=== PATIENT | male | born 1945 | race Caucasian/White ===

== ENCOUNTER → 2016-11-07 | Outpatient (CLI) | payer MEDICARE, BC ==
--- NOTE | 2016-11-07 15:43 | XR ---
EXAM TYPE: LUMBAR SPINE X RAY SERIES COMPARISON: NONE HISTORY: Back pain FINDINGS: Scoliotic curvature diffuse osteopenia noted and there is multilevel degenerative disc disease. Sever e changes at L1-L2. Spina bifida occulta lumbosacral junction. Right-sided central sacroiliitis or ar thritic changes noted. Calcification right upper quadrant is nonspecific. Grade 1 anterolisthesis L4 on L5. Multilevel facet arthropathy. Grade 1 retrolisthesis of L1 relative to L2. IMPRESSION: 1. Diffuse osteopenia with scoliotic curvature and multilevel degenerative disc disease with facet ar thropathy. Grade 1 anterolisthesis L4 on L5.
== END | disposition home or self-care (01) ==
LOC: RADXRMAIN 15:17
PROVIDERS: ATTEND Family Medicine
DX: M43.16 Spondylolisthesis, lumbar region (principal); M51.36 Other intervertebral disc degeneration, lumbar region; M46.96 Unspecified inflammatory spondylopathy, lumbar region; M85.88 Other specified disorders of bone density and structure, other site; M41.86 Other forms of scoliosis, lumbar region
CPT/HCPCS: 72100

== ENCOUNTER → 2016-12-31 | Outpatient (CLI) | payer MEDICARE, BC ==
--- NOTE | 2016-12-31 15:28 | XR ---
EXAMINATION TYPE: XR bone survey complete DATE OF EXAM: 12/31/2016 2:48 PM COMPARISON: NONE HISTORY: Annual Braum survey, history of myeloma x14 years TECHNIQUE: Multiple images were obtained with axial and appendicular skeleton discussed below. FINDINGS: AP pelvis: Sacroiliac joints are normal. There is attempted sacralization of L5 on the right. Some ly tic area through the subcapital region of the left hip may be present. There is advanced degenerative changes left hip. Bilateral femurs: No suspicious lytic or sclerotic area is evident. Lumbar spine: There 5 lumbar-type vertebral bodies. Pedicles are intact. Scoliosis is present. Spina bifida occulta of L5 may be present. There is attempted sacralization of L5 on the right. Vacuum disc phenomenon is present L1-L2 Thoracic spine: There are 12 thoracic type vertebral bodies. Pedicles are intact. Degenerative disc c hanges within the mid thoracic spine. Cervical spine: Alignment is normal. In AP dimension. There is some kyphosis centered at C5 on the la teral view. Degenerative disc changes present C5-6 C6-7 Some degenerative disc changes within the low er cervical spine. Skull: No suspicious lytic or sclerotic lesions are evident. Sella appears unremarkable. Chest x-ray: There is an infiltrate at the right lower lobe. This appears improved from prior study w ere present previously. Humeri: No suspicious lytic or sclerotic areas evident. IMPRESSION: 1. Some subtle lytic area may be present at the left subcapital hip. This is somewhat difficult to v isualize but may been present previously. This could be some overlying artifact. Dedicated imaging of the left hip may be useful for better evaluation. 2. Persistent right lower lobe patchy area of pneumonitis. 3. Remainder of the axial and appendicular skeleton as visualized appear without evidence of suspicio us lytic lesions.
== END | disposition home or self-care (01) ==
LOC: RADXRMAIN 13:53
PROVIDERS: ATTEND Internal Medicine Hematology & Oncology
DX: C90.00 Multiple myeloma not having achieved remission (principal); J61 Pneumoconiosis due to asbestos and other mineral fibers; E78.5 Hyperlipidemia, unspecified
CPT/HCPCS: 77075

== ENCOUNTER → 2017-12-31 | Outpatient (CLI) | payer MEDICARE, BC ==
--- NOTE | 2017-12-31 11:16 | MR ---
EXAMINATION TYPE: MR lumbar spine wo/w con DATE OF EXAM: 12/31/2017 COMPARISON: Lumbar spine x-ray September 27, 2017 and PET/CT August 13, 2014 HISTORY: Low back pain, hx of multiple myeloma per order. Back pain for 5 months into left leg per pa tient. TECHNIQUE: Multiplanar, multisequence images of the lumbar spine is performed without and with IV contrast, util izing 7.5 mL intravenous Gadavist FINDINGS: There is dextroconvex scoliotic curvature centered in the upper lumbar spine are redemonstr ated. Sagittal images of the lumbar spine show vertebral body heights to appear satisfactory. There i s slight grade 1 retrolisthesis of L1 on L2. There is multilevel disc desiccation and fairly mild to moderate multilevel disc space narrowing. There is advanced disc space narrowing L1-L2 level with mod erate anterior spurring and posterior disc herniation effacing anterior thecal sac. Additional multil evel posterior disc herniations are seen on sagittal images with relative sparing of L2-L3 level. The conus medullaris is somewhat high in position ending at superior T12 level. No abnormal signal is pr esent. No suspicious clumping of lumbosacral nerve roots is seen. The bone marrow signal intensity s hows overall heterogeneity. No suspicious focal or enhancing lesions are identified. Axial images beginning at T12-L1 level which shows mild broad based posterior disc protrusion mildly effacing anterior thecal sac on axial image 32, bilateral neural foramina are patent. Axial images at the L1-L2 level show moderate broad disc bulge and mild facet arthropathy with some p osterior spurring. There is some effacement of the anterior thecal sac. There is more prominent left foraminal component causing moderate left-sided neural foraminal narrowing. Right-sided neural forame n is patent. Axial images at the L2-L3 level show mild facet degenerative changes and ligamentum flavum hypertroph y. There is mild to moderate broad disc bulge effacing anterior thecal sac. There is moderate left an d mild right-sided neural foraminal narrowing at this level identified. Axial images at L3-L4 level shows moderate broad disc bulge and mild facet degenerative changes bilat erally. There is effacement of the anterior thecal sac. There is moderate to severe right and mild le ft-sided neural foraminal narrowing at this level identified. Axial images at L4-L5 level show mild to moderate facet degenerative changes bilaterally. There is br oad-based posterior disc protrusion mildly effacing anterior thecal sac. There is mild to moderate ri ght and mild left-sided neural foraminal narrowing at this level identified. Axial images at L5-S1 level show moderate facet degenerative changes bilaterally. There is central di sc protrusion mildly effacing anterior thecal sac. Bilateral neural foramina are patent at this level . There is heterogeneous increased T1 and T2 signal in visualized sacrum felt to reflect fatty replacem ent. There is 1.6 cm simple appearing cyst upper pole level right kidney axial image 34. There are ad ditional simple central parapelvic cysts in the right kidney. There is 2.4 cm simple appearing cyst p osteriorly left kidney axial image 26. IMPRESSION: Scoliotic curvature and multilevel degenerative changes in lumbar spine as detailed above . No significant focal finding is seen to account for patient's left-sided radiculopathy type symptom s however.
== END | disposition home or self-care (01) ==
LOC: RADMRIMAIN 07:07
PROVIDERS: ATTEND Internal Medicine Hematology & Oncology
DX: M48.061 Spinal stenosis, lumbar region without neurogenic claudication (principal); M99.73 Connective tissue and disc stenosis of intervertebral foramina of lumbar region; M51.27 Other intervertebral disc displacement, lumbosacral region; M43.07 Spondylolysis, lumbosacral region; M46.86 Other specified inflammatory spondylopathies, lumbar region; M41.86 Other forms of scoliosis, lumbar region; C90.00 Multiple myeloma not having achieved remission
CPT/HCPCS: 82565; 72158; 36415; A9581

== ENCOUNTER 2018-03-25 05:35 | Day surgery (SDC) | payer MEDICARE, BC ==
[2018-03-24 08:32] VITALS: BMI 25.0
[~2018-03-25 05:35] MED LIST: LACTATED RINGERS 1,000 ML IV SCH; Pre Op ABX Message 1 EACH MISC MISCELLANE ONE
[2018-03-25 06:18] VITALS: TEMP 98.9
[2018-03-25] MEDS ORDERED: PROPOFOL 10 MG/ML 20 ML VIAL IV ONE (06:58)
[2018-03-25 07:37] VITALS: RESP 18
[2018-03-25 07:59] VITALS: BP 144/80; PULSE 68
[2018-03-25 08:13] LABS: Basophils % (A) 1 %; Eosinophils # (A) 0.4 k/uL (0-0.7); Eosinophils % (A) 5 %; HCT 47.5 % (39.0-53.0); HGB 15.9 gm/dL (13.0-17.5); Lymphocytes # (A) 1.4 k/uL (1.0-4.8); Lymphocytes % (A) 20 %; MCHC 33.4 g/dL (31.0-37.0); MCV 95.7 fL (80.0-100.0); Mean Platelet Volume 6.8; Monocytes # (A) 0.6 k/uL (0-1.0); Monocytes % (A) 8 %; Neutrophils # (A) 4.3 k/uL (1.3-7.7); Neutrophils % (A) 64 %; Platelet Count 308 k/uL (150-450); RBC 4.96 m/uL (4.30-5.90); RDW 13.3 % (11.5-15.5); WBC 6.8 k/uL (3.8-10.6)
--- NOTE | 2018-03-25 08:13 | PCN ---
PROCEDURE NOTE DATE OF SERVICE: 03/25/2018 PREOPERATIVE DIAGNOSIS: POSTOPERATIVE DISEASE: Biopsy site right iliac crest. ANESTHESIA: Local with IV systemic sedation. DETAIL: Utilizing a sterile technique, the skin overlying the right iliac crest was prepared with Betadine and alcohol. After adequate sterile draping, systemic sedation and local anesthesia with 1% lidocaine, size 11.4 inch Jamshidi needle was utilized to access the periosteum with ease. A total of 16 mL of aspirate as well as 1 cm bone core biopsies were obtained. The patient tolerated the procedure well. There was no immediate procedure-related complications. TOTAL BLOOD LOSS: Less than 1 mL. RESULTS: Pending. MMODL / IJN: [id number] /
== END 2018-03-25 08:10 | disposition home or self-care (01) ==
LOC: OR 05:35
PROVIDERS: ATTEND Internal Medicine Hematology & Oncology
DX: C90.00 Multiple myeloma not having achieved remission (principal); M54.5 Low back pain; G89.29 Other chronic pain; J61 Pneumoconiosis due to asbestos and other mineral fibers; E78.5 Hyperlipidemia, unspecified; M25.60 Stiffness of unspecified joint, not elsewhere classified; F41.9 Anxiety disorder, unspecified; Z79.899 Other long term (current) drug therapy; Z79.1 Long term (current) use of non-steroidal anti-inflammatories (NSAID); Z88.8 Allergy status to other drugs, medicaments and biological substances; Z87.891 Personal history of nicotine dependence
CPT/HCPCS: 38222; 85025; J2704

== ENCOUNTER → 2018-03-28 | Outpatient (CLI) | payer MEDICARE, BC ==
--- NOTE | 2018-03-29 08:46 | PE ---
EXAMINATION TYPE: PET CT fusion skull to thigh DATE OF EXAM: 03/28/2018 COMPARISON: Prior PET/CT August 13, 2014. Bone survey March 02, 2017. HISTORY: Multiple myeloma with bone marrow biopsy March 25, 2018 right hip TECHNIQUE: Following the intravenous administration of 10.18 mCi of F-18 FDG, whole body images are performed from the top of the skull to the bottom of the feet. Images are reviewed on the computer i n the coronal, axial, and sagittal planes. Reconstructed rotating images are created on independent workstation and reviewed on the computer. A noncontrast CT is performed in conjunction with the PET scan. SCAN: Subsequent Scan FINDINGS: HEAD AND NECK: No suspicious hypermetabolic uptake is present CHEST, MEDIASTINUM, AND HILAR REGION: There is pleural calcification superior posterior right lower l obe with calcified triangular shaped mass. No suspicious hypermetabolic uptake is present at this lev el. There is 1.0 x 0.9 cm posterior right basilar nodule without abnormal hypermetabolic uptake on ax ial image 158. Both findings not significantly changed from prior PET/CT. ABDOMEN AND PELVIS: Normal excretion and collecting systems and bladder is present. No suspicious hyp ermetabolic uptake is seen. OSSEOUS STRUCTURES: No suspicious hypermetabolic uptake. EXTREMITIES: There is increase uptake involving right anterior leg muscle could reflect inflammatory change just lateral to the proximal to mid tibia. Correlate clinically. No suspicious mass or osseous hypermetabolic uptake is seen. OTHER CT: Mild calcified plaque bilateral carotid bulb level is present. There is three-vessel coronary artery calcification is seen which is noted marker for coronary artery disease. There is mild/moderate calcified plaque in aorta extending into branch vessels. Some ectasia is prese nt. No greater than 3 cm aneurysmal change is seen. Some scattered pelvic phleboliths are present. There is marked disc space narrowing with sclerosis at the L1-L2 disc space. There is multilevel spur ring in the spine. There is facet arthropathy mid to lower lumbar levels. IMPRESSION: No suspicious hypermetabolic uptake identified to suggest active osseous myeloma or soft tissue plasmacytoma.
== END | disposition home or self-care (01) ==
LOC: RADPETMAIN 15:26
PROVIDERS: ATTEND Internal Medicine Hematology & Oncology
DX: C90.00 Multiple myeloma not having achieved remission (principal)
CPT/HCPCS: 78815; A9552

== ENCOUNTER → 2018-06-19 | Outpatient (CLI) | payer MEDICARE, BC ==
[2018-06-19 11:25] LABS: HCT 48.7 % (39.0-53.0); HGB 14.8 gm/dL (13.0-17.5); MCH 30.2 pg (25.0-35.0); MCHC 30.4 g/dL (31.0-37.0); MCV 99.3 fL (80.0-100.0); Mean Platelet Volume 6.4; Platelet Count 291 k/uL (150-450); RBC 4.91 m/uL (4.30-5.90); RDW 13.1 % (11.5-15.5); WBC 5.8 k/uL (3.8-10.6)
[2018-06-19 12:05] LABS: Partial Thromboplastin Time 23.3 sec (22.0-30.0); Prothrombin Time 10.2 sec (9.0-12.0)
[2018-06-19 12:11] LABS: ALT 46 U/L (21-72); AST 34 U/L (17-59); Albumin 4.2 g/dL (3.5-5.0); Alkaline Phosphatase 86 U/L (38-126); Anion Gap 10 mmol/L; Blood Urea Nitrogen 29 mg/dL (9-20); Calcium 9.2 mg/dL (8.4-10.2); Carbon Dioxide 24 mmol/L (22-30); Chloride 105 mmol/L (98-107); Glucose 85 mg/dL (74-99); Potassium 5.3 mmol/L (3.5-5.1); Sodium 139 mmol/L (137-145); Total Bilirubin 0.5 mg/dL (0.2-1.3); Total Protein 6.9 g/dL (6.3-8.2)
[2018-06-19 12:17] LABS: Appearance,Urine Clear (Clear); Bilirubin,Urine Negative (Negative); Blood,Urine Negative (Negative); Color,Urine Yellow; Glucose,Urine (UA) Negative (Negative); Ketones,Urine Negative (Negative); Leukocyte Esterase,Urine Negative (Negative); Mucus,Urine Few /hpf; Nitrite,Urine Negative (Negative); PH, Urine 5.5 (5.0-8.0); Protein,Urine 1+ (Negative); RBC,Urine 1 /hpf (0-5); Specific Gravity,Urine 1.027 (1.001-1.035); Squamous Epithelial Cell,Urine <1 /hpf (0-4); Urobilinogen,Urine <2.0 mg/dL (<2.0); WBC,Urine 2 /hpf (0-5)
== END | disposition home or self-care (01) ==
LOC: LABPAT 10:28
PROVIDERS: ATTEND Orthopaedic Surgery
DX: Z01.812 Encounter for preprocedural laboratory examination (principal)
CPT/HCPCS: 36415; 80053; 81001; 85027; 85610; 85730; 87070

== ENCOUNTER 2018-06-30 07:31 | Inpatient (IN) | payer MEDICARE, BC ==
[2018-06-22 10:20] VITALS: BMI 25.0
[~2018-06-30 07:31] MED LIST changes: +ACETAMINOPHEN TAB 500 MG TAB PO ONE; +DEXAMETHASONE SOD PHOSPHATE 10 MG/ML 1 ML VIAL IV ONE; -LACTATED RINGERS 1,000 ML IV SCH; +LIDOCAINE 1% 20 ML VIAL (10MG/ML) FOR IV START INTRADERMA PRN; +MELOXICAM 7.5 MG TAB PO ONE; +MIDAZOLAM 2 MG/2 ML VIAL IV PRN; +ONDANSETRON 4 MG/2 ML VIAL IVP ONE; -Pre Op ABX Message 1 EACH MISC MISCELLANE ONE; +ROPIVACAINE 246.25 MG, EPINEPHrine 0.5 MG, KETOROLAC 30 MG, cloNIDine HCL/PF 80 MCG, WA... MISCELLANE ONE; +TRANEXAMIC ACID 1,000 MG in SODIUM CHLORIDE 0.9% 50 ML IVPB ONE; +ceFAZolin IN SWFI 2 GM/20 ML SYRINGE IVP ONE; +fentaNYL (PF) 50 MCG/ML 2 ML AMP IV PRN
[2018-06-30] MEDS: LACTATED RINGERS 1,000 ML IV SCH (08:15)
[2018-06-30] MEDS ORDERED: MAGNESIUM HYDROXIDE 2,400 MG/10 ML CUP PO PRN (09:26)
[2018-06-30] MEDS ORDERED: DIAZEPAM 5 MG TAB PO PRN ×2 (09:26)
[2018-06-30] MEDS ORDERED: HYDROcodone/APAP 5-325MG 1 EACH TAB PO PRN (09:26)
[2018-06-30] MEDS ORDERED: hydrOXYzine PAMOATE 25 MG CAP PO PRN (09:26)
[2018-06-30] MEDS ORDERED: NALOXONE 0.4 MG/ML 1 ML VIAL IV PRN (09:26)
[2018-06-30] MEDS ORDERED: ONDANSETRON 4 MG/2 ML VIAL IVP PRN (09:26)
[2018-06-30] MEDS ORDERED: HYDROmorphone 1 MG/ML 1 ML SYRINGE IVP PRN ×3 (09:26)
[2018-06-30] MEDS ORDERED: HEPARIN SODIUM,PORCINE 10,000 UNIT/ML 1 ML VIAL ONE (09:51)
[2018-06-30] MEDS ORDERED: SODIUM CHLORIDE 0.9% 100 ML BAG ONE (09:51)
[2018-06-30] MEDS ORDERED: MIDAZOLAM 2 MG/2 ML VIAL ONE (09:51)
[2018-06-30] MEDS ORDERED: diphenhydrAMINE 50 MG/ML 1 ML VIAL ONE (09:51)
[2018-06-30] MEDS ORDERED: fentaNYL (PF) 50 MCG/ML 2 ML AMP ONE (09:51)
[2018-06-30] MEDS ORDERED: TRANEXAMIC ACID 1,000 MG/10 ML VIAL ONE (09:51)
[2018-06-30] MEDS ORDERED: SODIUM CHLORIDE 0.9% IRRIG 1,000 ML BTL IRRIGATION ONE (09:51)
[2018-06-30] MEDS ORDERED: ceFAZolin 3,000 MG in SODIUM CHLORIDE 0.9% IRRIGATIO 3,000 ML IRRIGATION ONE (09:51)
--- NOTE | 2018-06-30 11:09 | P.OP ---
Date of Procedure: 06/30/18 Preoperative Diagnosis: Severe osteoarthritis left hip Postoperative Diagnosis: Severe osteoarthritis left hip Procedure(s) Performed: Left total hip arthroplasty with a direct anterior approach Implants: Chan and nephew Polarstem size 6 standard Chan & Nephew R3, 3 hole acetabular shell, 56 mm Chan [employer] Nephew reflection 6.5 mm cancellus screw, 20 mm 2 Chan [employer] Nephew R3, XLPE 20 acetabular liner Chan & Nephew Oxinium femoral head 36 m, +4 All components were press-fit. The articulation is Oxinium on polyethylene. Anesthesia: spinal Surgeon: Leonard Buckley Information Technology Specialist #1: Melina Rashid Estimated Blood Loss (ml): 150 (63 mL returned with Cell Saver) Pathology: other (Femoral head) Condition: stable Disposition: PACU Indications for Procedure: After failure of conservative treatment we discussed the surgical and nonsurgical treatment options at length. Patient wishes to proceed with a total hip arthroplasty with a direct anterior approach. Complications specific to this procedure were discussed at length, including but not limited to infection, leg length discrepancy, dislocation, and nerve injury. Patient is aware of all these complications and informed consent was obtained Operative Findings: The operative findings are consistent with severe osteoarthritis of the left hip Description of Procedure: Patient was seen and evaluated in the preoperative area, consent was reviewed, and the surgical site was marked with a skin marker. Patient was then brought to the operating room and given prophylactic antibiotics intravenously. 1 g of Tranexamic acid was also given. A spinal anesthetic was administered by the anesthesia department. The patient was then placed on the [place] table with the bony prominences well-padded. The hip area was then prepped and draped in usual sterile fashion. A universal timeout was then performed, which confirmed the patient's name, surgical site, ALLERGIES, and procedure being performed. Next the incision site was located at 1 cm distal and 1 cm lateral to the anterior superior iliac spine. The skin and subcutaneous tissues were sharply incised. Incision was carefully dissected down to the fascia overlying the tensor fascia zahra muscle. This fascia was then incised in line with the incision. Next, using blunt finger dissection, the tensor fascia zahra muscle was dissected off its investing fascia. The muscle was then carefully retracted laterally with a cobra retractor over the lateral neck of the femur. Next, the circumflex vessels were identified and cauterized using the AquaMantis device. The anterior hip capsule was then exposed. The capsule was then opened and an inverted T fashion. Cobra retractors were then placed intracapsularly. The proximal femur was then visualized. The femoral neck was then osteotomized appropriate level above the lesser trochanter. Small amount of traction was placed with the [place] table. A small wedge of bone was then removed from the remaining femoral head. Next, using a corkscrew femoral head was easily removed from the acetabulum. On gross visual inspection, the femoral head had complete loss of articular cartilage in multiple periarticular osteophytes. Attention was then turned to the acetabulum. the acetabulum was exposed and any remaining labrum was excised. Sequential reaming of the acetabulum was performed using fluoroscopic guidance. When the appropriate size was reached, a trial was then placed. The position and fit of the trial was checked with fluoroscopy. The trial was then removed. Then, using fluoroscopic guidance, the final implant was impacted at 20 of anteversion and 40 of abduction, and fully seated in the acetabulum. 2 screws were then placed in the acetabulum. Again fluoroscopy was used to check position of the screws. Next, the liner was then impacted, with a 20 elevated liner located in the anterior superior quadrant. Component locking was confirmed. Attention was then directed to the femur. With the aid of the [place] table, the femur was externally rotated to approximately 130, extended, and abducted under the opposite leg. A side hook was then placed under the proximal femur, and the side hook elevator was used to elevate the proximal femur. Retractors were then placed. A capsular release was performed, as well as a release of the conjoined tendon, which afforded excellent visualization of the proximal femur. Next, a box osteotome was used to lateralize the proximal femur. A hand crocheter was then used to locate the femoral canal. Sequential broaching was then performed with appropriate size which afforded excellent fixation in the proximal femur. A trial was then placed with appropriate head and neck, and the hip was gently reduced with the aid of the [place] table. Fluoroscopy was then used to check position of the components, as well as to ensure equal leg lengths. The hip was then gently dislocated and the trials were then removed. Final implants were then impacted and the hip was again reduced. Final fluoroscopic x-rays confirmed that the components were in anatomic position, as well as equal leg lengths. The hip was also taken through range of motion, and found to be stable. The hip was then copiously irrigated with antibiotic solution with pulsatile lavage. The hip was then irrigated with Irrisept solution. The soft tissues were then injected with a ropivacaine solution, which consisted of 246.25 mg of ropivacaine, 0.5 mg of epinephrine, 30 mg of Toradol, 80 g of clonidine, and 48.45 mL of sterile water, for a total of 100 mL of fluid injected. A second dose of 1 g of Tranexamic acid was also given. the fascia was then closed with 2-0 strata fix suture. The subcutaneous tissue was closed with 3-0 Vicryl. The subcuticular tissue was closed with 3-0 strata fix suture. The skin was then closed with Dermabond glue and a sterile silver dressing. The patient was then transferred to the recovery room in stable condition. The medical laboratory assistant RIO [place] was required due to the complexity of surgery, and the need for skilled administrative sales assistant for positioning, draping, exposure, retraction, and closure of the wound.
[2018-06-30] MEDS ORDERED: LACTATED RINGERS 1,000 ML IV ONE (11:18)
--- NOTE | 2018-06-30 11:46 | FL ---
EXAMINATION TYPE: FL guidance operating room DATE OF EXAM: 06/30/2018 HISTORY: Flouroscopy time 1 minute and 4 seconds of fluoroscopy provided. IMPRESSION: 1. Fluoroscopy time.
--- NOTE | 2018-06-30 11:53 | XR ---
Left hip x-ray 1 view Exam date 06/30/2018 FINDINGS: Postsurgical change appears in near-anatomic alignment. Small amount soft tissue emphysema noted. IMPRESSION: Postoperative change
[2018-06-30] MEDS: SODIUM CHLORIDE 0.9% 1,000 ML IV SCH ×2 (16:18→20:32)
[2018-06-30] MEDS: ceFAZolin IN SWFI 2 GM/20 ML SYRINGE IVP SCH ×2 (16:47→23:55)
[2018-06-30] MEDS: GABAPENTIN 300 MG CAP PO SCH (20:23)
[2018-06-30] MEDS: ASPIRIN 325 MG TAB PO SCH (20:26)
[2018-06-30] MEDS: CHOLESTYRAMINE (WITH SUGAR) 4 GM PACKET PO SCH (20:27)
[2018-06-30] MEDS ORDERED: SENNOSIDES-DOCUSATE SODIUM 1 EACH TAB PO SCH (21:00)
[2018-07-01 01:07] VITALS: RESP 16
[2018-07-01] MEDS: HYDROcodone/APAP 5-325MG 1 EACH TAB PO PRN ×2 (03:22→09:14)
[2018-07-01] MEDS: LACTATED RINGERS 1,000 ML IV SCH (05:05)
[2018-07-01 07:08] LABS: Basophils % (A) 0 %; Eosinophils % (A) 0 %; HCT 38.1 % (39.0-53.0); HGB 12.3 gm/dL (13.0-17.5); Lymphocytes # (A) 1.4 k/uL (1.0-4.8); Lymphocytes % (A) 15 %; MCH 31.4 pg (25.0-35.0); MCHC 32.2 g/dL (31.0-37.0); MCV 97.5 fL (80.0-100.0); Mean Platelet Volume 6.8; Monocytes # (A) 0.7 k/uL (0-1.0); Monocytes % (A) 8 %; Neutrophils # (A) 7.4 k/uL (1.3-7.7); Neutrophils % (A) 75 %; Platelet Count 268 k/uL (150-450); RBC 3.91 m/uL (4.30-5.90); WBC 9.7 k/uL (3.8-10.6)
[2018-07-01 07:34] VITALS: BP 122/66; PULSE 73; TEMP 98.4
[2018-07-01] MEDS: ASPIRIN 325 MG TAB PO SCH (08:00)
[2018-07-01] MEDS: CHOLESTYRAMINE (WITH SUGAR) 4 GM PACKET PO SCH (08:00)
[2018-07-01] MEDS: GABAPENTIN 300 MG CAP PO SCH (08:00)
--- NOTE | 2018-07-01 08:34 | P.DS ---
Providers Date of admission: 06/30/18 07:31 Expected date of discharge: 07/01/18 Attending physician: Leonard Buckley Consults: 06/30/18 09:26 Consult Physician Routine Consulting Provider: Brant Cherry Reason/Comments: medical management Do you want consulting provider notified?: Yes Primary care physician: Brant Cherry - Discharge Diagnosis(es) (1) Primary osteoarthritis of left hip Current Visit: Yes Status: Acute (2) S/P total hip arthroplasty Current Visit: Yes Status: Acute Hospital Course: This is a 72-year-old male with known history of degenerative arthritis of the left hip. The patient presents for evaluation. After discussion and consideration patient elects to proceed with total hip arthroplasty. The patient is seen preoperatively by Dr. Buckley and medically cleared for surgery by their primary care physician. Patient is admitted to [facility] on 06/30/2018 for total hip arthroplasty. The procedures performed without complication or sequelae. The patient is doing well postoperatively. Labs and vital signs are stable on day of discharge. On day of discharge patient's hip incision is healing well. There is minimal erythema. There is no drainage noted at this time. There is minimal soft tissue swelling to the hip and thigh. Patient has full foot and ankle motion without difficulty or pain. Neurovascular status to the left lower extremity is intact. Patient is discharged home in good condition. Please see med rec for accurate list of home medications. Plan - Discharge Summary Discharge Rx Participant: No New Discharge Prescriptions: New Aspirin 325 mg PO BID #60 tab HYDROcodone/APAP 5-325MG [[place] 5-325] 1 - 2 tab PO Q4-6H PRN #84 tab PRN Reason: Pain Sennosides [Senokot] 1 tab PO BID #60 tablet No Action Gabapentin [Neurontin] 300 mg PO BID Ibuprofen [Motrin] 800 mg PO BID Ezetimibe [Zetia] 10 mg PO DAILY Citalopram Hydrobromide [Citalopram HBr] 20 mg PO DAILY Cholestyramine (with Sugar) [Cholestyramine Packet] 4 gm PO BID Discharge Medication List Citalopram Hydrobromide [Citalopram HBr] 20 mg PO DAILY 03/24/18 [History] Ezetimibe [Zetia] 10 mg PO DAILY 03/24/18 [History] Gabapentin [Neurontin] 300 mg PO BID 03/24/18 [History] Ibuprofen [Motrin] 800 mg PO BID 03/24/18 [History] Cholestyramine (with Sugar) [Cholestyramine Packet] 4 gm PO BID 06/22/18 [ History] Aspirin 325 mg PO BID #60 tab 07/01/18 [Rx] HYDROcodone/APAP 5-325MG [[place] 5-325] 1 - 2 tab PO Q4-6H PRN #84 tab 07/01/18 [ Rx] Sennosides [Senokot] 1 tab PO BID #60 tablet 07/01/18 [Rx] Follow up Appointment(s)/Referral(s): Leonard Buckley DO [Doctor of Osteopathic Medicine] - 2 Weeks Activity/Diet/Wound Care/Special Instructions: Weightbearing as tolerated with walker Leave dressing intact. Dressing may be removed by home care nurse in 10 days. May shower with dressing on. Follow-up with [facility] in 2 weeks, please call with any questions or concerns [phone] Discharge Disposition: HOME WITH HOME HEALTH SERVICES
[2018-07-01] MEDS ORDERED: EZETIMIBE 10 MG TAB PO SCH (09:00)
[2018-07-01] MEDS ORDERED: CITALOPRAM HYDROBROMIDE 20 MG TAB PO SCH (09:00)
[2018-07-01] MEDS ORDERED: MELOXICAM 7.5 MG TAB PO SCH (09:00)
== END 2018-07-01 12:29 | disposition home health service (06) | DRG 470 ==
LOC: 2ORMAIN 07:31 → 3SUR 15:53
PROVIDERS: ADMIT Orthopaedic Surgery; ATTEND Orthopaedic Surgery
PROC: 30233N0 Transfusion of Autologous Red Blood Cells into Peripheral Vein, Percutaneous Approach (ICD-10-PCS; 2018-06-30)
PROC: 0SRB06A Replacement of Left Hip Joint with Oxidized Zirconium on Polyethylene Synthetic Substitute, Uncemented, Open Approach (ICD-10-PCS; principal; 2018-06-30 09:20)
DX: M16.12 Unilateral primary osteoarthritis, left hip (principal); E78.00 Pure hypercholesterolemia, unspecified; E78.5 Hyperlipidemia, unspecified; N40.0 Benign prostatic hyperplasia without lower urinary tract symptoms; F41.9 Anxiety disorder, unspecified; H91.90 Unspecified hearing loss, unspecified ear; K21.9 Gastro-esophageal reflux disease without esophagitis; Z79.899 Other long term (current) drug therapy; Z87.891 Personal history of nicotine dependence; Z85.79 Personal history of other malignant neoplasms of lymphoid, hematopoietic and related tissues; Z77.090 Contact with and (suspected) exposure to asbestos
CPT/HCPCS: 73501; 84132; 85025; 86850; 86891; 86900; 86901; 88305; 88311; 88342

== ENCOUNTER → 2018-09-01 | Outpatient (CLI) | payer MEDICARE, BC ==
--- NOTE | 2018-09-02 07:12 | US ---
EXAMINATION TYPE: US carotid duplex BILAT DATE OF EXAM: 09/01/2018 COMPARISON: NONE CLINICAL HISTORY: H11.119 Conjunctival deposits, unspecified. cholesterol deposit right eye. no hx o f tia. No HTN. EXAM MEASUREMENTS: RIGHT: Peak Systolic Velocity (PSV) cm/sec ----- Right CCA: 84.2 ----- Right ICA: 82.3 ----- Right ECA: 130.2 ICA/CCA ratio: 1.0 RIGHT: End Diastole cm/sec ----- Right CCA: 23.7 ----- Right ICA: 27.4 ----- Right ECA: 15.5 LEFT: Peak Systolic Velocity (PSV) cm/sec ----- Left CCA: 97.3 ----- Left ICA: 106.9 ----- Left ECA: 47.4 ICA/CCA ratio: 1.1 LEFT: End Diastole cm/sec ----- Left CCA: 25.9 ----- Left ICA: 47.4 ----- Left ECA: 13.8 VERTEBRALS (direction of flow): Right Vertebral: Antegrade Left Vertebral: Antegrade Rhythm: Normal Plaque seen in bilateral bulbs. No significant stenosis. Elevated right ECA. BIlateral wall thicke leslie. IMPRESSION: Plaque seen in bilateral bulbs. No significant stenosis. Elevated right ECA. BIlateral wall thickening. Criteria for Assigning % of Stenosis / Diameter reduction (Estimation based on the indirect measurements of the internal carotid artery velocities (ICA PSV). 1. Normal (no stenosis)=ICA PSV < 125 cm/s: ratio < 2.0: ICA EDV<40 cm/s. 2. Less than 50% stenosis=ICA PSV < 125 cm/s: ratio < 2.0: ICA EDV<40 cm/s. 3. 50 to 69% stenosis=ICA PSV of 125 to 230 cm/s: ration 2.0 ? 4.0: ICA EDV 40-100 cm/s. 4. Greater than 70% stenosis to near occlusion= ICA PSV > 230 cm/s: ratio > 4.0: ICA EDV > 100 cm/s. 5. Near occlusion= ICA PSV velocities may be low or undetectable: variable ratio and ICA EDV. 6. Total occlusion=unable to detect flow.
== END | disposition home or self-care (01) ==
LOC: RADUSWWP 16:37
PROVIDERS: ATTEND Internal Medicine Geriatric Medicine
DX: I65.23 Occlusion and stenosis of bilateral carotid arteries (principal); E78.5 Hyperlipidemia, unspecified; H11.1 Conjunctival degenerations and deposits
CPT/HCPCS: 93880

== ENCOUNTER → 2019-06-04 | Outpatient (CLI) | payer MEDICARE, BC ==
--- NOTE | 2019-06-05 10:57 | PE ---
EXAMINATION TYPE: PET CT fusion skull to thigh DATE OF EXAM: 06/04/2019 COMPARISON: No recent CT examinations. Prior PET/CT: 03/28/2018 HISTORY: Multiple myeloma C 90.00 TECHNIQUE: Following the intravenous administration of 11.66 mCi of F-18 FDG, whole body images are performed from the skull base to the midthigh. Images are reviewed on the computer in the coronal, a xial, and sagittal planes. Reconstructed rotating images are created on independent workstation and reviewed on the computer. A localization and attenuation correction CT is performed in conjunction with the PET scan. DLP: 741.11 mGycm SCAN: Subsequent follow-up Blood glucose: 93 mg/dL Average Mediastinum SUV: 1.36 Average Liver SUV: 1.49 FINDINGS: HEAD: No abnormal uptake NECK: No abnormal uptake THORAX: No abnormal uptake. There is consolidation within the posterior right midlung measuring SUV value 1.09. Some pleural calcification may be present. There is a small nodule within the posterior r ight lung base measuring 1.05 SUV value, PET image 158. ABDOMEN: No abnormal uptake PELVIS: No abnormal uptake LOWER EXTREMITIES: No abnormal uptake OSSEOUS STRUCTURES: Within the mid diaphysis left femur there is a new area of increased metabolic ac tivity within the marrow. Correlation for multiple myeloma at this level is recommended. Lower extrem ity PET Images 75-109. New Tissue area of uptake along the medial distal femoral condylar region on t he right. This has an SUV value 1.8. Lower extremity. Image 156. There is some previously identified increased metabolic activity within the anterior tibial muscle of the right lower extremity. LOCALIZATION CT: Left hip prosthesis is present. This causes some beam hardening artifact in some doyle itation . COMPARISON: Uptake within the femoral diaphysis is new. Uptake within the medial soft tissues of the right femoral condyle on the level appear focal which may be some residual from diffuse uptake presen t previously. IMPRESSION: 1. New area of radiotracer uptake within the mid diaphysis left femur suspicious for recurrent multip le myeloma. 2. Soft tissue uptake within the medial right knee at the level of femoral condyle, soft tissue abnor mality at this level should be considered, this could include metastatic multiple myeloma disease.
== END | disposition home or self-care (01) ==
LOC: RADPETMAIN 13:23
PROVIDERS: ATTEND Internal Medicine Hematology & Oncology
DX: M79.89 Other specified soft tissue disorders (principal)
CPT/HCPCS: 78815; A9552

== ENCOUNTER 2019-07-27 05:52 | Day surgery (SDC) | payer MEDICARE, BC ==
[2019-07-23 11:43] VITALS: BMI 24.4
[~2019-07-27 05:52] MED LIST changes: -ACETAMINOPHEN TAB 500 MG TAB PO ONE; -DEXAMETHASONE SOD PHOSPHATE 10 MG/ML 1 ML VIAL IV ONE; +LACTATED RINGERS 1,000 ML IV SCH; -MELOXICAM 7.5 MG TAB PO ONE; -MIDAZOLAM 2 MG/2 ML VIAL IV PRN; -ONDANSETRON 4 MG/2 ML VIAL IVP ONE; -ROPIVACAINE 246.25 MG, EPINEPHrine 0.5 MG, KETOROLAC 30 MG, cloNIDine HCL/PF 80 MCG, WA... MISCELLANE ONE; -TRANEXAMIC ACID 1,000 MG in SODIUM CHLORIDE 0.9% 50 ML IVPB ONE; -ceFAZolin IN SWFI 2 GM/20 ML SYRINGE IVP ONE; -fentaNYL (PF) 50 MCG/ML 2 ML AMP IV PRN
[2019-07-27 06:15] VITALS: TEMP 98.1
[2019-07-27] MEDS ORDERED: PROPOFOL 10 MG/ML 20 ML VIAL IV ONE (07:03)
--- NOTE | 2019-07-27 07:37 | PCN ---
PROCEDURE NOTE PROCEDURE: Bone marrow aspirate and biopsy. INDICATION: Follow up on multiple myeloma. After obtaining consent from the patient, the procedure was performed in the endoscopy suite under general anesthesia performed by the Anesthesia Team. The patient was put in the left lateral decubitus position. The right posterior superior iliac crest was localized. Skin was prepped with ChloraPrep. All sterile procedures were followed with % Xylocaine was used for local anesthetic. Long shaft needle was inserted, 15 mL of aspirate and 2 cm core biopsy was obtained without any difficulties. Pressure applied afterwards. There was negligible blood loss. Patient tolerated the procedure very well without any immediate complications. MMODL / IJN: [id number] /
[2019-07-27 07:39] VITALS: RESP 12
[2019-07-27 07:56] VITALS: BP 120/68; PULSE 60
[2019-07-27 07:59] LABS: Basophils # (A) 0.2 k/uL (0-0.2); Basophils % (A) 3 %; Eosinophils # (A) 0.3 k/uL (0-0.7); Eosinophils % (A) 5 %; HCT 47.1 % (39.0-53.0); HGB 15.7 gm/dL (13.0-17.5); Lymphocytes # (A) 1.3 k/uL (1.0-4.8); Lymphocytes % (A) 23 %; MCH 31.6 pg (25.0-35.0); MCHC 33.4 g/dL (31.0-37.0); MCV 94.6 fL (80.0-100.0); Mean Platelet Volume 6.3; Monocytes # (A) 0.5 k/uL (0-1.0); Monocytes % (A) 8 %; Neutrophils # (A) 3.2 k/uL (1.3-7.7); Neutrophils % (A) 58 %; Platelet Count 311 k/uL (150-450); RBC 4.98 m/uL (4.30-5.90); RDW 13.1 % (11.5-15.5); Reticulocyte % 0.8 % (0.5-2.0); WBC 5.5 k/uL (3.8-10.6)
== END 2019-07-27 07:53 | disposition home or self-care (01) ==
LOC: OR 05:52
PROVIDERS: ATTEND Internal Medicine Hematology & Oncology
DX: C90.00 Multiple myeloma not having achieved remission (principal); E78.5 Hyperlipidemia, unspecified; Z96.642 Presence of left artificial hip joint; Z87.891 Personal history of nicotine dependence; G89.29 Other chronic pain; M54.5 Low back pain; J61 Pneumoconiosis due to asbestos and other mineral fibers; F32.9 Major depressive disorder, single episode, unspecified; Z88.8 Allergy status to other drugs, medicaments and biological substances; Z79.899 Other long term (current) drug therapy
CPT/HCPCS: 38222; 85025; 85045; J2704

== ENCOUNTER → 2020-03-16 | Outpatient (CLI) | payer MEDICARE ==
--- NOTE | 2020-03-16 14:58 | XR ---
EXAMINATION TYPE: XR chest 2V DATE OF EXAM: 03/16/2020 COMPARISON: NONE HISTORY: Shortness of breath TECHNIQUE: Frontal and lateral views of the chest are obtained. FINDINGS: Scattered senescent parenchymal changes noted. Hyperinflation compatible with COPD. There is right lower lobe infiltrate identified. Correlate for pneumonia. Heart size is stable. Mediastinal structures are stable and grossly unremarkable. No evidence for hilar prominence. Degenerative changes dorsal spine. IMPRESSION: 1. There is right lower lobe infiltrate identified. Correlate for pneumonia.
== END | disposition home or self-care (01) ==
LOC: RADXRMAIN 14:32
PROVIDERS: ATTEND Internal Medicine Hematology & Oncology
DX: R91.8 Other nonspecific abnormal finding of lung field (principal); E78.5 Hyperlipidemia, unspecified; M54.5 Low back pain; C90.00 Multiple myeloma not having achieved remission
CPT/HCPCS: 71046

== ENCOUNTER 2020-04-17 14:31 | Observation (INO) | payer MEDICARE ==
[2020-04-17] MEDS ORDERED: ASPIRIN 81 MG PO STA (14:39)
[2020-04-17 15:03] LABS: Basophils % (A) 1 %; Eosinophils # (A) 0.2 k/uL (0-0.7); Eosinophils % (A) 3 %; HCT 36.9 % (39.0-53.0); HGB 12.3 gm/dL (13.0-17.5); Lymphocytes # (A) 1.5 k/uL (1.0-4.8); Lymphocytes % (A) 32 %; MCH 33.4 pg (25.0-35.0); MCHC 33.2 g/dL (31.0-37.0); MCV 100.6 fL (80.0-100.0); Macrocytosis Slight; Mean Platelet Volume 8.6; Monocytes # (A) 0.4 k/uL (0-1.0); Monocytes % (A) 8 %; Neutrophils # (A) 2.5 k/uL (1.3-7.7); Neutrophils % (A) 53 %; Platelet Count 129 k/uL (150-450); RBC 3.67 m/uL (4.30-5.90); RDW 14.9 % (11.5-15.5); WBC 4.8 k/uL (3.8-10.6)
--- NOTE | 2020-04-17 15:06 | XR ---
EXAMINATION TYPE: XR chest 2V DATE OF EXAM: 04/17/2020 COMPARISON: Chest x-ray March 16, 2020. CT chest June 22, 2015. PET/CT February 12, 2019. HISTORY: Chest pain. TECHNIQUE: Frontal and lateral views of the chest are obtained. FINDINGS: There is no new suspicious focal air space opacity, pleural effusion, or pneumothorax seen . Chronic opacity posterior right lung base corresponds to pleural-based heterogeneous mass or massl evonne consolidation with calcifications seen back through much older CTs not significantly changed. The cardiac silhouette size remains within normal limits with slightly ectatic descending thoracic aorta redemonstrated. The osseous structures are intact. IMPRESSION: Chronic changes without new acute infiltrate.
[2020-04-17 15:09] LABS: ALT 19 U/L (4-49); AST 23 U/L (17-59); African American GFR (CKD) >90 (>60 ml/min/1.73 sqM); Albumin 3.9 g/dL (3.5-5.0); Alkaline Phosphatase 42 U/L (38-126); Anion Gap 9 mmol/L; Blood Urea Nitrogen 25 mg/dL (9-20); Calcium 8.7 mg/dL (8.4-10.2); Carbon Dioxide 21 mmol/L (22-30); Chloride 103 mmol/L (98-107); Glucose 90 mg/dL (74-99); Magnesium 1.9 mg/dL (1.6-2.3); Non-African American GFR(CKD) >90 (>60 ml/min/1.73 sqM); Sodium 133 mmol/L (137-145); Total Bilirubin 0.7 mg/dL (0.2-1.3); Total Protein 6.2 g/dL (6.3-8.2)
[2020-04-17 15:17] LABS: Potassium 3.8 mmol/L (3.5-5.1)
[2020-04-17 15:24] LABS: Prothrombin Time 10.3 sec (9.0-12.0)
--- NOTE | 2020-04-17 15:27 | CT ---
EXAMINATION TYPE: CT brain emilianaine wo con DATE OF EXAM: 04/17/2020 COMPARISON: None HISTORY: Syncope. CT DLP: 1426.9 mGycm, Automated exposure control for dose reduction was used. CONTRAST: Patient injected with 0 mL of Isovue 300. CT of the brain is performed utilizing 3 mm thick sections through the posterior fossa and 3 mm thick sections through the remaining calvarium. Study is performed within 24 hours of arrival to the hospital. No abnormal hyperdensity is present to suggest an acute intracranial hemorrhage. No mass lesion is evident. No acute infarcts are evident. Ventricles and sulci are appropriate for the patient age. Paranasal sinuses and mastoid air cells within the [id number] are clear. IMPRESSIONS: 1. No acute intracranial process. CT cervical spine. COMPARISON: None CT of the cervical spine is performed in the axial plane at 2 mm thick sections. Reconstructed image s in the coronal, and sagittal plane are reviewed on the computer. No acute fractures are evident. Vertebral body alignment is normal. Disc heights are preserved. Vertebral body heights are preserved. No spinal canal stenosis is evident. Facet degenerative changes are present on the left at C2-3. Mild uncovertebral joint hypertrophy is p resent C3-4 with mild foraminal narrowing. There is narrowing of the disc height at C3-4. Disc space narrowing also noted C4-5. Disc space narrowing at C5-6 C6-7 is present. Some mild endplate spurring is present at C5-6. Uncovertebral joint hypertrophy is present C5-6 C6-7. IMPRESSIONS: 1. Degenerative disc changes and uncovertebral joint hypertrophy greatest at C5-6.
[2020-04-17 15:37] LABS: Partial Thromboplastin Time 20.5 sec (22.0-30.0)
--- NOTE | 2020-04-17 15:38 | ED ---
General Adult HPI <Sammy Gatica - Last Filed: 04/17/20 18:02> - General Source: patient Mode of arrival: wheelchair Limitations: no limitations <Rose Casanova - Last Filed: 04/17/20 18:27> - General Chief complaint: Dizziness Stated complaint: Chest Pain Time Seen by Provider: 04/17/20 14:38 - History of Present Illness Initial comments: 74 year male currently undergoing treatment for multiple myeloma presenting today for chief complaint of chest pressure. Patient states that she has had chest pressure since Friday he states that initially was on off and that it became constant on Friday and Friday. Patient states is persistent today he states it feels like to HER sitting on his chest. Patient denies experiencing this before. He states he also has some mild abdominal cramping denies any severe pain denies any radiation of the abdominal or chest pain to the back he states that at times he feels woozy slightly dizzy and lightheaded when he stands up he states that this usually occurs when he gets up Friday restaurant at night. He states that 3 AM this morning he got up from sitting down on the toilet(bad when he passed out the carpeting. patient states he does not believe he had head injury as he has no headache or signs of trauma but cannot recall the events of the syncopal episode. patient denies any headache he states he occasionally has some nausea. denies jaw pain or arm pain. patient states that he has had intermittent blurry vision for quite some time now, began after taking his new chemotherapy agent. Denies it currently. Patient denies vision loss, focalized weakness or sensation deficits. Patient states he believes a lot of the symptoms could be related to chemo. Patient denies chest pain with deep inspiration. He admits to occasional SOB, denies current. Uses 325mg aspirin daily and took this medications this morning. Patient denies history of DVT/PE. Patient denies arm or leg swelling/pain. Patient has no additional complaints. He appears well on arrival, no acute distress. (Rose Casanova) - Related Data Home Medications Medication Instructions Recorded Confirmed Citalopram Hydrobromide 20 mg PO DAILY 03/24/18 04/17/20 [Citalopram HBr] Ezetimibe [Zetia] 10 mg PO DAILY 03/24/18 04/17/20 Baclofen 10 mg PO BID 07/23/19 04/17/20 Colesevelam [Welchol] 3,750 mg PO AC-BRKFST 07/23/19 04/17/20 Acyclovir 400 mg PO BID 04/17/20 04/17/20 Aspirin 325 mg PO DAILY 04/17/20 04/17/20 Dexamethasone 20 mg PO WE 04/17/20 04/17/20 Gabapentin [Neurontin] 200 mg PO BID 04/17/20 04/17/20 Lenalidomide [Revlimid] 25 mg PO DAILY PRN 04/17/20 04/17/20 Sulfamethox-Tmp 800-160Mg [Bactrim 1 tab PO MOWEFR 04/17/20 04/17/20 DS 800-160 mg] Velcade Inj (Unknown Strength) 1 dose SQ TH 04/17/20 04/17/20 Allergies Allergy/AdvReac Type Severity Reaction Status Date / Time [id number]-[id number]-Ybt Reductase AdvReac weak, sore Verified 04/17/20 17:24 Inhibitor joints Review of Systems ROS Other: All systems not noted in ROS Statement are negative. <Sammy Gatica - Last Filed: 04/17/20 18:02> ROS Other: All systems not noted in ROS Statement are negative. <Rose Casanova - Last Filed: 04/17/20 18:27> ROS Statement: Those systems with pertinent positive or pertinent negative responses have been documented in the HPI. Past Medical History Past Medical History: Cancer, Hyperlipidemia Additional Past Medical History / Comment(s): MULTIPLE MYELOMA. 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 COLONOSCOPY. RT SHOULDER SX. LT MELISA Past Anesthesia/Blood Transfusion Reactions: No Reported Reaction Past Psychological History: Anxiety Smoking Status: Former smoker Past Alcohol Use History: None Reported Past Drug Use History: None Reported - Past Family History Mother Family Medical History: No Reported History Father Family Medical History: Cancer <Rose Casanova - Last Filed: 04/17/20 18:27> General Exam Limitations: no limitations <Rose Casanova - Last Filed: 04/17/20 18:27> - General Exam Comments Initial Comments: General: The patient is awake and alert, in no distress Eye: +3 mm pupils are equal, round and reactive to light, extra-ocular movements are intact. No nystagmus. There is normal conjunctiva bilaterally. No signs of icterus. Ears, nose, mouth and throat: There are moist mucous membranes and no oral lesions. Neck: The neck is supple, there is no tenderness or JVD. Cardiovascular: There is a regular rate and rhythm. No murmur, rub or gallop is appreciated. Respiratory: Lungs are clear to auscultation, respirations are non-labored, breath sounds are equal. No wheezes, stridor, rales, or rhonchi. Gastrointestinal: Soft, non-distended, non-tender abdomen without masses or organomegaly noted. There is no rebound or guarding present. Musculoskeletal: Normal ROM, no tenderness. Strength 5/5. Sensation intact. Radial pulses equal bilaterally 2+. Neurological: A&O x 3. CN II-XII intact, There are no obvious motor or sensory deficits. Coordination appears grossly intact. Speech is normal. Skin: Skin is warm and dry and no rashes or lesions are noted. No UE or LE swellling, no calf pain to palpation. Psychiatric: Cooperative, appropriate mood & affect, normal judgment. (Rose Casanova) Course Vital Signs 04/17/20 04/17/20 04/17/20 14:33 15:00 15:40 Temperature 98.1 F Pulse Rate 79 69 Respiratory 18 16 Rate Blood Pressure 129/86 136/82 131/75 O2 Sat by Pulse 98 97 Oximetry 04/17/20 04/17/20 04/17/20 15:50 16:00 16:30 Temperature Pulse Rate 68 69 65 Respiratory 19 17 19 Rate Blood Pressure 131/75 131/75 129/74 O2 Sat by Pulse 98 99 99 Oximetry 04/17/20 04/17/20 17:00 17:30 Temperature Pulse Rate 65 Respiratory 15 Rate Blood Pressure 130/75 151/74 O2 Sat by Pulse 98 Oximetry EKG Findings - EKG Comments: EKG Findings:: Ventricular rate 70 bpm, WA interval 204 ms, QR sikh 106 months seconds, QT/QTC 390/421 ms. This is normal sinus rhythm with no ST elevation or depression. <Rose Casnaova - Last Filed: 04/17/20 18:27> Medical Decision Making - Lab Data Result diagrams: 04/17/20 14:43 04/17/20 14:43 <Sammy Gatica - Last Filed: 04/17/20 18:02> - Lab Data Result diagrams: 04/17/20 14:43 04/17/20 14:43 <Rose Casanova - Last Filed: 04/17/20 18:27> - Medical Decision Making Patient reevaluated and reexamined by myself, Dr. Gatica. Patient resting comfortably in bed. Discomfort is very mild at this time. I do agree with PAs findings. This includes diagnostic interpretation treatment plan. Patient was updated on results and plan. Case was also discussed with Dr. Cherry, who will admit his patient with consult with cardiology and Dr. Almeida. (Sammy Gatica) 74-year-old male presenting for chest pressure, episode of syncope. ASA taken before arrival. CP improved on own in ER. Patient initial troponin (-) CTA (-) for PE, there is pleural thickening redemonstrated/nodule. Patient aware of findings. Patient will be admitted for CP r/o and monitoring. On telemetry. Dr. Gatica evaluated patient and is agreeable to admission and care plan. (Rose Casanova) - Lab Data Lab Results 04/17/20 04/17/20 04/17/20 Range/Units 14:43 14:43 14:43 WBC 4.8 (3.8-10.6) k/uL RBC 3.67 L (4.30-5.90) m/uL Hgb 12.3 L (13.0-17.5) gm/dL Hct 36.9 L (39.0-53.0) % MCV 100.6 H (80.0-100.0) fL MCH 33.4 (25.0-35.0) pg MCHC 33.2 (31.0-37.0) g/dL RDW 14.9 (11.5-15.5) % Plt Count 129 L (150-450) k/uL Neutrophils % 53 % Lymphocytes % 32 % Monocytes % 8 % Eosinophils % 3 % Basophils % 1 % Neutrophils # 2.5 (1.3-7.7) k/uL Lymphocytes # 1.5 (1.0-4.8) k/uL Monocytes # 0.4 (0-1.0) k/uL Eosinophils # 0.2 (0-0.7) k/uL Basophils # 0.0 (0-0.2) k/uL Macrocytosis Slight PT 10.3 (9.0-12.0) sec INR 1.0 (<1.2) APTT 20.5 L (22.0-30.0) sec D-Dimer (<0.60) mg/L FEU Sodium 133 L (137-145) mmol/L Potassium 3.8 (3.5-5.1) mmol/L Chloride 103 (98-107) mmol/L Carbon Dioxide 21 L (22-30) mmol/L Anion Gap 9 mmol/L BUN 25 H (9-20) mg/dL Creatinine 0.63 L (0.66-1.25) mg/dL Est GFR (CKD-EPI)AfAm >90 (>60 ml/min/1.73 sqM) Est GFR (CKD-EPI)NonAf >90 (>60 ml/min/1.73 sqM) Glucose 90 (74-99) mg/dL Calcium 8.7 (8.4-10.2) mg/dL Magnesium 1.9 (1.6-2.3) mg/dL Total Bilirubin 0.7 (0.2-1.3) mg/dL AST 23 (17-59) U/L ALT 19 (4-49) U/L Alkaline Phosphatase 42 (38-126) U/L Troponin I (0.000-0.034) ng/mL NT-Pro-B Natriuret Pep pg/mL Total Protein 6.2 L (6.3-8.2) g/dL Albumin 3.9 (3.5-5.0) g/dL 04/17/20 04/17/20 04/17/20 Range/Units 14:43 14:43 14:43 WBC (3.8-10.6) k/uL RBC (4.30-5.90) m/uL Hgb (13.0-17.5) gm/dL Hct (39.0-53.0) % MCV (80.0-100.0) fL MCH (25.0-35.0) pg MCHC (31.0-37.0) g/dL RDW (11.5-15.5) % Plt Count (150-450) k/uL Neutrophils % % Lymphocytes % % Monocytes % % Eosinophils % % Basophils % % Neutrophils # (1.3-7.7) k/uL Lymphocytes # (1.0-4.8) k/uL Monocytes # (0-1.0) k/uL Eosinophils # (0-0.7) k/uL Basophils # (0-0.2) k/uL Macrocytosis PT (9.0-12.0) sec INR (<1.2) APTT (22.0-30.0) sec D-Dimer 1.55 H (<0.60) mg/L FEU Sodium (137-145) mmol/L Potassium (3.5-5.1) mmol/L Chloride (98-107) mmol/L Carbon Dioxide (22-30) mmol/L Anion Gap mmol/L BUN (9-20) mg/dL Creatinine (0.66-1.25) mg/dL Est GFR (CKD-EPI)AfAm (>60 ml/min/1.73 sqM) Est GFR (CKD-EPI)NonAf (>60 ml/min/1.73 sqM) Glucose (74-99) mg/dL Calcium (8.4-10.2) mg/dL Magnesium (1.6-2.3) mg/dL Total Bilirubin (0.2-1.3) mg/dL AST (17-59) U/L ALT (4-49) U/L Alkaline Phosphatase (38-126) U/L Troponin I <0.012 (0.000-0.034) ng/mL NT-Pro-B Natriuret Pep 44 pg/mL Total Protein (6.3-8.2) g/dL Albumin (3.5-5.0) g/dL Disposition <Sammy Gatica - Last Filed: 04/17/20 18:02> Is patient prescribed a controlled substance at d/c from ED?: No Time of Disposition: 17:00 Decision to Admit Reason: Admit from EC Decision Date: 04/17/20 Decision Time: 17:00 <Rose Casanova - Last Filed: 04/17/20 18:27> Clinical Impression: Chest pain, Syncope, Lightheaded, Blurred vision Disposition: ADMITTED IP TO THIS [facility] Condition: Stable Referrals: Brant Cherry MD [Primary Care Provider] - 1-2 days
[2020-04-17] MEDS ORDERED: NITROGLYCERIN SL TABS 0.4 MG TAB SUBLINGUAL PRN (17:03)
--- NOTE | 2020-04-17 17:20 | CT ---
EXAMINATION TYPE: CT chest angio for PE DATE OF EXAM: 04/17/2020 COMPARISON: 06/22/2015 HISTORY: Shortness of breath, elevated d-dimer. CT DLP: 396.5 mGycm Automated exposure control for dose reduction was used. CONTRAST: Performed with IV Contrast, patient injected with 100 mL of Isovue 370. There are 3-D post processed images. There is some consolidation with pleural thickening and calcific ation in the right lower lobe posteriorly along the chest wall. The other lung rabago are fairly teri r. There is irregular 15 mm noncalcified nodule adjacent to the pleura in the posterior right lung ba se. There is no pleural effusion. Heart size is normal. There is no pericardial effusion. There is no mediastinal adenopathy. There are no hilar masses. There is normal contrast opacification of the pulmonary arteries. I see no filling defect. Thoracic aorta shows no aneurysm or dissection. Ascending aorta measures 3.5 cm. Thoracic spine is intact. There is some spurring of the endplates in the mid and lower thoracic spine . There is 10% wedging of T4 vertebra that appears old. IMPRESSION: Extensive pleural thickening with calcification and airspace consolidation and calcification posterio r right lower lobe that has progressed compared to old exam. Small subpleural nodule right lower lobe slightly increased compared to old exam. Appearance of the right lung is more consistent with old in flammatory disease and scarring. I think the changes too slow to suggest a neoplastic process. No evidence of pulmonary embolism.
[2020-04-17] MEDS ORDERED: SULFAMETHOX-TMP 800-160MG 1 EACH TAB PO SCH (22:15)
--- NOTE | 2020-04-17 22:23 | P.HPIM ---
History of Present Illness H&P Date: 04/17/20 Chief Complaint: Atypical chest pain, syncope, history of multiple myeloma, hypertension, hy 74-year-old male one of my office patient is known to have history of multiple myeloma, history of hypertension and hyperlipidemia who had a chronic neuropathy as well has been seen oncology on regular basis and patient was started on Velcade few weeks ago with his oncologist for better control of his count with the multiple myeloma. He suspected that he started having slight side effect not feeling well from having slight lightheadedness chest tightness and pressure mild shortness of breath on the weekend patient had recurrent chest pain on and off all day it improve when he is resting. Around 3:00 in the morning he is awake to use the bathroom when he had syncopal episode doesn't remember much about it except found himself on the ground ended up not having any neural loss or any injury went back to bed but continue having symptoms of chest pain on and off. He is having nausea without vomiting as well today he is symptom were a lot worse with recurrent chest pain with minimum exertion ended up coming to the emergency department at [facility] his testing initially showed d-dimer of mildly elevated the 20.55 and ended up going for CTA shows no pulmonary embolism but extensive pleural thickening with calcification and airspace consultation and calcification posterior right lower lobe that progress compared to an old film small pleural effusion nodular lobe slightly increased compared to the previous exam and appearance of the right lung is more consistent with an old inflammatory process and scarring tissue most likely suggestive of asbestos but less suggestive of neoplastic process. Also has CT of the cervical spine showed degenerative disc disease. His EKG showed normal sinus rhythm with no major abnormality just slightly ST change in the anterolateral leads. Rest of his lab including troponin was negative. With his current symptoms patient was hospitalized will continue troponin 3 through the night seen cardiology and possible plan to do on echo and stress test. Review of Systems CONSTITUTIONAL: Well-developed no acute respiratory distress. EYES: No icterus sclerae, no conjunctivitis. EARS, NOSE, MOUTH, THROAT, and FACE: No sore throat, lymphadenopathy, carotid bruits or deformity. RESPIRATORY: Positive chest pain with shortness of breath with exertion. CARDIOVASCULAR: Positive chest pain with no shortness of breath no cough or wheezes. GASTROINTESTINAL: No Abd pain, Nausea or vomiting, no Diarrhea or constipation, No GI Bleed, no distention or masses. GENITOURINARY: Negative for Hematuria or UTI, no kidney stones. INTEGUMENT/BREAST: Negative for any muscular injury with mild osteoarthritis.. HEMATOLOGIC/LYMPHATIC: History of multiple myeloma on chemotherapy. MUSCULOSKELTAL: Negative for Myalgia or arthralgia. NEURLOGICAL: No LOC, Sz or syncope, blurred vision dizziness or abnormality.. BEHAVIORAL/PSYCH: Negative. ENDOCRINE: Negative. Past Medical History Past Medical History: Cancer, Hyperlipidemia Additional Past Medical History / Comment(s): MULTIPLE MYELOMA. 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 COLONOSCOPY. RT SHOULDER SX. LT MELISA Past Anesthesia/Blood Transfusion Reactions: No Reported Reaction Past Psychological History: Anxiety Smoking Status: Former smoker Past Alcohol Use History: None Reported Additional Past Alcohol Use History / Comment(s): QUIT SMOKING 1982 Past Drug Use History: None Reported - Past Family History Mother Family Medical History: No Reported History Father Family Medical History: Cancer Medications and Allergies Home Medications Medication Instructions Recorded Confirmed Type Citalopram Hydrobromide 20 mg PO DAILY 03/24/18 04/17/20 History [Citalopram HBr] Ezetimibe [Zetia] 10 mg PO DAILY 03/24/18 04/17/20 History Baclofen 10 mg PO BID 07/23/19 04/17/20 History Colesevelam [Welchol] 3,750 mg PO AC-BRKFST 07/23/19 04/17/20 History Acyclovir 400 mg PO BID 04/17/20 04/17/20 History Aspirin 325 mg PO DAILY 04/17/20 04/17/20 History Dexamethasone 20 mg PO WE 04/17/20 04/17/20 History Gabapentin [Neurontin] 200 mg PO BID 04/17/20 04/17/20 History Lenalidomide [Revlimid] 25 mg PO DAILY PRN 04/17/20 04/17/20 History Sulfamethox-Tmp 800-160Mg [Bactrim 1 tab PO MOWEFR 04/17/20 04/17/20 History DS 800-160 mg] Velcade Inj (Unknown Strength) 1 dose SQ TH 04/17/20 04/17/20 History Allergies Allergy/AdvReac Type Severity Reaction Status Date / Time Mruyjjh-Ffr-Xlp Reductase AdvReac weak, sore Verified 04/17/20 21:26 Inhibitor joints Physical Exam Vitals: Vital Signs Temp Pulse Pulse Resp BP BP Pulse Ox 04/17/20 20:00 98.4 F 69 18 132/68 98 04/17/20 19:30 135/98 04/17/20 19:00 68 16 125/78 99 04/17/20 18:30 66 19 143/80 98 04/17/20 18:00 70 18 143/76 99 04/17/20 17:30 65 15 151/74 98 04/17/20 17:00 130/75 04/17/20 16:30 65 19 129/74 99 04/17/20 16:00 69 17 131/75 99 04/17/20 15:50 68 19 131/75 98 04/17/20 15:40 69 16 131/75 97 04/17/20 15:00 136/82 04/17/20 14:33 98.1 F 79 18 129/86 98 Intake and Output 04/17/20 04/17/20 04/17/20 06:59 14:59 22:59 Other: Voiding Method Toilet Weight 81.647 kg General Appearance: Alert, cooperative, no distress, appears stated age. Neck HEENT: Supple, no lymphadenopathy, no thyroid enlargement, no carotid bruits. Lungs: Clear to auscultation without crackles or wheezes no rhonchi, no deformity. Chest Wall: Chest wall normal expansion with deep inspiration no tenderness and no deformity was found on exam, no costochondral pain or discomfort. Heart: Regular rate and rhythm, S1, S2 normal, no murmur, rub or gallop. Back: Symmetric, no curvature, ROM normal, no CVA tenderness. Abdomen: Soft, non-tender, bowel sounds active all four quadrants, no masses, no organomegaly. Extremities: Extremities normal, atraumatic, no cyanosis or edema. Pulses: 2+ and symmetric. Skin: Skin color, texture, tugor normal, no rashes or lesions. Neurologic: Alert oriented x3 cranial nerves II through XII intact, no motor deficit, no abnormal balance or gait. Results CBC & Chem 7: 04/17/20 14:43 04/17/20 14:43 Labs: Abnormal Lab Results - Last 24 Hours (Table) 04/17/20 04/17/20 04/17/20 Range/Units 14:43 14:43 14:43 RBC 3.67 L (4.30-5.90) m/uL Hgb 12.3 L (13.0-17.5) gm/dL Hct 36.9 L (39.0-53.0) % MCV 100.6 H (80.0-100.0) fL Plt Count 129 L (150-450) k/uL APTT 20.5 L (22.0-30.0) sec D-Dimer (<0.60) mg/L FEU Sodium 133 L (137-145) mmol/L Carbon Dioxide 21 L (22-30) mmol/L BUN 25 H (9-20) mg/dL Creatinine 0.63 L (0.66-1.25) mg/dL Total Protein 6.2 L (6.3-8.2) g/dL 04/17/20 Range/Units 14:43 RBC (4.30-5.90) m/uL Hgb (13.0-17.5) gm/dL Hct (39.0-53.0) % MCV (80.0-100.0) fL Plt Count (150-450) k/uL APTT (22.0-30.0) sec D-Dimer 1.55 H (<0.60) mg/L FEU Sodium (137-145) mmol/L Carbon Dioxide (22-30) mmol/L BUN (9-20) mg/dL Creatinine (0.66-1.25) mg/dL Total Protein (6.3-8.2) g/dL Thrombosis Risk Factor Assmnt - DVT/VTE Prophylaxis DVT/VTE Prophylaxis: Pharmacologic Prophylaxis ordered, Mechanical Prophylaxis ordered - Choose All That Apply Any of the Below Risk Factors Present?: No Other Risk Factors: Yes Each Risk Factor Represents 3 Points: Age 75 years or older Thrombosis Risk Factor Assessment Total Risk Factor Score: 3 Thrombosis Risk Factor Assessment Level: Moderate Risk Assessment and Plan Assessment: 1 chest pain: Atypical not a clear whether this is anginal symptoms are not with patient's symptoms been with exertion can be suggestive but not inclusive, patient will have troponin 3 echocardiogram and we'll consult cardiology and probably going for an stress test. 2 syncope: Not a clear etiology has well could be fluctuation of his blood pressure could be arrhythmia related, continue patient on research staff member this point we watch for any major arrhythmia or bradycardia. 3 history of multiple myeloma: With Barrett a change in medication that patient was started on Velcade recently history on Revlimid will consult oncology for any correlation with his current symptoms. 4 possible severe asbestos and calcified deposit in the pleural space could be explained partially some of the symptoms patient is having as a chest wall pain or pleuritic-like pain can happen with exertion. 5 chronic neuropathy: Continue patient on gabapentin 200 mg twice a day. 6 hyperlipidemia: Remain on Zetia and WelChol. 7 chronic depression: Continue patient on citalopram 20 mg daily. 8 prophylaxis treatment while on chemotherapy: Patient is on Bactrim and the site [place]. 9 chronic back pain: Patient remain on baclofen and Tylenol as needed. 10 GI prophylaxis: Patient will be on Pepcid 20 mg daily. 11 DVT prophylaxis: Early mobilization and knee-high ROSA hose. CODE STATUS: Full code. Admit patient to inpatient service for more than 2 nights stay.
[2020-04-17] MEDS: ACYCLOVIR 200 MG CAP PO SCH (23:07)
[2020-04-17] MEDS: GABAPENTIN 100 MG CAP PO SCH (23:07)
[2020-04-17] MEDS: BACLOFEN 10 MG TAB PO SCH (23:07)
[2020-04-17] MEDS: COLESEVELAM 625 MG TAB PO SCH (23:28)
[2020-04-18 03:00] LABS: Cholesterol 124 mg/dL (<200); HDL Cholesterol 43 mg/dL (40-60); LDL Cholesterol,Calculated 46 mg/dL (0-99); Triglycerides 173 mg/dL (<150)
[2020-04-18] MEDS ORDERED: COLESEVELAM 625 MG TAB PO SCH (07:30)
[2020-04-18 07:38] VITALS: BP 130/75; PULSE 65; RESP 14; TEMP 98.4
--- NOTE | 2020-04-18 07:47 | P.CRDCN ---
History of Present Illness Consult date: 04/18/20 Chief complaint: Chest pain History of present illness: This is a very pleasant 74-year-old gentleman with a past medical history significant for multiple myeloma as well as history of hypertension and dyslipidemia presented to the emergency room complaining of chest discomfort. The patient now is under chemotherapy for multiple myeloma and he doesn't follow with a patient coordinator/oncologist on regular basis. He was in his usual state of health yesterday when he started experiencing chest discomfort, in the middle of the chest, as a tightness on the chest, without any radiation to the arms or neck or shoulders, and without any associated symptoms of sweating, dizziness, heart racing, or syncope. He decided to come to the emergency department. The EKG showed sinus rhythm without any ischemic ST or T-wave abnormalities. 3 sets of cardiac enzymes came in to be unremarkable. The chest x-ray did not show any acute abnormality. D-dimer was checked and came in to be slightly abnormal. Subsequently computed tomography scan of the chest was performed and came in to be unremarkable in terms of PE. Currently the patient is chest pain free. No prior history of coronary artery disease or congestive heart failure or cardiac arrhythmia. The patient does not follow-up with any science consultant on regular basis. Past Medical History Past Medical History: Cancer, Hyperlipidemia Additional Past Medical History / Comment(s): MULTIPLE MYELOMA. 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 COLONOSCOPY. RT SHOULDER SX. LT MELISA Past Anesthesia/Blood Transfusion Reactions: No Reported Reaction Past Psychological History: Anxiety Smoking Status: Former smoker Past Alcohol Use History: None Reported Additional Past Alcohol Use History / Comment(s): QUIT SMOKING 1982 Past Drug Use History: None Reported - Past Family History Mother Family Medical History: No Reported History Father Family Medical History: Cancer Medications and Allergies Home Medications Medication Instructions Recorded Confirmed Type Citalopram Hydrobromide 20 mg PO DAILY 03/24/18 04/17/20 History [Citalopram HBr] Ezetimibe [Zetia] 10 mg PO DAILY 03/24/18 04/17/20 History Baclofen 10 mg PO BID 07/23/19 04/17/20 History Colesevelam [Welchol] 3,750 mg PO AC-BRKFST 07/23/19 04/17/20 History Acyclovir 400 mg PO BID 04/17/20 04/17/20 History Aspirin 325 mg PO DAILY 04/17/20 04/17/20 History Dexamethasone 20 mg PO WE 04/17/20 04/17/20 History Gabapentin [Neurontin] 200 mg PO BID 04/17/20 04/17/20 History Lenalidomide [Revlimid] 25 mg PO DAILY PRN 04/17/20 04/17/20 History Sulfamethox-Tmp 800-160Mg [Bactrim 1 tab PO MOWEFR 04/17/20 04/17/20 History DS 800-160 mg] Velcade Inj (Unknown Strength) 1 dose SQ TH 04/17/20 04/17/20 History Allergies Allergy/AdvReac Type Severity Reaction Status Date / Time [id number]-Xjy Reductase AdvReac weak, sore Verified 04/17/20 21:26 Inhibitor joints Physical Exam Vitals: Vital Signs Temp Pulse Pulse Resp BP BP Pulse Ox 04/18/20 07:35 98.4 F 65 14 130/75 97 04/18/20 04:00 97.8 F 59 L 16 93/51 98 04/17/20 23:59 97.9 F 66 16 118/67 97 04/17/20 20:00 98.4 F 69 18 132/68 98 04/17/20 19:30 135/98 04/17/20 19:00 68 16 125/78 99 04/17/20 18:30 66 19 143/80 98 04/17/20 18:00 70 18 143/76 99 04/17/20 17:30 65 15 151/74 98 04/17/20 17:00 130/75 04/17/20 16:30 65 19 129/74 99 04/17/20 16:00 69 17 131/75 99 04/17/20 15:50 68 19 131/75 98 04/17/20 15:40 69 16 131/75 97 04/17/20 15:00 136/82 04/17/20 14:33 98.1 F 79 18 129/86 98 Intake and Output 04/17/20 04/18/20 04/18/20 22:59 06:59 14:59 Other: Voiding Method Toilet Toilet # Voids 1 Weight 80.8 kg - Constitutional General appearance: no acute distress - Respiratory Respiratory: bilateral: CTA - Cardiovascular Rhythm: regular Heart sounds: normal: S1, S2 Results 04/17/20 14:43 04/17/20 14:43 Cardiac Enzymes 04/17/20 04/17/20 04/17/20 Range/Units 14:43 14:43 20:41 AST 23 (17-59) U/L Troponin I <0.012 <0.012 (0.000-0.034) ng/mL 04/18/20 Range/Units 02:30 AST (17-59) U/L Troponin I <0.012 (0.000-0.034) ng/mL Coagulation 04/17/20 Range/Units 14:43 PT 10.3 (9.0-12.0) sec APTT 20.5 L (22.0-30.0) sec Lipids 04/18/20 Range/Units 02:30 Triglycerides 173 H (<150) mg/dL Cholesterol 124 (<200) mg/dL HDL Cholesterol 43 (40-60) mg/dL CBC 04/17/20 Range/Units 14:43 WBC 4.8 (3.8-10.6) k/uL RBC 3.67 L (4.30-5.90) m/uL Hgb 12.3 L (13.0-17.5) gm/dL Hct 36.9 L (39.0-53.0) % Plt Count 129 L (150-450) k/uL Comprehensive Metabolic Panel 04/17/20 Range/Units 14:43 Sodium 133 L (137-145) mmol/L Potassium 3.8 (3.5-5.1) mmol/L Chloride 103 (98-107) mmol/L Carbon Dioxide 21 L (22-30) mmol/L BUN 25 H (9-20) mg/dL Creatinine 0.63 L (0.66-1.25) mg/dL Glucose 90 (74-99) mg/dL Calcium 8.7 (8.4-10.2) mg/dL AST 23 (17-59) U/L ALT 19 (4-49) U/L Alkaline Phosphatase 42 (38-126) U/L Total Protein 6.2 L (6.3-8.2) g/dL Albumin 3.9 (3.5-5.0) g/dL Current Medications Generic Name Dose Route Start Last Admin Trade Name Freq PRN Reason Stop Dose Admin Acyclovir 400 mg 04/17/20 22:45 04/17/20 23:07 Zovirax PO 400 mg BID JOSSELYN Administration Aspirin 325 mg 04/18/20 09:00 Aspirin PO DAILY [facility] Baclofen 10 mg 04/17/20 22:33 04/17/20 23:07 Lioresal PO 10 mg BID JOSSELYN Administration Citalopram Hydrobromide 20 mg 04/18/20 09:00 Celexa PO DAILY [facility] Colesevelam HCl 1,875 mg 04/17/20 23:12 04/17/20 23:28 Welchol PO 1,875 mg BID JOSSELYN Administration Dexamethasone 20 mg 04/19/20 09:00 Hexadrol PO WE [facility] Ezetimibe 10 mg 04/18/20 09:00 Zetia PO DAILY [facility] Famotidine 20 mg 04/18/20 09:00 Pepcid PO DAILY [facility] Gabapentin 200 mg 04/17/20 22:34 04/17/20 23:07 Neurontin PO 200 mg BID [facility] Administration Nitroglycerin 0.4 mg 04/17/20 17:03 Nitrostat SUBLINGUAL Q5M PRN Chest Pain Non-Formulary Medication 25 mg 04/18/20 09:00 Lenalidomide [Revlimid] PO 05/02/20 09:01 DAILY [facility] Trimethoprim/Sulfamethoxazole 1 each 04/17/20 22:15 04/18/20 00:00 Bactrim Ds PO Not Given MoWeFr@0900 JOSSELYN Intake and Output 04/17/20 04/18/20 04/18/20 22:59 06:59 14:59 Other: Voiding Method Toilet Toilet # Voids 1 Weight 80.8 kg 04/17/20 14:43 04/17/20 14:43 Assessment and Plan Assessment: Assessment #1 chest discomfort #2 multiple myeloma #3 hypertension #4 dyslipidemia Plan #1 acute coronary event was ruled out #2 PE was ruled out #3 I will schedule the patient to undergo a stress test to rule out severe CAD #4 obtain an echocardiogram was Doppler #5 follow-up with the patient
[2020-04-18] MEDS ORDERED: AMINOPHYLLINE 500 MG/20 ML VIAL IV PRN (08:43)
[2020-04-18] MEDS ORDERED: CAFFEINE CITRATE 60 MG/3 ML VIAL IV PRN (08:43)
[2020-04-18] MEDS ORDERED: CITALOPRAM HYDROBROMIDE 20 MG TAB PO SCH (09:00)
[2020-04-18] MEDS ORDERED: REGADENOSON 0.4 MG/5 ML SYRINGE IV ONE (09:00)
[2020-04-18] MEDS ORDERED: NON FORMULARY DRUG (Lenalidomide [Revlimid] 25 MG) PO SCH (09:00)
[2020-04-18] MEDS ORDERED: GABAPENTIN 100 MG CAP PO SCH (09:00)
[2020-04-18] MEDS ORDERED: EZETIMIBE 10 MG TAB PO SCH (09:00)
[2020-04-18] MEDS ORDERED: ASPIRIN 325 MG TAB PO SCH ×2 (09:00)
[2020-04-18] MEDS ORDERED: ACYCLOVIR 200 MG CAP PO SCH (09:00)
[2020-04-18] MEDS ORDERED: BACLOFEN 10 MG TAB PO SCH (09:00)
[2020-04-18] MEDS ORDERED: FAMOTIDINE 20 MG TAB PO SCH (09:00)
--- NOTE | 2020-04-18 10:49 | ECHOF ---
Referral Reason:chest pain MEASUREMENTS -------- HEIGHT: 180.3 cm WEIGHT: 80.7 kg BP: RVIDd: 2.7 cm (< 3.3) IVSd: 1.3 cm (0.6 - 1.1) LVIDd: 4.5 cm (3.9 - 5.3) LVPWd: 1.3 cm (0.6 - 1.1) IVSs: 2.1 cm LVIDs: 2.8 cm LVPWs: 1.8 cm Ao Diam: 3.2 cm (2.0 - 3.7) AV Cusp: 1.8 cm (1.5 - 2.6) LA Diam: 3.6 cm (2.7 - 3.8) MV EXCURSION: 21.171 mm (> 18.000) MV EF SLOPE: 111 mm/s (70 - 150) EPSS: 0.8 cm MV E Santos: 0.63 m/s MV DecT: 268 ms MV A Santos: 0.56 m/s MV E/A Ratio: 1.12 RAP: 5.00 mmHg RVSP: 20.15 mmHg FINDINGS -------- Sinus rhythm. This was a technically good study. The left ventricular size is normal. There is mild concentric left ventricular hypertrophy. Overa ll left ventricular systolic function is normal with, an EF between 55 - 60 %. The right ventricle is normal in size. The left atrial size is normal. The right atrial size is normal. Interatrial and interventricular septum intact. Aortic valve is trileaflet and is mildly thickened. The mitral valve is normal. There is trace mitral regurgitation. The tricuspid valve appears structurally normal. Trace tricuspid regurgitation present. Right jeanie tricular systolic pressure is normal at < 35 mmHg. There is no pulmonic regurgitation present. The aortic root size is normal. Normal inferior vena cava with normal inspiratory collapse consistent with estimated right atrial pre ssure of 5 mmHg. There is no pericardial effusion. CONCLUSIONS -------- 1. Sinus rhythm. 2. This was a technically good study. 3. The left ventricular size is normal. 4. There is mild concentric left ventricular hypertrophy. 5. Overall left ventricular systolic function is normal with, an EF between 55 - 60 %. 6. The right ventricle is normal in size. 7. The left atrial size is normal. 8. The right atrial size is normal. 9. Interatrial and interventricular septum intact. 10. Aortic valve is trileaflet and is mildly thickened. 11. The mitral valve is normal. 12. There is trace mitral regurgitation. 13. The tricuspid valve appears structurally normal. 14. Trace tricuspid regurgitation present. 15. Right ventricular systolic pressure is normal at < 35 mmHg. 16. There is no pulmonic regurgitation present. 17. The aortic root size is normal. 18. Normal inferior vena cava with normal inspiratory collapse consistent with estimated right atrial pressure of 5 mmHg. 19. There is no pericardial effusion. SEDIMENTATIONIST: Lorna Nelson RDCS
[2020-04-18] MEDS: ACYCLOVIR 200 MG CAP PO SCH (12:13)
[2020-04-18] MEDS: BACLOFEN 10 MG TAB PO SCH (12:13)
[2020-04-18] MEDS: GABAPENTIN 100 MG CAP PO SCH (12:13)
[2020-04-18] MEDS: COLESEVELAM 625 MG TAB PO SCH (12:17)
--- NOTE | 2020-04-18 12:24 | NM ---
EXAMINATION TYPE: NM stress lexiscan cardiolite DATE OF EXAM: 04/18/2020 COMPARISON: NONE HISTORY: Chest pain TECHNIQUE: After the intravenous administration of 9.3 mCi Tc 99m Sestamibi - Cardiolite resting SPE CT images acquired 60 minutes post injection. The patient received 0.4mg Lexiscan, 25.4 mCi Tc 99m Sestamibi - Stress images obtained [address] injection FINDINGS: Review of stress and rest SPECT images reveals a large amount of gastric activity resulting in limita tion of the inferior wall. I cannot exclude stress-induced ischemia involving the inferior wall howev er. Clinical correlation is advised. No fixed defects seen. Gated analysis shows normal wall motion w ith an estimated left ventricular ejection fraction of 53 %. IMPRESSION: There is extensive attenuation artifact from gastric activity resulting in limitation of the inferior wall. Stress-induced ischemia involving the inferior wall is difficult to exclude amita poewr. Correlate clinically.
--- NOTE | 2020-04-18 12:58 | P.DS ---
Providers Date of admission: 04/17/20 18:03 Expected date of discharge: 04/18/20 Attending physician: Brant Cherry Consults: 04/17/20 17:03 Consult Physician Routine Consulting Provider: Jamarcus Angeles Consult Reason/Comments: chest pain r/o, syncope Do you want consulting provider notified?: Yes, Notify in am 04/17/20 18:03 Consult Physician Urgent Consulting Provider: Mariajose Almeida Consult Reason/Comments: Oncological care Do you want consulting provider notified?: Yes Primary care physician: [facility] [place] Course: 74-year-old male one of my office patient is known to have history of multiple myeloma, history of hypertension and hyperlipidemia who had a chronic neuropathy as well has been seen oncology on regular basis and patient was started on Velcade few weeks ago with his oncologist for better control of his count with the multiple myeloma. He suspected that he started having slight side effect not feeling well from having slight lightheadedness chest tightness and pressure mild shortness of breath on the weekend patient had recurrent chest pain on and off all day it improve when he is resting. Around 3:00 in the morning he is awake to use the bathroom when he had syncopal episode doesn't remember much about it except found himself on the ground ended up not having any neural loss or any injury went back to bed but continue having symptoms of chest pain on and off. He is having nausea without vomiting as well today he is symptom were a lot worse with recurrent chest pain with minimum exertion ended up coming to the emergency department at [facility] his testing initially showed d-dimer of mildly elevated the 20.55 and ended up going for CTA shows no pulmonary embolism but extensive pleural thickening with calcification and airspace consultation and calcification posterior right lower lobe that progress compared to an old film small pleural effusion nodular lobe slightly increased compared to the previous exam and appearance of the right lung is more consistent with an old inflammatory process and scarring tissue most likely suggestive of asbestos but less suggestive of neoplastic process. Also has CT of the cervical spine showed degenerative disc disease. His EKG showed normal sinus rhythm with no major abnormality just slightly ST change in the anterolateral leads. Rest of his lab including troponin was negative. With his current symptoms patient was hospitalized will continue troponin 3 through the night seen cardiology and possible plan to do on echo and stress test. 04/18: Echocardiogram reveals EF of 55-60%, trace mitral regurgitation, trace tricuspid regurgitation. Lexiscan Cardiolite revealing extensive artifact from gastric activity resulting in limitation of the inferior wall. Stress-induced ischemia involving the inferior wall is difficult to exclude however. Patient has been cleared by cardiology for discharge home. Patient was seen by oncology and no changes have been made to his home medication. Patient will be discharged home today. He has been instructed to follow-up with Dr. Dr. Cherry in 3 days. Discharge diagnoses: 1 chest pain: Atypical, acute coronary syndrome ruled out 2 syncope: Not a clear etiology 3 history of multiple myeloma 4 possible severe asbestos and calcified deposit in the pleural space 5 chronic neuropathy 6 hyperlipidemia 7 recurrent depression 8 chronic back pain Discharge plan: Home Impression and plan of care have been directed as dictated by the signing physician. Lizbeth Odonnell nurse practitioner acting as scribe for signing physician. Patient Condition at Discharge: Good Plan - Discharge Summary Discharge Rx Participant: No New Discharge Prescriptions: Continue Ezetimibe [Zetia] 10 mg PO DAILY Citalopram Hydrobromide [Citalopram HBr] 20 mg PO DAILY Colesevelam [Welchol] 3,750 mg PO AC-BRKFST Baclofen 10 mg PO BID Sulfamethox-Tmp 800-160Mg [Bactrim DS 800-160 mg] 1 tab PO MOWEFR Aspirin 325 mg PO DAILY Lenalidomide [Revlimid] 25 mg PO DAILY PRN PRN Reason: 21 days on, 7days off Gabapentin [Neurontin] 200 mg PO BID Dexamethasone 20 mg PO WE Acyclovir 400 mg PO BID Velcade Inj (Unknown Strength) 1 dose SQ TH Discharge Medication List Citalopram Hydrobromide [Citalopram HBr] 20 mg PO DAILY 03/24/18 [History] Ezetimibe [Zetia] 10 mg PO DAILY 03/24/18 [History] Baclofen 10 mg PO BID 07/23/19 [History] Colesevelam [Welchol] 3,750 mg PO AC-BRKFST 07/23/19 [History] Acyclovir 400 mg PO BID 04/17/20 [History] Aspirin 325 mg PO DAILY 04/17/20 [History] Dexamethasone 20 mg PO WE 04/17/20 [History] Gabapentin [Neurontin] 200 mg PO BID 04/17/20 [History] Lenalidomide [Revlimid] 25 mg PO DAILY PRN 04/17/20 [History] Sulfamethox-Tmp 800-160Mg [Bactrim DS 800-160 mg] 1 tab PO MOWEFR 04/17/20 [History] Velcade Inj (Unknown Strength) 1 dose SQ TH 04/17/20 [History] Follow up Appointment(s)/Referral(s): Jamarcus Angeles MD [STAFF PHYSICIAN] - 2 Weeks Brant Cherry MD [Primary Care Provider] - 3 Days Discharge Disposition: HOME SELF-CARE
--- NOTE | 2020-04-18 19:23 | P.CONS ---
History of Present Illness - Reason for Consult Consult date: 04/18/20 Chest pain. Multiple myeloma on treatment - History of Present Illness The patient is a 74-year-old white male well known to our service. He is followed by Dr. Almeida in the outpatient setting. The patient was diagnosed with smoldering multiple myeloma in . He had repeat bone marrow biopsy on 11/07/2011 which showed only 15% plasma cells.Bone survery in 06/2012 was normal. He was on watchful approach for several years, till 10/14. On 06/04/2019,PET/CT revealed a small lytic lesion,less than 5 mm,in the marrow of distal left femur,otherwise negative. On 06/11/2019,serum free lambda was 48.5mg/dl,ratio 0.016 On 06/15/2019,24 hrs urine revealed 190mg/L of free light chain(Lambda) total protein of 279mg/24 hrs. On 07/27/2019,bone marrow biopsy revealed 30% plasma cells,normal cytogenetics and FISH He started Rd regimen the first week of September/2019 (he decided to wait until 09/2019,also he declined triplet combination).On 12/15/2019,serum free lambda level was 35.4 mg/dl,kappa 1.33 mg/dl,ratio 0,037 and he agreed to add weekly velcade which was added on 12/24/[address] on 01/22/2020,serum free lambda was 104mg/L,ratio 0.08.on 02/18/2020,serum free lambda was 131.1mg/L,ratio 0.04 On 03/07/2020,urine protein electrophoresis was negative,24 hrs urine total ptotein was 183.8mg/24 hrs urine,urine total lambda was 1.59 mg/dl,kappa,1.13 mg/dl The patient has been receiving weekly Velcade in addition to Revlimid and Decadron since 12/24/19. He is status post 17 weekly cycles of the same with the most recent administered on 04/13/20. The patient states that he had developed chest pain described as squeezing pressure involving the lower mid chest and upper abdomen. He stated that he was having intermittent episodes over the past 2 days with no specific aggravating factors together exertion, inspiration, or eating. The discomfort would start in the lower part of the sternum and travel upwards. He reported some associated subjective shortness of breath. He had one episode of marked sweating. He subsequently had a syncopal episode While walking, and found himself on the floor, precipitating his visit to the ER In the emergency room the patient had a CTA of the chest which was negative for PE. He was found to have extensive pleural based opacities suggestive of asbestosis which were progressed from before. Troponins 3 were negative. Consult was placed for further evaluation and recommendations Review of Systems Constitutional: Reports fatigue Eyes: denies blurred vision, denies pain Ears: deny: decreased hearing, ear discharge, earache, tinnitus Ears, nose, mouth and throat: Denies headache, Denies sore throat Cardiovascular: Reports chest pain, Reports shortness of breath Respiratory: Denies cough Gastrointestinal: Reports belching, Reports bloating, Reports diarrhea (Mild, intermittent) Genitourinary: Reports as per HPI Musculoskeletal: Denies myalgias Integumentary: Denies pruritus, Denies rash Neurological: Denies numbness, Denies weakness Psychiatric: Denies anxiety, Denies depression Endocrine: Denies fatigue, Denies weight change Hematologic/Lymphatic: Reports as per HPI Past Medical History Past Medical History: Cancer, Hyperlipidemia Additional Past Medical History / Comment(s): MULTIPLE MYELOMA. 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 COLONOSCOPY. RT SHOULDER SX. LT MEILSA Past Anesthesia/Blood Transfusion Reactions: No Reported Reaction Past Psychological History: Anxiety Smoking Status: Former smoker Past Alcohol Use History: None Reported Additional Past Alcohol Use History / Comment(s): QUIT SMOKING 1982 Past Drug Use History: None Reported - Past Family History Mother Family Medical History: No Reported History Father Family Medical History: Cancer Medications and Allergies Home Medications Medication Instructions Recorded Confirmed Type Citalopram Hydrobromide 20 mg PO DAILY 03/24/18 04/17/20 History [Citalopram HBr] Ezetimibe [Zetia] 10 mg PO DAILY 03/24/18 04/17/20 History Baclofen 10 mg PO BID 07/23/19 04/17/20 History Colesevelam [Welchol] 3,750 mg PO AC-BRKFST 07/23/19 04/17/20 History Acyclovir 400 mg PO BID 04/17/20 04/17/20 History Aspirin 325 mg PO DAILY 04/17/20 04/17/20 History Dexamethasone 20 mg PO WE 04/17/20 04/17/20 History Gabapentin [Neurontin] 200 mg PO BID 04/17/20 04/17/20 History Lenalidomide [Revlimid] 25 mg PO DAILY PRN 04/17/20 04/17/20 History Sulfamethox-Tmp 800-160Mg [Bactrim 1 tab PO MOWEFR 04/17/20 04/17/20 History DS 800-160 mg] Velcade Inj 3.5mg 1.3 ml IV TH 04/18/20 04/18/20 History Allergies Allergy/AdvReac Type Severity Reaction Status Date / Time Sqpwfdt-Qgi-Mqg Reductase AdvReac weak, sore Verified 04/17/20 21:26 Inhibitor joints Physical Exam Vitals: Vital Signs Temp Pulse Pulse Resp BP BP Pulse Ox 04/18/20 07:35 98.4 F 65 14 130/75 97 04/18/20 04:00 97.8 F 59 L 16 93/51 98 04/17/20 23:59 97.9 F 66 16 118/67 97 04/17/20 20:00 98.4 F 69 18 132/68 98 04/17/20 19:30 135/98 04/17/20 19:00 68 16 125/78 99 Intake and Output 04/18/20 04/18/20 04/18/20 06:59 14:59 22:59 Other: Voiding Method Toilet Toilet # Voids 1 1 Weight 80.8 kg 80.8 kg - Constitutional General appearance: no acute distress - EENT Eyes: EOMI, PERRLA ENT: hearing grossly normal, normal oropharynx - Neck Neck: no lymphadenopathy Thyroid: bilateral: normal size - Respiratory Respiratory: bilateral: CTA - Cardiovascular Rhythm: regular Heart sounds: normal: S1, S2 - Gastrointestinal General gastrointestinal: normal bowel sounds, soft - Integumentary Integumentary: normal - Neurologic Neurologic: CNII-XII intact - Musculoskeletal Musculoskeletal: strength equal bilaterally - Psychiatric Psychiatric: A&O x's 3, appropriate affect Results CBC & Chem 7: 04/17/20 14:43 04/17/20 14:43 Labs: Abnormal Lab Results - Last 24 Hours (Table) 04/18/20 Range/Units 02:30 Triglycerides 173 H (<150) mg/dL Comments: EKG reviewed, echocardiogram report reviewed Chest x-ray: report reviewed CT scan - chest: report reviewed Assessment and Plan (1) Chest pain Narrative/Plan: This is new onset, with the patient denying any prior history of coronary artery disease. According to the patient his risk factors consist of essential ly hypercholesterolemia. Etiology is not clear at this time. Pulmonary embolus was ruled out. The patient did have extensive pleural plaque formation, but this is unlikely to cause acute onset chest pain. Pleural-based pneumonia is possible but the patient does not have other signs or symptoms assistive of infection. The patient was concerned about this being an adverse event related to his m edication. He is specifically concerned about the Velcade. However his symptoms are not consistent with usual side effects associated with this medication. In addition he has been on this regimen for more than 3 months without any prior such symptoms. Therefore this is felt to be unlikely. Based on the above, at this time I would still be concerned about a cardiac etiology. Therefore for further workup the patient should have a cardiology consultation and stress test. This is planned for the near future. Await results. The patient does report improvement in symptoms since coming to the hospital especially with resting. Status: Acute Code(s): R07.9 - CHEST PAIN, UNSPECIFIED SNOMED Code(s): 22877996 (2) Myeloma Narrative/Plan: History as described. The patient has no evidence of progression, with most recent restaging labs on 03/30/20 showing significant decline in his lambda light chain level compared to late 01/13, and no detectable M protein. Blood counts are also well maintained. Resume treatment in the outpatient setting once acute condition has been defined and resolved Status: Acute Code(s): C90.00 - MULTIPLE MYELOMA NOT HAVING ACHIEVED REMISSION SNOMED Code(s): 130659411
[2020-04-19] MEDS ORDERED: DEXAMETHASONE 4 MG TAB PO SCH (09:00)
--- NOTE | 2020-04-19 15:31 | EST ---
EXERCISE STRESS AGE: 74 SEX: Male HT: 72" WT: 178 lbs. PROTOCOL: Lexiscan STAGE: DURATION OF EXERCISE: HEART RATE REST: 60 BLOOD PRESSURE REST: 131/74 MAXIMUM HEART RATE ACHIEVED: 71 MAXIMUM BLOOD PRESSURE: 117/55 85% MPHR: 122 100% MPHR: 144 METS: INDICATIONS: Chest pain. CLINICAL INFORMATION: STRESS DATA: Heart rate 60, pressure 131/74 mmHg. Baseline EKG showed sinus mechanism. The patient was given 0.4 mg of Lexiscan over 15 seconds per protocol. Max heart rate was 71 beats per minute. Maximum pressure was 117/55 mmHg. Clinically the patient did not have symptoms and the EKG did not show any significant ST or T-wave abnormalities concerning for ischemia. CONCLUSION: 1. Nondiagnostic electrocardiogram stress testing in response to Lexiscan. 2. Please follow up with the Cardiolite portion on separate report from Radiology Department. MMODL / IJN: [id number] /
[2020-04-20] MEDS ORDERED: [UNRECOGNIZED DRUG - OTHER] SQ SCH (21:56)
== END 2020-04-18 14:31 | disposition home or self-care (01) ==
LOC: EC 14:31 → 1SOBS 18:03
PROVIDERS: ADMIT Internal Medicine Geriatric Medicine; ATTEND Internal Medicine Geriatric Medicine
DX: R07.89 Other chest pain (principal); R55 Syncope and collapse; C90.00 Multiple myeloma not having achieved remission; R79.89 Other specified abnormal findings of blood chemistry; R11.0 Nausea; H53.8 Other visual disturbances; R06.02 Shortness of breath; E78.5 Hyperlipidemia, unspecified; I10 Essential (primary) hypertension; E78.00 Pure hypercholesterolemia, unspecified; F41.9 Anxiety disorder, unspecified; M50.30 Other cervical disc degeneration, unspecified cervical region; G62.9 Polyneuropathy, unspecified; G89.29 Other chronic pain; M54.9 Dorsalgia, unspecified; F33.9 Major depressive disorder, recurrent, unspecified; Z03.818 Encounter for observation for suspected exposure to other biological agents ruled out; Z77.090 Contact with and (suspected) exposure to asbestos; Z79.82 Long term (current) use of aspirin; Z79.899 Other long term (current) drug therapy; Z79.52 Long term (current) use of systemic steroids; Z88.8 Allergy status to other drugs, medicaments and biological substances; Z96.642 Presence of left artificial hip joint; Z90.49 Acquired absence of other specified parts of digestive tract; Z87.891 Personal history of nicotine dependence; Z80.9 Family history of malignant neoplasm, unspecified
CPT/HCPCS: 99285; 36415; 93005 ×2; 93017; 93306; 85379; 83880; 80061; 80053; 83735; 84484 ×2; 85025; 85610; 85730; 71046; 72125; 70450; 71275; 78452; G0378 ×2; U0003; A9500; J2785; Q9967

== ENCOUNTER → 2020-05-19 | Outpatient (CLI) | payer MEDICARE ==
--- NOTE | 2020-05-21 15:18 | PE ---
Nuclear medicine PET/CT HISTORY: Multiple myeloma, subsequent Patient received 9.9 mCi F-18 FDG intravenously in delayed scanning was performed for the whole body, comparison prior exam 06/04/2019 Head, neck, chest: There is no suspicious uptake. No evident cervical or supraclavicular adenopathy. No mediastinal, axillar, or hilar adenopathy. Right lower lobe calcified lesion and associated soft t issue nodule are again noted and are stable, no associated uptake, there is no pleural or pericardial effusion. There are dense coronary artery calcifications present. ABDOMEN: There is no retroperitoneal adenopathy or ascites. No suspicious uptake is noted. Diverticul ar change noted in sigmoid colon. No free fluid or pelvic adenopathy. Osseous structures are remarkable for postop change to the proximal left femur. There is some streak artifact present. No suspicious hypermetabolic uptake. Sclerotic change to the left aspect of the sym physis pubis is again seen. Degenerative disc changes and facet arthropathy noted at the lower lumbar spine. Sacroiliac joints show stable appearance, arthropathy change. Lower extremities show an unremarkable appearance. IMPRESSION: No suspicious uptake, no evident lytic lesion
== END | disposition home or self-care (01) ==
LOC: RADPETMAIN 09:25
PROVIDERS: ATTEND Internal Medicine Hematology & Oncology
DX: C90.02 Multiple myeloma in relapse (principal)
CPT/HCPCS: 78816; A9552

== ENCOUNTER → 2021-12-26 | Outpatient (CLI) | payer MEDICARE ==
--- NOTE | 2021-12-26 22:02 | XR ---
EXAMINATION TYPE: XR chest 2V DATE OF EXAM: 12/26/2021 COMPARISON: X-ray dated 04/17/2020 HISTORY: Shortness of breath for 8 months. 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 Hist ory of multiple myeloma. TECHNIQUE: Frontal and lateral views of the chest are obtained. FINDINGS: Pleural-based heterogeneous opacity at the posterior aspect of the right lower lobe, appreciated prev iously. Suspected COPD changes. Unremarkable remainder of the lungs. No sizable pleural effusion or definite pneumothorax. No cardiomegaly. Aortic atherosclerotic calcifi cations. Degenerative changes of the thoracic spine. IMPRESSION: Stable chronic pulmonary changes as described above.
== END | disposition home or self-care (01) ==
LOC: RADXRMAIN 14:17
PROVIDERS: ATTEND Internal Medicine Geriatric Medicine
DX: R06.02 Shortness of breath (principal); R92.8 Other abnormal and inconclusive findings on diagnostic imaging of breast
CPT/HCPCS: 71046

== ENCOUNTER → 2022-02-26 | Outpatient (CLI) | payer MEDICARE ==
--- NOTE | 2022-02-26 09:29 | CT ---
EXAMINATION TYPE: CT chest wo con DATE OF EXAM: 02/26/2022 COMPARISON: 05/19/2020, 06/22/2015 HISTORY: Dyspnea CT DLP: 667.6 mGycm. Automated Exposure Control for Dose Reduction was Utilized. TECHNIQUE: CT scan of the thorax is performed without IV contrast. FINDINGS: LUNGS: Biapical pleural thickening noted. Correlate for mild changes of COPD. 1.2 cm right lower lobe subpleural nodule is stable. There is pleural-based calcification with associated consolidation of partially calcified mass is sta ble from prior exam measuring approximately 5.9 x 3.7 cm. Given stability from 2015 finding likely is benign. There is mild basilar bronchiectasis. No pneumothorax or sizable pleural effusion. Very mild interlob ular septal thickening at the lung base seen associated with mild chronic interstitial lung disease. MEDIASTINUM: Lack of IV contrast is noted to limit evaluation for mediastinal and especially hilar ad enopathy. There are no definitive greater than 1 cm hilar or mediastinal lymph nodes. Heart size stab le. Aorta of normal caliber. Atherosclerotic changes noted of the aorta and coronary arteries.. OTHER: Hypertrophic and degenerative changes spine. Suspect hypodensities within the right kidney res pectively stable from prior exam.. IMPRESSION: 1. Subpleural 1.2 cm nodule stable from prior exam and therefore likely benign. 2. Area of consolidation with pleural and parenchymal calcifications also stable as measured above un changed from prior exam. Given stability most likely benign. 3. There is minimal interlobular septal thickening which can be associated with minimal chronic inter stitial lung disease. 4. Coronary artery atherosclerotic changes
== END | disposition home or self-care (01) ==
LOC: RADCTMAIN 08:57
PROVIDERS: ATTEND Internal Medicine Critical Care Medicine
DX: R06.00 Dyspnea, unspecified (principal)
CPT/HCPCS: 71250

== ENCOUNTER → 2022-04-10 | Outpatient (CLI) | payer MEDICARE ==
--- NOTE | 2022-04-11 08:21 | CA ---
Transthoracic Echo Report Name: Tadeo Smalls Age: 76 Gender: M : 1945 Exam Date: 04/10/2022 14:22 Exam Location: [place] [facility] Ht (in): 71 Wt (lb): 189 Ordering Physician: Brant Cherry MD Attending/Referring Phys: Financial Assistance Specialist Lorna Alford RDCS Procedure CPT: Indications: I50.30 DIASTOLIC (CONGESTIVE) HEART FAILURE Cardiac Hx: Hx of patient on chemo. Technical Quality: Good Contrast 1: Total Dose (mL): Contrast 2: Total Dose (mL): MEASUREMENTS (Male / Female) Normal Values 2D ECHO LV Diastolic Diameter PLAX 4.4 cm 4.2 - 5.9 / 3.9 - 5.3 cm LV Systolic Diameter PLAX 2.6 cm IVS Diastolic Thickness 1.4 cm 0.6 - 1.0 / 0.6 - 0.9 cm LVPW Diastolic Thickness 1.1 cm 0.6 - 1.0 / 0.6 - 0.9 cm LV Relative Wall Thickness 0.6 RV Internal Dim ED PLAX 2.6 cm LA Volume 45.3 cm??? 18 - 58 / 22 - 52 cm??? M-MODE Aortic Root Diameter MM 3.5 cm LA Systolic Diameter MM 3.2 cm LA Ao Ratio MM 0.9 MV E Point Septal Separation 0.9 cm AV Cusp Separation MM 2.0 cm DOPPLER AV Peak Velocity 164.6 cm/s AV Peak Gradient 10.8 mmHg MV Area PHT 2.9 cm??? MR Peak Velocity 360.4 cm/s MR Peak Gradient 52.0 mmHg Mitral E Point Velocity 45.4 cm/s Mitral A Point Velocity 94.4 cm/s Mitral E to A Ratio 0.5 MV Deceleration Time 265.5 ms MV E' Velocity 5.5 cm/s Mitral E to MV E' Ratio 8.2 TR Peak Velocity 152.4 cm/s TR Peak Gradient 9.3 mmHg Right Ventricular Systolic Press 14.0 mmHg FINDINGS Left Ventricle Mildly increased septal wall thickness. Normal left ventricular systolic function with no obvious regional wall motion abnormalities. Left ventricular ejection fraction is estimated at 55-60 %. Right Ventricle The right ventricle is normal in size and function. Right Atrium The right atrium is normal in size. Left Atrium The left atrium is normal in size. Mitral Valve Structurally normal mitral valve without significant stenosis or prolapse. There is mild mitral regurgitation. Aortic Valve Structurally normal aortic valve without significant sclerosis or stenosis. There is no aortic regurgitation. Tricuspid Valve Structurally normal tricuspid valve without significant stenosis. Pulmonary artery systolic pressure is normal. Mild tricuspid regurgitation. Pulmonic Valve Structurally normal pulmonic valve without significant stenosis. There is no pulmonic regurgitation. Pericardium Minimal pericardial effusion Aorta Normal aortic root dimension. CONCLUSIONS Normal LV size and systolic function. Mild mitral and tricuspid insufficiency without pulmonary hypertension. Trivial pericardial effusion Previewed by: Dr. Ariella Khan MD (Electronically Signed) Final Date: 11 April 2022 08:20
== END | disposition home or self-care (01) ==
LOC: RADECHMAIN 14:19
PROVIDERS: ATTEND Internal Medicine Geriatric Medicine
DX: I50.30 Unspecified diastolic (congestive) heart failure (principal)
CPT/HCPCS: 93306

== ENCOUNTER → 2023-02-08 | Outpatient (CLI) | payer MEDICARE ==
--- NOTE | 2023-02-09 07:51 | PE ---
EXAMINATION TYPE: PET CT fusion whole body DATE OF EXAM: 02/08/2023 COMPARISON: Prior PET/CT May 19, 2020 HISTORY: Multiple myeloma progress study TECHNIQUE: Following the intravenous administration of 10.56 mCi of F-18 FDG, whole body images are performed from the skull base to the midthigh. Images are reviewed on the computer in the coronal, a xial, and sagittal planes. Reconstructed rotating images are created on independent workstation and reviewed on the computer. A localization and attenuation correction CT is performed in conjunction with the PET scan. Blood glucose level equals 85 SCAN: Subsequent Scan FINDINGS: HEAD AND NECK: No new areas of abnormal hypermetabolic uptake. CHEST, MEDIASTINUM, AND HILAR REGION: No new areas of abnormal hypermetabolic uptake. Persistent part ially calcified mass and/or masslike consolidation in the posterior right lower lung remains ametabol ic. ABDOMEN AND PELVIS: Normal excretion. No new areas of abnormal hypermetabolic uptake. LOWER EXTREMITIES: No new areas of abnormal hypermetabolic uptake. OSSEOUS STRUCTURES: Metallic hardware from left hip arthroplasty redemonstrated. No new areas of abno rmal hypermetabolic uptake. OTHER CT: Nasal septum remains deviated to the left of midline. Moderate to severe three-vessel coron jocy artery calcification is present. Small fat-containing umbilical hernia. Distal colonic diverticul a are present. Multilevel spurring in the spine redemonstrated. Degenerative change bilateral knees a gain seen. IMPRESSION: No new hypermetabolic lytic lesions to suggest active myeloma recurrence.
== END | disposition home or self-care (01) ==
LOC: RADPETMAIN 12:55
PROVIDERS: ATTEND Internal Medicine Hematology & Oncology
DX: C90.02 Multiple myeloma in relapse (principal)
CPT/HCPCS: 78816; A9552

== ENCOUNTER → 2024-03-18 | Outpatient (CLI) | payer MEDICARE ==
--- NOTE | 2024-03-18 20:38 | US ---
EXAMINATION TYPE: US kidneys/renal and bladder DATE OF EXAM: 03/18/2024 COMPARISON: PET CT 02/08/2023 CLINICAL INDICATION: Male, 78 years old with history of R31.9 HEMATURIA, UNSPECIFIED; Macroscopic hem aturia x 1 day and has since stopped, no pain EXAM MEASUREMENTS: Right Kidney: 11.2 x 5.5 x 5.0 cm Left Kidney: 10.9 x 4.6 x 6.2 cm Right Kidney: Anechoic lesions seen. 1= mid pelvic= 2.8 x 3.5 x 3.2 cm. 2= Mid superior cortical = 2.3 x 2.4 x 2.0 cm . These demonstrate thin vargas with no internal color flow and consistent with si mple cysts. Left Kidney: anechoic lesion lateral inferior = 2.5 x 2.4 x 2.0 cm . This demonstrates thin wall wit h no internal color flow consistent with a simple cyst. Bladder: distended, anechoic Bilateral Jets seen There is no evidence for hydronephrosis at this point in time. No nephrolithiasis is seen. Bilatera l simple renal cysts identified. No solid masses are identified. The urinary bladder is anechoic. B ilateral ureteral jets are seen. IMPRESSION: 1. No ultrasound evidence for obstructive uropathy or concerning solid renal mass. 2. Simple bilateral renal cysts.
== END | disposition home or self-care (01) ==
LOC: RADUSWWP 11:18
PROVIDERS: ATTEND Internal Medicine Geriatric Medicine
DX: N28.1 Cyst of kidney, acquired (principal); R31.9 Hematuria, unspecified
CPT/HCPCS: 76770

== ENCOUNTER 2024-07-30 03:22 | Inpatient (IN) | payer MEDICARE ==
[2024-07-30] MEDS: NITROGLYCERIN SL TABS 0.4 MG TAB SUBLINGUAL STA (03:48)
--- NOTE | 2024-07-30 03:48 | ED ---
Chest Pain HPI - General Chief Complaint: Chest Pain Stated Complaint: Chest Pain Time Seen by Provider: 07/30/24 03:34 Source: patient Mode of arrival: ambulatory Limitations: no limitations - History of Present Illness Initial Comments: Patient is an 78 y/o male with PMH MM presenting for chest pain. Patient states pain woke him up from sleep this evening and describes it as a pressure across his chest. Associated shortness of breath and nausea. Non radiating. States that earlier this week he noticed intermittent left shoulder pain. Chest pain now does not seem to be exacerbated by exertion and is continuous regardless of whether he is at rest or active. Denies hx CAD, smoking. Does have hx, HTN, HLD. Denies LE swelling. Recent surgery, travel, hospitalizations. - Related Data Home Medications Medication Instructions Recorded Confirmed Ezetimibe [Zetia] 10 mg PO HS 03/24/18 07/30/24 Acyclovir 400 mg PO BID 04/17/20 07/30/24 Albuterol Sulfate [Albuterol 1 - 2 puff PO RT-QID PRN 07/30/24 07/30/24 Sulfate Hfa] Aspirin EC [Ecotrin Low Dose] 81 mg PO DAILY 07/30/24 07/30/24 Aspirin EC [Ecotrin Low Dose] 324 mg PO ONCE 07/30/24 07/30/24 Gabapentin [Gabapentin ER] 300 mg PO BID 07/30/24 07/30/24 Ketoconazole 2% Cream [Nizoral 2%] 1 applic TOPICAL DAILY 07/30/24 07/30/24 Allergies Allergy/AdvReac Type Severity Reaction Status Date / Time Ulztaml-IHO-NbO Reductase AdvReac weak, sore Verified 07/30/24 08:51 Inhibitor joints [Vaqgpzp-Ktq-Kyv Reductase Inhibitor] Review of Systems ROS Statement: Those systems with pertinent positive or pertinent negative responses have been documented in the HPI. EKG Findings - EKG Comments: EKG Findings:: 1. Performed at 3:31 AM. Time, rate 78 bpm, WY intervals 209 ms, QRS duration 97 ms, QT/QTc 368/401 ms, normal axis, compared to EKG previously, question [address] elevation lead III, no reciprical changes, otherwise no new ST elevations or depressions from previous, Q-wave noted V1 V2. EKG performed at 3:41 AM. Rhythm with occasional PVCs, rate 76 bpm, WY interval 208 ms, QRS duration 104 ms, QT/QTc 379/409 ms, normal axis. Repeat EKG performed at 3:42 AM able obtain EKG without PVCs present. Sinus rhythm with first-degree AV block, WY interval 212, rate 70 bpm, QRS duration 108 109 ms, QT fast QTc 388/408 ms, normal axis, no evolving ST elevations or depressions, no significant changes from 1 performed earlier Past Medical History Past Medical History: Cancer, Hyperlipidemia Additional Past Medical History / Comment(s): MULTIPLE MYELOMA. 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 COLONOSCOPY. RT SHOULDER SX. LT MELISA Past Anesthesia/Blood Transfusion Reactions: No Reported Reaction Past Psychological History: Anxiety Smoking Status: Never smoker Past Alcohol Use History: None Reported Past Drug Use History: None Reported - Past Family History Mother Family Medical History: No Reported History Father Family Medical History: Cancer General Exam - General Exam Comments Initial Comments: PE: CONSTITUTIONAL: Appears to be in mild distress, ill-appearing pale, nontoxic SKIN: Warm, dry, no jaundice, hives or petechiae EYES: Pupils are equally round, extraocular movements intact without nystagmus, clear conjunctiva, non-icteric sclera HENT: Normocephalic, atraumatic, moist mucus membranes, oropharynx clear without exudates NECK: , Full range of motion, normal appearance PULMONARY: Mild tachypnea, clear to auscultation without wheezes, rhonchi, or rales, normal excursion, no accessory muscle use and no stridor CARDIOVASCULAR: Regular rate, rhythm, normal S1 and S2. No appreciated murmurs, rubs or gallops. Strong radial pulses with intact distal perfusion. No lower extremity edema GASTROINTESTINAL: Soft, active bowel sounds throughout, non-tender, non- distended, no palpable masses, no rebound or guarding. No hepatosplenomegaly GENITOURINARY: MUSCULOSKELETAL: Extremities have no gross deformity, no edema, redness, or swelling. No calf swelling NEUROLOGIC:_a/o x 3, GCS 15, normal mentation and speech. Moves all extremities x 4 without motor or sensory deficit PSYCHIATRIC:_normal mood and affect, thought process is clear and linear Limitations: no limitations Course Vital Signs 07/30/24 07/30/24 03:24 07:45 Temperature 97.5 F L Pulse Rate 72 66 Respiratory 20 18 Rate Blood Pressure 188/84 114/75 O2 Sat by Pulse 94 L 95 Oximetry Chest Pain MDM - MDM Was pt. sent in by a medical professional or institution (, PA, [facility] [employer], urgent care, hospital, or retirement...) When possible be specific @ -No Did you speak to anyone other than the patient for history (EMS, parent, family, police, friend...)? What history was obtained from this source @ -No Did you review nursing and triage notes (agree or disagree)? Why? @ -I reviewed and agree with nursing and triage notes Were old charts reviewed (outside hosp., previous admission, EMS record, old EKG, old radiological studies, urgent care reports/EKG's, retirement records)? Report findings @ -Old charts reviewed, stress test done in 2019 was "nondiagnostic, reviewed old EKGs Differential Diagnosis (chest pain, altered mental status, abdominal pain women, abdominal pain men, vaginal bleeding, weakness, fever, dyspnea, syncope, headache, dizziness, GI bleed, back pain, seizure, CVA, palpatations, mental health, musculoskeletal)? @Differential Chest Pain: Stable Angina, Unstable Angina, STEMI, NSTEMI Aortic Dissection, pericarditis, pleurisy, chostochondirits, Pneumothorax, Musculoskeletal, Esophageal Spasm GERD, Cholecystitis, Pancreatitis, Zoster, this is not meant to be an all- inclusive list. EKG interpreted by me (3pts min.). @ -As above X-rays interpreted by me (1pt min.). @ -None done CT interpreted by me (1pt min.). @No evidence of dissection or massive or submassive pulmonary embolism U/S interpreted by me (1pt. min.). @ -None done What testing was considered but not performed or refused? (CT, X-rays, U/S, labs)? Why? @ -None What meds were considered but not given or refused? Why? @ -None Did you discuss the management of the patient with other professionals (professionals i.e. , PA, [facility], lab, RT, psych nurse, director social service, roll hand, teacher, postal sorting officer, counseling case manager)? Give summary @ -No Was smoking cessation discussed for >3mins.? @ -No Was critical care preformed (if so, how long)? @ -Yes, 45 minutes Were there social determinants of health that impacted care today? How? (Homelessness, low income, unemployed, alcoholism, drug addiction, transportation, low edu. Level, literacy, decrease access to med. care, [facility], rehab)? @ -No Was there de-escalation of care discussed even if they declined (Discuss DNR or withdrawal of care, Hospice)? @ -No What co-morbidities impacted this encounter? (DM, HTN, Smoking, COPD, CAD, Cancer, CVA, ARF, Chemo, Hep., AIDS, mental health diagnosis, sleep apnea, morbid obesity)? @Multiple myeloma, hyperlipidemia, hypertension Was patient admitted / discharged? Hospital course, mention meds given and route, prescriptions, significant lab abnormalities, going to OR and other pertinent info. @ -Hospital course admission- Patient is an 78-year-old gentleman with past medical history of multiple [place], hypertension, hyperlipidemia presenting for chest pressure that awoke him from sleep this morning. On my assessment patient is in mild distress, is pale mildly tachypneic endorses chest pressure. EKG obtained and showed questionable [address] elevation in lead III, no reciprocal depressions and was compared to previous EKG without significant changes from prior. Aspirin, sublingual nitroglycerin and morphine were ordered. Cardiac workup initiated. On my reassessment status post morphine sublingual nitroglycerin patient states pain is resolved. Serial EKGs were performed to ensure no evolving signs of ischemia, repeat EKGs without significant changes. Labs and imaging reviewed. Grossly within normal limits. Abnormal values not concerning for acute pathology related to presenting complaint. CT PE study without evidence of PE. Initial troponin within normal limits. On my reassessment patient is sleeping comfortably. I updated him to findings thus far and plan for admission due to elevated heart score. Patient is agreeable plan of care. Discussed case with Dr. Cherry who kindly accepted for admission. Patient was admitted in stable condition. Undiagnosed new problem with uncertain prognosis? @ -No Drug Therapy requiring intensive monitoring for toxicity (Heparin, Nitro, Insulin, Cardizem)? @ -No Were any procedures done? @ -No Diagnosis/symptom? @Chest pain Acute, or Chronic, or Acute on Chronic? @ -Acute Uncomplicated (without systemic symptoms) or Complicated (systemic symptoms)? @ -Complicated Side effects of treatment? @ -No Exacerbation, Progression, or Severe Exacerbation? @ -No Poses a threat to life or bodily function? How? (Chest pain, [place], [place], pneumonia, PE, COPD, DKA, ARF, appy, cholecystitis, CVA, Diverticulitis, Homicidal, Suicidal, threat to staff... and all critical care pts) @ -Yes Disposition Clinical Impression: Chest pain Disposition: ADMITTED IP TO THIS HOSP Condition: Stable
[2024-07-30] MEDS: SODIUM CHLORIDE 0.9% 500 ML 500 ML IV STA (03:50)
[2024-07-30] MEDS: MORPHINE SULFATE 4 MG/ML SYRINGE IV STA (03:51)
[2024-07-30] MEDS: ONDANSETRON 4 MG/2 ML VIAL IVP STA (03:51)
[2024-07-30 04:03] LABS: ALT 47 U/L (4-49); AST 95 U/L (17-59); African American GFR (CKD) 87 (>60 ml/min/1.73 sqM); Albumin 4.7 g/dL (3.5-5.0); Alkaline Phosphatase 104 U/L (38-126); Amylase 79 U/L (30-110); Anion Gap 7 mmol/L; Blood Urea Nitrogen 30 mg/dL (9-20); Calcium 9.9 mg/dL (8.4-10.2); Carbon Dioxide 27 mmol/L (22-30); Chloride 106 mmol/L (98-107); Glucose 121 mg/dL (74-99); Lipase 105 U/L (23-300); Magnesium 2.2 mg/dL (1.6-2.3); Non-African American GFR(CKD) 75 (>60 ml/min/1.73 sqM); Potassium 4.6 mmol/L (3.5-5.1); Sodium 140 mmol/L (137-145); Total Bilirubin 0.7 mg/dL (0.2-1.3); Total Protein 6.7 g/dL (6.3-8.2)
[2024-07-30 04:10] LABS: Partial Thromboplastin Time 21.6 sec (22.0-30.0); Prothrombin Time 10.7 sec (10.0-12.5)
[2024-07-30 04:12] LABS: NT-Pro-B-Type Natriuretic Pept 37 pg/mL
[2024-07-30 04:19] LABS: Basophils # (A) 0.1 k/uL (0-0.2); Basophils % (A) 1 %; Eosinophils # (A) 0.2 k/uL (0-0.7); Eosinophils % (A) 2 %; HCT 51.2 % (39.0-53.0); HGB 16.6 gm/dL (13.0-17.5); Lymphocytes # (A) 1.7 k/uL (1.0-4.8); Lymphocytes % (A) 27 %; MCH 32.1 pg (25.0-35.0); MCHC 32.5 g/dL (31.0-37.0); MCV 98.7 fL (80.0-100.0); Mean Platelet Volume 6.7; Monocytes # (A) 0.7 k/uL (0-1.0); Monocytes % (A) 11 %; Neutrophils # (A) 3.6 k/uL (1.3-7.7); Neutrophils % (A) 56 %; Platelet Count 270 k/uL (150-450); RBC 5.19 m/uL (4.30-5.90); RDW 13.3 % (11.5-15.5); WBC 6.5 k/uL (3.8-10.6)
[2024-07-30] MEDS ORDERED: ONDANSETRON 4 MG/2 ML VIAL IVP PRN (07:04)
[2024-07-30] MEDS ORDERED: CALCIUM CARBONATE 500 MG CHEWABLE PO PRN (07:04)
[2024-07-30] MEDS ORDERED: traMADol 50 MG TAB PO PRN (07:04)
[2024-07-30] MEDS ORDERED: MAG HYDROX/AL HYDROX/SIMETH 30 ML CUP PO PRN (07:04)
[2024-07-30] MEDS ORDERED: NALOXONE 0.4 MG/ML 1 ML VIAL IV PRN (07:04)
[2024-07-30] MEDS ORDERED: ACETAMINOPHEN TAB 325 MG TAB PO PRN (07:04)
[2024-07-30] MEDS ORDERED: NON FORMULARY DRUG (Lenalidomide [Revlimid] 25 MG Capsule) PO PRN (07:52)
--- NOTE | 2024-07-30 07:58 | CT ---
EXAMINATION TYPE: CT angio chest DATE OF EXAM: 07/30/2024 COMPARISON: 02/26/2022 HISTORY: chest pain that started about 30minutes ago. pain 10 mid sternal with radiation to the right shoulder. [address] DLP: 423.3 mGycm CONTRAST: CT chest with contrast and 3D reconstruction with MIP imaging is performed with IV Contrast, patient injected with 100ml mL of Isovue 370. Contrast-enhanced CT of the chest was performed through the course of the pulmonary arteries with abhijit g and mediastinal window settings submitted. 3D reconstruction with MIP imaging was also performed. PULMONARY ARTERIES: The pulmonary arteries and their major tributaries are patent. I do not see phoenix dence for sizable filling defect to suggest pulmonary embolic process. LUNGS: Stable calcified pleural-based opacity right lower lobe. The lungs are otherwise clear and jessie e of infiltrate. No evidence for atelectasis. 1.4 cm pulmonary nodule right lower lobe is unchanged. No pleural effusion. MEDIASTINUM: Thoracic aorta is of normal caliber,however, evaluation is limited given timing of the contrast bolus. If there is concern for thoracic aortic pathology consider SUDARSHAN. Correlate clinicall y . The heart is not enlarged. No evidence for mediastinal mass. No mediastinal lymph nodes greater than 1cm. HILAR STRUCTURES: No evidence for mass. No hilar lymph nodes greater than 1 cm. UPPER ABDOMEN: No significant abnormality is seen. IMPRESSION: 1. No evidence for Pulmonary embolism at this time. [facility], , 07/30/2024 7:56 AM
[2024-07-30] MEDS: CITALOPRAM HYDROBROMIDE 20 MG TAB PO SCH (09:03)
[2024-07-30] MEDS: GABAPENTIN 100 MG CAP PO SCH (09:03)
[2024-07-30] MEDS: FAMOTIDINE 20 MG TAB PO SCH (09:03)
[2024-07-30] MEDS: BACLOFEN 10 MG TAB PO SCH (09:03)
[2024-07-30] MEDS: EZETIMIBE 10 MG TAB PO SCH (09:03)
[2024-07-30] MEDS: ENOXAPARIN 40 MG/0.4 ML SYRINGE SQ SCH (09:03)
[2024-07-30] MEDS: ACYCLOVIR 200 MG CAP PO SCH (09:04)
[2024-07-30 09:10] LABS: Glucose,Whole Blood 102 mg/dL (70-110)
--- NOTE | 2024-07-30 10:04 | P.HPIM ---
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 Symptoms obviously were resting while he is in bed woke him up and become slightly bit severe. Symptoms did not improve with antiacid. Patient ended up coming to the emergency department at [facility] where was seen and evaluated His initial troponin was less than 0.012, rest of his lab including normal CBC and CMP with mildly elevated blood sugar, EKG analyzed all along still showing low voltage but two [address] elevation in inferior and lateral leads which when compared with the initial EKG on presentation to exclude the different which make this quite suspicious at this point. Review of patient's record looks like had similar presentation back in 2019 with Lexiscan done at the time in April 18, 2020 came back to be negative the patient has been seen cardiology all along, not quite sure if he had any further stress test since then. With the current presentation with high risk factor and slight change in EKG patient will be hospitalized will be seeing cardiology and echocardiogram will be order probably will keep patient n.p.o. for potential need testing. REVIEW OF SYSTEMS: CONSTITUTIONAL: Well-developed no acute respiratory distress. EYES: No icterus sclerae, no conjunctivitis. EARS, NOSE, MOUTH, THROAT, and FACE: No sore throat, lymphadenopathy, carotid bruits or deformity. RESPIRATORY: No SOB cough or wheezes. CARDIOVASCULAR: No CP, Palpitation, PND, Orthopnea, or angina. No arrhythmia at the time. GASTROINTESTINAL: No Abd pain, Nausea or vomiting, no Diarrhea or constipation, No GI Bleed, no distention or masses. GENITOURINARY: Negative for Hematuria or UTI, no kidney stones. INTEGUMENT/BREAST: Negative for any muscular injury with mild osteoarthritis.. HEMATOLOGIC/LYMPHATIC: Negative for bleed or purpura. MUSCULOSKELTAL: Generalized arthralgia and myalgia. NEURLOGICAL: No LOC, Sz or syncope, blurred vision dizziness or abnormality.. BEHAVIORAL/PSYCH: Negative. ENDOCRINE: Negative. PHYSICAL EXAMINATION: General Appearance: Alert, cooperative, no distress, appears stated age. Neck HEENT: Supple, no lymphadenopathy, no thyroid enlargement, no carotid bruits. Lungs: Clear to auscultation without crackles or wheezes no rhonchi, no deformity. Chest Wall: Decreased expansion with deep inspiration no tenderness and no deformity was found on exam, no costochondral pain or discomfort. Heart: Regular rate and rhythm, S1, S2 normal, no murmur, rub or gallop. Back: Symmetric, no curvature, ROM normal, no CVA tenderness. Abdomen: Soft, non-tender, bowel sounds active all four quadrants, no masses, no organomegaly. Extremities: Slight arthritis with no edema. Pulses: 2+ and symmetric. Skin: Skin color, texture, tugor normal, no rashes or lesions. Neurologic: Alert oriented x3 cranial nerves II through XII intact, no motor deficit, no abnormal balance or gait. ASSESSMENT AND PLAN: _Anginal chest pain: Slight EKG change at this point with negative troponin, patient be seen cardiology will keep patient n.p.o., stress test or heart cath t o be decided by cardiology echocardiogram will be ordered as well. _History of multiple myeloma: Remain on Revlimid and still on Velcade, continue medication still seen oncology on regular basis. _Hyperlipidemia: On Zetia and WelChol could not tolerate atorvastatin previously. _Chronic peripheral neuropathy: Most likely causing elevated by multiple myeloma, still on gabapentin 200 mg twice a day. _Elevated blood pressure: Patient benefits from being on smaller dose of beta- dann. _BPH: No sign of urinary retention. _Chronic depression: Continue citalopram 20 mg a day. _Hyperglycemia: Most likely steroid-induced, still on diet control only continue Accu-Chek with sliding scales coverage. _GI prophylaxis: Continue patient on Pepcid 20 mg a day. _DVT prophylaxis: Early mobilization might do heparin subcutaneous. CODE STATUS: Full code. Admit patient to the hospital for observation status for 1-2 night stay. _ Past Medical History Past Medical History: Cancer, Hyperlipidemia Additional Past Medical History / Comment(s): MULTIPLE MYELOMA. 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 COLONOSCOPY. RT SHOULDER SX. LT MELISA Past Anesthesia/Blood Transfusion Reactions: No Reported Reaction Past Psychological History: Anxiety Smoking Status: Never smoker Past Alcohol Use History: None Reported Past Drug Use History: None Reported - Past Family History Mother Family Medical History: No Reported History Father Family Medical History: Cancer Medications and Allergies Home Medications Medication Instructions Recorded Confirmed Type Ezetimibe [Zetia] 10 mg PO HS 03/24/18 07/30/24 History Acyclovir 400 mg PO BID 04/17/20 07/30/24 History Albuterol Sulfate [Albuterol 1 - 2 puff PO RT-QID PRN 07/30/24 07/30/24 History Sulfate Hfa] Aspirin EC [Ecotrin Low Dose] 81 mg PO DAILY 07/30/24 07/30/24 History Aspirin EC [Ecotrin Low Dose] 324 mg PO ONCE 07/30/24 07/30/24 History Gabapentin [Gabapentin ER] 300 mg PO BID 07/30/24 07/30/24 History Ketoconazole 2% Cream [Nizoral 2%] 1 applic TOPICAL DAILY 07/30/24 07/30/24 His tory Allergies Allergy/AdvReac Type Severity Reaction Status Date / Time Lknznrk-DFM-[id number] Reductase AdvReac weak, sore Verified 07/30/24 08:51 Inhibitor joints [Hkiddwc-Las-Xmv Reductase Inhibitor] Physical Exam Vitals: Vital Signs Temp Pulse Resp BP Pulse Ox 07/30/24 03:24 97.5 F L 72 20 188/84 94 L Intake and Output 07/29/24 07/30/24 07/30/24 22:59 06:59 14:59 Other: Weight 82.1 kg Results CBC & Chem 7: 07/30/24 03:33 07/30/24 03:33 Labs: Abnormal Lab Results - Last 24 Hours (Table) 07/30/24 07/30/24 Range/Units 03:33 03:33 APTT 21.6 L (22.0-30.0) sec BUN 30 H (9-20) mg/dL Glucose 121 H (74-99) mg/dL AST 95 H (17-59) U/L
[2024-07-30] MEDS: SODIUM CHLORIDE 0.9% 1,000 ML IV ONE (11:26)
[2024-07-30] MEDS: fentaNYL (PF) 50 MCG/ML 2 ML AMP IVP ONE (11:28)
[2024-07-30] MEDS: MIDAZOLAM 2 MG/2 ML VIAL IVP ONE (11:28)
[2024-07-30] MEDS: LIDOCAINE 1% INJ 10MG/ML (20 ML MDV) SQ ONE (11:30)
[2024-07-30] MEDS: VERAPAMIL SYRINGE (5 MG/10 ML) INTRAARTER ONE (11:32)
[2024-07-30] MEDS: HEPARIN SODIUM 1,000 UN/ML (10ML VL) IV ONE (11:36)
[2024-07-30] MEDS: IOPAMIDOL-370 100ML BTL INJ ONE (11:55)
[2024-07-30] MEDS ORDERED: RX INFO: IV CONTRAST WAS GIVEN 1 EACH MISC MISCELLANE PRN (12:24)
--- NOTE | 2024-07-30 12:39 | P.CARDCATH ---
Date of Procedure: 07/30/24 Description of Procedure: DIAGNOSTIC CORONARY ANGIOGRAPHY and LEFT HEART CATH REPORT PROCEDURES PERFORMED: Left heart catheterization Selective coronary angiography Moderate conscious sedation 16 mins Right radial access INDICATION: Unstable angina. 78-year-old male with past medical history of multiple myeloma presented to the hospital because of substernal chest pain that started at 3 AM. He describes chest pain as substernal chest pressure-like symptoms which got better with resting. On admission to ER his tropes were negative but his ECG does show 0.[address] elevations in inferior lead. His CTA showed heavy calcification in distal left main. Due to the atypical nature of his symptoms, mildly abnormal ECG and abnormal CTA chest we scheduled a heart catheterization for him. Unstable angina. CONSENT: I have explained the procedural steps of above-mentioned procedures in layman's terms to the patient. I discussed the risks (including but not limited to stroke, emergent vascular or cardiac surgery or ), benefits and alternative therapies for the above-mentioned procedure. I discussed the risks of sedation/analgesia and blood product administration (if indicated). The patient has indicated understanding and acceptance of these risks. Conscious Sedation: Patient's ECG, heart rate, blood pressure, pulse oximetry were monitored throughout the duration of procedure under my direct supervision. 1 mg Versed and 50 mcg Fentanyl were used for induction of moderate conscious se dation. Total duration of moderate concious sedation 16 minutes. PROCEDURE: After explaining the risks, benefits and alternatives of the above mentioned procedures in detail to the patient, informed consent was obtained. Patient was taken to the catheterization lab, prepped and draped in usual sterile fashion using universal precuations. Ultrasound was used to identify the radial artery. 1% lidocaine was infiltrated over the right radial artery. A 6-Hebrew sheath was placed and secured in the right radial artery using modified Seldinger technique. The sheath was flushed and 5 mg verapamil was administered intra-arterially. J tipped wire was advanced under fluoroscopic guidance. Once the wire tip reached aortic root 5000 units of IV heparin was given. Over the wire JR4 diagnostic catheter was advanced. The wire in place the catheter was manipulated to cross the aortic valve and entered into LV under fluoroscopy guidance. The wire was removed and the catheter was flushed. LV pressures were obtained and pullback was performed under fluoroscopy. Catheter was manipulated to selectively engage the right coronary ostium. Right coronary angiography was performed in different angiographic projections. The JR4 diagnostic catheter was exchanged for a JL 3.5 diagnostic catheter over the J-wire. The wire was removed, catheter was flushed and manipulated under fluoroscopy to selectively engaged the left coronary ostium. Left coronary angioplasty was performed in different angiographic projections. Catheter was removed over the wire. Radial sheath was flushed. The right radial sheath was removed and a TR band was placed with excellent patent hemostasis was achieved. The patient tolerated the procedure well. Patient was transported back to the post catheterization holding area in stable condition. Angiographic images were reviewed in detail. HEMODYNAMICS: Aortic Pressure: 110/60 mmHg. LV pressure: 112/10 mmHg. LVEDP 13 mmHg. There was no significant gradient across the aortic valve. SELECTIVE CORONARY ARTERIOGRAPHY: LEFT MAIN: Left main is a long tubular large caliber vessel. The distal end of left main has 80% narrowing. Distally trifurcates into LAD, ramus and LCx. At that application site there is a aneurysmal dilatation. LEFT ANTERIOR DESCENDING CORONARY ARTERY: LCx is 2. Seven 5 mm vessel. Proximal LAD has 20 to 30% long tubular calcific disease. Distal LAD is 2 mm vessel appears angiographically patent. LAD gives rise to small diagonal branch which appears patent. RAMUS: 2.5 mm vessel. Ostial ramus appears to have stented 80% stenosis. Ramus has mild luminal irregularities and is otherwise patent. LEFT CIRCUMFLEX CORONARY ARTERY: It is nondominant vessel. LCx is small caliber 2 mm vessel. It gives rise to a small OM1 branch. LCx appears to have mild luminal irregularities and is otherwise patent. RIGHT CORONARY ARTERY: Dominant vessel. Proximal RCA has 50 to 60% eccentric stenosis. Mid RCA has mild luminal irregularities. Distal RCA has 70 to 80% stenosis prior to the bifurcation of PDA and PL branch. PDA and PL branch are long 2.25 mm vessels which are patent with mild luminal irregularities. IMPRESSION: 80% distal left main stenosis 80% distal RCA, 60% proximal RCA stenosis Normal left sided filling pressures PLAN: Consult CT surgery team. CT surgery PA was notified Start aspirin 81 mg, Lipitor 40 mg, Coreg 3.125 mg twice daily, Start IV heparin drip 4 hours after the procedure Case discussed with patient and patient's . Plan was discussed. 125 cc fluids for 4 hours Performing Physician Andre Carrillo MD, FACC, RPVI Thank you for allowing [facility] to participate in this patient's care. Feel free to reach out in case of any followup questions.
--- NOTE | 2024-07-30 13:16 | P.CRDCN ---
History of Present Illness Consult date: 07/30/24 Chief complaint: Chest pain History of present illness: Dr. Carrillo's addendum Unstable angina Mildly abnormal ECG with 0.[address] elevations in inferior lead Heavy left main calcification noticed on CTA chest History of multiple myeloma Plan for car catheterization, further recommendations to follow. Patient is a 78 year old male with past medical history of cancer, hyperlipidemia, multiple myeloma, asbestosis presented to the ED this morning at 3AM with acute onset retrosternal chest pain. He said the chest pain was mostly located in the center of his chest, has a pressure feel, and radiated towards the right shoulder. He said the chest pain started while he was sleeping at night. He reported shortness of breath, but no nausea, vomiting, diarrhea, belly pain, constipation. Upon arrival to the ED, patient responded very fast to nitroglycerin and morphine and the chest pain went away. He was seen in the ED this morning. Currently reports doing well. Denies any acute complaints. In the ED, EKG showed sinus rhythm, tall T waves, with a heart rate of about [address] angiography of the chest was performed, and showed no evidence of pulmonary embolism. Troponin was less than 0.012. BNP was 37. AST slighty elevated at 95. ALT 47. Patient is suspected to have underlying coronary artery disease, hence a cardiac catheterization was performed this morning and was found to have left main blockage. Review of Systems per HPI Past Medical History Past Medical History: Cancer, Hyperlipidemia Additional Past Medical History / Comment(s): MULTIPLE MYELOMA. 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 COLONOSCOPY. RT SHOULDER SX. LT MELISA Past Anesthesia/Blood Transfusion Reactions: No Reported Reaction Past Psychological History: Anxiety Smoking Status: Never smoker Past Alcohol Use History: None Reported Past Drug Use History: None Reported - Past Family History Mother Family Medical History: No Reported History Father Family Medical History: Cancer Medications and Allergies Home Medications Medication Instructions Recorded Confirmed Type Ezetimibe [Zetia] 10 mg PO HS 03/24/18 07/30/24 History Acyclovir 400 mg PO BID 04/17/20 07/30/24 History Albuterol Sulfate [Albuterol 1 - 2 puff PO RT-QID PRN 07/30/24 07/30/24 History Sulfate Hfa] Aspirin EC [Ecotrin Low Dose] 81 mg PO DAILY 07/30/24 07/30/24 History Aspirin EC [Ecotrin Low Dose] 324 mg PO ONCE 07/30/24 07/30/24 History Gabapentin [Gabapentin ER] 300 mg PO BID 07/30/24 07/30/24 History Ketoconazole 2% Cream [Nizoral 2%] 1 applic TOPICAL DAILY 07/30/24 07/30/24 History Allergies Allergy/AdvReac Type Severity Reaction Status Date / Time Muicyld-VMZ-UfM Reductase AdvReac weak, sore Verified 07/30/24 08:51 Inhibitor joints [Asfpcab-Lof-Zck Reductase Inhibitor] Physical Exam Vitals: Vital Signs Temp Pulse Resp BP Pulse Ox 07/30/24 11:08 78 18 133/70 98 07/30/24 07:45 66 18 114/75 95 07/30/24 03:24 97.5 F L 72 20 188/84 94 L Intake and Output 07/29/24 07/30/24 07/30/24 22:59 06:59 14:59 Intake Total 100 Balance 100 Intake: IV 100 Other: Weight 82.1 kg General: Alert and oriented, not in acute distress Cardiovascular: Regular heart rate, no murmurs Respiratory: Clear to auscultation bilaterally, no wheezing/rhonchi/stridor Abdominal: Soft, nondistended, nontender to palpation Extremity: No LE edema noted. Results 07/30/24 03:33 07/30/24 03:33 Cardiac Enzymes 07/30/24 07/30/24 07/30/24 Range/Units 03:33 03:33 07:47 AST 95 H (17-59) U/L Troponin I <0.012 <0.012 (0.000-0.034) ng/mL Coagulation 07/30/24 Range/Units 03:33 PT 10.7 (10.0-12.5) sec APTT 21.6 L (22.0-30.0) sec CBC 07/30/24 Range/Units 03:33 WBC 6.5 (3.8-10.6) k/uL RBC 5.19 (4.30-5.90) m/uL Hgb 16.6 (13.0-17.5) gm/dL Hct 51.2 (39.0-53.0) % Plt Count 270 (150-450) k/uL Comprehensive Metabolic Panel 07/30/24 Range/Units 03:33 Sodium 140 (137-145) mmol/L Potassium 4.6 (3.5-5.1) mmol/L Chloride 106 (98-107) mmol/L Carbon Dioxide 27 (22-30) mmol/L BUN 30 H (9-20) mg/dL Creatinine 0.96 (0.66-1.25) mg/dL Glucose 121 H (74-99) mg/dL Calcium 9.9 (8.4-10.2) mg/dL AST 95 H (17-59) U/L ALT 47 (4-49) U/L Alkaline Phosphatase 104 (38-126) U/L Total Protein 6.7 (6.3-8.2) g/dL Albumin 4.7 (3.5-5.0) g/dL Current Medications Generic Name Dose Route Start Last Admin Trade Name Freq PRN Reason Stop Dose Admin Acetaminophen 650 mg 07/30/24 07:04 Acetaminophen Tab 325 Mg Tab PO Q6HR PRN Mild Pain or Fever > 100.5 Acyclovir 400 mg 07/30/24 09:00 07/30/24 09:04 Acyclovir 200 Mg Cap PO 400 mg BID JOSSELYN Administration Al Hydroxide/Mg Hydroxide 15 ml 07/30/24 07:04 Mag Hydrox/Al Hydrox/Simeth 30 Ml Cup PO Q6HR PRN Indigestion Aspirin 81 mg 07/31/24 09:00 Aspirin 81 Mg PO DAILY [facility] Atorvastatin Calcium 40 mg 07/30/24 21:00 Atorvastatin 40 Mg Tab PO HS [facility] Calcium Carbonate/Glycine 1,000 mg 07/30/24 07:04 Calcium Carbonate 500 Mg Chewable PO Q4HR PRN Dyspepsia Carvedilol 3.125 mg 07/30/24 12:30 Carvedilol 3.125 Mg Tab PO BID-W/MEALS JOSSELYN Ezetimibe 10 mg 07/31/24 21:00 Ezetimibe 10 Mg Tab PO HS [facility] Famotidine 20 mg 07/30/24 09:00 07/30/24 09:03 Famotidine 20 Mg Tab PO 20 mg BID JOSSELYN Administration Gabapentin 300 mg 07/30/24 21:00 Gabapentin 300 Mg Cap PO BID [facility] Heparin Sodium (Porcine) 0 unit 07/30/24 16:25 Heparin Sodium 1,000 Un/Ml (10ml Vl) IV PER PROTOCOL PRN Low PTT Protocol Sodium Chloride 1,000 mls @ 125 mls/hr 07/30/24 12:30 Saline 0.9% IV 07/30/24 16:29 .Q8H [facility] Insulin Aspart 0 unit 07/30/24 12:30 Insulin Aspart (Novolog) 100 Unit/Ml Vial SQ ACHS [facility] Protocol Miscellaneous Information 1 each 07/30/24 12:24 Rx Info: Iv Contrast Was Given 1 Each Misc MISCELLANE 08/01/24 12:24 DAILY PRN Per Protocol Naloxone HCl 0.2 mg 07/30/24 07:04 Naloxone 0.4 Mg/Ml 1 Ml Vial IV Q2M PRN Opioid Reversal Ondansetron HCl 4 mg 07/30/24 07:04 Ondansetron 4 Mg/2 Ml Vial IVP Q8HR PRN Nausea And Vomiting Tramadol HCl 50 mg 07/30/24 07:04 Tramadol 50 Mg Tab PO Q6H PRN Moderate Pain (Scale 4 to 6) Intake and Output 07/29/24 07/30/24 07/30/24 22:59 06:59 14:59 Intake Total 100 Balance 100 Intake: IV 100 Other: Weight 82.1 kg 07/30/24 03:33 07/30/24 03:33 Assessment and Plan Assessment: 1. Unstable Angina/NSTEMI - Troponin of less than 0.012. - Cardiac catheterization showed 80% distal left main stenosis. 80% distal RCA, 60% proximal RCA stenosis. Normal left sided filling pressure. - Consult CT surgery team - start aspirin 81 mg, lipitor 40 mg, coreg 3.125 mg twice daily 2. Pulmonary Embolism - CTA of the chest showed no evidence of PE Time with Patient: Greater than 30
--- NOTE | 2024-07-30 15:30 | P.GSCN ---
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 Cherry for primary care, Dr. Lipscomb for pulmonology, and Dr. Almeida for oncology. He has a previous medical history of multiple myeloma currently stable, hyperlipidemia, obstructive sleep apnea without home CPAP use, COPD with asbestosis, COVID infection in September 2023, and previous tobacco dependence. Apparently in the middle the night he awoke with substernal chest pain which radiated to his left arm associated with shortness of breath, he denied nausea, vomiting, diaphoresis, lightheadedness, or any other symptomatology. He presented to [facility] and was initially treated with morphine and nitro with relief of pain. EKG demonstrated slight ST elevation in the inferior leads. Lab work was unremarkable except BUN 30, AST 95. Troponins were negative x 2. The patient was admitted for evaluation and treatment with consultation placed to cardiology. He was recommended to undergo heart catheterization which was completed today by Dr. Carrillo revealing distal left main stenosis 80%, ostial ramus stenosis 80%, distal RCA stenosis 70 to 80%. Due to this finding consultation was placed to cardiothoracic surgery for surgical revascularization recommendations. Review of Systems Review of systems was completed and was negative except as noted - Cardiovascular Reports as per HPI, Reports chest pain, Reports shortness of breath Past Medical History Past Medical History: Coronary Artery Disease (CAD), Cancer, Chest Pain / Angina, COPD, Hyperlipidemia, Sleep Apnea/CPAP/BIPAP Additional Past Medical History / Comment(s): MULTIPLE MYELOMA. 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 GAIL but patient refuses CPAP History of Any Multi-Drug Resistant Organisms: None Reported Past Surgical History: Adenoidectomy, Appendectomy, Hernia Repair, Joint Replacement, Orthopedic Surgery, Tonsillectomy Additional Past Surgical History / Comment(s): BONE MARROW BIOPSY. COLONOSCOPY. RT SHOULDER SX. LT MELISA. Salivary gland stone removed Past Anesthesia/Blood Transfusion Reactions: No Reported Reaction Past Psychological History: Anxiety Smoking Status: Former smoker Past Alcohol Use History: Rare Past Drug Use History: None Reported Additional History: States he quit smoking more than 20 years ago - Past Family History Mother Family Medical History: Congestive Heart Failure (CHF) Father Family Medical History: Cancer Medications and Allergies Home Medications Medication Instructions Recorded Confirmed Type Ezetimibe [Zetia] 10 mg PO HS 03/24/18 07/30/24 History Acyclovir 400 mg PO BID 04/17/20 07/30/24 History Albuterol Sulfate [Albuterol 1 - 2 puff PO RT-QID PRN 07/30/24 07/30/24 History Sulfate Hfa] Aspirin EC [Ecotrin Low Dose] 81 mg PO DAILY 07/30/24 07/30/24 History Aspirin EC [Ecotrin Low Dose] 324 mg PO ONCE 07/30/24 07/30/24 History Gabapentin [Gabapentin ER] 300 mg PO BID 07/30/24 07/30/24 History Ketoconazole 2% Cream [Nizoral 2%] 1 applic TOPICAL DAILY 07/30/24 07/30/24 History Allergies Allergy/AdvReac Type Severity Reaction Status Date / Time Uciqros-UVZ-HmX Reductase AdvReac weak, sore Verified 07/30/24 08:51 Inhibitor joints [Vdnrcxr-Mhu-Jfv Reductase Inhibitor] Surgical - Exam Vital Signs Temp Pulse Resp BP Pulse Ox 97.5 F L 72 20 188/84 94 L 07/30/24 03:24 07/30/24 03:24 07/30/24 03:24 07/30/24 03:24 07/30/24 03:24 CONSTITUTIONAL: Awake and alert, appears comfortable, cooperative, well- developed, well-nourished, no pain, no acute distress EYES: Pupils equal, round, reactive to light, normal ocular movement ENT: Moist mucous membranes without oral lesions present NECK: No masses, no bruits, trachea midline RESPIRATORY: Lungs sounds clear to auscultation bilaterally. Respirations even, nonlabored. Currently on room air with oxygen saturation 98%. Strong cough. No chest wall deformities. No clubbing or cyanosis present CARDIOVASCULAR: S1, S2 present. Regular rate and rhythm, sinus rhythm on telemetry. Palpable peripheral pulses bilaterally. No edema present. No calf pain or tenderness noted. No significant lower extremity varicosities noted GASTROINTESTINAL: Abdomen soft, nontender, nondistended without masses or organomegaly noted. There is no rebound or guarding present. Active bowel sounds present 4 quadrants. GENITOURINARY: Deferred INTEGUMENTARY: Skin is warm and dry except mid calf to toes are a bit cool with lack of hair representing probable peripheral vascular disease NEUROLOGIC: Cranial nerves II through XII intact, normal coordination, no obvious motor or sensory deficits, speech is normal MUSKULOSKELETAL: Able to move all extremities, strength equal bilaterally, normal posture PSYCHIATRIC: Alert and oriented to person place and time, appropriate affect, intact judgment and insight CLINICAL FRAILTY SCORE 2 Results - Labs 07/30/24 03:33 07/30/24 03:33 Abnormal Lab Results - Last 24 Hours (Table) 07/30/24 07/30/24 Range/Units 03:33 03:33 APTT 21.6 L (22.0-30.0) sec BUN 30 H (9-20) mg/dL Glucose 121 H (74-99) mg/dL AST 95 H (17-59) U/L Diabetes panel 07/30/24 Range/Units 03:33 Sodium 140 (137-145) mmol/L Potassium 4.6 (3.5-5.1) mmol/L Chloride 106 (98-107) mmol/L Carbon Dioxide 27 (22-30) mmol/L BUN 30 H (9-20) mg/dL Creatinine 0.96 (0.66-1.25) mg/dL Glucose 121 H (74-99) mg/dL Calcium 9.9 (8.4-10.2) mg/dL AST 95 H (17-59) U/L ALT 47 (4-49) U/L Alkaline Phosphatase 104 (38-126) U/L Total Protein 6.7 (6.3-8.2) g/dL Albumin 4.7 (3.5-5.0) g/dL Calcium panel 07/30/24 Range/Units 03:33 Calcium 9.9 (8.4-10.2) mg/dL Albumin 4.7 (3.5-5.0) g/dL Pituitary panel 07/30/24 Range/Units 03:33 Sodium 140 (137-145) mmol/L Potassium 4.6 (3.5-5.1) mmol/L Chloride 106 (98-107) mmol/L Carbon Dioxide 27 (22-30) mmol/L BUN 30 H (9-20) mg/dL Creatinine 0.96 (0.66-1.25) mg/dL Glucose 121 H (74-99) mg/dL Calcium 9.9 (8.4-10.2) mg/dL Adrenal panel 07/30/24 Range/Units 03:33 Sodium 140 (137-145) mmol/L Potassium 4.6 (3.5-5.1) mmol/L Chloride 106 (98-107) mmol/L Carbon Dioxide 27 (22-30) mmol/L BUN 30 H (9-20) mg/dL Creatinine 0.96 (0.66-1.25) mg/dL Glucose 121 H (74-99) mg/dL Calcium 9.9 (8.4-10.2) mg/dL Total Bilirubin 0.7 (0.2-1.3) mg/dL AST 95 H (17-59) U/L ALT 47 (4-49) U/L Alkaline Phosphatase 104 (38-126) U/L Total Protein 6.7 (6.3-8.2) g/dL Albumin 4.7 (3.5-5.0) g/dL - Imaging CT scan - chest: report reviewed, image reviewed EKG: image reviewed Additional studies: Heart catheterization films reviewed with Dr. To Assessment and Plan Assessment: Coronary artery disease with left main disease, unstable angina Chest pain secondary to above History of multiple myeloma currently stable Hyperlipidemia Obstructive sleep apnea without home CPAP use COPD with asbestosis COVID infection in September 2023 Previous tobacco dependence Plan: The patient was seen and examined in the Extended Stay unit with Dr. To, chart/diagnostics were reviewed in detail. The usual perioperative course of open-heart surgery was discussed with the patient and his , risks and benefits were reviewed, all questions were answered to the best of our ability. The patient and his did express concern regarding increased risk due to his history of multiple myeloma as well as they were not sure they would like to have surgery at [facility]. Dr. To discussed at length our recommendations but left the decision up to the patient. At the patient's request Dr. To did talk with Dr. Almeida who indicated it would be safe to take the patient off his immunotherapy treatment for a couple of months to allow the patient to heal and Dr. Almeida indicated to Dr. To that he felt surgery would be safe for this patient. The patient would like to discuss options further with his family as well as Dr. Cherry before making any decisions. He was agreeable to preoperative testing which was ordered. Tentatively we did schedule coronary artery bypass surgery with Dr. Cornejo on Friday, August 01, 2024 in case the patient is agreeable. This was discussed with Dr. Carrillo. We will calculate STS risk score and discuss with the patient and his family. Recommend continuing to maximize medical therapy with aspirin, statin, beta- dann therapy. More recommendations to follow once patient makes decision regarding surgical intervention here at [facility]. Thank you Dr. Carrillo for this consult, we look forward to working with you in the care of your patient. I have personally seen and examined the patient, performed the documentation and the assessment and plan as written. Number of minutes spent on the visit: 30. MARGIE Oliva
[2024-07-30] MEDS ORDERED: HEPARIN SODIUM 1,000 UN/ML (10ML VL) IV PRN (16:25)
[2024-07-30 16:35] LABS: Glucose,Whole Blood 94 mg/dL (70-110)
--- NOTE | 2024-07-30 16:41 | US ---
EXAMINATION TYPE: US vein mapping BILAT DATE OF EXAM: 07/30/2024 4:21 PM COMPARISON: NONE CLINICAL INDICATION: Male, 78 years old with history of preop cardiac surgery; preop SIDE PERFORMED: Bilateral TECHNIQUE: Lower extremity saphenous vein is examined and measured utilizing real time linear array sonography. Patient History: Smoker: Prev Heart Disease: No Previous DVT: No Vascular Surgery: No Discoloration: No Hypertension: No Diabetes: No Paralysis: No Varicosities: No Edema: NO DUPLEX FINDINGS: Greater Saphenous: Color flow seen Lesser Saphenous: Color flow seen Measurements in mm: Right Greater Saphenous: Groin: 5.1 x 4.4 mm High Thigh: 4.5 x 3.6 mm Mid Thigh: 3.2 x 2.8 mm Above Knee: 3.2 x 2.4 mm Knee: 3.8 x 3.1 mm Below Knee: 2.9 x 2.4 mm Mid Calf: 3.3 x 2.6 mm At Ankle: 4.1 x 3.4 mm Left Greater Saphenous: Groin: 6.1 x 4.6 mm High Thigh: 4.7 x 3.2 mm Mid Thigh: 4.3 x 3.1 mm Above Knee: 4.2 x 2.7 mm Knee: 2.4 x 1.6 mm Below Knee: 3.6 x 2.5 mm Mid Calf: 4.9 x 3.8 mm At Ankle: 4.3 x 3.5 mm IMPRESSION: 1. Bilateral GSV measurements listed above. 2. Performing surgeon to determine viability as conduit. [facility], Workstation: [facility], 07/30/2024 4:39 PM
--- NOTE | 2024-07-30 16:42 | US ---
EXAMINATION TYPE: US arterial LE single level DATE OF EXAM: 07/30/2024 4:29 PM CLINICAL INDICATION: Male, 78 years old with history of Ankle Brachial Index (HUGO); preop History of: Smoker: prev Hypertension: no Diabetic: no Hyperlipidemia: no TIA/CVA: no Previous Vascular Surgery: no CAD: no IL: no Vascular Ulcers: no Claudication: no Gangrene: no Right Brachial Pressure: 115 Left Brachial Pressure: def due to IV Ankle-Brachial Indices: Right: 1.11 Left: 1.22 (Vessel hardening > 1.4; Normal 0.9 - 1.4, Moderate 0.7 - 0.9, Severe 0.5-0.7) IMPRESSION: 1. No suspicious stenosis [facility], Workstation: [facility], 07/30/2024 4:40 PM
--- NOTE | 2024-07-30 16:46 | US ---
EXAMINATION TYPE: US carotid duplex BILAT DATE OF EXAM: 07/30/2024 COMPARISON: 09/01/18 CLINICAL INDICATION: Male, 78 years old with history of preop cardiac surgery; preop TECHNIQUE: Grayscale, color Doppler and spectral Doppler evaluation of the bilateral carotid systems and vertebral arteries.Indirect Doppler criteria was utilized. 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 Right bulb velocity is elevated IMPRESSION: 1. There is a large plaque within the right carotid bulb. Significant stenosis over 70% is present. 2. Some atheromatous plaque present within the left carotid bulb. Moderate narrowing between 50 and 6 9% present on the left based on velocity Criteria for Assigning % of Stenosis / Diameter reduction (Estimation based on the indirect measurements of the internal carotid artery velocities (ICA PSV). 1. Normal (no stenosis)=ICA PSV < 125 cm/s: ratio < 2.0: ICA EDV<40 cm/s. 2. Less than 50% stenosis=ICA PSV < 125 cm/s: ratio < 2.0: ICA EDV<40 cm/s. 3. 50 to 69% stenosis=ICA PSV of 125 to 230 cm/s: ration 2.0 ? 4.0: ICA EDV 40-100 cm/s. 4. Greater than 70% stenosis to near occlusion= ICA PSV > 230 cm/s: ratio > 4.0: ICA EDV > 100 cm/s. 5. Near occlusion= ICA PSV velocities may be low or undetectable: variable ratio and ICA EDV. 6. Total occlusion=unable to detect flow. [facility], Workstation: [facility], 07/30/2024 4:44 PM
--- NOTE | 2024-07-30 16:47 | US ---
EXAMINATION TYPE: Pre-Operative Non-Invasive Evaluation of the hand for Potential Radial Artery Oneil , Measurements only DATE OF EXAM: 07/30/2024 4:22 PM CLINICAL INDICATION: Male, 78 years old with history of measurements only; preop SIDE PERFORMED: Left TECHNIQUE: Radial artery is measured utilizing real time linear array sonography. Dominant hand: Right Duplex Findings: Radial Artery: Color flow seen Measurements in mm, transverse view: Left Radial: mm Proximal: 4.0 x 3.8 mm Mid: 4.2 x 4.1 mm Distal: 3.5 x 3.1 mm IMPRESSION: 1. Bilateral Radial artery measurements listed above. 2. Performing surgeon to determine viability as conduit. [facility], Workstation: [facility], 07/30/2024 4:44 PM
[2024-07-30] MEDS: INSULIN ASPART (NovoLOG) 100 UNIT/ML VIAL SQ SCH (16:58)
[2024-07-30] MEDS: carvediloL 3.125 MG TAB PO SCH (16:59)
--- NOTE | 2024-07-30 17:47 | CA ---
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 67 - 155 / 56 - 104 cm??? LV Systolic Volume MOD BP 53.1 cm??? 22 - 58 / 19 - 49 cm??? LV Ejection Fraction MOD BP 60.4 % >= 55 % LV Cardiac Index MOD BP 2173.8 cm???/min???m??? LV Diastolic Volume MOD 4C 136.8 cm??? LV Systolic Volume MOD 4C 56.9 cm??? LV Ejection Fraction MOD 4C 58.4 % LV Cardiac Index MOD 4C 2144.7 cm???/min???m??? LV Diastolic Length 4C 8.7 cm LV Systolic Length 4C 7.4 cm LV Diastolic Volume MOD 2C 129.0 cm??? LV Systolic Volume MOD 2C 49.2 cm??? LV Ejection Fraction MOD 2C 61.8 % LV Cardiac Index MOD 2C 2142.3 cm???/min???m??? LV Diastolic Length 2C 8.9 cm LV Systolic Length 2C 7.4 cm LA Volume 68.8 cm??? 18 - 58 / 22 - 52 cm??? LA Volume Index 33.6 cm???/m??? 16 - 28 cm???/m??? Ascending Aorta Diameter 3.7 cm DOPPLER AV Peak Velocity 162.3 cm/s AV Peak Gradient 10.5 mmHg AV Mean Velocity 110.7 cm/s AV Mean Gradient 5.5 mmHg AV Velocity Time Integral 33.7 cm LVOT Peak Velocity 103.5 cm/s LVOT Peak Gradient 4.3 mmHg LVOT Velocity Time Integral 21.6 cm LVOT Stroke Volume 66.6 cm??? LVOT Stroke Volume Index 32.6 ml/m??? LVOT Cardiac Index 1789.8 cm???/min???m??? AV Area Cont Eq vti 2.0 cm??? AV Area Cont Eq pk 2.0 cm??? MV Area PHT 3.1 cm??? Mitral E Point Velocity 48.9 cm/s Mitral A Point Velocity 63.8 cm/s Mitral E to A Ratio 0.8 MV Deceleration Time 247.8 ms TR Peak Velocity 231.8 cm/s TR Peak Gradient 21.5 mmHg Right Atrial Pressure 10.0 mmHg Pulmonary Artery Systolic Pressu 31.5 mmHg Right Ventricular Systolic Press 31.5 mmHg PV Peak Velocity 84.4 cm/s PV Peak Gradient 2.8 mmHg FINDINGS Left Ventricle Left ventricular ejection fraction is estimated at 55-60 %. Left ventricular cavity size normal. Left ventricular wall thickness normal. No obvious regional wall motion abnormalities. Right Ventricle Mildly enlarged right ventricle with normal fuction. Right ventricular systolic pressure within normal limits. Right Atrium Normal right atrial size. Left Atrium Mildly increased left atrial volume. Mitral Valve Structurally normal mitral valve. No evidence for mitral valve prolapse. No mitral stenosis. Trace mitral regurgitation. Aortic Valve Trileaflet aortic valve. No aortic valve stenosis or regurgitation. Tricuspid Valve Structurally normal tricuspid valve. No tricuspid stenosis. Trace tricuspid regurgitation. Pulmonic Valve Pulmonic valve not well visualized. No pulmonic stenosis. No pulmonic regurgitation. Pericardium No pericardial effusion. Aorta Normal size aortic root and proximal ascending aorta. CONCLUSIONS LVEF 55 to 60% No obvious regional wall motion abnormality Mildly enlarged RV cavity with normal systolic function No significant valvular dysfunction Previewed by: Dr Andre Carrillo (Electronically Signed) Final Date: 30 July 2024 17:47
[2024-07-30 20:12] LABS: Glucose,Whole Blood 96 mg/dL (70-110)
[2024-07-30] MEDS: ATORVASTATIN 40 MG TAB PO SCH (21:10)
[2024-07-30] MEDS: GABAPENTIN 300 MG CAP PO SCH (21:11)
[2024-07-30] MEDS: SODIUM CHLORIDE 0.9% 1,000 ML IV SCH (21:54)
[2024-07-31 06:02] LABS: Glucose,Whole Blood 98 mg/dL (70-110)
[2024-07-31 07:11] LABS: Basophils # (A) 0.1 k/uL (0-0.2); Basophils % (A) 1 %; Eosinophils # (A) 0.2 k/uL (0-0.7); Eosinophils % (A) 3 %; HCT 49.7 % (39.0-53.0); HGB 16.1 gm/dL (13.0-17.5); Lymphocytes # (A) 1.1 k/uL (1.0-4.8); Lymphocytes % (A) 17 %; MCH 32.3 pg (25.0-35.0); MCHC 32.3 g/dL (31.0-37.0); MCV 100.1 fL (80.0-100.0); Mean Platelet Volume 7.1; Monocytes # (A) 0.6 k/uL (0-1.0); Monocytes % (A) 9 %; Neutrophils # (A) 4.4 k/uL (1.3-7.7); Neutrophils % (A) 68 %; Platelet Count 232 k/uL (150-450); RBC 4.97 m/uL (4.30-5.90); RDW 13.8 % (11.5-15.5); WBC 6.5 k/uL (3.8-10.6)
[2024-07-31 07:14] LABS: Prothrombin Time 10.9 sec (10.0-12.5)
[2024-07-31 07:25] LABS: Anion Gap 5 mmol/L; Blood Urea Nitrogen 16 mg/dL (9-20); Carbon Dioxide 25 mmol/L (22-30); Chloride 109 mmol/L (98-107); Glucose 93 mg/dL (74-99); Potassium 5.2 mmol/L (3.5-5.1); Sodium 139 mmol/L (137-145)
[2024-07-31 07:26] LABS: ALT 45 U/L (4-49); AST 37 U/L (17-59); African American GFR (CKD) >90 (>60 ml/min/1.73 sqM); Albumin 4.3 g/dL (3.5-5.0); Alkaline Phosphatase 106 U/L (38-126); Calcium 9.3 mg/dL (8.4-10.2); Non-African American GFR(CKD) 90 (>60 ml/min/1.73 sqM); Total Bilirubin 0.5 mg/dL (0.2-1.3); Total Protein 6.3 g/dL (6.3-8.2)
[2024-07-31] MEDS ORDERED: COLESEVELAM 625 MG TAB PO SCH (07:30)
--- NOTE | 2024-07-31 08:01 | XR ---
EXAMINATION TYPE: XR chest 2V DATE OF EXAM: 07/31/2024 COMPARISON: 12/26/2021, CT 07/30/2024 INDICATION: Preop CABG TECHNIQUE: Frontal and lateral views of the chest are obtained. FINDINGS: The heart size is normal. The pulmonary vasculature is normal. There is a right lower lobe infiltrate. Correlate for pneumonia this may be a chronic process with so me increased lung markings present in 2021 similar distribution. Small amount of infiltrate may be in the left midlung. This is nonspecific. Follow-up is recommended IMPRESSION: 1. Increased opacification right lung base appears to be chronic. 2. Some minimal infiltrate may be in the left mid lung [facility], Workstation: [facility], 07/31/2024 7:59 AM
[2024-07-31] MEDS: ASPIRIN 81 MG PO SCH (08:27)
--- NOTE | 2024-07-31 09:08 | P.PN ---
Subjective Progress Note Date: 07/31/24 Principal diagnosis: Coronary artery disease with left main disease, unstable angina. History of multiple myeloma on immunotherapy, currently stable, hyperlipidemia, obstructive sleep apnea without home CPAP use, mild COPD with asbestosis, COVID infection in September 2023, previous tobacco dependence, left internal carotid stenosis 50 to 69% The patient was seen and examined this morning sitting up in bed on the cardiac stepdown unit in no acute distress. Denies any chest pain or shortness of breath. Has been ambulatory without difficulty. Remains on room air with oxyg en saturation in the mid 90s, currently sinus rhythm on telemetry although was bradycardic in the high 50s to low 60s overnight, hemodynamically stable. Preoperative testing completed, STS risk score calculated and patient is considered to be low risk. Patient states he did have the opportunity to talk with Dr. Cherry and after this discussion the patient states he does feel comfortable having his open heart surgery here at [facility]. He is scheduled for surgery Friday with Dr. Cornejo. Objective - Vital Signs Vital signs: Vital Signs Temp 97.9 F 07/31/24 08:29 Pulse 71 07/31/24 08:29 Resp 16 07/31/24 08:29 BP 128/81 07/31/24 08:29 Pulse Ox 96 07/31/24 08:29 FiO2 Intake & Output 07/30/24 07/31/24 07/31/24 18:59 06:59 18:59 Intake Total 220 120 Output Total 400 1500 Balance -180 -1380 Weight 81.6 kg Intake: IV 100 Oral 120 120 Output: Gastric Drainage 0 Urine 400 1500 Stool 0 Urine/Stool Mix 0 Emesis 0 Oral Regurgitation 0 Other 0 Other: Voiding Method Toilet # Voids 0 1 # Bowel Movements 0 - Exam CONSTITUTIONAL: Appears comfortable, cooperative, no acute distress RESPIRATORY: Lungs sounds diminished in the right base. Respirations even, nonlabored. Currently on room air with oxygen saturation 96%. Able to achieve 3000 mL on incentive spirometry. Strong cough. CARDIOVASCULAR: S1, S2 present. Regular rate and rhythm, sinus rhythm on telemetry. Palpable peripheral pulses bilaterally. No edema present. No calf pain or tenderness noted GASTROINTESTINAL: Abdomen soft, nontender, nondistended. Active bowel sounds present 4 quadrants. Tolerating diet. GENITOURINARY: Continues to void INTEGUMENTARY: Skin is warm and dry, right radial heart cath T band in place NEUROLOGIC: Cranial nerves II through XII intact MUSKULOSKELETAL: Able to move all extremities, strength equal bilaterally, gait normal PSYCHIATRIC: Alert and oriented to person place and time, appropriate affect, intact judgment and insight - Allied health notes Allied health notes reviewed: nursing - Labs CBC & Chem 7: 07/31/24 06:40 07/31/24 06:40 Labs: Abnormal Lab Results - Last 24 Hours (Table) 07/31/24 07/31/24 Range/Units 06:40 06:40 MCV 100.1 H (80.0-100.0) fL Potassium 5.2 H (3.5-5.1) mmol/L Chloride 109 H (98-107) mmol/L - Imaging and Cardiology Chest x-ray: report reviewed, image reviewed All preoperative testing reviewed Assessment and Plan Assessment: Coronary artery disease with left main disease, unstable angina Chest pain secondary to above History of multiple myeloma on immunotherapy currently stable Hyperlipidemia Obstructive sleep apnea without home CPAP use Mild COPD with asbestosis, preoperative FEV1 60% of predicted COVID infection in September 2023 Previous tobacco dependence Left internal carotid stenosis 50 to 69% Plan: Continue to maximize medical therapy with aspirin, statin, beta-dann Encourage incentive spirometry use Increase activity as tolerated Our plan is for myocardial revascularization with left internal mammary artery, endoscopic vein harvest, possible left radial artery harvest along with ligation of the left atrial appendage on August [address] Cornejo 5 m walk test completed, #1 2.13 seconds, #2 2.75 seconds, #3 2.96 seconds Medical management per internal medicine, cardiology Pulmonology consulted for clearance, this patient is known to Dr. Lipscomb More recommendations to follow
[2024-07-31 10:16] LABS: Hepatitis A Antibody IgM Nonreactive (Nonreactive); Hepatitis B Core IgM Nonreactive (Nonreactive); Hepatitis B Surface Antigen Nonreactive (Nonreactive); Hepatitis C IgG Antibody Nonreactive (Nonreactive)
[2024-07-31 11:33] LABS: Glucose,Whole Blood 83 mg/dL (70-110)
[2024-07-31] MEDS: MUPIROCIN 2% OINT 22 GM TUBE NASAL SCH (12:11)
[2024-07-31 12:52] LABS: Chol/HDL Ratio 3.45 Ratio; LDL Cholesterol,Calculated 106.8 mg/dL (0.0-131.0)
--- NOTE | 2024-07-31 13:29 | P.PN ---
Subjective Progress Note Date: 07/31/24 History of present illness: Patient is a pleasant 78 year old male with significant past medical history of cancer, hyperlipidemia, multiple myeloma, asbestosis who presented to the ED with acute onset retrosternal chest pain. He said the chest pain was mostly located in the center of his chest, has a pressure feel, and radiated towards the right shoulder. He said the chest pain started while he was sleeping at night. He reported shortness of breath, but no nausea, vomiting, diarrhea, belly pain, constipation. Upon arrival to the ED, patient responded very fast to nitroglycerin and morphine and the chest pain went away. In the ED, EKG showed sinus rhythm, tall T waves, with a heart rate of about [address] angiography of the chest was performed, and showed no evidence of pulmonary embolism. Troponin was less than 0.012. BNP was 37. AST slighty elevated at 95. ALT 47. Left heart cath 07/30/24 revealed multivessel CAD including 80% distal left main stenosis, 80% distal RCA stenosis, 60% proximal RCA stenosis. He was referred to cardiothoracic surgery for CABG eval. Carotid ultrasound shows greater than 70% stenosis of right ICA, moderate stenosis left ICA. Echocardiogram with EF 55-60 %, no significant valve issues. 07/31/2024 Patient reports that he is feeling fine and denies any chest pain or pressure. No shortness of breath. 0.69, potassium 5.2. PHYSICAL EXAMINATION: This is a 78 -year-old male in no apparent distress at the time of my examination. HEENT: Head is atraumatic, normocephalic. Pupils are equal, round. Sclerae anicteric. Conjunctivae are clear. Mucous membranes of the mouth are moist. Neck is supple. There is no jugular venous distention. No carotid bruit is heard. CHEST EXAMINATION: Lungs are clear to auscultation. No chest wall tenderness is noted on palpation or with deep breathing. HEART EXAMINATION: Heart regular rate and rhythm. S1, S2 heard. No murmurs, gallops or rub. ABDOMEN: Soft, nontender. Bowel sounds are heard. EXTREMITIES: 2+ peripheral pulses with no evidence of peripheral edema and no calf tenderness noted. Right radial site with no redness or swelling. NEUROLOGIC EXAMINATION: Patient is awake, alert and oriented x3. IMPRESSION AND PLAN: CAD scheduled for CABG 08/02/2024 hyperlipidemia Former tobacco abuse Multiple myeloma Asbestos Carotid stenosis PLAN: Continue with current cardiac medications. He is scheduled for CABG Thursday 08/[address] Cornejo. Further recommendations pending patient's clinical course. I am dictating on behalf of Dr. Eder Vogel's history/physical and assessment/plan. Objective - Vital Signs Vital signs: Vital Signs Temp 97.9 F 07/31/24 08:29 Pulse 71 07/31/24 08:29 Resp 16 07/31/24 08:29 BP 128/81 07/31/24 08:29 Pulse Ox 96 07/31/24 08:29 FiO2 Intake & Output 07/30/24 07/31/24 07/31/24 18:59 06:59 18:59 Intake Total 220 120 360 Output Total 400 1500 275 Balance -180 -1380 85 Weight 81.6 kg Intake: IV 100 Oral 120 120 360 Output: Gastric Drainage 0 Urine 400 1500 275 Stool 0 Urine/Stool Mix 0 Emesis 0 Oral Regurgitation 0 Other 0 Other: Voiding Method Toilet # Voids 0 1 # Bowel Movements 0 - Labs CBC & Chem 7: 07/31/24 06:40 07/31/24 06:40 Labs: Abnormal Lab Results - Last 24 Hours (Table) 07/31/24 07/31/24 Range/Units 06:40 06:40 MCV 100.1 H (80.0-100.0) fL Potassium 5.2 H (3.5-5.1) mmol/L Chloride 109 H (98-107) mmol/L
[2024-07-31] MEDS ORDERED: IPRATROPIUM-ALBUTEROL 3 ML NEB INHALATION PRN (13:33)
--- NOTE | 2024-07-31 13:33 | P.CNPUL ---
History of Present Illness Consult date: 07/31/24 Requesting physician: Barrett To Reason for consult: other (Preoperative pulmonary clearance) Chief complaint: Midsternal chest pain History of present illness: This is an 78-year-old white male with history of coronary artery disease, dyslipidemia, obstructive sleep apnea, mild COPD, normally sees Dr. Lipscomb, PFT from 02/04/2022 showed mild to moderate COPD FEV1 of 75% FEV1/FVC is 65%, patient had hyperinflation and low DLCO consistent with mild emphysema. Patient has been on bronchodilators as listed below, patient was brought in this time on 07/30/2024, came in with classic anginal symptoms seen by cardiology and felt that the patient had unstable angina/non-ST elevation myocardial infarction. Cardiac catheterization was performed and it showed 80% distal left main 80% distal RCA 60% proximal RCA and normal left-sided filling pressures. Hence cardiothoracic surgery was consulted, and the patient is scheduled to undergo myocardial revascularization next Friday. During his underlying pulmonary history, we were asked to see the patient in consultation, and I had a chance to review his PFT from the office, reviewed his FEV1 on this admission, chest x-ray showed some pleural parenchymal calcification most likely consistent with previous asbestos associated lung disease. I feel the patient is low operative risk, and I will clear the patient for surgery as scheduled. The findings on the chest x-ray are chronic, and they were present on a previous chest x-ray back in 2021 patient denies any cough denies any wheezing denies any shortness of breath, and no chest pain during my evaluation Review of Systems Constitutional: Negative Eyes: denies blurred vision, denies pain Ears: deny: decreased hearing, ear discharge, earache, tinnitus Ears, nose, mouth and throat: Denies headache, Denies sore throat Cardiovascular: As noted in HPI Respiratory: As noted in HPI Gastrointestinal: Negative Genitourinary: Negative Musculoskeletal: Denies myalgias Integumentary: Negative Neurological: Denies numbness, Denies weakness Psychiatric: Denies anxiety, Denies depression Endocrine: Negative Hematologic/Lymphatic: History of multiple myeloma. Past Medical History Past Medical History: Cancer, Hyperlipidemia Additional Past Medical History / Comment(s): MULTIPLE MYELOMA. 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 COLONOSCOPY. RT SHOULDER SX. LT MELISA Past Anesthesia/Blood Transfusion Reactions: No Reported Reaction Past Psychological History: Anxiety Smoking Status: Never smoker Past Alcohol Use History: None Reported Past Drug Use History: None Reported - Past Family History Mother Family Medical History: No Reported History Father Family Medical History: Cancer Medications and Allergies Home Medications Medication Instructions Recorded Confirmed Type Ezetimibe [Zetia] 10 mg PO HS 03/24/18 07/30/24 History Acyclovir 400 mg PO BID 04/17/20 07/30/24 History Albuterol Sulfate [Albuterol 1 - 2 puff PO RT-QID PRN 07/30/24 07/30/24 History Sulfate Hfa] Aspirin EC [Ecotrin Low Dose] 81 mg PO DAILY 07/30/24 07/30/24 History Aspirin EC [Ecotrin Low Dose] 324 mg PO ONCE 07/30/24 07/30/24 History Gabapentin [Gabapentin ER] 300 mg PO BID 07/30/24 07/30/24 History Ketoconazole 2% Cream [Nizoral 2%] 1 applic TOPICAL DAILY 07/30/24 07/30/24 History Allergies Allergy/AdvReac Type Severity Reaction Status Date / Time [id number] Reductase AdvReac weak, sore Verified 07/30/24 08:51 Inhibitor joints [Irdtlkz-Hhz-Xqn Reductase Inhibitor] Physical Exam Vitals: Vital Signs Temp Pulse Pulse Resp BP BP Pulse Ox 07/31/24 12:16 63 16 144/76 95 07/31/24 08:29 97.9 F 71 16 128/81 96 07/31/24 00:01 97.9 F 58 L 16 110/64 96 07/30/24 21:03 98.1 F 68 14 165/91 98 07/30/24 16:09 70 16 134/73 96 07/30/24 14:09 70 16 137/73 99 07/30/24 14:00 16 07/30/24 13:39 65 60 16 113/60 127/73 97 07/30/24 13:20 66 20 129/72 97 Intake and Output 07/30/24 07/31/24 07/31/24 22:59 06:59 14:59 Intake Total 240 360 Output Total 400 1500 275 Balance -160 -1500 85 Intake: Oral 240 360 Output: Urine 400 1500 275 Stool 0 Other: Voiding Method Toilet Toilet Toilet # Voids 1 Weight 81.6 kg General Appearance: Revealed 78-year-old white male in no distress, extremely pleasant, on room air Neck HEENT: Supple no neck masses no JVD. Lungs: clear bilaterally no crackles rhonchi or wheezes Chest Wall: Symmetrical chest expansion Heart: Distant S1-S2, no S3 gallop, no murmur Abdomen: soft nontender no megaly no rebound no guarding Extremities: No clubbing edema or cyanosis Pulses: 2+ and symmetric. Skin: No rashes Neurologic: Alert oriented x 3 no gross focal deficit Psychiatric: Normal mood affect and no mental status examination Results - Laboratory Findings CBC and BMP: 07/31/24 06:40 07/31/24 06:40 PT/INR, D-dimer PT 10.9 sec (10.0-12.5) 07/31/24 06:40 INR 1.0 (<1.2) 07/31/24 06:40 Abnormal lab findings: Abnormal Labs 07/30/24 07/30/24 07/31/24 03:33 03:33 06:40 MCV 100.1 H APTT 21.6 L Potassium Chloride BUN 30 H Glucose 121 H Hemoglobin A1c AST 95 H Crossmatch 07/31/24 07/31/24 07/31/24 06:40 06:40 11:20 MCV APTT Potassium 5.2 H Chloride 109 H BUN Glucose Hemoglobin A1c 6.1 H AST Crossmatch See Detail - Diagnostic Findings Chest x-ray: image reviewed (Chest x-ray as noted in HPI) Assessment and Plan Assessment: Impression: Acute coronary syndrome, patient presented with symptoms of unstable angina Multivessel coronary artery disease with left main stenosis of 80% based on cardiac catheterization Mild to moderate COPD History of asbestos associated lung disease History of multiple myeloma presently in remission, on Revlimid and on Velcade History of obstructive sleep apnea Ex-smoker History of COVID-19 infection back in 2022 Dyslipidemia Benign essential hypertension History of chronic depression Recommendation: Proceed with myocardial revascularization as scheduled Patient is considered low to moderate operative risk, definitely no absolute contraindication to surgery Continue bronchodilators/DuoNeb and Symbicort. Incentive spirometry to be started Chest x-ray and previous CT of the chest were reviewed Will continue to follow Time with Patient: Greater than 30
--- NOTE | 2024-07-31 14:54 | P.PN ---
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 Symptoms obviously were resting while he is in bed woke him up and become slightly bit severe. Symptoms did not improve with antiacid. Patient ended up coming to the emergency department at [facility] where was seen and evaluated His initial troponin was less than 0.012, rest of his lab including normal CBC and CMP with mildly elevated blood sugar, EKG analyzed all along still showing low voltage but two [address] elevation in inferior and lateral leads which when compared with the initial EKG on presentation to exclude the different which make this quite suspicious at this point. Review of patient's record looks like had similar presentation back in 2019 with Lexiscan done at the time in April 18, 2020 came back to be negative the patient has been seen cardiology all along, not quite sure if he had any further stress test since then. With the current presentation with high risk factor and slight change in EKG patient will be hospitalized will be seeing cardiology and echocardiogram will be order probably will keep patient n.p.o. for potential need testing. 07/31/2024: Patient ended up going for heart cath yesterday finding surprisingly with critical stenosis of the main and the RCA, patient ended up seeing cardiovascular surgeon and the plan is to do most likely triple bypass on Friday. The meanwhile patient vein map was done, was evaluated by pulmonary, also was giving the greenlight by his oncologist to be off his multiple myeloma medication for the next 2 months. He is not having any further symptoms today no chest pain tightness or shortness of breath. REVIEW OF SYSTEMS: CONSTITUTIONAL: Well-developed no acute respiratory distress. EYES: No icterus sclerae, no conjunctivitis. EARS, NOSE, MOUTH, THROAT, and FACE: No sore throat, lymphadenopathy, carotid bruits or deformity. RESPIRATORY: No SOB cough or wheezes. CARDIOVASCULAR: No CP, Palpitation, PND, Orthopnea, or angina. No arrhythmia at the time. GASTROINTESTINAL: No Abd pain, Nausea or vomiting, no Diarrhea or constipation, No GI Bleed, no distention or masses. GENITOURINARY: Negative for Hematuria or UTI, no kidney stones. INTEGUMENT/BREAST: Negative for any muscular injury with mild osteoarthritis.. HEMATOLOGIC/LYMPHATIC: Negative for bleed or purpura. MUSCULOSKELTAL: Generalized arthralgia and myalgia. NEURLOGICAL: No LOC, Sz or syncope, blurred vision dizziness or abnormality.. BEHAVIORAL/PSYCH: Negative. ENDOCRINE: Negative. PHYSICAL EXAMINATION: General Appearance: Alert, cooperative, no distress, appears stated age. Neck HEENT: Supple, no lymphadenopathy, no thyroid enlargement, no carotid bruits. Lungs: Clear to auscultation without crackles or wheezes no rhonchi, no deformity. Chest Wall: Decreased expansion with deep inspiration no tenderness and no deformity was found on exam, no costochondral pain or discomfort. Heart: Regular rate and rhythm, S1, S2 normal, no murmur, rub or gallop. Back: Symmetric, no curvature, ROM normal, no CVA tenderness. Abdomen: Soft, non-tender, bowel sounds active all four quadrants, no masses, no organomegaly. Extremities: Slight arthritis with no edema. Pulses: 2+ and symmetric. Skin: Skin color, texture, tugor normal, no rashes or lesions. Neurologic: Alert oriented x3 cranial nerves II through XII intact, no motor deficit, no abnormal balance or gait. ASSESSMENT AND PLAN: _Multiple coronary artery disease with critical stenosis of the main and RCA, patient will be going for open heart surgery on Friday. _Anginal chest pain: Troponin was negative but heart catheter was very positive with positive EKG changes at time the patient again will be going for open heart surgery. _History of multiple myeloma: Remain on Revlimid and still on Velcade, continue medication still seen oncology on regular basis. He will be able to stay off his medication for 2 months after surgery. _Hyperlipidemia: On Zetia and WelChol could not tolerate atorvastatin previously. _Chronic peripheral neuropathy: Most likely causing elevated by multiple myeloma, still on gabapentin 200 mg twice a day. _Elevated blood pressure: Patient benefits from being on smaller dose of beta- dann. _BPH: No sign of urinary retention. _Chronic depression: Continue citalopram 20 mg a day. _Hyperglycemia: Most likely steroid-induced, still on diet control only continue Accu-Chek with sliding scales coverage. Discussion: After his evaluation in the morning yesterday patient ended up going for heart cath which was quite indicated specially with the EKG change and his CTA shows significant calcified coronary artery made it more obvious to go for heart cath instead of stress test. Findings are consistent with left main and RCA about 80 percentile blockage. Patient has met apparently cardiothoracic and the plan is to go for triple bypass most likely on Friday. Objective - Vital Signs Vital signs: Vital Signs Temp 97.9 F 07/31/24 08:29 Pulse 63 07/31/24 12:16 Resp 16 07/31/24 12:16 BP 144/76 07/31/24 12:16 Pulse Ox 95 07/31/24 12:16 FiO2 Intake & Output 07/30/24 07/31/24 07/31/24 18:59 06:59 18:59 Intake Total 220 120 480 Output Total 400 1500 275 Balance -180 -1380 205 Weight 81.6 kg Intake: IV 100 Oral 120 120 480 Output: Gastric Drainage 0 Urine 400 1500 275 Stool 0 0 Urine/Stool Mix 0 Emesis 0 Oral Regurgitation 0 Other 0 Other: Voiding Method Toilet Toilet # Voids 0 1 # Bowel Movements 0 - Labs CBC & Chem 7: 07/31/24 06:40 07/31/24 06:40 Labs: Abnormal Lab Results - Last 24 Hours (Table) 07/31/24 07/31/24 07/31/24 Range/Units 06:40 06:40 06:40 MCV 100.1 H (80.0-100.0) fL Potassium 5.2 H (3.5-5.1) mmol/L Chloride 109 H (98-107) mmol/L Hemoglobin A1c 6.1 H (<=6.0) % Crossmatch 07/31/24 Range/Units 11:20 MCV (80.0-100.0) fL Potassium (3.5-5.1) mmol/L Chloride (98-107) mmol/L Hemoglobin A1c (<=6.0) % Crossmatch See Detail
[2024-07-31 16:23] LABS: Glucose,Whole Blood 91 mg/dL (70-110)
[2024-07-31 20:00] LABS: Glucose,Whole Blood 116 mg/dL (70-110)
[2024-07-31] MEDS: EZETIMIBE 10 MG TAB PO SCH (20:06)
[2024-07-31] MEDS: SYMBICORT 160-4.5 MCG INHALER INHALATION SCH (20:34)
[2024-08-01 06:05] LABS: Glucose,Whole Blood 94 mg/dL (70-110)
--- NOTE | 2024-08-01 07:37 | P.PN ---
Subjective Progress Note Date: 08/01/24 Principal diagnosis: Coronary artery disease with left main disease, unstable angina. History of multiple myeloma on immunotherapy, currently stable, hyperlipidemia, obstructive sleep apnea without home CPAP use, mild COPD with asbestosis, COVID infection in September 2023, previous tobacco dependence, left internal carotid stenosis 50 to 69% The patient was seen and examined this morning sitting up in bed on the cardiac stepdown unit in no acute distress. Denies any chest pain or shortness of breath. Has been ambulatory without difficulty. Remains on room air with oxyg en saturation in the mid 90s, currently sinus rhythm on telemetry although was bradycardic in the high 50s to low 60s overnight, hemodynamically stable. He is scheduled for surgery Friday with Dr. Cornejo. He did ask many questions related to surgical procedure which were answered to the best of my ability. No other new concerns. Objective - Vital Signs Vital signs: Vital Signs Temp 97.8 F 08/01/24 04:00 Pulse 55 L 08/01/24 04:00 Resp 16 08/01/24 04:00 BP 157/83 08/01/24 04:00 Pulse Ox 96 08/01/24 04:00 FiO2 Intake & Output 07/31/24 08/01/24 08/01/24 18:59 06:59 18:59 Intake Total 600 240 Output Total 575 2000 Balance 25 -1760 Weight 81.4 kg Intake: Oral 600 240 Output: Urine 575 2000 Stool 0 Other: Voiding Method Toilet Toilet # Voids 1 - Exam CONSTITUTIONAL: Appears comfortable, cooperative, no acute distress RESPIRATORY: Lungs sounds diminished in the right base. Respirations even, nonlabored. Currently on room air with oxygen saturation 96%. Able to achieve 2000 mL on incentive spirometry. Strong cough. CARDIOVASCULAR: S1, S2 present. Regular rate and rhythm, sinus rhythm to sinus devora on telemetry. Palpable peripheral pulses bilaterally. No edema present. No calf pain or tenderness noted GASTROINTESTINAL: Abdomen soft, nontender, nondistended. Active bowel sounds present 4 quadrants. Tolerating diet. GENITOURINARY: Continues to void INTEGUMENTARY: Skin is warm and dry NEUROLOGIC: Cranial nerves II through XII intact MUSKULOSKELETAL: Able to move all extremities, strength equal bilaterally, gait normal PSYCHIATRIC: Alert and oriented to person place and time, appropriate affect, intact judgment and insight - Allied health notes Allied health notes reviewed: nursing - Labs CBC & Chem 7: 07/31/24 06:40 07/31/24 06:40 Labs: Abnormal Lab Results - Last 24 Hours (Table) 07/31/24 07/31/24 07/31/24 Range/Units 06:40 11:20 13:22 POC Glucose (mg/dL) (70-110) mg/dL Hemoglobin A1c 6.1 H (<=6.0) % Crossmatch See Detail See Detail 07/31/24 Range/Units 19:59 POC Glucose (mg/dL) 116 H (70-110) mg/dL Hemoglobin A1c (<=6.0) % Crossmatch Assessment and Plan Assessment: Coronary artery disease with left main disease, unstable angina Chest pain secondary to above History of multiple myeloma on immunotherapy currently stable Hyperlipidemia, previous intolerance to statins, cholesterol 184, LDL 106, TG 119 Obstructive sleep apnea without home CPAP use Mild COPD with asbestosis, preoperative FEV1 60% of predicted COVID infection in September 2023 Previous tobacco dependence Left internal carotid stenosis 50 to 69% Hyperglycemia, diet controlled, Hgb A1c 6.1% Plan: Continue to maximize medical therapy with aspirin, statin, beta-dann Encourage incentive spirometry use Increase activity as tolerated Plan is for myocardial revascularization with left internal mammary artery, endoscopic vein harvest, possible left radial artery harvest along with ligation of the left atrial appendage tomorrow by Dr. Cornejo NPO after midnight Medical management per internal medicine, cardiology More recommendations to follow
--- NOTE | 2024-08-01 11:21 | P.PN ---
Subjective Progress Note Date: 08/01/24 HISTORY OF PRESENT ILLNESS: 78-year-old one of my office patient with multiple medical problems known to have history of multiple myeloma, seen hematology on regular basis has been on medication for long time, history of hypertension, hyperlipidemia, previous history of asbestosis, BPH, chronic lower back pain, chronic arthritis, chronic neuropathy who presented to the emergency department director of [facility] on 07/30/2024 with complaint of midsternal chest pain started at 3 am wake him from his sleep radiating toward the left arm associated with mild shortness of breath mild darion estion and slight jaw numbness and tenderness, brought him to the ER was given MS and NTG felt better afterward . Symptoms obviously were resting while he is in bed woke him up and become slightly bit severe. Symptoms did not improve with antiacid. Patient ended up coming to the emergency department at [facility] where was seen and evaluated His initial troponin was less than 0.012, rest of his lab including normal CBC and CMP with mildly elevated blood sugar, EKG analyzed all along still showing low voltage but two [address] elevation in inferior and lateral leads which when compared with the initial EKG on presentation to exclude the different which make this quite suspicious at this point. Review of patient's record looks like had similar presentation back in 2019 with Lexiscan done at the time in April 18, 2020 came back to be negative the patient has been seen cardiology all along, not quite sure if he had any further stress test since then. With the current presentation with high risk factor and slight change in EKG patient will be hospitalized will be seeing cardiology and echocardiogram will be order probably will keep patient n.p.o. for potential need testing. 07/31/2024: Patient ended up going for heart cath yesterday finding surprisingly with critical stenosis of the main and the RCA, patient ended up seeing cardiovascular surgeon and the plan is to do most likely triple bypass on Friday. The meanwhile patient vein map was done, was evaluated by pulmonary, also was giving the greenlight by his oncologist to be off his multiple myeloma medication for the next 2 months. He is not having any further symptoms today no chest pain tightness or shortness of breath. 08/01/2024: The patient is asymptomatic no further chest pain or angina but moreno ving further testing and prepare for open heart surgery showing left internal carotid only 50-69 percentile blockage. Lab value and vein map are all completed. Evaluating continue to maximize medical management he is using CPAP for obstructive sleep apnea, pulmonary testing with mild COPD and asbestos preop FEV1 was 60 percentile predicted A1c was 6.1 which still been watching monitor continue Accu-Chek sliding scales coverage eventually will be on SGLT2 product. Apparently from cardiothoracic will plan to do revascularization with left internal mammary artery to go up to cover the left main and to do left radial artery harvest along with migration of the left atrial appendage surgery is planning for tomorrow morning. Meanwhile patient vitals laboratory value and physical has been good REVIEW OF SYSTEMS: CONSTITUTIONAL: Well-developed no acute respiratory distress. EYES: No icterus sclerae, no conjunctivitis. EARS, NOSE, MOUTH, THROAT, and FACE: No sore throat, lymphadenopathy, carotid bruits or deformity. RESPIRATORY: No SOB cough or wheezes. CARDIOVASCULAR: No CP, Palpitation, PND, Orthopnea, or angina. No arrhythmia at the time. GASTROINTESTINAL: No Abd pain, Nausea or vomiting, no Diarrhea or constipation, No GI Bleed, no distention or masses. GENITOURINARY: Negative for Hematuria or UTI, no kidney stones. INTEGUMENT/BREAST: Negative for any muscular injury with mild osteoarthritis.. HEMATOLOGIC/LYMPHATIC: Negative for bleed or purpura. MUSCULOSKELTAL: Generalized arthralgia and myalgia. NEURLOGICAL: No LOC, Sz or syncope, blurred vision dizziness or abnormality.. BEHAVIORAL/PSYCH: Negative. ENDOCRINE: Negative. PHYSICAL EXAMINATION: General Appearance: Alert, cooperative, no distress, appears stated age. Neck HEENT: Supple, no lymphadenopathy, no thyroid enlargement, no carotid bruits. Lungs: Clear to auscultation without crackles or wheezes no rhonchi, no deformity. Chest Wall: Decreased expansion with deep inspiration no tenderness and no deformity was found on exam, no costochondral pain or discomfort. Heart: Regular rate and rhythm, S1, S2 normal, no murmur, rub or gallop. Back: Symmetric, no curvature, ROM normal, no CVA tenderness. Abdomen: Soft, non-tender, bowel sounds active all four quadrants, no masses, no organomegaly. Extremities: Slight arthritis with no edema. Pulses: 2+ and symmetric. Skin: Skin color, texture, tugor normal, no rashes or lesions. Neurologic: Alert oriented x3 cranial nerves II through XII intact, no motor deficit, no abnormal balance or gait. ASSESSMENT AND PLAN: _Multiple coronary artery disease with critical stenosis of the main and RCA, patient is going for surgery tomorrow for at least two-vessel bypass. _Anginal chest pain: Troponin was negative but heart catheter was very positive with positive EKG changes at time the patient again will be going for open heart surgery. _History of multiple myeloma: Obviously patient need to be off his MM medication for at least 1 to 2 months. Patient is very stable currently and hematology has given him the okay for it. _Hyperlipidemia: On Zetia and WelChol could not tolerate atorvastatin previously. After surgery maximize medical management will call might be moved to one of the water-soluble and high intensity statin if not able to tolerate patient can benefit eventually from Repatha as a PCSK9 inhibitor. _Mild to moderate COPD: With FEV1 predicted 60 percentile, patient maximize medical management has been on DuoNeb and Pulmicort for now. _Chronic peripheral neuropathy: Most likely causing elevated by multiple myeloma, still on gabapentin 200 mg twice a day. _Elevated blood pressure: Maximize Coreg up to 3.125 mg twice a day if can tolerate higher dose up to 12.5 mg twice a day would be preferred. _BPH: No sign of urinary retention. _Chronic depression: The patient is off antidepression completely and has been doing well without medication. _Hyperglycemia: His last A1c was 6.1 patient will benefit eventually from SGLT2 product after surgery try to keep his A1c below 6.0 in the meanwhile insulin drip after surgery till he is ready to come off and long-acting insulin may be combined with short acting insulin until patient is stable in the next 48 hours. Discussion: The patient has maximized medical management and is ready for surge ry for tomorrow morning. Objective - Vital Signs Vital signs: Vital Signs Temp 97.8 F 08/01/24 04:00 Pulse 55 L 08/01/24 04:00 Resp 16 08/01/24 04:00 BP 157/83 08/01/24 04:00 Pulse Ox 96 08/01/24 04:00 FiO2 Intake & Output 07/31/24 08/01/24 08/01/24 18:59 06:59 18:59 Intake Total 600 240 Output Total 575 2000 Balance 25 -1760 Weight 81.4 kg Intake: Oral 600 240 Output: Urine 575 2000 Stool 0 Other: Voiding Method Toilet Toilet # Voids 1 - Labs CBC & Chem 7: 07/31/24 06:40 07/31/24 06:40 Labs: Abnormal Lab Results - Last 24 Hours (Table) 07/31/24 07/31/24 07/31/24 Range/Units 06:40 11:20 13:22 POC Glucose (mg/dL) (70-110) mg/dL Hemoglobin A1c 6.1 H (<=6.0) % Crossmatch See Detail See Detail 07/31/24 Range/Units 19:59 POC Glucose (mg/dL) 116 H (70-110) mg/dL Hemoglobin A1c (<=6.0) % Crossmatch
--- NOTE | 2024-08-01 11:38 | P.PN ---
Subjective Progress Note Date: 08/01/24 History of present illness: Patient is a pleasant 78 year old male with significant past medical history of cancer, hyperlipidemia, multiple myeloma, asbestosis who presented to the ED with acute onset retrosternal chest pain. He said the chest pain was mostly located in the center of his chest, has a pressure feel, and radiated towards the right shoulder. He said the chest pain started while he was sleeping at night. He reported shortness of breath, but no nausea, vomiting, diarrhea, belly pain, constipation. Upon arrival to the ED, patient responded very fast to nitroglycerin and morphine and the chest pain went away. In the ED, EKG showed sinus rhythm, tall T waves, with a heart rate of about [address] angiography of the chest was performed, and showed no evidence of pulmonary embolism. Troponin was less than 0.012. BNP was 37. AST slighty elevated at 95. ALT 47. Left heart cath 07/30/24 revealed multivessel CAD including 80% distal left main stenosis, 80% distal RCA stenosis, 60% proximal RCA stenosis. He was referred to cardiothoracic surgery for CABG eval. Carotid ultrasound shows greater than 70% stenosis of right ICA, moderate stenosis left ICA. Echocardiogram with EF 55-60 %, no significant valve issues. 07/31/2024 Patient reports that he is feeling fine and denies any chest pain or pressure. No shortness of breath. 0.69, potassium 5.2. 08/01/24 He is ambulatory around unit. No complaints. No chest pain, shortness of breath, or dizziness. PHYSICAL EXAMINATION: This is a 78 -year-old male in no apparent distress at the time of my examination. HEENT: Head is atraumatic, normocephalic. Pupils are equal, round. Sclerae anicteric. Conjunctivae are clear. Mucous membranes of the mouth are moist. Neck is supple. There is no jugular venous distention. No carotid bruit is heard. CHEST EXAMINATION: Lungs are clear to auscultation. No chest wall tenderness is noted on palpation or with deep breathing. HEART EXAMINATION: Heart regular rate and rhythm. S1, S2 heard. No murmurs, gallops or rub. ABDOMEN: Soft, nontender. Bowel sounds are heard. EXTREMITIES: 2+ peripheral pulses with no evidence of peripheral edema and no calf tenderness noted. NEUROLOGIC EXAMINATION: Patient is awake, alert and oriented x3. IMPRESSION AND PLAN: CAD scheduled for CABG 08/02/2024 hyperlipidemia Former tobacco abuse Multiple myeloma Asbestos Carotid stenosis PLAN: Doing well symptom anderson. Continue with current cardiac medications. He is scheduled for CABG Thursday 08/[address] Cornejo. Further recommendations pending patient's clinical course. I am dictating on behalf of Dr. Eder Vogel's history/physical and assessment/plan. Objective - Vital Signs Vital signs: Vital Signs Temp 98.4 F 08/01/24 08:00 Pulse 57 L 08/01/24 08:00 Resp 16 08/01/24 08:00 BP 142/68 08/01/24 08:00 Pulse Ox 97 08/01/24 08:00 FiO2 Intake & Output 07/31/24 08/01/24 08/01/24 18:59 06:59 18:59 Intake Total 600 240 118 Output Total 575 2000 Balance 25 -1760 118 Weight 81.4 kg Intake: Oral 600 240 118 Output: Urine 575 2000 Stool 0 Other: Voiding Method Toilet Toilet Toilet # Voids 1 - Labs CBC & Chem 7: 07/31/24 06:40 07/31/24 06:40 Labs: Abnormal Lab Results - Last 24 Hours (Table) 07/31/24 07/31/24 07/31/24 Range/Units 06:40 11:20 13:22 POC Glucose (mg/dL) (70-110) mg/dL Hemoglobin A1c 6.1 H (<=6.0) % Crossmatch See Detail See Detail 07/31/24 Range/Units 19:59 POC Glucose (mg/dL) 116 H (70-110) mg/dL Hemoglobin A1c (<=6.0) % Crossmatch Microbiology - Last 24 Hours (Table) 07/30/24 17:31 Nasal Screen MRSA/MSSA - Final Nasopharyngeal Swab
[2024-08-01 11:42] LABS: Glucose,Whole Blood 86 mg/dL (70-110)
--- NOTE | 2024-08-01 14:28 | P.PN ---
Subjective Progress Note Date: 08/01/24 Principal diagnosis: Multivessel coronary artery disease, acute coronary syndrome This is an 78-year-old white male with history of coronary artery disease, dyslipidemia, obstructive sleep apnea, mild COPD, normally sees Dr. Lipscomb, PFT from 02/04/2022 showed mild to moderate COPD FEV1 of 75% FEV1/FVC is 65%, patient had hyperinflation and low DLCO consistent with mild emphysema. Patient has been on bronchodilators as listed below, patient was brought in this time on 07/30/2024, came in with classic anginal symptoms seen by cardiology and felt that the patient had unstable angina/non-ST elevation myocardial infarction. Cardiac catheterization was performed and it showed 80% distal left main 80% distal RCA 60% proximal RCA and normal left-sided filling pressures. Hence cardiothoracic surgery was consulted, and the patient is scheduled to undergo myocardial revascularization next Friday. During his underlying pulmonary history, we were asked to see the patient in consultation, and I had a chance to review his PFT from the office, reviewed his FEV1 on this admission, chest x-ray showed some pleural parenchymal calcification most likely consistent with previous asbestos associated lung disease. I feel the patient is low operative risk, and I will clear the patient for surgery as scheduled. The findings on the chest x-ray are chronic, and they were present on a previous chest x-ray back in 2021 patient denies any cough denies any wheezing denies any shortness of breath, and no chest pain during my evaluation Seen today on 08/01/2024, patient is doing great, sitting at the bedside chair, on room air, not in any distress. Patient is afebrile, blood pressure is 134/72 O2 sats is 96%, he denies any cough wheezing or shortness of breath.Denies any chest pain. Myocardial revascularization is scheduled to be done tomorrow. Objective - Vital Signs Vital signs: Vital Signs Temp 98.4 F 08/01/24 08:00 Pulse 64 08/01/24 12:33 Resp 16 08/01/24 12:33 BP 134/72 08/01/24 12:33 Pulse Ox 96 08/01/24 12:33 FiO2 Intake & Output 07/31/24 08/01/24 08/01/24 18:59 06:59 18:59 Intake Total 600 240 358 Output Total 575 2000 0 Balance 25 -1760 358 Weight 81.4 kg Intake: Oral 600 240 358 Output: Urine 575 2000 Stool 0 0 Other: Voiding Method Toilet Toilet Toilet # Voids 1 - Exam General Appearance: Revealed 78-year-old white male in no distress, extremely pleasant, on room air Neck HEENT: Supple no neck masses no JVD. Lungs: clear bilaterally no crackles rhonchi or wheezes Chest Wall: Symmetrical chest expansion Heart: Distant S1-S2, no S3 gallop, no murmur Abdomen: soft nontender no megaly no rebound no guarding Extremities: No clubbing edema or cyanosis Pulses: 2+ and symmetric. Skin: No rashes Neurologic: Alert oriented x 3 no gross focal deficit Psychiatric: Normal mood affect and no mental status examination - Labs CBC & Chem 7: 07/31/24 06:40 07/31/24 06:40 Labs: Abnormal Lab Results - Last 24 Hours (Table) 07/31/24 07/31/24 Range/Units 13:22 19:59 POC Glucose (mg/dL) 116 H (70-110) mg/dL Crossmatch See Detail Blood Bank Comment Sent to [facility] A Reference Lab Result See [facility] REF Reports A Microbiology - Last 24 Hours (Table) 07/30/24 17:31 Nasal Screen MRSA/MSSA - Final Nasopharyngeal Swab Assessment and Plan Assessment: Impression: Acute coronary syndrome, patient presented with symptoms of unstable angina Multivessel coronary artery disease with left main stenosis of 80% based on cardiac catheterization Mild to moderate COPD History of asbestos associated lung disease History of multiple myeloma presently in remission, on Revlimid and on Velcade History of obstructive sleep apnea Ex-smoker History of COVID-19 infection back in 2022 Dyslipidemia Benign essential hypertension History of chronic depression Recommendation: Continue incentive spirometry Proceed with myocardial revascularization as scheduled tomorrow Continue bronchodilators/DuoNeb and Symbicort. Chest x-ray and previous CT of the chest were reviewed Will continue to follow Time with Patient: Less than 30
[2024-08-01 16:29] LABS: Glucose,Whole Blood 88 mg/dL (70-110)
[2024-08-01 20:22] LABS: Glucose,Whole Blood 100 mg/dL (70-110)
[2024-08-01] MEDS: SENNOSIDES-DOCUSATE SODIUM 1 EACH TAB PO STA (20:52)
[2024-08-02] MEDS: ATORVASTATIN 10 MG TAB PO ONE (04:57)
[2024-08-02] MEDS: ASPIRIN 325 MG TAB PO ONE (04:58)
[2024-08-02] MEDS: carvediloL 3.125 MG TAB PO ONE (04:58)
[2024-08-02] MEDS ORDERED: INSULIN REGULAR 100 UNIT in SODIUM CHLORIDE 0.9% 100 ML IV SCH (05:00)
[2024-08-02] MEDS ORDERED: NOREPINEPHRINE 4 MG in SODIUM CHLORIDE 0.9% 250 ML IV SCH (05:00)
[2024-08-02 05:43] LABS: Glucose,Whole Blood 104 mg/dL (70-110)
[2024-08-02 06:24] LABS: Glucose,Whole Blood 88 mg/dL (70-110)
[2024-08-02 06:36] LABS: African American GFR (CKD) >90 (>60 ml/min/1.73 sqM); Anion Gap 5 mmol/L; Blood Urea Nitrogen 18 mg/dL (9-20); Calcium 9.4 mg/dL (8.4-10.2); Carbon Dioxide 29 mmol/L (22-30); Chloride 104 mmol/L (98-107); Glucose 93 mg/dL (74-99); Non-African American GFR(CKD) 86 (>60 ml/min/1.73 sqM); Potassium 4.3 mmol/L (3.5-5.1); Sodium 138 mmol/L (137-145)
[2024-08-02] MEDS: CHLORHEXIDINE GLUCONATE 15 ML CUP MUCOUS MEM ONE (07:02)
[2024-08-02] MEDS: IV FLUID CONTINUATION 1,000 ML IV ONE (07:05)
--- NOTE | 2024-08-02 07:39 | P.ANPRN ---
Procedure Note - Anesthesia - Invasive Line Right Central Line Time Out Performed: Yes Date of Procedure: 08/02/24 Time of Procedure: 07:00 Location of Patient: PreOp Preparation: Sterile Prep, Sterile Dressing Central Line Location: Internal Jugular Ultrasound Used: Yes Purpose - Visualization and Identification of Vasculature: Yes Needle Guage: 18 Image Stored and Saved: Yes Narrative: Invasive line placement per sterile protocol utilized. Right [place] Radha Time Out Performed: Yes Date of Procedure: 08/02/24 Time of Procedure: 07:15 Location of Patient: PreOp Preparation: Sterile Prep, Sterile Dressing [place] Radha Line Location: Internal Jugular (Secured at 45 cm once PA waveform obtained) Ultrasound Used: No Purpose - Visualization and Identification of Vasculature: No Image Stored and Saved: No Narrative: Invasive line placement per sterile protocol utilized. Right Arterial Line Time Out Performed: Yes Date of Procedure: 08/02/24 Time of Procedure: 07:20 Location of Patient: PreOp Preparation: Sterile Prep, Sterile Dressing Arterial Line Location: Radial Ultrasound Used: Yes Purpose - Visualization and Identification of Vasculature: Yes Needle Guage: 20 Narrative: Right radial arterial line placed by DANAY
[2024-08-02] MEDS ORDERED: ALBUMIN HUMAN 5% (25gm) 500 ML VIAL IVPB ONE (07:47)
[2024-08-02] MEDS ORDERED: LIDOCAINE 2% SYG (PF) 100 MG/5 ML ONE (07:47)
[2024-08-02] MEDS ORDERED: TRANEXAMIC 1,000 MG/100ML-NACL PREMIX BAG ONE (07:47)
[2024-08-02] MEDS ORDERED: fentaNYL (PF) 50 MCG/ML 50 ML VIAL ONE (07:47)
[2024-08-02] MEDS ORDERED: GLYCOPYRROLATE 0.2 MG/ML 2 ML VIAL ONE (07:47)
[2024-08-02] MEDS ORDERED: MIDAZOLAM HCL 10 MG/10 ML VIAL ONE (07:47)
[2024-08-02] MEDS ORDERED: PROPOFOL 10 MG/ML 20 ML VIAL IV ONE (07:47)
[2024-08-02] MEDS ORDERED: NOREPINEPHRINE 1 MG/ML 4 ML VIAL IV ONE (07:47)
[2024-08-02] MEDS ORDERED: VECURONIUM 10 MG VIAL IV ONE (07:47)
[2024-08-02] MEDS ORDERED: ePHEDrine 50 MG/ML 1 ML VIAL ONE (07:47)
[2024-08-02 08:30] LABS: ABG Base Excess -0.7 mmol/L; ABG Glucose Whole Blood 106 mg/dL (75-99); ABG HCO3 25 mmol/L (21-25); ABG Hematocrit 41 % (34.0-46.0); ABG Ionized Calcium 4.8 mg/dL (4.5-5.3); ABG Lactic Acid Whole Blood 0.6 mmol/L (0.5-1.6); ABG Oxygen Saturation >99.4 % (94-97); ABG PCO2 41 mmHg (35-45); ABG PH 7.38 (7.35-7.45); ABG Potassium Whole Blood 4.3 mmol/L (3.4-4.5); ABG Sodium Whole Blood 138 mmol/L (135-146); Allen Test Performed? Yes
[2024-08-02] MEDS: HEPARIN SODIUM,PORCINE (1 ML) 5,000 UNIT in SODIUM CHLORIDE 0.9% 500 ML 500 ML IV ONE (08:55)
[2024-08-02] MEDS: PAPAVERINE 360 MG in SODIUM CHLORIDE 0.9% 90 ML IV ONE (08:56)
[2024-08-02] MEDS: ceFAZolin 1,000 MG in SODIUM CHLORIDE 0.9% IRRIGATIO 1,000 ML IRRIGATION ONE (08:56)
[2024-08-02 09:33] LABS: ABG Base Excess -1.8 mmol/L; ABG Glucose Whole Blood 120 mg/dL (75-99); ABG HCO3 26 mmol/L (21-25); ABG Hematocrit 39 % (34.0-46.0); ABG Ionized Calcium 4.8 mg/dL (4.5-5.3); ABG Lactic Acid Whole Blood 0.7 mmol/L (0.5-1.6); ABG Oxygen Saturation 98.7 % (94-97); ABG PCO2 55 mmHg (35-45); ABG PH 7.28 (7.35-7.45); ABG PO2 206 mmHg (83-108); ABG Potassium Whole Blood 4.3 mmol/L (3.4-4.5); ABG Sodium Whole Blood 138 mmol/L (135-146); ABG TCO2 24 mmol/L (19-24); Allen Test Performed? Yes
[2024-08-02 11:24] LABS: ABG Base Excess 2.5 mmol/L; ABG Glucose Whole Blood 125 mg/dL (75-99); ABG HCO3 26 mmol/L (21-25); ABG Hematocrit 29 % (34.0-46.0); ABG Ionized Calcium 3.9 mg/dL (4.5-5.3); ABG Lactic Acid Whole Blood 0.9 mmol/L (0.5-1.6); ABG Oxygen Saturation >99.4 % (94-97); ABG PCO2 33 mmHg (35-45); ABG Potassium Whole Blood 5.4 mmol/L (3.4-4.5); ABG Sodium Whole Blood 137 mmol/L (135-146); Allen Test Performed? Yes
[2024-08-02 11:47] LABS: ABG Base Excess 1.8 mmol/L; ABG Glucose Whole Blood 112 mg/dL (75-99); ABG HCO3 25 mmol/L (21-25); ABG Hematocrit 26 % (34.0-46.0); ABG Ionized Calcium 3.7 mg/dL (4.5-5.3); ABG Lactic Acid Whole Blood 0.8 mmol/L (0.5-1.6); ABG Oxygen Saturation >99.4 % (94-97); ABG PCO2 34 mmHg (35-45); ABG PH 7.48 (7.35-7.45); ABG PO2 408 mmHg (83-108); ABG Potassium Whole Blood 4.8 mmol/L (3.4-4.5); ABG Sodium Whole Blood 137 mmol/L (135-146); Allen Test Performed? Yes
[2024-08-02 12:11] LABS: ABG Glucose Whole Blood 100 mg/dL (75-99); ABG HCO3 25 mmol/L (21-25); ABG Ionized Calcium 3.6 mg/dL (4.5-5.3); ABG Lactic Acid Whole Blood 0.9 mmol/L (0.5-1.6); ABG Oxygen Saturation 99.4 % (94-97); ABG PCO2 34 mmHg (35-45); ABG PH 7.49 (7.35-7.45); ABG PO2 347 mmHg (83-108); ABG Potassium Whole Blood 5.2 mmol/L (3.4-4.5); ABG Sodium Whole Blood 137 mmol/L (135-146); ABG TCO2 24 mmol/L (19-24); Allen Test Performed? Yes
[2024-08-02 12:53] LABS: ABG Base Excess 0.6 mmol/L; ABG Glucose Whole Blood 103 mg/dL (75-99); ABG HCO3 24 mmol/L (21-25); ABG Lactic Acid Whole Blood 1.2 mmol/L (0.5-1.6); ABG Oxygen Saturation >99.4 % (94-97); ABG PCO2 32 mmHg (35-45); ABG PH 7.49 (7.35-7.45); ABG Sodium Whole Blood 137 mmol/L (135-146); Allen Test Performed? Yes
--- NOTE | 2024-08-02 13:36 | P.ANPRN ---
Procedure Note - Anesthesia - SUDARSHAN Intraop Pre Bypass SUDARSHAN Intraop - Anesthesia Indication: CAD Date of Procedure: 08/02/24 Pre-operative Diagnosis: CAD Post-operative Diagnosis: Same Surgeon: Dorian Cornejo Left Ventricle: EF 40%, global hypokinesis Ejection Fraction: Other Regional Wall Motion Abnormalities: Other (Global hypokinesis, worst in inferior wall) Left Ventricle Hypertrophy: Yes Right Ventricle: Enlarged R. Ventricle Function: Hypokinesis Mild Anatomy: Trileaflet Aortic Stenosis: None Aortic Regurgitation: None Mitral Stenosis: None Mitral Regurgitation: None Tricuspid Stenosis: None Tricuspid Regurgitation: None Pulmonic Stenosis: None Pulmonic Regurgitation: None R. Atrial Dilation: No R. Atrial PFO: No (Lipomatous hypertrophy) L. Atrial Dilation: No Aortic Dissection: No Aortic Calcification: Moderate Plural Effusion: None - SUDARSHAN Intraop Post Bypass SUDARSHAN Intraop Post Bypass Procedure Performed: CABG x 3 Left Ventricle: Improved over time to EF 55% w/o RWMA Ejection Fraction: Normal Regional Wall Motion Abnormalities: None R. Ventricle Function: Hypokinesis Mild Aortic Valve: Unchanged Mitral Valve: Unchanged Tricuspid: Unchanged Pulmonic: Unchanged Aortic Dissection: No
[2024-08-02 13:43] LABS: ABG PO2 >420 mmHg (83-108)
[2024-08-02 13:44] LABS: ABG PO2 >420 mmHg (83-108)
[2024-08-02 13:46] LABS: ABG Hematocrit 23 % (34.0-46.0)
[2024-08-02 13:47] LABS: ABG Hematocrit 23 % (34.0-46.0); ABG Ionized Calcium 3.4 mg/dL (4.5-5.3); ABG PO2 >420 mmHg (83-108)
[2024-08-02 13:50] LABS: ABG Base Excess 0.6 mmol/L; ABG Glucose Whole Blood 107 mg/dL (75-99); ABG HCO3 26 mmol/L (21-25); ABG Hematocrit 29 % (34.0-46.0); ABG Oxygen Saturation >99.4 % (94-97); ABG PCO2 43 mmHg (35-45); ABG PH 7.39 (7.35-7.45); ABG Potassium Whole Blood 4.1 mmol/L (3.4-4.5); ABG Sodium Whole Blood 139 mmol/L (135-146); Allen Test Performed? Yes
[2024-08-02 13:51] LABS: ABG PO2 >420 mmHg (83-108)
[2024-08-02] MEDS ORDERED: AMIODARONE 450 MG in DEXTROSE 5% IN WATER 250 ML IV PRN (14:35)
[2024-08-02] MEDS ORDERED: AMIODARONE 360 MG in DEXTROSE 5% IN WATER 200 ML IV PRN (14:35)
[2024-08-02] MEDS ORDERED: BENZOCAINE/MENTHOL LOZENG 1 EACH LOZENGE MUCOUS MEM PRN (14:35)
[2024-08-02] MEDS ORDERED: Potassium Replacement Protocol 1 EACH MISC MISCELLANE PRN (14:35)
[2024-08-02] MEDS ORDERED: IPRATROPIUM-ALBUTEROL 3 ML NEB INHALATION PRN (14:35)
[2024-08-02] MEDS ORDERED: DEXTROSE 50% SYRINGE 50 ML IVP PRN ×2 (14:35)
[2024-08-02] MEDS ORDERED: Magnesium Replacement Protocol 1 EACH MISC MISCELLANE PRN (14:35)
[2024-08-02] MEDS ORDERED: hydrALAZINE HCL 20 MG/ML 1 ML VIAL IVP PRN (14:35)
[2024-08-02] MEDS ORDERED: DEXTROSE 5% IN WATER 100 ML with AMIODARONE 150 MG IV PRN (14:35)
[2024-08-02 14:44] LABS: Glucose,Whole Blood 106 mg/dL (70-110)
[2024-08-02] MEDS: CLEVIDIPINE BUTYRATE 25 MG in EMPTY BAG 1 BAG IV SCH (14:48)
[2024-08-02] MEDS: MILRINONE-D5W PMX 20 MG in DEXTROSE/WATER 1 100ML.BAG IV SCH (14:49)
[2024-08-02] MEDS: NITROGLYCERIN-D5W PMX 50 MG in DEXTROSE/WATER 1 250ML.BAG IV SCH (14:50)
[2024-08-02] MEDS: SODIUM CHLORIDE 0.9% 1,000 ML IV SCH (14:51)
[2024-08-02] MEDS: NOREPINEPHRINE 4 MG in SODIUM CHLORIDE 0.9% 250 ML IV SCH (14:51)
[2024-08-02 14:54] LABS: Basophils % (A) 0 %; Eosinophils # (A) 0.1 k/uL (0-0.7); Eosinophils % (A) 1 %; HCT 30.8 % (39.0-53.0); Lymphocytes # (A) 0.7 k/uL (1.0-4.8); Lymphocytes % (A) 10 %; MCHC 31.9 g/dL (31.0-37.0); MCV 100.2 fL (80.0-100.0); Monocytes # (A) 0.4 k/uL (0-1.0); Monocytes % (A) 5 %; Neutrophils # (A) 6.1 k/uL (1.3-7.7); Neutrophils % (A) 84 %; Platelet Count 122 k/uL (150-450); RBC 3.07 m/uL (4.30-5.90); RDW 13.2 % (11.5-15.5); WBC 7.3 k/uL (3.8-10.6)
[2024-08-02] MEDS: ALBUMIN HUMAN 5% 250 ML in EMPTY BAG 1 BAG IVPB PRN (15:00)
[2024-08-02 15:02] LABS: ABG Base Excess -1.9 mmol/L; ABG HCO3 25 mmol/L (21-25); ABG PCO2 52 mmHg (35-45); ABG PH 7.29 (7.35-7.45); ABG PO2 324 mmHg (83-108); ABG TCO2 27 mmol/L (19-24)
[2024-08-02 15:02] LABS: INR 1.3 (<1.2); Partial Thromboplastin Time 28.1 sec (22.0-30.0)
[2024-08-02 15:03] LABS: HGB 9.8 gm/dL (13.0-17.5)
[2024-08-02 15:10] LABS: Allen Test Performed? no
[2024-08-02 15:13] LABS: Ionized Calcium 4.9 mg/dL (4.5-5.3)
[2024-08-02 15:20] LABS: ALT 19 U/L (4-49); AST 45 U/L (17-59); African American GFR (CKD) >90 (>60 ml/min/1.73 sqM); Albumin 2.2 g/dL (3.5-5.0); Alkaline Phosphatase 42 U/L (38-126); Anion Gap 1 mmol/L; Blood Urea Nitrogen 15 mg/dL (9-20); Calcium 8.6 mg/dL (8.4-10.2); Carbon Dioxide 24 mmol/L (22-30); Chloride 111 mmol/L (98-107); Glucose 96 mg/dL (74-99); Magnesium 2.6 mg/dL (1.6-2.3); Non-African American GFR(CKD) >90 (>60 ml/min/1.73 sqM); Potassium 4.1 mmol/L (3.5-5.1); Sodium 136 mmol/L (137-145); Total Protein 3.5 g/dL (6.3-8.2)
--- NOTE | 2024-08-02 15:46 | P.PN ---
Subjective Progress Note Date: 08/02/24 This is an 78-year-old white male with history of coronary artery disease, dyslipidemia, obstructive sleep apnea, mild COPD, normally sees Dr. Lipscomb, PFT from 02/04/2022 showed mild to moderate COPD FEV1 of 75% FEV1/FVC is 65%, patient had hyperinflation and low DLCO consistent with mild emphysema. Patient has been on bronchodilators as listed below, patient was brought in this time on 07/30/2024, came in with classic anginal symptoms seen by cardiology and felt that the patient had unstable angina/non-ST elevation myocardial infarction. Cardiac catheterization was performed and it showed 80% distal left main 80% distal RCA 60% proximal RCA and normal left-sided filling pressures. Hence cardiothoracic surgery was consulted, and the patient is scheduled to undergo myocardial revascularization next Friday. During his underlying pulmonary history, we were asked to see the patient in consultation, and I had a chance to review his PFT from the office, reviewed his FEV1 on this admission, chest x-ray showed some pleural parenchymal calcification most likely consistent with previous asbestos associated lung disease. I feel the patient is low operative risk, and I will clear the patient for surgery as scheduled. The findings on the chest x-ray are chronic, and they were present on a previous chest x-ray back in 2021 patient denies any cough denies any wheezing denies any shortness of breath, and no chest pain during my evaluation Seen today on 08/01/2024, patient is doing great, sitting at the bedside chair, on room air, not in any distress. Patient is afebrile, blood pressure is 134/72 O2 sats is 96%, he denies any cough wheezing or shortness of breath.Denies any chest pain. Myocardial revascularization is scheduled to be done tomorrow. The patient is seen today August 02, 2024 in follow-up in the intensive care unit. Just back from surgery. He had undergone a coronary artery bypass surgery utilizing a MARQUEZ to the LAD, left radial artery graft to the ramus, saphenous venous graft to the RCA, left atrial appendage ligation. He is currently intubated on the mechanical ventilator and assist-control mode at a rate of 16, tidal volume 500, FiO2 100% and a PEEP of 5. He has normal staying at 50 mL/h. Nitroglycerin drip at 5 mcg/min. Propofol at 20 mcg/kg/min. Norep inephrine at 0.02 mcg/kg/min. Primacor at 0.375 mcg/kg/min. Cardiac output 6.0. Cardiac index 3.0. PA pressure 41/23. CVP 15. [place]-Radha catheter in place. Right radial arterial line in place. Chest x-ray reveals good placement of the endotracheal tube, [place] Radha catheter and gastric tube. No significant pneumothorax. Right, left and mediastinal chest tubes in place. White count 7.3. Hemoglobin 9.8. Platelets 122. INR 1.3. Sodium 136. Potassium 4.1. Bicarb 24. BUN 15. Creatinine 0.59. Glucose 96. Objective - Vital Signs Vital signs: Vital Signs Temp 97.2 F L 08/02/24 06:25 Pulse 58 L 08/02/24 06:25 Resp 18 08/02/24 06:25 BP 158/79 08/02/24 06:25 Pulse Ox 98 08/02/24 06:25 FiO2 50 08/02/24 15:10 Intake & Output 08/01/24 08/02/24 08/02/24 18:59 06:59 18:59 Intake Total 598 53 Output Total 800 1400 1050 Balance -202 -1400 -997 Intake: IV 53 Oral 598 Output: Urine 800 1400 600 Stool 0 0 Estimated Blood Loss 450 Other: Voiding Method Toilet Toilet - Exam GENERAL EXAM: Intubated, sedated 78-year-old male patient, on the mechanical ventilator, in no apparent distress. HEAD: Normocephalic. EYES: Sluggish reaction of pupils, equal size. NOSE: Clear with pink turbinates. THROAT: No erythema or exudates. NECK: No masses, no JVD. [place]-Radha catheter in place CHEST: Sternal dressing dry and intact. Right, left, mediastinal chest tubes in place. LUNGS: Equal air entry with no crackles, wheeze, rhonchi or dullness. CVS: S1 and S2 normal with no audible murmur, regular rhythm. ABDOMEN: No hepatosplenomegaly, hypoactive bowel sounds, no guarding or rigidity. SPINE: No scoliosis or deformity SKIN: No rashes CENTRAL NERVOUS SYSTEM: Sedated, tone is normal in all 4 extremities. EXTREMITIES: Right radial arterial line in place. Left radial site with Lázaro wrap, VANGIE drain in place. Bilateral lower extremity Lázaro wraps in place. Peripheral pulses are intact. - Labs CBC & Chem 7: 08/02/24 14:41 08/02/24 14:41 Labs: Abnormal Lab Results - Last 24 Hours (Table) 07/31/24 08/02/24 08/02/24 Range/Units 13:22 08:35 09:38 RBC (4.30-5.90) m/uL Hgb (13.0-17.5) gm/dL Hct (39.0-53.0) % MCV (80.0-100.0) fL Plt Count (150-450) k/uL Lymphocytes # (1.0-4.8) k/uL PT (10.0-12.5) sec INR (<1.2) ABG pH 7.28 L (7.35-7.45) ABG pCO2 55 H (35-45) mmHg ABG pO2 >420 H 206 H (83-108) mmHg ABG HCO3 26 H (21-25) mmol/L ABG Total CO2 (19-24) mmol/L ABG O2 Saturation >99.4 H 98.7 H (94-97) % ABG Hematocrit (34.0-46.0) % ABG Potassium (3.4-4.5) mmol/L ABG Ionized Calcium (4.5-5.3) mg/dL ABG Glucose 106 H 120 H (75-99) mg/dL Hemoglobin 12.7 L (13.0-17.5) gm/dL Sodium (137-145) mmol/L Chloride (98-107) mmol/L Creatinine (0.66-1.25) mg/dL Magnesium (1.6-2.3) mg/dL Total Protein (6.3-8.2) g/dL Albumin (3.5-5.0) g/dL Arterial Blood Potassium (3.4-4.5) mmol/L Arterial Blood Glucose 106 H 120 H (75-99) mg/dL Crossmatch See Detail Blood Bank [facility] Result See BBK REF Reports A 08/02/24 08/02/24 08/02/24 Range/Units 11:29 11:30 12:16 RBC (4.30-5.90) m/uL Hgb (13.0-17.5) gm/dL Hct (39.0-53.0) % MCV (80.0-100.0) fL Plt Count (150-450) k/uL Lymphocytes # (1.0-4.8) k/uL PT (10.0-12.5) sec INR (<1.2) ABG pH 7.50 H 7.48 H 7.49 H (7.35-7.45) ABG pCO2 33 L 34 L 34 L (35-45) mmHg ABG pO2 >420 H 408 H 347 H (83-108) mmHg ABG HCO3 26 H (21-25) mmol/L ABG Total CO2 (19-24) mmol/L ABG O2 Saturation >99.4 H >99.4 H 99.4 H (94-97) % ABG Hematocrit 29 L 26 L 23 L (34.0-46.0) % ABG Potassium 5.4 H 4.8 H 5.2 H (3.4-4.5) mmol/L ABG Ionized Calcium 3.9 L 3.7 L 3.6 L (4.5-5.3) mg/dL ABG Glucose 125 H 112 H 100 H (75-99) mg/dL Hemoglobin 9.4 L 8.4 L 7.6 L (13.0-17.5) gm/dL Sodium (137-145) mmol/L Chloride (98-107) mmol/L Creatinine (0.66-1.25) mg/dL Magnesium (1.6-2.3) mg/dL Total Protein (6.3-8.2) g/dL Albumin (3.5-5.0) g/dL Arterial Blood Potassium 5.4 H 4.8 H 5.2 H (3.4-4.5) mmol/L Arterial Blood Glucose 125 H 112 H 100 H (75-99) mg/dL Crossmatch Blood Bank Comment Reference Lab Result 08/02/24 08/02/24 08/02/24 Range/Units 12:58 13:45 14:41 RBC 3.07 L (4.30-5.90) m/uL Hgb 9.8 L D (13.0-17.5) gm/dL Hct 30.8 L (39.0-53.0) % MCV 100.2 H (80.0-100.0) fL Plt Count 122 L (150-450) k/uL Lymphocytes # 0.7 L (1.0-4.8) k/uL PT (10.0-12.5) sec INR (<1.2) ABG pH 7.49 H (7.35-7.45) ABG pCO2 32 L (35-45) mmHg ABG pO2 >420 H >420 H (83-108) mmHg ABG HCO3 26 H (21-25) mmol/L ABG Total CO2 (19-24) mmol/L ABG O2 Saturation >99.4 H >99.4 H (94-97) % ABG Hematocrit 23 L 29 L (34.0-46.0) % ABG Potassium 5.0 H (3.4-4.5) mmol/L ABG Ionized Calcium 3.4 L* 4.0 L (4.5-5.3) mg/dL ABG Glucose 103 H 107 H (75-99) mg/dL Hemoglobin 7.5 L 9.3 L (13.0-17.5) gm/dL Sodium (137-145) mmol/L Chloride (98-107) mmol/L Creatinine (0.66-1.25) mg/dL Magnesium (1.6-2.3) mg/dL Total Protein (6.3-8.2) g/dL Albumin (3.5-5.0) g/dL Arterial Blood Potassium 5.0 H (3.4-4.5) mmol/L Arterial Blood Glucose 103 H 107 H (75-99) mg/dL [facility] Blood Bank Comment Reference Lab Result 08/02/24 08/02/24 08/02/24 Range/Units 14:41 14:41 15:00 RBC (4.30-5.90) m/uL Hgb (13.0-17.5) gm/dL Hct (39.0-53.0) % MCV (80.0-100.0) fL Plt Count (150-450) k/uL Lymphocytes # (1.0-4.8) k/uL PT 14.0 H (10.0-12.5) sec INR 1.3 H (<1.2) ABG pH 7.29 L (7.35-7.45) ABG pCO2 52 H (35-45) mmHg ABG pO2 324 H (83-108) mmHg ABG HCO3 (21-25) mmol/L ABG Total CO2 27 H (19-24) mmol/L ABG O2 Saturation 100.0 H (94-97) % ABG Hematocrit (34.0-46.0) % ABG Potassium (3.4-4.5) mmol/L ABG Ionized Calcium (4.5-5.3) mg/dL ABG Glucose (75-99) mg/dL Hemoglobin 10.7 L (13.0-17.5) gm/dL Sodium 136 L (137-145) mmol/L Chloride 111 H (98-107) mmol/L Creatinine 0.59 L (0.66-1.25) mg/dL Magnesium 2.6 H (1.6-2.3) mg/dL Total Protein 3.5 L (6.3-8.2) g/dL Albumin 2.2 L (3.5-5.0) g/dL Arterial Blood Potassium (3.4-4.5) mmol/L Arterial Blood Glucose (75-99) mg/dL Crossmatch Blood Bank Comment Reference Lab Result Assessment and Plan Assessment: Acute coronary syndrome, patient presented with symptoms of unstable angina found to have multivessel coronary artery disease with left main stenosis of 80% based on cardiac catheterization. Status post coronary artery bypass grafting utilizing a MARQUEZ to the LAD, left radial artery to the ramus, saphenous vein graft to the RCA, ligation of left atrial appendage. Postoperative day #0 Routine postoperative mechanical ventilation management, expected outcome Mild to moderate COPD History of asbestos associated lung disease History of multiple myeloma presently in remission, on Revlimid and on Velcade History of obstructive sleep apnea Ex-smoker History of COVID-19 infection back in 2022 Dyslipidemia Benign essential hypertension History of chronic depression Plan: The patient was seen and evaluated Chest x-ray, labs, ABGs and medications reviewed Increase the respiratory rate to 20, decrease FiO2 to 50% Plan for early extubation protocol as tolerated Continue bronchodilators Heparin for DVT prophylaxis We will continue to follow and make further recommendations based on his clinical status I have personally seen and examined the patient, performed the documentation and the assessment and plan as written. Number of minutes spent on the visit: 15.
[2024-08-02 16:03] LABS: Glucose,Whole Blood 112 mg/dL (70-110)
--- NOTE | 2024-08-02 16:18 | XR ---
EXAMINATION TYPE: XR chest 1V portable DATE OF EXAM: 08/02/2024 COMPARISON: 07/31/2024 HISTORY: Postoperative cardiac surgery TECHNIQUE: Single frontal view of the chest is obtained. FINDINGS: There is an ET tube 6.1 cm above the yusuf. There is an NG tube within the stomach. There is a [place]-Radha catheter in the pulmonary artery. There are bilateral chest tubes. A small focal opacity in the right lung base representing pneumonic infiltrate. There is opacity obscuring the left hemidiaphragm likely a small left effusion with left lower lobe a telectasis. IMPRESSION: 1. ET tube 6.1 cm above the yusuf. NG tube within the stomach. [place]-Radha catheter in the main pulmon jocy artery 2. Acute cardiopulmonary disease involving both lower lobes as described above. IMPRESSION: No acute process. [facility], Workstation: [email or web address] 08/02/2024 4:16 PM
[2024-08-02] MEDS: IPRATROPIUM-ALBUTEROL 3 ML NEB INHALATION SCH (16:41)
[2024-08-02] MEDS: HEPARIN SODIUM,PORCINE 5,000 UNIT/ML 1 ML VIAL SQ SCH (16:48)
[2024-08-02 17:00] LABS: Glucose,Whole Blood 122 mg/dL (70-110)
[2024-08-02] MEDS: DEXMEDETOMIDINE/0.9% NACL(PMX) 400 MCG in EMPTY BAG 1 BAG IV SCH (17:15)
[2024-08-02 18:00] LABS: Basophils % (A) 0 %; Eosinophils % (A) 0 %; HCT 29.1 % (39.0-53.0); HGB 9.2 gm/dL (13.0-17.5); Lymphocytes # (A) 0.4 k/uL (1.0-4.8); Lymphocytes % (A) 4 %; MCH 31.8 pg (25.0-35.0); MCHC 31.6 g/dL (31.0-37.0); MCV 100.5 fL (80.0-100.0); Mean Platelet Volume 7.3; Monocytes # (A) 0.7 k/uL (0-1.0); Monocytes % (A) 7 %; Neutrophils # (A) 8.6 k/uL (1.3-7.7); Neutrophils % (A) 88 %; Platelet Count 136 k/uL (150-450); RDW 13.4 % (11.5-15.5); WBC 9.8 k/uL (3.8-10.6)
[2024-08-02 18:02] LABS: Glucose,Whole Blood 123 mg/dL (70-110)
[2024-08-02] MEDS: ACETAMINOPHEN IV (For NPO) 1,000 MG in EMPTY BAG 1 BAG IVPB SCH (18:19)
[2024-08-02 18:23] LABS: ABG Base Excess -0.6 mmol/L; ABG HCO3 24 mmol/L (21-25); ABG Oxygen Saturation 99.9 % (94-97); ABG PCO2 39 mmHg (35-45); ABG PO2 167 mmHg (83-108); ABG TCO2 25 mmol/L (19-24)
[2024-08-02 18:26] LABS: Allen Test Performed? no
[2024-08-02] MEDS: VASOPRESSIN 20 UNIT in SODIUM CHLORIDE 0.9% 50 ML IV SCH (18:30)
[2024-08-02] MEDS: [UNRECOGNIZED DRUG - OTHER] IV SCH (19:10)
[2024-08-02] MEDS: HUMAN IV SCH (19:10)
[2024-08-02] MEDS: SODIUM CHLORIDE 0.9% IV SCH (19:10)
[2024-08-02 19:22] LABS: Glucose,Whole Blood 124 mg/dL (70-110)
[2024-08-02] MEDS: INSULIN REGULAR 100 UNIT in SODIUM CHLORIDE 0.9% 100 ML IV SCH (19:55)
--- NOTE | 2024-08-02 20:01 | CA ---
Transthoracic Echo Report Name: Tadeo Smalls Age: 78 Gender: M : 1945 Exam Date: 08/02/2024 19:18 Exam Location: [facility] Ht (in): 72 Wt (lb): 179 Ordering Physician: Dorian Cornejo MD Attending/Referring Phys: Lining Layer Mary Santos RDCS Procedure CPT: Indications: tamponade Cardiac Hx: Technical Quality: Fair Contrast 1: Total Dose (mL): Contrast 2: Total Dose (mL): MEASUREMENTS (Male / Female) Normal Values 2D ECHO LV Diastolic Diameter PLAX 3.5 cm 4.2 - 5.9 / 3.9 - 5.3 cm LV Systolic Diameter PLAX 1.7 cm IVS Diastolic Thickness 1.2 cm 0.6 - 1.0 / 0.6 - 0.9 cm LVPW Diastolic Thickness 1.0 cm 0.6 - 1.0 / 0.6 - 0.9 cm LV Relative Wall Thickness 0.6 FINDINGS Left Ventricle Mildly increased septal wall thickness. Left ventricular ejection fraction is estimated at 50-55 %. Right Ventricle Right Atrium Left Atrium Mitral Valve Aortic Valve Tricuspid Valve Pulmonic Valve Pericardium No pericardial effusion. Aorta CONCLUSIONS Limited echo to rule out pericardial effusion LVEF 55% No obvious regional wall motion abnormality No significant pericardial effusion Previewed by: Dr Andre Carrillo (Electronically Signed) Final Date: 02 August 2024 19:59
[2024-08-02] MEDS: SENNOSIDES-DOCUSATE SODIUM 1 EACH TAB PO SCH (20:46)
[2024-08-02] MEDS: GABAPENTIN 300 MG CAP PO SCH (20:46)
[2024-08-02 20:55] LABS: Basophils % (A) 0 %; Eosinophils % (A) 0 %; HCT 25.2 % (39.0-53.0); HGB 8.2 gm/dL (13.0-17.5); Lymphocytes # (A) 0.2 k/uL (1.0-4.8); Lymphocytes % (A) 3 %; MCH 31.9 pg (25.0-35.0); MCHC 32.3 g/dL (31.0-37.0); MCV 98.6 fL (80.0-100.0); Mean Platelet Volume 7.6; Monocytes # (A) 0.5 k/uL (0-1.0); Monocytes % (A) 7 %; Neutrophils # (A) 6.5 k/uL (1.3-7.7); Neutrophils % (A) 89 %; Platelet Count 109 k/uL (150-450); RBC 2.56 m/uL (4.30-5.90); RDW 13.3 % (11.5-15.5); WBC 7.3 k/uL (3.8-10.6)
[2024-08-02 21:09] LABS: Glucose,Whole Blood 129 mg/dL (70-110)
--- NOTE | 2024-08-02 21:40 | OP ---
OPERATIVE REPORT DATE OF SERVICE : 08/02/2024 PREOPERATIVE DIAGNOSIS: Coronary artery disease. POSTOPERATIVE DIAGNOSIS: Coronary artery disease. PROCEDURES PERFORMED: 1. Coronary artery bypass grafting x3 vessels (left internal mammary artery to left anterior descending artery, radial artery to ramus artery, saphenous vein graft to distal right coronary artery). 2. Endoscopic harvest of bilateral greater saphenous vein. 3. Endoscopic harvest of left radial artery. 4. Ligation of left atrial appendage using 35 mm AtriClip. 5. Epiaortic ultrasound. 6. Transesophageal echocardiogram. 7. Graft flow measurements using [employer] system. ASSISTANTS: 1. Finesse Hamilton PA-C. 2. Cliff Tucker NP. ANESTHESIA: General. SPECIMENS: None. COMPLICATIONS: None. INDICATIONS: The patient is an 78-year-old male with a past medical history significant for multiple myeloma, hyperlipidemia, obstructive sleep apnea, COPD with asbestos exposure, coronary artery disease, status post coronary stent, and a history of tobacco use, who woke from sleep with substernal chest pain which radiated to his left arm. This was associated with shortness of breath. He presented to [facility] and was diagnosed with an ST-elevation myocardial infarction. Workup revealed multivessel coronary artery disease. A coronary artery bypass was recommended. The risks, benefits, and alternatives of procedure were discussed with the patient. All his questions were answered. Consent was obtained. FINDINGS: The left internal mammary artery was a good conduit with brisk flow. The saphenous vein did become small below the knees and for that reason conduit was harvested from both lower extremities using endoscopic technique. All branches were tied. The radial artery was a good conduit. The LAD measured 1.3 mm. The ramus artery measured 1.3 mm. The PDA contained disease in its mid to distal region. The distal right coronary artery measured 1.5 mm and was thickened, but not overly calcific. DESCRIPTION OF PROCEDURE: The patient was taken to the operating room, placed supine on the operating table. After the induction of general anesthesia, he was prepped and draped in the usual sterile fashion. Preoperative transesophageal echocardiogram confirmed an ejection fraction of about 40% with no significant valvular pathology. There was no clot noted within the left atrial appendage. A median sternotomy was performed. The left internal mammary artery was harvested in a standard fashion taking care to clip all branches. Intravenous heparin was administered. The vessel was transected distally revealing brisk flow. Simultaneously, greater saphenous vein was harvested from the left lower extremity using endoscopic technique. It became quite small below the knee. For this reason, additional saphenous vein was harvested from the right thigh again using endoscopic technique. All branches were tied. In addition, renal artery was harvested from the left upper extremity using endoscopic technique. A pericardial cradle was created. The ascending aorta was palpated. There was no significant calcific plaque noted. Epiaortic ultrasound was then performed on the ascending aorta. Again, no calcific plaque or atheromatous disease was identified. An arterial cannula was placed in the distal ascending aorta. A venous cannula was placed through the right atrial appendage directed into the IVC. Both antegrade and retrograde catheters were placed as well. The patient was then placed on cardiopulmonary bypass with good decompression of the heart. The aortic cross-clamp was applied. Cold blood potassium cardioplegia was delivered in both antegrade and retrograde fashion to achieve arrest of the heart. Of note, cardioplegia was delivered every 15 to 20 minutes while the patient remained under crossclamp. I began by identifying the left atrial appendage. A 35 mm AtriClip was placed across its base to ensure ligation. Next, attention was turned to the inferior wall. The PDA was identified, and dissected free. It contained palpable plaque which corresponded with disease noted on the preoperative angiogram in its mid to distal region. A trace proximally into the distal right coronary artery was identified. Just beyond the takeoff of the PDA, the main RCA was dissected free. The vessel was thickened, but did not feel overly calcific. A small arteriotomy was created. Using greater saphenous vein in reverse fashion, an end-to-side anastomosis was created. This was performed using running 7-0 Prolene suture. The graft was hemostatic and had great flow. Next, attention was turned to the lateral. There was no bypassable obtuse marginal artery target. The ramus artery was noted to come off pretty high off the circumflex artery. A small arteriotomy was created. This vessel accepted a 1.0 mm probe. Using the radial artery, an end-to-side anastomosis was created. This was performed using running 7-0 Prolene suture. The grafts were hemostatic and had great flow. Finally, attention was turned to the anterior wall. The left anterior descending artery was identified, dissected free in its midportion. A small arteriotomy was created. This vessel accepted a 1.0 mm probe. Using the left internal mammary artery, an end-to-side anastomosis was created. This was performed using running 8-0 Prolene suture. The graft was hemostatic. The mammary pedicle was then tacked down to the anterior surface of the heart. Attention was then turned to the proximal anastomoses. These were both performed in an end-to-side fashion using running 6-0 Prolene suture. 1 L of warm blood was delivered in retrograde fashion. Both lidocaine and magnesium were administered as well. The aortic cross-clamp was removed. The vein graft was de-aired in the standard fashion. Distal anastomoses were inspected and appeared to be hemostatic. Temporary atrial and ventricular pacing wires were placed and brought through the skin. The patient was then weaned off cardiopulmonary bypass. He with addition of low-dose Levophed and Milrinone. Followup transesophageal echocardiogram confirmed good left ventricular ejection fraction with good movement of all vargas. There was no significant valvular pathology. Graft flow measurements were performed using the [employer] system. The MARQUEZ to LAD graft had a flow of 29 mL/minute and PI of 1.9. The radial artery to ramus artery had a flow of 55 mL/minute and a PI of 1.8. The saphenous vein graft to RCA had a flow of 90 mL/minute and PI of 1.1. Protamine was administered. There were no adverse reactions. The remaining cannulas were removed. The mediastinum was then copiously irrigated with warm saline solution. Again, all surgical sites were inspected and appeared to be hemostatic. Soft tissue was reapproximated over the ascending aorta as well as over the majority of the heart. Chest tubes were placed in both the left pleural space and the mediastinum. A Melvin drain was placed and directed into the right pleural space. These were all secured to the skin using sutures. The sternum was then reapproximated using a primary cable system. The cables were placed in a [id number] fashion. At the completion of the closure, the sternum was well aligned. The remainder of the wound was closed in layers. Sterile dressing was applied. The patient appeared to tolerate the procedure well. There were no immediate complications. He returned to the ICU in stable, but critical condition. He did not receive any intraoperative blood products. MMODL / IJN: [id number] /
[2024-08-02 21:55] LABS: Glucose,Whole Blood 123 mg/dL (70-110)
[2024-08-02 22:30] LABS: ABG HCO3 24 mmol/L (21-25); ABG PCO2 42 mmHg (35-45); ABG PH 7.37 (7.35-7.45); ABG PO2 112 mmHg (83-108); ABG TCO2 26 mmol/L (19-24); Allen Test Performed? Yes
[2024-08-02 23:02] LABS: Glucose,Whole Blood 131 mg/dL (70-110)
[2024-08-02 23:58] LABS: Glucose,Whole Blood 138 mg/dL (70-110)
[2024-08-03 00:55] LABS: Glucose,Whole Blood 130 mg/dL (70-110)
[2024-08-03 02:00] LABS: Glucose,Whole Blood 126 mg/dL (70-110)
[2024-08-03 03:00] LABS: Glucose,Whole Blood 130 mg/dL (70-110)
[2024-08-03 04:08] LABS: Glucose,Whole Blood 125 mg/dL (70-110)
[2024-08-03 04:36] LABS: Basophils % (A) 0 %; Eosinophils % (A) 0 %; HCT 23.5 % (39.0-53.0); HGB 7.7 gm/dL (13.0-17.5); Lymphocytes # (A) 0.5 k/uL (1.0-4.8); Lymphocytes % (A) 7 %; MCH 32.6 pg (25.0-35.0); MCHC 32.8 g/dL (31.0-37.0); MCV 99.4 fL (80.0-100.0); Mean Platelet Volume 7.9; Monocytes # (A) 0.5 k/uL (0-1.0); Monocytes % (A) 7 %; Neutrophils # (A) 5.7 k/uL (1.3-7.7); Neutrophils % (A) 84 %; Platelet Count 111 k/uL (150-450); RBC 2.36 m/uL (4.30-5.90); RDW 13.3 % (11.5-15.5); WBC 6.7 k/uL (3.8-10.6)
[2024-08-03 04:58] LABS: Glucose,Whole Blood 127 mg/dL (70-110)
[2024-08-03 04:59] LABS: Ionized Calcium 4.4 mg/dL (4.5-5.3)
[2024-08-03] MEDS: ONDANSETRON 4 MG/2 ML VIAL IVP PRN (05:08)
[2024-08-03 05:23] LABS: ALT 17 U/L (4-49); AST 49 U/L (17-59); African American GFR (CKD) >90 (>60 ml/min/1.73 sqM); Albumin 3.1 g/dL (3.5-5.0); Alkaline Phosphatase 32 U/L (38-126); Anion Gap 2 mmol/L; Blood Urea Nitrogen 20 mg/dL (9-20); Calcium 7.9 mg/dL (8.4-10.2); Carbon Dioxide 25 mmol/L (22-30); Chloride 111 mmol/L (98-107); Glucose 110 mg/dL (74-99); Magnesium 2.1 mg/dL (1.6-2.3); Non-African American GFR(CKD) 87 (>60 ml/min/1.73 sqM); Sodium 138 mmol/L (137-145); Total Protein 4.3 g/dL (6.3-8.2)
[2024-08-03 06:11] LABS: Glucose,Whole Blood 137 mg/dL (70-110)
--- NOTE | 2024-08-03 06:28 | P.PN ---
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 Symptoms obviously were resting while he is in bed woke him up and become slightly bit severe. Symptoms did not improve with antiacid. Patient ended up coming to the emergency department at [facility] where was seen and evaluated His initial troponin was less than 0.012, rest of his lab including normal CBC and CMP with mildly elevated blood sugar, EKG analyzed all along still showing low voltage but two [address] elevation in inferior and lateral leads which when compared with the initial EKG on presentation to exclude the different which make this quite suspicious at this point. Review of patient's record looks like had similar presentation back in 2019 with Lexiscan done at the time in April 18, 2020 came back to be negative the patient has been seen cardiology all along, not quite sure if he had any further stress test since then. With the current presentation with high risk factor and slight change in EKG patient will be hospitalized will be seeing cardiology and echocardiogram will be order probably will keep patient n.p.o. for potential need testing. 07/31/2024: Patient ended up going for heart cath yesterday finding surprisingly with critical stenosis of the main and the RCA, patient ended up seeing cardiovascular surgeon and the plan is to do most likely triple bypass on Friday. The meanwhile patient vein map was done, was evaluated by pulmonary, also was giving the greenlight by his oncologist to be off his multiple myeloma medication for the next 2 months. He is not having any further symptoms today no chest pain tightness or shortness of breath. 08/01/2024: The patient is asymptomatic no further chest pain or angina but moreno ving further testing and prepare for open heart surgery showing left internal carotid only 50-69 percentile blockage. Lab value and vein map are all completed. Evaluating continue to maximize medical management he is using CPAP for obstructive sleep apnea, pulmonary testing with mild COPD and asbestos preop FEV1 was 60 percentile predicted A1c was 6.1 which still been watching monitor continue Accu-Chek sliding scales coverage eventually will be on SGLT2 product. Apparently from cardiothoracic will plan to do revascularization with left internal mammary artery to go up to cover the left main and to do left radial artery harvest along with migration of the left atrial appendage surgery is planning for tomorrow morning. Meanwhile patient vitals laboratory value and physical has been good 08/02/2024: He is going for surgery this morning going for most likely to bypass surgery or possible 3, vitals are stable patient seen pulmonary, cardiology no complaint of chest pain or angina and mapping are all set. Patient might be on mechanical ventilation overnight after surgery and he will be off his antimultiple myeloma medication for at least the next 6 to 8 weeks. REVIEW OF SYSTEMS: CONSTITUTIONAL: Well-developed no acute respiratory distress. EYES: No icterus sclerae, no conjunctivitis. EARS, NOSE, MOUTH, THROAT, and FACE: No sore throat, lymphadenopathy, carotid bruits or deformity. RESPIRATORY: No SOB cough or wheezes. CARDIOVASCULAR: No CP, Palpitation, PND, Orthopnea, or angina. No arrhythmia at the time. GASTROINTESTINAL: No Abd pain, Nausea or vomiting, no Diarrhea or constipation, No GI Bleed, no distention or masses. GENITOURINARY: Negative for Hematuria or UTI, no kidney stones. INTEGUMENT/BREAST: Negative for any muscular injury with mild osteoarthritis.. HEMATOLOGIC/LYMPHATIC: Negative for bleed or purpura. MUSCULOSKELTAL: Generalized arthralgia and myalgia. NEURLOGICAL: No LOC, Sz or syncope, blurred vision dizziness or abnormality.. BEHAVIORAL/PSYCH: Negative. ENDOCRINE: Negative. PHYSICAL EXAMINATION: General Appearance: Alert, cooperative, no distress, appears stated age. Neck HEENT: Supple, no lymphadenopathy, no thyroid enlargement, no carotid bruits. Lungs: Clear to auscultation without crackles or wheezes no rhonchi, no deformity. Chest Wall: Decreased expansion with deep inspiration no tenderness and no deformity was found on exam, no costochondral pain or discomfort. Heart: Regular rate and rhythm, S1, S2 normal, no murmur, rub or gallop. Back: Symmetric, no curvature, ROM normal, no CVA tenderness. Abdomen: Soft, non-tender, bowel sounds active all four quadrants, no masses, no organomegaly. Extremities: Slight arthritis with no edema. Pulses: 2+ and symmetric. Skin: Skin color, texture, tugor normal, no rashes or lesions. Neurologic: Alert oriented x3 cranial nerves II through XII intact, no motor deficit, no abnormal balance or gait. ASSESSMENT AND PLAN: _Two-vessel bypass on its way patient probably will be on mechanical ventilation for overnight, watch for any complication watch patient carefully afterward. _Multiple coronary artery disease with critical stenosis of the main and RCA, patient is going for surgery tomorrow for at least two-vessel bypass. _Anginal chest pain: Troponin was negative but heart catheter was very positive with positive EKG changes at time the patient again will be going for open heart surgery. _History of multiple myeloma: Obviously patient need to be off his MM medication for at least 1 to 2 months. Patient is very stable currently and hematology has given him the okay for it. _Hyperglycemia: Will be on insulin drip initially switching to short acting insulin by tomorrow probably with Accu-Chek sliding scales coverage and will switch patient to SGLT2 product as early as Friday or Friday. _Hyperlipidemia: On Zetia and WelChol could not tolerate atorvastatin previously. After surgery maximize medical management will call might be moved to one of the water-soluble and high intensity statin if not able to tolerate patient can benefit eventually from Repatha as a PCSK9 inhibitor. _Mild to moderate COPD: With FEV1 predicted 60 percentile, patient maximize medical management has been on DuoNeb and Pulmicort for now. _Chronic peripheral neuropathy: Most likely causing elevated by multiple myeloma, still on gabapentin 200 mg twice a day. _Elevated blood pressure: Maximize Coreg up to 3.125 mg twice a day if can tolerate higher dose up to 12.5 mg twice a day would be preferred. _BPH: No sign of urinary retention. _Chronic depression: The patient is off antidepression completely and has been doing well without medication. Discussion: Patient is very hemodynamically stable for going for surgery we will watch patient carefully coming back from the OR. Objective - Vital Signs Vital signs: Vital Signs Temp 97.4 F L 08/02/24 03:51 Pulse 55 L 08/02/24 03:51 Resp 14 08/02/24 03:51 BP 118/76 08/02/24 03:51 Pulse Ox 97 08/02/24 03:51 FiO2 Intake & Output 08/01/24 08/01/24 08/02/24 06:59 18:59 06:59 Intake Total 240 598 Output Total 1999 800 400 Balance -1763 -586 -385 Weight 81.4 kg Intake: Oral 240 598 Output: Urine 1999 800 400 Stool 0 0 Other: Voiding Method Toilet Toilet Toilet # Voids 1 - Labs CBC & Chem 7: 07/31/24 06:40 07/31/24 06:40 Labs: Abnormal Lab Results - Last 24 Hours (Table) 07/31/24 Range/Units 13:22 Crossmatch See Detail Blood Bank Comment Sent to [facility] A Reference Lab Result See [facility] REF Reports A Microbiology - Last 24 Hours (Table) 07/30/24 17:31 Nasal Screen MRSA/MSSA - Final Nasopharyngeal Swab
[2024-08-03] MEDS: METOCLOPRAMIDE 5 MG/ML 2 ML VIAL IVP PRN (07:01)
[2024-08-03 07:06] LABS: Glucose,Whole Blood 135 mg/dL (70-110)
[2024-08-03 08:25] LABS: Glucose,Whole Blood 175 mg/dL (70-110)
[2024-08-03] MEDS: PANTOPRAZOLE 40 MG/10 ML VIAL IVP SCH (08:25)
[2024-08-03] MEDS: ASPIRIN 325 MG TAB PO SCH (08:26)
[2024-08-03] MEDS: ATORVASTATIN 40 MG TAB PO SCH (08:26)
[2024-08-03] MEDS: CLOPIDOGREL 75 MG TAB PO SCH (08:26)
[2024-08-03] MEDS: IPRATROPIUM-ALBUTEROL 3 ML NEB INHALATION SCH (08:36)
--- NOTE | 2024-08-03 08:53 | XR ---
EXAMINATION TYPE: XR chest 1V portable DATE OF EXAM: 08/03/2024 COMPARISON: 08/02/2024 HISTORY: SOB, Follow Up FINDINGS: Indwelling tubes and catheters are unchanged. No change in bibasilar opacities. Stable appearance of the cardio-mediastinal structures at this time. Pleural effusion unchanged. IMPRESSION: 1. Stable portable chest. Clinical correlation and follow up until resolution is recommended. [facility], , 08/03/2024 8:51 AM
[2024-08-03] MEDS ORDERED: MAGNESIUM HYDROXIDE 2,400 MG/30 ML CUP PO PRN (09:00)
[2024-08-03] MEDS ORDERED: bisacodyL 10 MG SUPP RECTAL PRN (09:00)
[2024-08-03] MEDS: MIDODRINE 5 MG TAB PO ONE (09:07)
[2024-08-03 09:58] LABS: Glucose,Whole Blood 144 mg/dL (70-110)
--- NOTE | 2024-08-03 10:05 | P.PN ---
Subjective Progress Note Date: 08/03/24 Principal diagnosis: Coronary artery disease with left main disease, unstable angina. History of multiple myeloma on immunotherapy, currently stable, hyperlipidemia, obstructive sleep apnea without home CPAP use, mild COPD with asbestosis, COVID infection in September 2023, previous tobacco dependence, left internal carotid stenosis 50 to 69% POD #1 coronary artery bypass grafting x 3 vessels, left internal mammary artery to the left anterior descending artery, radial artery to the ramus artery, saphenous vein graft to the distal right coronary artery, endoscopic harvest of bilateral greater saphenous veins, endoscopic harvest of left radial artery, ligation of the left atrial appendage using a 35mm AtriClip, epiaortic ultrasound, intraoperative transesophageal echocardiogram, graft flow measurements using [employer] system Postoperative acute blood loss anemia and thrombocytopenia, expected given extensive hemodilution and cardiopulmonary bypass pump Acute hypotension with shock with need for pressors, felt to be due to vasoplegia The patient was seen and examined sitting up in recliner in the intensive care unit in no acute distress. He was successfully extubated last night at 22:54. Remains AV paced at 80 bpm with underlying rhythm sinus in the low 60s. Blood pressure soft, currently on low-dose levo. Out of OR yesterday patient was on Primacor as well as levo. His blood pressure dwindled and Primacor was eventually stopped, vaso was added, and eventually Giaprezza was added. Patient's blood pressure climbed to systolic of 130s and all pressors were weaned and stopped. He was restarted on IV levo this morning when he got up to the chair and had a fluid shift. He received a total of 1.75 L albumin since surgery. He is mentating well and is in good spirits, denies any chest pain, states his only pain is at the chest tube insertion sites which is well- tolerated. He is currently on 2 L nasal cannula with oxygen saturation in the high 90s, only able to achieve 500 mL on his incentive spirometry. Chest x-ray, lab work reviewed. Right internal jugular Worley/Cordis, right radial arterial line, mediastinal/left/right pleural chest tubes all remain. No other new concerns. Objective - Vital Signs Vital signs: Vital Signs Temp 98.6 F 08/03/24 04:00 Pulse 80 08/03/24 08:47 Resp 16 10/08/24 07:00 BP 90/53 08/03/24 07:00 Pulse Ox 96 08/03/24 08:37 FiO2 40 08/02/24 21:50 Intake & Output 08/02/24 08/03/24 08/03/24 18:59 06:59 18:59 Intake Total 301.197 9911.597 437.494 Output Total 1689 1632 225 Balance -1150.833 779.597 212.494 Weight 85.1 kg Intake: IV 504 1814.50 158 0.9 200 650 50 ACETAMINOPHEN IV (For NPO 200 ) 1,000 mg In Empty Bag 1 bag @ 400 mls/hr IVPB Q6HR [facility] Rx#:[id number] Albumin Human 5% 500 ml 500 In Empty Bag 1 bag @ 250 mls/hr IVPB ONCE ONE Rx#: [id number] CO/CI 210 240 40 Nitroglycerin-D5w Pmx 50 5 7.50 mg In Dextrose/Water 1 250ml.bag @ 5 MCG/MIN 1.5 mls/hr IV .Q24H [facility] Rx#: [id number] ceFAZolin 2 gm In Sodium 100 50 Chloride 0.9% 50 ml @ 100 mls/hr IVPB Q8HR [facility] Rx# :[id number] pressure bag 36 117 18 Intake, IV Titration 34.167 57.097 39.494 Amount Angiotensin II Acetate, 0.610 Human 0.5 mg In Sodium Chloride 0.9% 50 ml @ 10 NG/KG/MIN 4.884 mls/hr IV .[id number] [facility] Rx#: [id number] Insulin Regular 100 unit 1.953 9.494 In Sodium Chloride 0.9% 100 ml @ Per Protocol IV .Q0M [facility] Rx#:[id number] Nitroglycerin-D5w Pmx 50 24.175 mg In Dextrose/Water 1 250ml.bag @ 2.5 MCG/MIN 0 .75 mls/hr IV .Q24H [facility] Rx#:[id number] Norepinephrine 4 mg In 34.167 27.809 Sodium Chloride 0.9% 250 ml @ 0.03 MCG/KG/MIN 9. 304 mls/hr IV .Q24H [facility] Rx#:[id number] Sodium Chloride 0.9% 1, 30 000 ml @ 30 mls/hr IV . Q24H [facility] Rx#:[id number] Vasopressin 20 unit In 2.55 Sodium Chloride 0.9% 50 ml @ 0.02 UNITS/MIN 3.06 mls/hr IV .[id number] [facility] Rx #:[id number] Oral 540 240 Output: Chest Tube Drainage 80 Left Pleural Chest Tube 40 Mediastinal Chest Tube 40 Right Pleural Chest Tube 0 Drainage 74 897 150 Mediastinal 30 147 30 Right Wrist VANGIE drain 0 15 left pleural 14 458 100 right pleural 30 277 20 Urine 1085 735 75 Estimated Blood Loss 450 Other: Voiding Method Indwelling Catheter Indwelling Catheter ABP, PAP, CO, CI - Last Documented Arterial Blood Pressure 88/54 Pulmonary Artery Pressure 38/13 Cardiac Output 5.3 Cardiac Index 2.6 - Exam CONSTITUTIONAL: Appears comfortable, cooperative, no acute distress RESPIRATORY: Lungs sounds diminished in the bases bilaterally. Respirations even, nonlabored. Currently on 2 L nasal cannula with oxygen saturation 98%. Able to achieve 500 mL on incentive spirometry. Strong cough. CARDIOVASCULAR: S1, S2 present. Regular rate and rhythm, AV paced on telemetry with underlying rhythm sinus in the low 60s. Sternum stable. Palpable peripheral pulses bilaterally. No edema present. No calf pain or tenderness noted. Heart hugger in place with patient demonstrating appropriate use. Antiembolism stockings, SCDs present. GASTROINTESTINAL: Abdomen soft, nontender, nondistended. Hypoactive bowel sounds present 4 quadrants. Tolerating clear liquid diet. Denies flatus GENITOURINARY: Temple present draining clear, yellow urine. Output overnight 45-85 mL per hour INTEGUMENTARY: Skin is warm and dry with evidence of good perfusion. Anterior chest incision well approximated and covered with dry intact dressing. Bilateral lower extremity EVH sites well approximated without redness or drainage. Left radial artery harvest site with VANGIE drain, minimal drainage NEUROLOGIC: Cranial nerves II through XII intact MUSKULOSKELETAL: Able to move all extremities, strength equal bilaterally PSYCHIATRIC: Alert and oriented to person place and time, appropriate affect, intact judgment and insight INVASIVE LINES AND TUBES: Mediastinal/left/right pleural chest tubes present and connected to wall suction, no air leaks present. Mediastinal tube with 80 mL serosanguineous drainage overnight, 210 mL since surgery. Left pleural chest tube with 370 mL serosanguineous drainage overnight, 600 mL in surgery. Right pleural chest tube with 240 mL serosanguineous drainage overnight, 320 mL since surgery. A/V epicardial pacemaker wires present, connected to generator, DDD mode with rate 80 bpm. Right internal jugular Worley/Cordis, right radial arterial line present. Last CO/CI 5.3/2.6, PA 36/12, CVP 5. - Allied health notes Allied health notes reviewed: nursing - Labs CBC & Chem 7: 08/03/24 04:00 08/03/24 04:00 Labs: Abnormal Lab Results - Last 24 Hours (Table) 07/31/24 08/02/24 08/02/24 Range/Units 13:22 08:35 09:38 RBC (4.30-5.90) m/uL Hgb (13.0-17.5) gm/dL Hct (39.0-53.0) % MCV (80.0-100.0) fL Plt Count (150-450) k/uL Neutrophils # (1.3-7.7) k/uL Lymphocytes # (1.0-4.8) k/uL PT (10.0-12.5) sec INR (<1.2) ABG pH 7.28 L (7.35-7.45) ABG pCO2 55 H (35-45) mmHg ABG pO2 >420 H 206 H (83-108) mmHg ABG HCO3 26 H (21-25) mmol/L ABG Total CO2 (19-24) mmol/L ABG O2 Saturation >99.4 H 98.7 H (94-97) % ABG Hematocrit (34.0-46.0) % ABG Potassium (3.4-4.5) mmol/L ABG Ionized Calcium (4.5-5.3) mg/dL ABG Glucose 106 H 120 H (75-99) mg/dL Hemoglobin 12.7 L (13.0-17.5) gm/dL Sodium (137-145) mmol/L Chloride (98-107) mmol/L Creatinine (0.66-1.25) mg/dL Glucose (74-99) mg/dL POC Glucose (mg/dL) (70-110) mg/dL Calcium (8.4-10.2) mg/dL Ionized Calcium Lexi (4.5-5.3) mg/dL Magnesium (1.6-2.3) mg/dL Alkaline Phosphatase (38-126) U/L Total Protein (6.3-8.2) g/dL Albumin (3.5-5.0) g/dL Arterial Blood Potassium (3.4-4.5) mmol/L Arterial Blood Glucose 106 H 120 H (75-99) mg/dL Crossmatch See Detail Blood Bank Comment Sent to [facility] A Reference Lab Result See [facility] REF Reports A 08/02/24 08/02/24 08/02/24 Range/Units 11:29 11:30 12:16 RBC (4.30-5.90) m/uL Hgb (13.0-17.5) gm/dL Hct (39.0-53.0) % MCV (80.0-100.0) fL Plt Count (150-450) k/uL Neutrophils # (1.3-7.7) k/uL Lymphocytes # (1.0-4.8) k/uL PT (10.0-12.5) sec INR (<1.2) ABG pH 7.50 H 7.48 H 7.49 H (7.35-7.45) ABG pCO2 33 L 34 L 34 L (35-45) mmHg ABG pO2 >420 H 408 H 347 H (83-108) mmHg ABG HCO3 26 H (21-25) mmol/L ABG Total CO2 (19-24) mmol/L ABG O2 Saturation >99.4 H >99.4 H 99.4 H (94-97) % ABG Hematocrit 29 L 26 L 23 L (34.0-46.0) % ABG Potassium 5.4 H 4.8 H 5.2 H (3.4-4.5) mmol/L ABG Ionized Calcium 3.9 L 3.7 L 3.6 L (4.5-5.3) mg/dL ABG Glucose 125 H 112 H 100 H (75-99) mg/dL Hemoglobin 9.4 L 8.4 L 7.6 L (13.0-17.5) gm/dL Sodium (137-145) mmol/L Chloride (98-107) mmol/L Creatinine (0.66-1.25) mg/dL Glucose (74-99) mg/dL POC Glucose (mg/dL) (70-110) mg/dL Calcium (8.4-10.2) mg/dL Ionized Calcium Lexi (4.5-5.3) mg/dL Magnesium (1.6-2.3) mg/dL Alkaline Phosphatase (38-126) U/L Total Protein (6.3-8.2) g/dL Albumin (3.5-5.0) g/dL Arterial Blood Potassium 5.4 H 4.8 H 5.2 H (3.4-4.5) mmol/L Arterial Blood Glucose 125 H 112 H 100 H (75-99) mg/dL Crossmatch Blood Bank Comment Reference Lab Result 08/02/24 08/02/24 08/02/24 Range/Units 12:58 13:45 14:41 RBC 3.07 L (4.30-5.90) m/uL Hgb 9.8 L D (13.0-17.5) gm/dL Hct 30.8 L (39.0-53.0) % MCV 100.2 H (80.0-100.0) fL Plt Count 122 L (150-450) k/uL Neutrophils # (1.3-7.7) k/uL Lymphocytes # 0.7 L (1.0-4.8) k/uL PT (10.0-12.5) sec INR (<1.2) ABG pH 7.49 H (7.35-7.45) ABG pCO2 32 L (35-45) mmHg ABG pO2 >420 H >420 H (83-108) mmHg ABG HCO3 26 H (21-25) mmol/L ABG Total CO2 (19-24) mmol/L ABG O2 Saturation >99.4 H >99.4 H (94-97) % ABG Hematocrit 23 L 29 L (34.0-46.0) % ABG Potassium 5.0 H (3.4-4.5) mmol/L ABG Ionized Calcium 3.4 L* 4.0 L (4.5-5.3) mg/dL ABG Glucose 103 H 107 H (75-99) mg/dL Hemoglobin 7.5 L 9.3 L (13.0-17.5) gm/dL Sodium (137-145) mmol/L Chloride (98-107) mmol/L Creatinine (0.66-1.25) mg/dL Glucose (74-99) mg/dL POC Glucose (mg/dL) (70-110) mg/dL Calcium (8.4-10.2) mg/dL Ionized Calcium Lexi (4.5-5.3) mg/dL Magnesium (1.6-2.3) mg/dL Alkaline Phosphatase (38-126) U/L Total Protein (6.3-8.2) g/dL Albumin (3.5-5.0) g/dL Arterial Blood Potassium 5.0 H (3.4-4.5) mmol/L Arterial Blood Glucose 103 H 107 H (75-99) mg/dL [facility] Comment Reference Lab Result 08/02/24 08/02/24 08/02/24 Range/Units 14:41 14:41 15:00 RBC (4.30-5.90) m/uL Hgb (13.0-17.5) gm/dL Hct (39.0-53.0) % MCV (80.0-100.0) fL Plt Count (150-450) k/uL Neutrophils # (1.3-7.7) k/uL Lymphocytes # (1.0-4.8) k/uL PT 14.0 H (10.0-12.5) sec INR 1.3 H (<1.2) ABG pH 7.29 L (7.35-7.45) ABG pCO2 52 H (35-45) mmHg ABG pO2 324 H (83-108) mmHg ABG HCO3 (21-25) mmol/L ABG Total CO2 27 H (19-24) mmol/L ABG O2 Saturation 100.0 H (94-97) % ABG Hematocrit (34.0-46.0) % ABG Potassium (3.4-4.5) mmol/L ABG Ionized Calcium (4.5-5.3) mg/dL ABG Glucose (75-99) mg/dL Hemoglobin 10.7 L (13.0-17.5) gm/dL Sodium 136 L (137-145) mmol/L Chloride 111 H (98-107) mmol/L Creatinine 0.59 L (0.66-1.25) mg/dL Glucose (74-99) mg/dL POC Glucose (mg/dL) (70-110) mg/dL Calcium (8.4-10.2) mg/dL Ionized Calcium Lexi (4.5-5.3) mg/dL Magnesium 2.6 H (1.6-2.3) mg/dL Alkaline Phosphatase (38-126) U/L Total Protein 3.5 L (6.3-8.2) g/dL Albumin 2.2 L (3.5-5.0) g/dL Arterial Blood Potassium (3.4-4.5) mmol/L Arterial Blood Glucose (75-99) mg/dL [facility] Comment Reference Lab Result 08/02/24 08/02/24 08/02/24 Range/Units 16:01 16:59 17:30 RBC 2.90 L (4.30-5.90) m/uL Hgb 9.2 L (13.0-17.5) gm/dL Hct 29.1 L (39.0-53.0) % MCV 100.5 H (80.0-100.0) fL Plt Count 136 L (150-450) k/uL Neutrophils # 8.6 H (1.3-7.7) k/uL Lymphocytes # 0.4 L (1.0-4.8) k/uL PT (10.0-12.5) sec INR (<1.2) ABG pH (7.35-7.45) ABG pCO2 (35-45) mmHg ABG pO2 (83-108) mmHg ABG HCO3 (21-25) mmol/L ABG Total CO2 (19-24) mmol/L ABG O2 Saturation (94-97) % ABG Hematocrit (34.0-46.0) % ABG Potassium (3.4-4.5) mmol/L ABG Ionized Calcium (4.5-5.3) mg/dL ABG Glucose (75-99) mg/dL Hemoglobin (13.0-17.5) gm/dL Sodium (137-145) mmol/L Chloride (98-107) mmol/L Creatinine (0.66-1.25) mg/dL Glucose (74-99) mg/dL POC Glucose (mg/dL) 112 H 122 H (70-110) mg/dL Calcium (8.4-10.2) mg/dL Ionized Calcium Lexi (4.5-5.3) mg/dL Magnesium (1.6-2.3) mg/dL Alkaline Phosphatase (38-126) U/L Total Protein (6.3-8.2) g/dL Albumin (3.5-5.0) g/dL Arterial Blood Potassium (3.4-4.5) mmol/L Arterial Blood Glucose (75-99) mg/dL [facility] Blood Bank Comment Reference Lab Result 08/02/24 08/02/24 08/02/24 Range/Units 18:00 18:20 19:20 RBC (4.30-5.90) m/uL Hgb (13.0-17.5) gm/dL Hct (39.0-53.0) % MCV (80.0-100.0) fL Plt Count (150-450) k/uL Neutrophils # (1.3-7.7) k/uL Lymphocytes # (1.0-4.8) k/uL PT (10.0-12.5) sec INR (<1.2) ABG pH (7.35-7.45) ABG pCO2 (35-45) mmHg ABG pO2 167 H (83-108) mmHg ABG HCO3 (21-25) mmol/L ABG Total CO2 25 H (19-24) mmol/L ABG O2 Saturation 99.9 H (94-97) % ABG Hematocrit (34.0-46.0) % ABG Potassium (3.4-4.5) mmol/L ABG Ionized Calcium (4.5-5.3) mg/dL ABG Glucose (75-99) mg/dL Hemoglobin 8.4 L (13.0-17.5) gm/dL Sodium (137-145) mmol/L Chloride (98-107) mmol/L Creatinine (0.66-1.25) mg/dL Glucose (74-99) mg/dL POC Glucose (mg/dL) 123 H 124 H (70-110) mg/dL Calcium (8.4-10.2) mg/dL Ionized Calcium Lexi (4.5-5.3) mg/dL Magnesium (1.6-2.3) mg/dL Alkaline Phosphatase (38-126) U/L Total Protein (6.3-8.2) g/dL Albumin (3.5-5.0) g/dL Arterial Blood Potassium (3.4-4.5) mmol/L Arterial Blood Glucose (75-99) mg/dL [facility] Comment Reference Lab Result 08/02/24 08/02/24 08/02/24 Range/Units 20:30 20:56 21:54 RBC 2.56 L (4.30-5.90) m/uL Hgb 8.2 L (13.0-17.5) gm/dL Hct 25.2 L (39.0-53.0) % MCV (80.0-100.0) fL Plt Count 109 L (150-450) k/uL Neutrophils # (1.3-7.7) k/uL Lymphocytes # 0.2 L (1.0-4.8) k/uL PT (10.0-12.5) sec INR (<1.2) ABG pH (7.35-7.45) ABG pCO2 (35-45) mmHg ABG pO2 (83-108) mmHg ABG HCO3 (21-25) mmol/L ABG Total CO2 (19-24) mmol/L ABG O2 Saturation (94-97) % ABG Hematocrit (34.0-46.0) % ABG Potassium (3.4-4.5) mmol/L ABG Ionized Calcium (4.5-5.3) mg/dL ABG Glucose (75-99) mg/dL Hemoglobin (13.0-17.5) gm/dL Sodium (137-145) mmol/L Chloride (98-107) mmol/L Creatinine (0.66-1.25) mg/dL Glucose (74-99) mg/dL POC Glucose (mg/dL) 129 H 123 H (70-110) mg/dL Calcium (8.4-10.2) mg/dL Ionized Calcium Lexi (4.5-5.3) mg/dL Magnesium (1.6-2.3) mg/dL Alkaline Phosphatase (38-126) U/L Total Protein (6.3-8.2) g/dL Albumin (3.5-5.0) g/dL Arterial Blood Potassium (3.4-4.5) mmol/L Arterial Blood Glucose (75-99) mg/dL [facility] Comment Reference Lab Result 08/02/24 08/02/24 08/02/24 Range/Units 22:08 23:01 23:56 RBC (4.30-5.90) m/uL Hgb (13.0-17.5) gm/dL Hct (39.0-53.0) % MCV (80.0-100.0) fL Plt Count (150-450) k/uL Neutrophils # (1.3-7.7) k/uL Lymphocytes # (1.0-4.8) k/uL PT (10.0-12.5) sec INR (<1.2) ABG pH (7.35-7.45) ABG pCO2 (35-45) mmHg ABG pO2 112 H (83-108) mmHg ABG HCO3 (21-25) mmol/L ABG Total CO2 26 H (19-24) mmol/L ABG O2 Saturation 99.0 H (94-97) % ABG Hematocrit (34.0-46.0) % ABG Potassium (3.4-4.5) mmol/L ABG Ionized Calcium (4.5-5.3) mg/dL ABG Glucose (75-99) mg/dL Hemoglobin 7.9 L (13.0-17.5) gm/dL Sodium (137-145) mmol/L Chloride (98-107) mmol/L Creatinine (0.66-1.25) mg/dL Glucose (74-99) mg/dL POC Glucose (mg/dL) 131 H 138 H (70-110) mg/dL Calcium (8.4-10.2) mg/dL Ionized Calcium Lexi (4.5-5.3) mg/dL Magnesium (1.6-2.3) mg/dL Alkaline Phosphatase (38-126) U/L Total Protein (6.3-8.2) g/dL Albumin (3.5-5.0) g/dL Arterial Blood Potassium (3.4-4.5) mmol/L Arterial Blood Glucose (75-99) mg/dL [facility] Blood [facility] Comment Reference Lab Result 08/03/24 08/03/24 08/03/24 Range/Units 00:54 01:57 02:59 RBC (4.30-5.90) m/uL Hgb (13.0-17.5) gm/dL Hct (39.0-53.0) % MCV (80.0-100.0) fL Plt Count (150-450) k/uL Neutrophils # (1.3-7.7) k/uL Lymphocytes # (1.0-4.8) k/uL PT (10.0-12.5) sec INR (<1.2) ABG pH (7.35-7.45) ABG pCO2 (35-45) mmHg ABG pO2 (83-108) mmHg ABG HCO3 (21-25) mmol/L ABG Total CO2 (19-24) mmol/L ABG O2 Saturation (94-97) % ABG Hematocrit (34.0-46.0) % ABG Potassium (3.4-4.5) mmol/L ABG Ionized Calcium (4.5-5.3) mg/dL ABG Glucose (75-99) mg/dL Hemoglobin (13.0-17.5) gm/dL Sodium (137-145) mmol/L Chloride (98-107) mmol/L Creatinine (0.66-1.25) mg/dL Glucose (74-99) mg/dL POC Glucose (mg/dL) 130 H 126 H 130 H (70-110) mg/dL Calcium (8.4-10.2) mg/dL Ionized Calcium Lexi (4.5-5.3) mg/dL Magnesium (1.6-2.3) mg/dL Alkaline Phosphatase (38-126) U/L Total Protein (6.3-8.2) g/dL Albumin (3.5-5.0) g/dL Arterial Blood Potassium (3.4-4.5) mmol/L Arterial Blood Glucose (75-99) mg/dL [facility] Comment Reference Lab Result 08/03/24 08/03/24 08/03/24 Range/Units 04:00 04:00 04:06 RBC 2.36 L (4.30-5.90) m/uL Hgb 7.7 L (13.0-17.5) gm/dL Hct 23.5 L (39.0-53.0) % MCV (80.0-100.0) fL Plt Count 111 L (150-450) k/uL Neutrophils # (1.3-7.7) k/uL Lymphocytes # 0.5 L (1.0-4.8) k/uL PT (10.0-12.5) sec INR (<1.2) ABG pH (7.35-7.45) ABG pCO2 (35-45) mmHg ABG pO2 (83-108) mmHg ABG HCO3 (21-25) mmol/L ABG Total CO2 (19-24) mmol/L ABG O2 Saturation (94-97) % ABG Hematocrit (34.0-46.0) % ABG Potassium (3.4-4.5) mmol/L ABG Ionized Calcium (4.5-5.3) mg/dL ABG Glucose (75-99) mg/dL Hemoglobin (13.0-17.5) gm/dL Sodium (137-145) mmol/L Chloride 111 H (98-107) mmol/L Creatinine (0.66-1.25) mg/dL Glucose 110 H (74-99) mg/dL POC Glucose (mg/dL) 125 H (70-110) mg/dL Calcium 7.9 L (8.4-10.2) mg/dL Ionized Calcium Lexi 4.4 L (4.5-5.3) mg/dL Magnesium (1.6-2.3) mg/dL Alkaline Phosphatase 32 L (38-126) U/L Total Protein 4.3 L (6.3-8.2) g/dL Albumin 3.1 L (3.5-5.0) g/dL Arterial Blood Potassium (3.4-4.5) mmol/L Arterial Blood Glucose (75-99) mg/dL [facility] Comment Reference Lab Result 08/03/24 08/03/24 08/03/24 Range/Units 04:56 06:09 07:04 RBC (4.30-5.90) m/uL Hgb (13.0-17.5) gm/dL Hct (39.0-53.0) % MCV (80.0-100.0) fL Plt Count (150-450) k/uL Neutrophils # (1.3-7.7) k/uL Lymphocytes # (1.0-4.8) k/uL PT (10.0-12.5) sec INR (<1.2) ABG pH (7.35-7.45) ABG pCO2 (35-45) mmHg ABG pO2 (83-108) mmHg ABG HCO3 (21-25) mmol/L ABG Total CO2 (19-24) mmol/L ABG O2 Saturation (94-97) % ABG Hematocrit (34.0-46.0) % ABG Potassium (3.4-4.5) mmol/L ABG Ionized Calcium (4.5-5.3) mg/dL ABG Glucose (75-99) mg/dL Hemoglobin (13.0-17.5) gm/dL Sodium (137-145) mmol/L Chloride (98-107) mmol/L Creatinine (0.66-1.25) mg/dL Glucose (74-99) mg/dL POC Glucose (mg/dL) 127 H 137 H 135 H (70-110) mg/dL Calcium (8.4-10.2) mg/dL Ionized Calcium Lexi (4.5-5.3) mg/dL Magnesium (1.6-2.3) mg/dL Alkaline Phosphatase (38-126) U/L Total Protein (6.3-8.2) g/dL Albumin (3.5-5.0) g/dL Arterial Blood Potassium (3.4-4.5) mmol/L Arterial Blood Glucose (75-99) mg/dL [facility] Comment Reference Lab Result 08/03/24 Range/Units 08:23 RBC (4.30-5.90) m/uL Hgb (13.0-17.5) gm/dL Hct (39.0-53.0) % MCV (80.0-100.0) fL Plt Count (150-450) k/uL Neutrophils # (1.3-7.7) k/uL Lymphocytes # (1.0-4.8) k/uL PT (10.0-12.5) sec INR (<1.2) ABG pH (7.35-7.45) ABG pCO2 (35-45) mmHg ABG pO2 (83-108) mmHg ABG HCO3 (21-25) mmol/L ABG Total CO2 (19-24) mmol/L ABG O2 Saturation (94-97) % ABG Hematocrit (34.0-46.0) % ABG Potassium (3.4-4.5) mmol/L ABG Ionized Calcium (4.5-5.3) mg/dL ABG Glucose (75-99) mg/dL Hemoglobin (13.0-17.5) gm/dL Sodium (137-145) mmol/L Chloride (98-107) mmol/L Creatinine (0.66-1.25) mg/dL Glucose (74-99) mg/dL POC Glucose (mg/dL) 175 H (70-110) mg/dL Calcium (8.4-10.2) mg/dL Ionized Calcium Lexi (4.5-5.3) mg/dL Magnesium (1.6-2.3) mg/dL Alkaline Phosphatase (38-126) U/L Total Protein (6.3-8.2) g/dL Albumin (3.5-5.0) g/dL Arterial Blood Potassium (3.4-4.5) mmol/L Arterial Blood Glucose (75-99) mg/dL [facility] Comment Reference Lab Result - Imaging and Cardiology Chest x-ray: report reviewed, image reviewed Assessment and Plan Assessment: Coronary artery disease with left main disease, unstable angina, status post three-vessel CABG Chest pain secondary to above Postoperative acute blood loss anemia and thrombocytopenia, expected given extensive hemodilution and cardiopulmonary bypass pump Acute hypotension with shock with need for pressors, felt to be due to vasoplegia History of multiple myeloma on immunotherapy currently stable Hyperlipidemia, previous intolerance to statins, cholesterol 184, LDL 106, TG 119 Obstructive sleep apnea without home CPAP use Mild COPD with asbestosis, preoperative FEV1 60% of predicted COVID infection in September 2023 Previous tobacco dependence Left internal carotid stenosis 50 to 69% Hyperglycemia, diet controlled, Hgb A1c 6.1% Plan: Continue to maximize medical therapy with aspirin, statin, Plavix. Will hold beta-dann for now. Wean pressors as tolerated. Start midodrine Wean oxygen as tolerated. Encourage incentive spirometry use 10 times every aleksandra r while awake. Bronchodilators per pulmonology Increase activity, ambulate as tolerated. PT/OT/cardiac rehab consulted Will monitor daily labs and x-rays. Electrolyte replacement per protocol. No blood transfusion at this point, anemia felt to be dilutional GI/DVT prophylaxis Pain control per current medication regimen. No Toradol at this time Insulin management per internal medicine. Patient should remain on continuous IV insulin for 48 hours then may transition to subcutaneous per protocol, needs tight blood sugar control Will continue [place] for now, may discontinue this afternoon Continue chest tubes for another 24 hours, monitor output Continue Temple catheter for another 24 hours, continue to monitor strict accurate intake and output Epicardial pacemaker wires placed to AAI mode with rate 80 bpm More recommendations to follow
--- NOTE | 2024-08-03 10:49 | P.PN ---
Subjective Progress Note Date: 08/03/24 History of present illness: Patient is a pleasant 78 year old male with significant past medical history of cancer, hyperlipidemia, multiple myeloma, asbestosis who presented to the ED with acute onset retrosternal chest pain. He said the chest pain was mostly located in the center of his chest, has a pressure feel, and radiated towards the right shoulder. He said the chest pain started while he was sleeping at night. He reported shortness of breath, but no nausea, vomiting, diarrhea, belly pain, constipation. Upon arrival to the ED, patient responded very fast to nitroglycerin and morphine and the chest pain went away. In the ED, EKG showed sinus rhythm, tall T waves, with a heart rate of about [address] angiography of the chest was performed, and showed no evidence of pulmonary embolism. Troponin was less than 0.012. BNP was 37. AST slighty elevated at 95. ALT 47. Left heart cath 07/30/24 revealed multivessel CAD including 80% distal left main stenosis, 80% distal RCA stenosis, 60% proximal RCA stenosis. He was referred to cardiothoracic surgery for CABG eval. Carotid ultrasound shows greater than 70% stenosis of right ICA, moderate stenosis left ICA. Echocardiogram with EF 55-60%, no significant valve issues. 07/31/2024 Patient reports that he is feeling fine and denies any chest pain or pressure. No shortness of breath. 0.69, potassium 5.2. 08/01/24 He is ambulatory around unit. No complaints. No chest pain, shortness of breath, or dizziness. 08/03/2024 Patient underwent bypass surgery yesterday. Today he is coming along well. BP 78/40, PA catheter PA pressures 38/12, CVP 7, cardiac index 2.3 L/min/m. Currently he is on 0.02 mics of norepinephrine. He has right IJ Clarks-Radha catheter in, epicardial pacemaker in, mediastinal tube and [address] Currently he is in paced rhythm at 80 bpm. He is atrially paced. PHYSICAL EXAMINATION: This is a 78 -year-old male in no apparent distress at the time of my examination. HEENT: Head is atraumatic, normocephalic. Pupils are equal, round. Sclerae anicteric. Conjunctivae are clear. Mucous membranes of the mouth are moist. Neck is supple. There is no jugular venous distention. No carotid bruit is heard. CHEST EXAMINATION: Lungs are clear to auscultation. No chest wall tenderness is noted on palpation or with deep breathing. HEART EXAMINATION: Heart regular rate and rhythm. S1, S2 heard. No murmurs, gallops or rub. ABDOMEN: Soft, nontender. Bowel sounds are heard. EXTREMITIES: 1+ pitting edema in bilateral lower extremity. NEUROLOGIC EXAMINATION: Patient is awake, alert and oriented x3. IMPRESSION AND PLAN: CAD status post CABG hyperlipidemia Former tobacco abuse Multiple myeloma Asbestos Carotid stenosis PLAN: Continue supportive care. Continue dual antiplatelet therapy and statins Monitor hemoglobin and vitals I reviewed patient's limited echocardiogram, it did not show any concerns of pericardial effusion. LVEF was preserved around 50 to 55%. Patient got approximately 1.7 L of of IV albumin and fluids Continue to monitor urine output and monitor his vitals. Monitor telemetry for any arrhythmias. Objective - Vital Signs Vital signs: Vital Signs Temp 99.1 F 08/03/24 08:00 Pulse 80 08/03/24 10:00 Resp 14 08/03/24 10:00 BP 91/53 08/03/24 10:00 Pulse Ox 98 08/03/24 10:00 FiO2 40 08/02/24 21:50 Intake & Output 08/02/24 08/03/24 08/03/24 18:59 06:59 18:59 Intake Total 779.686 3639.597 480.197 Output Total 1689 1632 260 Balance -1150.833 779.597 220.197 Weight 85.1 kg Intake: IV 504 1814.50 167 0.9 200 650 50 ACETAMINOPHEN IV (For NPO 200 ) 1,000 mg In Empty Bag 1 bag @ 400 mls/hr IVPB Q6HR [facility] Rx#:[id number] Albumin Human 5% 500 ml 500 In Empty Bag 1 bag @ 250 mls/hr IVPB ONCE ONE Rx#: [id number] CO/CI 210 240 40 Nitroglycerin-D5w Pmx 50 5 7.50 mg In Dextrose/Water 1 250ml.bag @ 5 MCG/MIN 1.5 mls/hr IV .Q24H [facility] Rx#: [id number] ceFAZolin 2 gm In Sodium 100 50 Chloride 0.9% 50 ml @ 100 mls/hr IVPB Q8HR [facility] Rx# :[id number] pressure bag 36 117 27 Intake, IV Titration 34.167 57.097 73.197 Amount Angiotensin II Acetate, 0.610 Human 0.5 mg In Sodium Chloride 0.9% 50 ml @ 10 NG/KG/MIN 4.884 mls/hr IV .[id number] [facility] Rx#: [id number] Insulin Regular 100 unit 1.953 13.197 In Sodium Chloride 0.9% 100 ml @ Per Protocol IV .Q0M [facility] Rx#:[id number] Nitroglycerin-D5w Pmx 50 24.175 mg In Dextrose/Water 1 250ml.bag @ 2.5 MCG/MIN 0 .75 mls/hr IV .Q24H [facility] Rx#:[id number] Norepinephrine 4 mg In 34.167 27.809 Sodium Chloride 0.9% 250 ml @ 0.03 MCG/KG/MIN 9. 304 mls/hr IV .Q24H [facility] Rx#:[id number] Sodium Chloride 0.9% 1, 60 000 ml @ 30 mls/hr IV . Q24H [facility] Rx#:[id number] Vasopressin 20 unit In 2.55 Sodium Chloride 0.9% 50 ml @ 0.02 UNITS/MIN 3.06 mls/hr IV .[id number] [facility] Rx #:[id number] Oral 540 240 Output: Chest Tube Drainage 80 Left Pleural Chest Tube 40 Mediastinal Chest Tube 40 Right Pleural Chest Tube 0 Drainage 74 897 150 Mediastinal 30 147 30 Right Wrist VANGIE drain 0 15 left pleural 14 458 100 right pleural 30 277 20 Urine 1085 735 110 Estimated Blood Loss 450 Other: Voiding Method Indwelling Catheter Indwelling Catheter Indwelling Catheter ABP, PAP, CO, CI - Last Documented Arterial Blood Pressure 95/55 Pulmonary Artery Pressure 33/10 Cardiac Output 6.6 Cardiac Index 3.3 - Labs CBC & Chem 7: 08/03/24 04:00 08/03/24 04:00 Labs: Abnormal Lab Results - Last 24 Hours (Table) 07/31/24 08/02/24 08/02/24 Range/Units 13:22 08:35 09:38 RBC (4.30-5.90) m/uL Hgb (13.0-17.5) gm/dL Hct (39.0-53.0) % MCV (80.0-100.0) fL Plt Count (150-450) k/uL Neutrophils # (1.3-7.7) k/uL Lymphocytes # (1.0-4.8) k/uL PT (10.0-12.5) sec INR (<1.2) ABG pH 7.28 L (7.35-7.45) ABG pCO2 55 H (35-45) mmHg ABG pO2 >420 H 206 H (83-108) mmHg ABG HCO3 26 H (21-25) mmol/L ABG Total CO2 (19-24) mmol/L ABG O2 Saturation >99.4 H 98.7 H (94-97) % ABG Hematocrit (34.0-46.0) % ABG Potassium (3.4-4.5) mmol/L ABG Ionized Calcium (4.5-5.3) mg/dL ABG Glucose 106 H 120 H (75-99) mg/dL Hemoglobin 12.7 L (13.0-17.5) gm/dL Sodium (137-145) mmol/L Chloride (98-107) mmol/L Creatinine (0.66-1.25) mg/dL Glucose (74-99) mg/dL POC Glucose (mg/dL) (70-110) mg/dL Calcium (8.4-10.2) mg/dL Ionized Calcium Lexi (4.5-5.3) mg/dL Magnesium (1.6-2.3) mg/dL Alkaline Phosphatase (38-126) U/L Total Protein (6.3-8.2) g/dL Albumin (3.5-5.0) g/dL Arterial Blood Potassium (3.4-4.5) mmol/L Arterial Blood Glucose 106 H 120 H (75-99) mg/dL Crossmatch See Detail Blood Bank Comment Sent to [facility] A Reference Lab Result See BBK REF Reports A 08/02/24 08/02/24 08/02/24 Range/Units 11:29 11:30 12:16 RBC (4.30-5.90) m/uL Hgb (13.0-17.5) gm/dL Hct (39.0-53.0) % MCV (80.0-100.0) fL Plt Count (150-450) k/uL Neutrophils # (1.3-7.7) k/uL Lymphocytes # (1.0-4.8) k/uL PT (10.0-12.5) sec INR (<1.2) ABG pH 7.50 H 7.48 H 7.49 H (7.35-7.45) ABG pCO2 33 L 34 L 34 L (35-45) mmHg ABG pO2 >420 H 408 H 347 H (83-108) mmHg ABG HCO3 26 H (21-25) mmol/L ABG Total CO2 (19-24) mmol/L ABG O2 Saturation >99.4 H >99.4 H 99.4 H (94-97) % ABG Hematocrit 29 L 26 L 23 L (34.0-46.0) % ABG Potassium 5.4 H 4.8 H 5.2 H (3.4-4.5) mmol/L ABG Ionized Calcium 3.9 L 3.7 L 3.6 L (4.5-5.3) mg/dL ABG Glucose 125 H 112 H 100 H (75-99) mg/dL Hemoglobin 9.4 L 8.4 L 7.6 L (13.0-17.5) gm/dL Sodium (137-145) mmol/L Chloride (98-107) mmol/L Creatinine (0.66-1.25) mg/dL Glucose (74-99) mg/dL POC Glucose (mg/dL) (70-110) mg/dL Calcium (8.4-10.2) mg/dL Ionized Calcium Lexi (4.5-5.3) mg/dL Magnesium (1.6-2.3) mg/dL Alkaline Phosphatase (38-126) U/L Total Protein (6.3-8.2) g/dL Albumin (3.5-5.0) g/dL Arterial Blood Potassium 5.4 H 4.8 H 5.2 H (3.4-4.5) mmol/L Arterial Blood Glucose 125 H 112 H 100 H (75-99) mg/dL Crossmatch Blood Bank Comment Reference Lab Result 08/02/24 08/02/24 08/02/24 Range/Units 12:58 13:45 14:41 RBC 3.07 L (4.30-5.90) m/uL Hgb 9.8 L D (13.0-17.5) gm/dL Hct 30.8 L (39.0-53.0) % MCV 100.2 H (80.0-100.0) fL Plt Count 122 L (150-450) k/uL Neutrophils # (1.3-7.7) k/uL Lymphocytes # 0.7 L (1.0-4.8) k/uL PT (10.0-12.5) sec INR (<1.2) ABG pH 7.49 H (7.35-7.45) ABG pCO2 32 L (35-45) mmHg ABG pO2 >420 H >420 H (83-108) mmHg ABG HCO3 26 H (21-25) mmol/L ABG Total CO2 (19-24) mmol/L ABG O2 Saturation >99.4 H >99.4 H (94-97) % ABG Hematocrit 23 L 29 L (34.0-46.0) % ABG Potassium 5.0 H (3.4-4.5) mmol/L ABG Ionized Calcium 3.4 L* 4.0 L (4.5-5.3) mg/dL ABG Glucose 103 H 107 H (75-99) mg/dL Hemoglobin 7.5 L 9.3 L (13.0-17.5) gm/dL Sodium (137-145) mmol/L Chloride (98-107) mmol/L Creatinine (0.66-1.25) mg/dL Glucose (74-99) mg/dL POC Glucose (mg/dL) (70-110) mg/dL Calcium (8.4-10.2) mg/dL Ionized Calcium Lexi (4.5-5.3) mg/dL Magnesium (1.6-2.3) mg/dL Alkaline Phosphatase (38-126) U/L Total Protein (6.3-8.2) g/dL Albumin (3.5-5.0) g/dL Arterial Blood Potassium 5.0 H (3.4-4.5) mmol/L Arterial Blood Glucose 103 H 107 H (75-99) mg/dL Crossmatch Blood Bank Comment Reference Lab Result 08/02/24 08/02/24 08/02/24 Range/Units 14:41 14:41 15:00 RBC (4.30-5.90) m/uL Hgb (13.0-17.5) gm/dL Hct (39.0-53.0) % MCV (80.0-100.0) fL Plt Count (150-450) k/uL Neutrophils # (1.3-7.7) k/uL Lymphocytes # (1.0-4.8) k/uL PT 14.0 H (10.0-12.5) sec INR 1.3 H (<1.2) ABG pH 7.29 L (7.35-7.45) ABG pCO2 52 H (35-45) mmHg ABG pO2 324 H (83-108) mmHg ABG HCO3 (21-25) mmol/L ABG Total CO2 27 H (19-24) mmol/L ABG O2 Saturation 100.0 H (94-97) % ABG Hematocrit (34.0-46.0) % ABG Potassium (3.4-4.5) mmol/L ABG Ionized Calcium (4.5-5.3) mg/dL ABG Glucose (75-99) mg/dL Hemoglobin 10.7 L (13.0-17.5) gm/dL Sodium 136 L (137-145) mmol/L Chloride 111 H (98-107) mmol/L Creatinine 0.59 L (0.66-1.25) mg/dL Glucose (74-99) mg/dL POC Glucose (mg/dL) (70-110) mg/dL Calcium (8.4-10.2) mg/dL Ionized Calcium Lexi (4.5-5.3) mg/dL Magnesium 2.6 H (1.6-2.3) mg/dL Alkaline Phosphatase (38-126) U/L Total Protein 3.5 L (6.3-8.2) g/dL Albumin 2.2 L (3.5-5.0) g/dL Arterial Blood Potassium (3.4-4.5) mmol/L Arterial Blood Glucose (75-99) mg/dL Crossmatch Blood Bank Comment Reference Lab Result 08/02/24 08/02/24 08/02/24 Range/Units 16:01 16:59 17:30 RBC 2.90 L (4.30-5.90) m/uL Hgb 9.2 L (13.0-17.5) gm/dL Hct 29.1 L (39.0-53.0) % MCV 100.5 H (80.0-100.0) fL Plt Count 136 L (150-450) k/uL Neutrophils # 8.6 H (1.3-7.7) k/uL Lymphocytes # 0.4 L (1.0-4.8) k/uL PT (10.0-12.5) sec INR (<1.2) ABG pH (7.35-7.45) ABG pCO2 (35-45) mmHg ABG pO2 (83-108) mmHg ABG HCO3 (21-25) mmol/L ABG Total CO2 (19-24) mmol/L ABG O2 Saturation (94-97) % ABG Hematocrit (34.0-46.0) % ABG Potassium (3.4-4.5) mmol/L ABG Ionized Calcium (4.5-5.3) mg/dL ABG Glucose (75-99) mg/dL Hemoglobin (13.0-17.5) gm/dL Sodium (137-145) mmol/L Chloride (98-107) mmol/L Creatinine (0.66-1.25) mg/dL Glucose (74-99) mg/dL POC Glucose (mg/dL) 112 H 122 H (70-110) mg/dL Calcium (8.4-10.2) mg/dL Ionized Calcium Lexi (4.5-5.3) mg/dL Magnesium (1.6-2.3) mg/dL Alkaline Phosphatase (38-126) U/L Total Protein (6.3-8.2) g/dL Albumin (3.5-5.0) g/dL Arterial Blood Potassium (3.4-4.5) mmol/L Arterial Blood Glucose (75-99) mg/dL Crossmatch Blood Bank Comment Reference Lab Result 08/02/24 08/02/24 08/02/24 Range/Units 18:00 18:20 19:20 RBC (4.30-5.90) m/uL Hgb (13.0-17.5) gm/dL Hct (39.0-53.0) % MCV (80.0-100.0) fL Plt Count (150-450) k/uL Neutrophils # (1.3-7.7) k/uL Lymphocytes # (1.0-4.8) k/uL PT (10.0-12.5) sec INR (<1.2) ABG pH (7.35-7.45) ABG pCO2 (35-45) mmHg ABG pO2 167 H (83-108) mmHg ABG HCO3 (21-25) mmol/L ABG Total CO2 25 H (19-24) mmol/L ABG O2 Saturation 99.9 H (94-97) % ABG Hematocrit (34.0-46.0) % ABG Potassium (3.4-4.5) mmol/L ABG Ionized Calcium (4.5-5.3) mg/dL ABG Glucose (75-99) mg/dL Hemoglobin 8.4 L (13.0-17.5) gm/dL Sodium (137-145) mmol/L Chloride (98-107) mmol/L Creatinine (0.66-1.25) mg/dL Glucose (74-99) mg/dL POC Glucose (mg/dL) 123 H 124 H (70-110) mg/dL Calcium (8.4-10.2) mg/dL Ionized Calcium Lexi (4.5-5.3) mg/dL Magnesium (1.6-2.3) mg/dL Alkaline Phosphatase (38-126) U/L Total Protein (6.3-8.2) g/dL Albumin (3.5-5.0) g/dL Arterial Blood Potassium (3.4-4.5) mmol/L Arterial Blood Glucose (75-99) mg/dL Crossmatch Blood Bank Comment Reference Lab Result 08/02/24 08/02/24 08/02/24 Range/Units 20:30 20:56 21:54 RBC 2.56 L (4.30-5.90) m/uL Hgb 8.2 L (13.0-17.5) gm/dL Hct 25.2 L (39.0-53.0) % MCV (80.0-100.0) fL Plt Count 109 L (150-450) k/uL Neutrophils # (1.3-7.7) k/uL Lymphocytes # 0.2 L (1.0-4.8) k/uL PT (10.0-12.5) sec INR (<1.2) ABG pH (7.35-7.45) ABG pCO2 (35-45) mmHg ABG pO2 (83-108) mmHg ABG HCO3 (21-25) mmol/L ABG Total CO2 (19-24) mmol/L ABG O2 Saturation (94-97) % ABG Hematocrit (34.0-46.0) % ABG Potassium (3.4-4.5) mmol/L ABG Ionized Calcium (4.5-5.3) mg/dL ABG Glucose (75-99) mg/dL Hemoglobin (13.0-17.5) gm/dL Sodium (137-145) mmol/L Chloride (98-107) mmol/L Creatinine (0.66-1.25) mg/dL Glucose (74-99) mg/dL POC Glucose (mg/dL) 129 H 123 H (70-110) mg/dL Calcium (8.4-10.2) mg/dL Ionized Calcium Lexi (4.5-5.3) mg/dL Magnesium (1.6-2.3) mg/dL Alkaline Phosphatase (38-126) U/L Total Protein (6.3-8.2) g/dL Albumin (3.5-5.0) g/dL Arterial Blood Potassium (3.4-4.5) mmol/L Arterial Blood Glucose (75-99) mg/dL Crossprtch Blood Bank Comment Reference Lab Result 08/02/24 08/02/24 08/02/24 Range/Units 22:08 23:01 23:56 RBC (4.30-5.90) m/uL Hgb (13.0-17.5) gm/dL Hct (39.0-53.0) % MCV (80.0-100.0) fL Plt Count (150-450) k/uL Neutrophils # (1.3-7.7) k/uL Lymphocytes # (1.0-4.8) k/uL PT (10.0-12.5) sec INR (<1.2) ABG pH (7.35-7.45) ABG pCO2 (35-45) mmHg ABG pO2 112 H (83-108) mmHg ABG HCO3 (21-25) mmol/L ABG Total CO2 26 H (19-24) mmol/L ABG O2 Saturation 99.0 H (94-97) % ABG Hematocrit (34.0-46.0) % ABG Potassium (3.4-4.5) mmol/L ABG Ionized Calcium (4.5-5.3) mg/dL ABG Glucose (75-99) mg/dL Hemoglobin 7.9 L (13.0-17.5) gm/dL Sodium (137-145) mmol/L Chloride (98-107) mmol/L Creatinine (0.66-1.25) mg/dL Glucose (74-99) mg/dL POC Glucose (mg/dL) 131 H 138 H (70-110) mg/dL Calcium (8.4-10.2) mg/dL Ionized Calcium Lexi (4.5-5.3) mg/dL Magnesium (1.6-2.3) mg/dL Alkaline Phosphatase (38-126) U/L Total Protein (6.3-8.2) g/dL Albumin (3.5-5.0) g/dL Arterial Blood Potassium (3.4-4.5) mmol/L Arterial Blood Glucose (75-99) mg/dL Crossmatch Blood Bank Comment Reference Lab Result 08/03/24 08/03/24 08/03/24 Range/Units 00:54 01:57 02:59 RBC (4.30-5.90) m/uL Hgb (13.0-17.5) gm/dL Hct (39.0-53.0) % MCV (80.0-100.0) fL Plt Count (150-450) k/uL Neutrophils # (1.3-7.7) k/uL Lymphocytes # (1.0-4.8) k/uL PT (10.0-12.5) sec INR (<1.2) ABG pH (7.35-7.45) ABG pCO2 (35-45) mmHg ABG pO2 (83-108) mmHg ABG HCO3 (21-25) mmol/L ABG Total CO2 (19-24) mmol/L ABG O2 Saturation (94-97) % ABG Hematocrit (34.0-46.0) % ABG Potassium (3.4-4.5) mmol/L ABG Ionized Calcium (4.5-5.3) mg/dL ABG Glucose (75-99) mg/dL Hemoglobin (13.0-17.5) gm/dL Sodium (137-145) mmol/L Chloride (98-107) mmol/L Creatinine (0.66-1.25) mg/dL Glucose (74-99) mg/dL POC Glucose (mg/dL) 130 H 126 H 130 H (70-110) mg/dL Calcium (8.4-10.2) mg/dL Ionized Calcium Lexi (4.5-5.3) mg/dL Magnesium (1.6-2.3) mg/dL Alkaline Phosphatase (38-126) U/L Total Protein (6.3-8.2) g/dL Albumin (3.5-5.0) g/dL Arterial Blood Potassium (3.4-4.5) mmol/L Arterial Blood Glucose (75-99) mg/dL Crossmatch Blood Bank Comment Reference Lab Result 08/03/24 08/03/24 08/03/24 Range/Units 04:00 04:00 04:06 RBC 2.36 L (4.30-5.90) m/uL Hgb 7.7 L (13.0-17.5) gm/dL Hct 23.5 L (39.0-53.0) % MCV (80.0-100.0) fL Plt Count 111 L (150-450) k/uL Neutrophils # (1.3-7.7) k/uL Lymphocytes # 0.5 L (1.0-4.8) k/uL PT (10.0-12.5) sec INR (<1.2) ABG pH (7.35-7.45) ABG pCO2 (35-45) mmHg ABG pO2 (83-108) mmHg ABG HCO3 (21-25) mmol/L ABG Total CO2 (19-24) mmol/L ABG O2 Saturation (94-97) % ABG Hematocrit (34.0-46.0) % ABG Potassium (3.4-4.5) mmol/L ABG Ionized Calcium (4.5-5.3) mg/dL ABG Glucose (75-99) mg/dL Hemoglobin (13.0-17.5) gm/dL Sodium (137-145) mmol/L Chloride 111 H (98-107) mmol/L Creatinine (0.66-1.25) mg/dL Glucose 110 H (74-99) mg/dL POC Glucose (mg/dL) 125 H (70-110) mg/dL Calcium 7.9 L (8.4-10.2) mg/dL Ionized Calcium Lexi 4.4 L (4.5-5.3) mg/dL Magnesium (1.6-2.3) mg/dL Alkaline Phosphatase 32 L (38-126) U/L Total Protein 4.3 L (6.3-8.2) g/dL Albumin 3.1 L (3.5-5.0) g/dL Arterial Blood Potassium (3.4-4.5) mmol/L Arterial Blood Glucose (75-99) mg/dL Crossmatch Blood Bank Comment Reference Lab Result 08/03/24 08/03/24 08/03/24 Range/Units 04:56 06:09 07:04 RBC (4.30-5.90) m/uL Hgb (13.0-17.5) gm/dL Hct (39.0-53.0) % MCV (80.0-100.0) fL Plt Count (150-450) k/uL Neutrophils # (1.3-7.7) k/uL Lymphocytes # (1.0-4.8) k/uL PT (10.0-12.5) sec INR (<1.2) ABG pH (7.35-7.45) ABG pCO2 (35-45) mmHg ABG pO2 (83-108) mmHg ABG HCO3 (21-25) mmol/L ABG Total CO2 (19-24) mmol/L ABG O2 Saturation (94-97) % ABG Hematocrit (34.0-46.0) % ABG Potassium (3.4-4.5) mmol/L ABG Ionized Calcium (4.5-5.3) mg/dL ABG Glucose (75-99) mg/dL Hemoglobin (13.0-17.5) gm/dL Sodium (137-145) mmol/L Chloride (98-107) mmol/L Creatinine (0.66-1.25) mg/dL Glucose (74-99) mg/dL POC Glucose (mg/dL) 127 H 137 H 135 H (70-110) mg/dL Calcium (8.4-10.2) mg/dL Ionized Calcium Lexi (4.5-5.3) mg/dL Magnesium (1.6-2.3) mg/dL Alkaline Phosphatase (38-126) U/L Total Protein (6.3-8.2) g/dL Albumin (3.5-5.0) g/dL Arterial Blood Potassium (3.4-4.5) mmol/L Arterial Blood Glucose (75-99) mg/dL Crossmatch Blood Bank Comment Reference Lab Result 08/03/24 08/03/24 Range/Units 08:23 09:56 RBC (4.30-5.90) m/uL Hgb (13.0-17.5) gm/dL Hct (39.0-53.0) % MCV (80.0-100.0) fL Plt Count (150-450) k/uL Neutrophils # (1.3-7.7) k/uL Lymphocytes # (1.0-4.8) k/uL PT (10.0-12.5) sec INR (<1.2) ABG pH (7.35-7.45) ABG pCO2 (35-45) mmHg ABG pO2 (83-108) mmHg ABG HCO3 (21-25) mmol/L ABG Total CO2 (19-24) mmol/L ABG O2 Saturation (94-97) % ABG Hematocrit (34.0-46.0) % ABG Potassium (3.4-4.5) mmol/L ABG Ionized Calcium (4.5-5.3) mg/dL ABG Glucose (75-99) mg/dL Hemoglobin (13.0-17.5) gm/dL Sodium (137-145) mmol/L Chloride (98-107) mmol/L Creatinine (0.66-1.25) mg/dL Glucose (74-99) mg/dL POC Glucose (mg/dL) 175 H 144 H (70-110) mg/dL Calcium (8.4-10.2) mg/dL Ionized Calcium Lexi (4.5-5.3) mg/dL Magnesium (1.6-2.3) mg/dL Alkaline Phosphatase (38-126) U/L Total Protein (6.3-8.2) g/dL Albumin (3.5-5.0) g/dL Arterial Blood Potassium (3.4-4.5) mmol/L Arterial Blood Glucose (75-99) mg/dL Crossmatch Blood Bank Comment Reference Lab Result
[2024-08-03 11:29] LABS: Glucose,Whole Blood 124 mg/dL (70-110)
[2024-08-03] MEDS ORDERED: MIDODRINE 5 MG TAB PO SCH (12:30)
--- NOTE | 2024-08-03 12:36 | P.PN ---
Subjective Progress Note Date: 08/03/24 This is an 78-year-old white male with history of coronary artery disease, dyslipidemia, obstructive sleep apnea, mild COPD, normally sees Dr. Lipscomb, PFT from 02/04/2022 showed mild to moderate COPD FEV1 of 75% FEV1/FVC is 65%, patient had hyperinflation and low DLCO consistent with mild emphysema. Patient has been on bronchodilators as listed below, patient was brought in this time on 07/30/2024, came in with classic anginal symptoms seen by cardiology and felt that the patient had unstable angina/non-ST elevation myocardial infarction. Cardiac catheterization was performed and it showed 80% distal left main 80% distal RCA 60% proximal RCA and normal left-sided filling pressures. Hence cardiothoracic surgery was consulted, and the patient is scheduled to undergo myocardial revascularization next Friday. During his underlying pulmonary history, we were asked to see the patient in consultation, and I had a chance to review his PFT from the office, reviewed his FEV1 on this admission, chest x-ray showed some pleural parenchymal calcification most likely consistent with previous asbestos associated lung disease. I feel the patient is low operative risk, and I will clear the patient for surgery as scheduled. The findings on the chest x-ray are chronic, and they were present on a previous chest x-ray back in 2021 patient denies any cough denies any wheezing denies any shortness of breath, and no chest pain during my evaluation Seen today on 08/01/2024, patient is doing great, sitting at the bedside chair, on room air, not in any distress. Patient is afebrile, blood pressure is 134/72 O2 sats is 96%, he denies any cough wheezing or shortness of breath.Denies any chest pain. Myocardial revascularization is scheduled to be done tomorrow. The patient is seen today August 02, 2024 in follow-up in the intensive care unit. Just back from surgery. He had undergone a coronary artery bypass surgery utilizing a MARQUEZ to the LAD, left radial artery graft to the ramus, saphenous venous graft to the RCA, left atrial appendage ligation. He is currently intubated on the mechanical ventilator and assist-control mode at a rate of 16, tidal volume 500, FiO2 100% and a PEEP of 5. He has normal staying at 50 mL/h. Nitroglycerin drip at 5 mcg/min. Propofol at 20 mcg/kg/min. Norep inephrine at 0.02 mcg/kg/min. Primacor at 0.375 mcg/kg/min. Cardiac output 6.0. Cardiac index 3.0. PA pressure 41/23. CVP 15. Westfield-Radha catheter in place. Right radial arterial line in place. Chest x-ray reveals good placement of the endotracheal tube, Westfield Radha catheter and gastric tube. No significant pneumothorax. Right, left and mediastinal chest tubes in place. White count 7.3. Hemoglobin 9.8. Platelets 122. INR 1.3. Sodium 136. Potassium 4.1. Bicarb 24. BUN 15. Creatinine 0.59. Glucose 96. The patient is seen today August 03, 2024 in follow-up in the intensive care un it. Post operative day #1. He is currently awake and alert in no acute distress. Sitting up in a chair at the bedside. Maintaining good O2 saturations in the upper 90s on 2 L/min per nasal cannula. He has been afebrile. Cardiac output 5.2. Cardiac index 2.6. PA pressures 38/12. CVP 8. He is wearing norepinephrine at 1.7 mcg/min. He has normal saline at 30 mL/h. Insulin drip at 1.5 units/h. He is working well with the incentive spirometer. Left, right, mediastinal chest tubes remain in place. Chest x-ray remains stable. White count 6.7. Hemoglobin 7.7. Platelets 111. Sodium 138. Potassium 4.0. Bicarb 25. BUN 20. Creatinine 0.74. Glucose 124. Albumin 3.1. Receiving albumin today. Remains on bronchodilators. Heparin for DVT prophylaxis. Objective - Vital Signs Vital signs: Vital Signs Temp 99.1 F 08/03/24 08:00 Pulse 80 08/03/24 12:27 Resp 14 08/03/24 11:15 BP 91/53 08/03/24 11:00 Pulse Ox 96 08/03/24 11:15 FiO2 40 08/02/24 21:50 Intake & Output 08/02/24 08/03/24 08/03/24 18:59 06:59 18:59 Intake Total 484.871 4333.597 541.520 Output Total 1689 1632 370 Balance -1150.833 779.597 171.520 Weight 85.1 kg Intake: IV 504 1814.50 196 0.9 200 650 50 ACETAMINOPHEN IV (For NPO 200 ) 1,000 mg In Empty Bag 1 bag @ 400 mls/hr IVPB Q6HR [facility] Rx#:[id number] Albumin Human 5% 500 ml 500 In Empty Bag 1 bag @ 250 mls/hr IVPB ONCE ONE Rx#: [id number] CO/CI 210 240 60 Nitroglycerin-D5w Pmx 50 5 7.50 mg In Dextrose/Water 1 250ml.bag @ 5 MCG/MIN 1.5 mls/hr IV .Q24H [facility] Rx#: [id number] ceFAZolin 2 gm In Sodium 100 50 Chloride 0.9% 50 ml @ 100 mls/hr IVPB Q8HR [facility] Rx# :[id number] pressure bag 36 117 36 Intake, IV Titration 34.167 57.097 105.520 Amount Angiotensin II Acetate, 0.610 Human 0.5 mg In Sodium Chloride 0.9% 50 ml @ 10 NG/KG/MIN 4.884 mls/hr IV .[id number] [facility] Rx#: [id number] Insulin Regular 100 unit 1.953 15.520 In Sodium Chloride 0.9% 100 ml @ Per Protocol IV .Q0M [facility] Rx#:[id number] Nitroglycerin-D5w Pmx 50 24.175 mg In Dextrose/Water 1 250ml.bag @ 2.5 MCG/MIN 0 .75 mls/hr IV .Q24H [facility] Rx#:[id number] Norepinephrine 4 mg In 34.167 27.809 Sodium Chloride 0.9% 250 ml @ 0.03 MCG/KG/MIN 9. 304 mls/hr IV .Q24H [facility] Rx#:[id number] Sodium Chloride 0.9% 1, 90 000 ml @ 30 mls/hr IV . Q24H [facility] Rx#:[id number] Vasopressin 20 unit In 2.55 Sodium Chloride 0.9% 50 ml @ 0.02 UNITS/MIN 3.06 mls/hr IV .[id number] [facility] Rx #:[id number] Oral 540 240 Output: Chest Tube Drainage 80 Left Pleural Chest Tube 40 Mediastinal Chest Tube 40 Right Pleural Chest Tube 0 Drainage 74 897 220 Mediastinal 30 147 50 Right Wrist VANGIE drain 0 15 10 left pleural 14 458 130 right pleural 30 277 30 Urine 1085 735 150 Estimated Blood Loss 450 Other: Voiding Method Indwelling Catheter Indwelling Catheter Indwelling Catheter ABP, PAP, CO, CI - Last Documented Arterial Blood Pressure 101/50 Pulmonary Artery Pressure 42/17 Cardiac Output 5.2 Cardiac Index 2.6 - Exam GENERAL EXAM: Awake, alert 78-year-old male patient, up in a chair, on 2 L nasal cannula, in no apparent distress. HEAD: Normocephalic. EYES: Normal reaction of pupils, equal size. NOSE: Clear with pink turbinates. THROAT: No erythema or exudates. NECK: No masses, no JVD. Westfield-Radha catheter in place CHEST: Sternal dressing dry and intact. Heart hugger in place. Right, left, mediastinal chest tubes in place. LUNGS: Equal air entry with no crackles, wheeze, rhonchi or dullness. CVS: S1 and S2 normal with no audible murmur, regular rhythm. ABDOMEN: No hepatosplenomegaly, hypoactive bowel sounds, no guarding or rigidity. SPINE: No scoliosis or deformity SKIN: No rashes CENTRAL NERVOUS SYSTEM: Sedated, tone is normal in all 4 extremities. EXTREMITIES: Right radial arterial line in place. Left radial site with Lázaro wrap, VANGIE drain in place. Bilateral lower extremity Lázaro wraps in place. Peripheral pulses are intact. - Labs CBC & Chem 7: 08/03/24 04:00 08/03/24 04:00 Labs: Abnormal Lab Results - Last 24 Hours (Table) 07/31/24 08/02/24 08/02/24 Range/Units 13:22 08:35 09:38 RBC (4.30-5.90) m/uL Hgb (13.0-17.5) gm/dL Hct (39.0-53.0) % MCV (80.0-100.0) fL Plt Count (150-450) k/uL Neutrophils # (1.3-7.7) k/uL Lymphocytes # (1.0-4.8) k/uL PT (10.0-12.5) sec INR (<1.2) ABG pH 7.28 L (7.35-7.45) ABG pCO2 55 H (35-45) mmHg ABG pO2 >420 H 206 H (83-108) mmHg ABG HCO3 26 H (21-25) mmol/L ABG Total CO2 (19-24) mmol/L ABG O2 Saturation >99.4 H 98.7 H (94-97) % ABG Hematocrit (34.0-46.0) % ABG Potassium (3.4-4.5) mmol/L ABG Ionized Calcium (4.5-5.3) mg/dL ABG Glucose 106 H 120 H (75-99) mg/dL Hemoglobin 12.7 L (13.0-17.5) gm/dL Sodium (137-145) mmol/L Chloride (98-107) mmol/L Creatinine (0.66-1.25) mg/dL Glucose (74-99) mg/dL POC Glucose (mg/dL) (70-110) mg/dL Calcium (8.4-10.2) mg/dL Ionized Calcium Lexi (4.5-5.3) mg/dL Magnesium (1.6-2.3) mg/dL Alkaline Phosphatase (38-126) U/L Total Protein (6.3-8.2) g/dL Albumin (3.5-5.0) g/dL Arterial Blood Potassium (3.4-4.5) mmol/L Arterial Blood Glucose 106 H 120 H (75-99) mg/dL Crossmatch See Detail Blood Bank Comment Sent to [facility] A Reference Lab Result See [facility]K REF Reports A 08/02/24 08/02/24 08/02/24 Range/Units 11:29 11:30 12:16 RBC (4.30-5.90) m/uL Hgb (13.0-17.5) gm/dL Hct (39.0-53.0) % MCV (80.0-100.0) fL Plt Count (150-450) k/uL Neutrophils # (1.3-7.7) k/uL Lymphocytes # (1.0-4.8) k/uL PT (10.0-12.5) sec INR (<1.2) ABG pH 7.50 H 7.48 H 7.49 H (7.35-7.45) ABG pCO2 33 L 34 L 34 L (35-45) mmHg ABG pO2 >420 H 408 H 347 H (83-108) mmHg ABG HCO3 26 H (21-25) mmol/L ABG Total CO2 (19-24) mmol/L ABG O2 Saturation >99.4 H >99.4 H 99.4 H (94-97) % ABG Hematocrit 29 L 26 L 23 L (34.0-46.0) % ABG Potassium 5.4 H 4.8 H 5.2 H (3.4-4.5) mmol/L ABG Ionized Calcium 3.9 L 3.7 L 3.6 L (4.5-5.3) mg/dL ABG Glucose 125 H 112 H 100 H (75-99) mg/dL Hemoglobin 9.4 L 8.4 L 7.6 L (13.0-17.5) gm/dL Sodium (137-145) mmol/L Chloride (98-107) mmol/L Creatinine (0.66-1.25) mg/dL Glucose (74-99) mg/dL POC Glucose (mg/dL) (70-110) mg/dL Calcium (8.4-10.2) mg/dL Ionized Calcium Lexi (4.5-5.3) mg/dL Magnesium (1.6-2.3) mg/dL Alkaline Phosphatase (38-126) U/L Total Protein (6.3-8.2) g/dL Albumin (3.5-5.0) g/dL Arterial Blood Potassium 5.4 H 4.8 H 5.2 H (3.4-4.5) mmol/L Arterial Blood Glucose 125 H 112 H 100 H (75-99) mg/dL Crossmatch Blood Bank Comment Reference Lab Result 08/02/24 08/02/24 08/02/24 Range/Units 12:58 13:45 14:41 RBC 3.07 L (4.30-5.90) m/uL Hgb 9.8 L D (13.0-17.5) gm/dL Hct 30.8 L (39.0-53.0) % MCV 100.2 H (80.0-100.0) fL Plt Count 122 L (150-450) k/uL Neutrophils # (1.3-7.7) k/uL Lymphocytes # 0.7 L (1.0-4.8) k/uL PT (10.0-12.5) sec INR (<1.2) ABG pH 7.49 H (7.35-7.45) ABG pCO2 32 L (35-45) mmHg ABG pO2 >420 H >420 H (83-108) mmHg ABG HCO3 26 H (21-25) mmol/L ABG Total CO2 (19-24) mmol/L ABG O2 Saturation >99.4 H >99.4 H (94-97) % ABG Hematocrit 23 L 29 L (34.0-46.0) % ABG Potassium 5.0 H (3.4-4.5) mmol/L ABG Ionized Calcium 3.4 L* 4.0 L (4.5-5.3) mg/dL ABG Glucose 103 H 107 H (75-99) mg/dL Hemoglobin 7.5 L 9.3 L (13.0-17.5) gm/dL Sodium (137-145) mmol/L Chloride (98-107) mmol/L Creatinine (0.66-1.25) mg/dL Glucose (74-99) mg/dL POC Glucose (mg/dL) (70-110) mg/dL Calcium (8.4-10.2) mg/dL Ionized Calcium Lexi (4.5-5.3) mg/dL Magnesium (1.6-2.3) mg/dL Alkaline Phosphatase (38-126) U/L Total Protein (6.3-8.2) g/dL Albumin (3.5-5.0) g/dL Arterial Blood Potassium 5.0 H (3.4-4.5) mmol/L Arterial Blood Glucose 103 H 107 H (75-99) mg/dL [facility] Blood Bank Comment Reference Lab Result 08/02/24 08/02/24 08/02/24 Range/Units 14:41 14:41 15:00 RBC (4.30-5.90) m/uL Hgb (13.0-17.5) gm/dL Hct (39.0-53.0) % MCV (80.0-100.0) fL Plt Count (150-450) k/uL Neutrophils # (1.3-7.7) k/uL Lymphocytes # (1.0-4.8) k/uL PT 14.0 H (10.0-12.5) sec INR 1.3 H (<1.2) ABG pH 7.29 L (7.35-7.45) ABG pCO2 52 H (35-45) mmHg ABG pO2 324 H (83-108) mmHg ABG HCO3 (21-25) mmol/L ABG Total CO2 27 H (19-24) mmol/L ABG O2 Saturation 100.0 H (94-97) % ABG Hematocrit (34.0-46.0) % ABG Potassium (3.4-4.5) mmol/L ABG Ionized Calcium (4.5-5.3) mg/dL ABG Glucose (75-99) mg/dL Hemoglobin 10.7 L (13.0-17.5) gm/dL Sodium 136 L (137-145) mmol/L Chloride 111 H (98-107) mmol/L Creatinine 0.59 L (0.66-1.25) mg/dL Glucose (74-99) mg/dL POC Glucose (mg/dL) (70-110) mg/dL Calcium (8.4-10.2) mg/dL Ionized Calcium Lexi (4.5-5.3) mg/dL Magnesium 2.6 H (1.6-2.3) mg/dL Alkaline Phosphatase (38-126) U/L Total Protein 3.5 L (6.3-8.2) g/dL Albumin 2.2 L (3.5-5.0) g/dL Arterial Blood Potassium (3.4-4.5) mmol/L Arterial Blood Glucose (75-99) mg/dL [facility] Blood [facility] Comment Reference Lab Result 08/02/24 08/02/24 08/02/24 Range/Units 16:01 16:59 17:30 RBC 2.90 L (4.30-5.90) m/uL Hgb 9.2 L (13.0-17.5) gm/dL Hct 29.1 L (39.0-53.0) % MCV 100.5 H (80.0-100.0) fL Plt Count 136 L (150-450) k/uL Neutrophils # 8.6 H (1.3-7.7) k/uL Lymphocytes # 0.4 L (1.0-4.8) k/uL PT (10.0-12.5) sec INR (<1.2) ABG pH (7.35-7.45) ABG pCO2 (35-45) mmHg ABG pO2 (83-108) mmHg ABG HCO3 (21-25) mmol/L ABG Total CO2 (19-24) mmol/L ABG O2 Saturation (94-97) % ABG Hematocrit (34.0-46.0) % ABG Potassium (3.4-4.5) mmol/L ABG Ionized Calcium (4.5-5.3) mg/dL ABG Glucose (75-99) mg/dL Hemoglobin (13.0-17.5) gm/dL Sodium (137-145) mmol/L Chloride (98-107) mmol/L Creatinine (0.66-1.25) mg/dL Glucose (74-99) mg/dL POC Glucose (mg/dL) 112 H 122 H (70-110) mg/dL Calcium (8.4-10.2) mg/dL Ionized Calcium Lexi (4.5-5.3) mg/dL Magnesium (1.6-2.3) mg/dL Alkaline Phosphatase (38-126) U/L Total Protein (6.3-8.2) g/dL Albumin (3.5-5.0) g/dL Arterial Blood Potassium (3.4-4.5) mmol/L Arterial Blood Glucose (75-99) mg/dL Crossmatch Blood Bank Comment Reference Lab Result 08/02/24 08/02/24 08/02/24 Range/Units 18:00 18:20 19:20 RBC (4.30-5.90) m/uL Hgb (13.0-17.5) gm/dL Hct (39.0-53.0) % MCV (80.0-100.0) fL Plt Count (150-450) k/uL Neutrophils # (1.3-7.7) k/uL Lymphocytes # (1.0-4.8) k/uL PT (10.0-12.5) sec INR (<1.2) ABG pH (7.35-7.45) ABG pCO2 (35-45) mmHg ABG pO2 167 H (83-108) mmHg ABG HCO3 (21-25) mmol/L ABG Total CO2 25 H (19-24) mmol/L ABG O2 Saturation 99.9 H (94-97) % ABG Hematocrit (34.0-46.0) % ABG Potassium (3.4-4.5) mmol/L ABG Ionized Calcium (4.5-5.3) mg/dL ABG Glucose (75-99) mg/dL Hemoglobin 8.4 L (13.0-17.5) gm/dL Sodium (137-145) mmol/L Chloride (98-107) mmol/L Creatinine (0.66-1.25) mg/dL Glucose (74-99) mg/dL POC Glucose (mg/dL) 123 H 124 H (70-110) mg/dL Calcium (8.4-10.2) mg/dL Ionized Calcium Lexi (4.5-5.3) mg/dL Magnesium (1.6-2.3) mg/dL Alkaline Phosphatase (38-126) U/L Total Protein (6.3-8.2) g/dL Albumin (3.5-5.0) g/dL Arterial Blood Potassium (3.4-4.5) mmol/L Arterial Blood Glucose (75-99) mg/dL [facility] Blood [facility] Comment Reference Lab Result 08/02/24 08/02/24 08/02/24 Range/Units 20:30 20:56 21:54 RBC 2.56 L (4.30-5.90) m/uL Hgb 8.2 L (13.0-17.5) gm/dL Hct 25.2 L (39.0-53.0) % MCV (80.0-100.0) fL Plt Count 109 L (150-450) k/uL Neutrophils # (1.3-7.7) k/uL Lymphocytes # 0.2 L (1.0-4.8) k/uL PT (10.0-12.5) sec INR (<1.2) ABG pH (7.35-7.45) ABG pCO2 (35-45) mmHg ABG pO2 (83-108) mmHg ABG HCO3 (21-25) mmol/L ABG Total CO2 (19-24) mmol/L ABG O2 Saturation (94-97) % ABG Hematocrit (34.0-46.0) % ABG Potassium (3.4-4.5) mmol/L ABG Ionized Calcium (4.5-5.3) mg/dL ABG Glucose (75-99) mg/dL Hemoglobin (13.0-17.5) gm/dL Sodium (137-145) mmol/L Chloride (98-107) mmol/L Creatinine (0.66-1.25) mg/dL Glucose (74-99) mg/dL POC Glucose (mg/dL) 129 H 123 H (70-110) mg/dL Calcium (8.4-10.2) mg/dL Ionized Calcium Lexi (4.5-5.3) mg/dL Magnesium (1.6-2.3) mg/dL Alkaline Phosphatase (38-126) U/L Total Protein (6.3-8.2) g/dL Albumin (3.5-5.0) g/dL Arterial Blood Potassium (3.4-4.5) mmol/L Arterial Blood Glucose (75-99) mg/dL Crossmatch Blood Bank Comment Reference Lab Result 08/02/24 08/02/24 08/02/24 Range/Units 22:08 23:01 23:56 RBC (4.30-5.90) m/uL Hgb (13.0-17.5) gm/dL Hct (39.0-53.0) % MCV (80.0-100.0) fL Plt Count (150-450) k/uL Neutrophils # (1.3-7.7) k/uL Lymphocytes # (1.0-4.8) k/uL PT (10.0-12.5) sec INR (<1.2) ABG pH (7.35-7.45) ABG pCO2 (35-45) mmHg ABG pO2 112 H (83-108) mmHg ABG HCO3 (21-25) mmol/L ABG Total CO2 26 H (19-24) mmol/L ABG O2 Saturation 99.0 H (94-97) % ABG Hematocrit (34.0-46.0) % ABG Potassium (3.4-4.5) mmol/L ABG Ionized Calcium (4.5-5.3) mg/dL ABG Glucose (75-99) mg/dL Hemoglobin 7.9 L (13.0-17.5) gm/dL Sodium (137-145) mmol/L Chloride (98-107) mmol/L Creatinine (0.66-1.25) mg/dL Glucose (74-99) mg/dL POC Glucose (mg/dL) 131 H 138 H (70-110) mg/dL Calcium (8.4-10.2) mg/dL Ionized Calcium Lexi (4.5-5.3) mg/dL Magnesium (1.6-2.3) mg/dL Alkaline Phosphatase (38-126) U/L Total Protein (6.3-8.2) g/dL Albumin (3.5-5.0) g/dL Arterial Blood Potassium (3.4-4.5) mmol/L Arterial Blood Glucose (75-99) mg/dL Crossmatch Blood Bank Comment Reference Lab Result 08/03/24 08/03/24 08/03/24 Range/Units 00:54 01:57 02:59 RBC (4.30-5.90) m/uL Hgb (13.0-17.5) gm/dL Hct (39.0-53.0) % MCV (80.0-100.0) fL Plt Count (150-450) k/uL Neutrophils # (1.3-7.7) k/uL Lymphocytes # (1.0-4.8) k/uL PT (10.0-12.5) sec INR (<1.2) ABG pH (7.35-7.45) ABG pCO2 (35-45) mmHg ABG pO2 (83-108) mmHg ABG HCO3 (21-25) mmol/L ABG Total CO2 (19-24) mmol/L ABG O2 Saturation (94-97) % ABG Hematocrit (34.0-46.0) % ABG Potassium (3.4-4.5) mmol/L ABG Ionized Calcium (4.5-5.3) mg/dL ABG Glucose (75-99) mg/dL Hemoglobin (13.0-17.5) gm/dL Sodium (137-145) mmol/L Chloride (98-107) mmol/L Creatinine (0.66-1.25) mg/dL Glucose (74-99) mg/dL POC Glucose (mg/dL) 130 H 126 H 130 H (70-110) mg/dL Calcium (8.4-10.2) mg/dL Ionized Calcium Lexi (4.5-5.3) mg/dL Magnesium (1.6-2.3) mg/dL Alkaline Phosphatase (38-126) U/L Total Protein (6.3-8.2) g/dL Albumin (3.5-5.0) g/dL Arterial Blood Potassium (3.4-4.5) mmol/L Arterial Blood Glucose (75-99) mg/dL Cross[facility] Blood Bank Comment Reference Lab Result 08/03/24 08/03/24 08/03/24 Range/Units 04:00 04:00 04:06 RBC 2.36 L (4.30-5.90) m/uL Hgb 7.7 L (13.0-17.5) gm/dL Hct 23.5 L (39.0-53.0) % MCV (80.0-100.0) fL Plt Count 111 L (150-450) k/uL Neutrophils # (1.3-7.7) k/uL Lymphocytes # 0.5 L (1.0-4.8) k/uL PT (10.0-12.5) sec INR (<1.2) ABG pH (7.35-7.45) ABG pCO2 (35-45) mmHg ABG pO2 (83-108) mmHg ABG HCO3 (21-25) mmol/L ABG Total CO2 (19-24) mmol/L ABG O2 Saturation (94-97) % ABG Hematocrit (34.0-46.0) % ABG Potassium (3.4-4.5) mmol/L ABG Ionized Calcium (4.5-5.3) mg/dL ABG Glucose (75-99) mg/dL Hemoglobin (13.0-17.5) gm/dL Sodium (137-145) mmol/L Chloride 111 H (98-107) mmol/L Creatinine (0.66-1.25) mg/dL Glucose 110 H (74-99) mg/dL POC Glucose (mg/dL) 125 H (70-110) mg/dL Calcium 7.9 L (8.4-10.2) mg/dL Ionized Calcium Lexi 4.4 L (4.5-5.3) mg/dL Magnesium (1.6-2.3) mg/dL Alkaline Phosphatase 32 L (38-126) U/L Total Protein 4.3 L (6.3-8.2) g/dL Albumin 3.1 L (3.5-5.0) g/dL Arterial Blood Potassium (3.4-4.5) mmol/L Arterial Blood Glucose (75-99) mg/dL [facility] Comment Reference Lab Result 08/03/24 08/03/24 08/03/24 Range/Units 04:56 06:09 07:04 RBC (4.30-5.90) m/uL Hgb (13.0-17.5) gm/dL Hct (39.0-53.0) % MCV (80.0-100.0) fL Plt Count (150-450) k/uL Neutrophils # (1.3-7.7) k/uL Lymphocytes # (1.0-4.8) k/uL PT (10.0-12.5) sec INR (<1.2) ABG pH (7.35-7.45) ABG pCO2 (35-45) mmHg ABG pO2 (83-108) mmHg ABG HCO3 (21-25) mmol/L ABG Total CO2 (19-24) mmol/L ABG O2 Saturation (94-97) % ABG Hematocrit (34.0-46.0) % ABG Potassium (3.4-4.5) mmol/L ABG Ionized Calcium (4.5-5.3) mg/dL ABG Glucose (75-99) mg/dL Hemoglobin (13.0-17.5) gm/dL Sodium (137-145) mmol/L Chloride (98-107) mmol/L Creatinine (0.66-1.25) mg/dL Glucose (74-99) mg/dL POC Glucose (mg/dL) 127 H 137 H 135 H (70-110) mg/dL Calcium (8.4-10.2) mg/dL Ionized Calcium Lexi (4.5-5.3) mg/dL Magnesium (1.6-2.3) mg/dL Alkaline Phosphatase (38-126) U/L Total Protein (6.3-8.2) g/dL Albumin (3.5-5.0) g/dL Arterial Blood Potassium (3.4-4.5) mmol/L Arterial Blood Glucose (75-99) mg/dL [facility] Comment Reference Lab Result 08/03/24 08/03/24 08/03/24 Range/Units 08:23 09:56 11:28 RBC (4.30-5.90) m/uL Hgb (13.0-17.5) gm/dL Hct (39.0-53.0) % MCV (80.0-100.0) fL Plt Count (150-450) k/uL Neutrophils # (1.3-7.7) k/uL Lymphocytes # (1.0-4.8) k/uL PT (10.0-12.5) sec INR (<1.2) ABG pH (7.35-7.45) ABG pCO2 (35-45) mmHg ABG pO2 (83-108) mmHg ABG HCO3 (21-25) mmol/L ABG Total CO2 (19-24) mmol/L ABG O2 Saturation (94-97) % ABG Hematocrit (34.0-46.0) % ABG Potassium (3.4-4.5) mmol/L ABG Ionized Calcium (4.5-5.3) mg/dL ABG Glucose (75-99) mg/dL Hemoglobin (13.0-17.5) gm/dL Sodium (137-145) mmol/L Chloride (98-107) mmol/L Creatinine (0.66-1.25) mg/dL Glucose (74-99) mg/dL POC Glucose (mg/dL) 175 H 144 H 124 H (70-110) mg/dL Calcium (8.4-10.2) mg/dL Ionized Calcium Lexi (4.5-5.3) mg/dL Magnesium (1.6-2.3) mg/dL Alkaline Phosphatase (38-126) U/L Total Protein (6.3-8.2) g/dL Albumin (3.5-5.0) g/dL Arterial Blood Potassium (3.4-4.5) mmol/L Arterial Blood Glucose (75-99) mg/dL Crossmatch Blood Bank Comment Reference Lab Result Assessment and Plan Assessment: Acute coronary syndrome, patient presented with symptoms of unstable angina found to have multivessel coronary artery disease with left main stenosis of 80% based on cardiac catheterization. Status post coronary artery bypass grafting utilizing a MARQUEZ to the LAD, left radial artery to the ramus, saphenous vein graft to the RCA, ligation of left atrial appendage. Postoperative day #1 Routine postoperative mechanical ventilation management, expected outcome, recovered and on 2 L nasal cannula Mild to moderate COPD History of asbestos associated lung disease History of multiple myeloma presently in remission, on Revlimid and on Velcade History of obstructive sleep apnea Ex-smoker History of COVID-19 infection back in 2022 Dyslipidemia Benign essential hypertension History of chronic depression Plan: The patient was seen and evaluated Chest x-ray, labs and medications reviewed Working well with the incentive spirometer Continue bronchodilators Heparin for DVT prophylaxis We will continue to follow I have personally seen and examined the patient, performed the documentation and the assessment and plan as written. Number of minutes spent on the visit: 10.
[2024-08-03] MEDS: MIDODRINE 5 MG TAB PO SCH (12:39)
[2024-08-03 12:49] LABS: Glucose,Whole Blood 134 mg/dL (70-110)
[2024-08-03 14:16] LABS: Glucose,Whole Blood 189 mg/dL (70-110)
[2024-08-03 15:32] LABS: Glucose,Whole Blood 144 mg/dL (70-110)
[2024-08-03 15:52] VITALS: BMI 25.4
[2024-08-03 16:57] LABS: Glucose,Whole Blood 121 mg/dL (70-110)
[2024-08-03] MEDS: ACETAMINOPHEN TAB 325 MG TAB PO PRN (17:18)
[2024-08-03] MEDS: FERROUS SULFATE 325 MG TAB PO SCH (17:19)
[2024-08-03] MEDS: ASCORBIC ACID 500 MG TAB PO SCH (17:19)
[2024-08-03 18:42] LABS: Glucose,Whole Blood 158 mg/dL (70-110)
[2024-08-03 20:21] LABS: Glucose,Whole Blood 166 mg/dL (70-110)
[2024-08-03 21:16] LABS: Glucose,Whole Blood 156 mg/dL (70-110)
[2024-08-03 22:06] LABS: Glucose,Whole Blood 149 mg/dL (70-110)
[2024-08-03 23:03] LABS: Glucose,Whole Blood 159 mg/dL (70-110)
[2024-08-04 00:05] LABS: Glucose,Whole Blood 151 mg/dL (70-110)
[2024-08-04 01:08] LABS: Glucose,Whole Blood 147 mg/dL (70-110)
[2024-08-04 02:00] LABS: Glucose,Whole Blood 140 mg/dL (70-110)
[2024-08-04 03:11] LABS: Glucose,Whole Blood 141 mg/dL (70-110)
[2024-08-04 04:00] LABS: Glucose,Whole Blood 143 mg/dL (70-110)
[2024-08-04 04:42] LABS: Ionized Calcium 4.4 mg/dL (4.5-5.3)
[2024-08-04 04:43] LABS: Basophils % (A) 0 %; Eosinophils # (A) 0.1 k/uL (0-0.7); Eosinophils % (A) 1 %; HCT 21.9 % (39.0-53.0); HGB 7.3 gm/dL (13.0-17.5); Lymphocytes # (A) 0.6 k/uL (1.0-4.8); Lymphocytes % (A) 8 %; MCH 32.7 pg (25.0-35.0); MCHC 33.2 g/dL (31.0-37.0); MCV 98.5 fL (80.0-100.0); Monocytes # (A) 0.6 k/uL (0-1.0); Monocytes % (A) 7 %; Neutrophils # (A) 6.3 k/uL (1.3-7.7); Neutrophils % (A) 83 %; Platelet Count 121 k/uL (150-450); RBC 2.22 m/uL (4.30-5.90); WBC 7.6 k/uL (3.8-10.6)
[2024-08-04 04:49] LABS: ALT 20 U/L (4-49); AST 59 U/L (17-59); African American GFR (CKD) >90 (>60 ml/min/1.73 sqM); Alkaline Phosphatase 40 U/L (38-126); Anion Gap 0 mmol/L; Blood Urea Nitrogen 27 mg/dL (9-20); Calcium 7.9 mg/dL (8.4-10.2); Carbon Dioxide 26 mmol/L (22-30); Chloride 107 mmol/L (98-107); Glucose 119 mg/dL (74-99); Non-African American GFR(CKD) >90 (>60 ml/min/1.73 sqM); Sodium 133 mmol/L (137-145); Total Bilirubin 0.8 mg/dL (0.2-1.3); Total Protein 4.4 g/dL (6.3-8.2)
[2024-08-04] MEDS: PANTOPRAZOLE 40 MG TABLET PO SCH (05:42)
[2024-08-04 05:48] LABS: Glucose,Whole Blood 166 mg/dL (70-110)
--- NOTE | 2024-08-04 06:13 | P.PN ---
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 Symptoms obviously were resting while he is in bed woke him up and become slightly bit severe. Symptoms did not improve with antiacid. Patient ended up coming to the emergency department at [facility] where was seen and evaluated His initial troponin was less than 0.012, rest of his lab including normal CBC and CMP with mildly elevated blood sugar, EKG analyzed all along still showing low voltage but two [address] elevation in inferior and lateral leads which when compared with the initial EKG on presentation to exclude the different which make this quite suspicious at this point. Review of patient's record looks like had similar presentation back in 2019 with Lexiscan done at the time in April 18, 2020 came back to be negative the patient has been seen cardiology all along, not quite sure if he had any further stress test since then. With the current presentation with high risk factor and slight change in EKG patient will be hospitalized will be seeing cardiology and echocardiogram will be order probably will keep patient n.p.o. for potential need testing. 07/31/2024: Patient ended up going for heart cath yesterday finding surprisingly with critical stenosis of the main and the RCA, patient ended up seeing cardiovascular surgeon and the plan is to do most likely triple bypass on Friday. The meanwhile patient vein map was done, was evaluated by pulmonary, also was giving the greenlight by his oncologist to be off his multiple myeloma medication for the next 2 months. He is not having any further symptoms today no chest pain tightness or shortness of breath. 08/01/2024: The patient is asymptomatic no further chest pain or angina but moreno ving further testing and prepare for open heart surgery showing left internal carotid only 50-69 percentile blockage. Lab value and vein map are all completed. Evaluating continue to maximize medical management he is using CPAP for obstructive sleep apnea, pulmonary testing with mild COPD and asbestos preop FEV1 was 60 percentile predicted A1c was 6.1 which still been watching monitor continue Accu-Chek sliding scales coverage eventually will be on SGLT2 product. Apparently from cardiothoracic will plan to do revascularization with left internal mammary artery to go up to cover the left main and to do left radial artery harvest along with migration of the left atrial appendage surgery is planning for tomorrow morning. Meanwhile patient vitals laboratory value and physical has been good 08/02/2024: He is going for surgery this morning going for most likely to bypass surgery or possible 3, vitals are stable patient seen pulmonary, cardiology no complaint of chest pain or angina and mapping are all set. Patient might be on mechanical ventilation overnight after surgery and he will be off his antimultiple myeloma medication for at least the next 6 to 8 weeks. 08/03/2024: Patient ended up having triple bypass surgery with MARQUEZ to the LAD, left radial artery to the ramus and saphenous vein graft to the RCA and ligation of left atrial appendage. Also patient had quite bit of bleed during surgery which affected his blood pressure quite bit patient coagulation most likely was a result of his multiple myeloma. This morning his hemoglobin is down to 7.7 platelet count on 111 chemistry with creatinine still holding strong at 0.74 GFR above 90. Blood sugar has been running in the low 100s. Remain in the ICU with 2 chest tube at this point. With the blood sugar being slightly elevated continue insulin for now as soon as patient is able to take oral medication we will switch him to SGLT2 product. REVIEW OF SYSTEMS: CONSTITUTIONAL: Well-developed no acute respiratory distress. EYES: No icterus sclerae, no conjunctivitis. EARS, NOSE, MOUTH, THROAT, and FACE: No sore throat, lymphadenopathy, carotid bruits or deformity. RESPIRATORY: No SOB cough or wheezes. CARDIOVASCULAR: No CP, Palpitation, PND, Orthopnea, or angina. No arrhythmia at the time. GASTROINTESTINAL: No Abd pain, Nausea or vomiting, no Diarrhea or constipation, No GI Bleed, no distention or masses. GENITOURINARY: Negative for Hematuria or UTI, no kidney stones. INTEGUMENT/BREAST: Negative for any muscular injury with mild osteoarthritis.. HEMATOLOGIC/LYMPHATIC: Negative for bleed or purpura. MUSCULOSKELTAL: Generalized arthralgia and myalgia. NEURLOGICAL: No LOC, Sz or syncope, blurred vision dizziness or abnormality.. BEHAVIORAL/PSYCH: Negative. ENDOCRINE: Negative. PHYSICAL EXAMINATION: General Appearance: Alert, cooperative, no distress, appears stated age. Neck HEENT: Supple, no lymphadenopathy, no thyroid enlargement, no carotid bruits. Lungs: Clear to auscultation without crackles or wheezes no rhonchi, no deformity. Chest Wall: Decreased expansion with deep inspiration no tenderness and no def ormity was found on exam, no costochondral pain or discomfort. Heart: Regular rate and rhythm, S1, S2 normal, no murmur, rub or gallop. Back: Symmetric, no curvature, ROM normal, no CVA tenderness. Abdomen: Soft, non-tender, bowel sounds active all four quadrants, no masses, no organomegaly. Extremities: Slight arthritis with no edema. Pulses: 2+ and symmetric. Skin: Skin color, texture, tugor normal, no rashes or lesions. Neurologic: Alert oriented x3 cranial nerves II through XII intact, no motor deficit, no abnormal balance or gait. ASSESSMENT AND PLAN: _Day 1 post triple vessel bypass surgery with MARQUEZ to the LAD, left radial artery to the ramus and saphenous vein graft to the RCA, all within expected postsurgery patient is doing well. _Mechanical ventilation post open heart surgery, patient parameter looks pretty good so far still been followed by pulmonary and critical care. _Multiple coronary artery disease with critical stenosis of the main and RCA, post triple vessel bypass with ligation of the left atrial appendage. _Anginal chest pain: Troponin was negative but heart catheter was very positive with positive EKG changes at time the patient again will be going for open heart surgery. _History of multiple myeloma: Had slight bearing effect from surgery with coagulation being impacted causing patient to be quite bit bleeding been watch manage well at this point. _Hyperglycemia: Blood sugar still running in the low 100s we will continue insulin drip as soon as patient oral intake increased we will switch to SGLT2 product. _Hyperlipidemia: On Zetia and WelChol could not tolerate atorvastatin previously. After surgery maximize medical management will call might be moved to one of the water-soluble and high intensity statin if not able to tolerate patient can benefit eventually from Repatha as a PCSK9 inhibitor. _Mild to moderate COPD: With FEV1 predicted 60 percentile, he is optimized on ventilator and postsurgery, continue updraft treatment as well. _Chronic peripheral neuropathy: Holding off medication today. _Elevated blood pressure: Maximize Coreg up to 3.125 mg twice a day if can tolerate higher dose up to 12.5 mg twice a day would be preferred. _BPH: No sign of urinary retention. _Chronic depression: The patient is off antidepression completely and has been doing well without medication. Discussion: Day 1 postsurgery all within expected, patient is hemodynamically stable and doing well no further bleed at this point and blood pressure is much better compared to last night. Objective - Vital Signs Vital signs: Vital Signs Temp 98.6 F 08/03/24 04:00 Pulse 80 08/03/24 04:00 Resp 15 08/03/24 04:00 BP 93/54 08/03/24 04:00 Pulse Ox 98 08/03/24 04:00 FiO2 40 08/02/24 21:50 Intake & Output 08/02/24 08/02/24 08/03/24 06:59 18:59 06:59 Intake Total 113.975 7349.922 Output Total 1400 1689 1206 Balance -1400 -1150.833 92.922 Intake: IV 504 1266.00 0.9 200 500 ACETAMINOPHEN IV (For NPO 100 ) 1,000 mg In Empty Bag 1 bag @ 400 mls/hr IVPB Q6HR JOSSELYN Rx#:[id number] Albumin Human 5% 500 ml 250 In Empty Bag 1 bag @ 250 mls/hr IVPB ONCE ONE Rx#: [id number] CO/CI 210 220 Nitroglycerin-D5w Pmx 50 5 6.00 mg In Dextrose/Water 1 250ml.bag @ 5 MCG/MIN 1.5 mls/hr IV .Q24H JOSSELYN Rx#: [id number] ceFAZolin 2 gm In Sodium 100 Chloride 0.9% 50 ml @ 100 mls/hr IVPB Q8HR JOSSELYN Rx# :[id number] pressure bag 36 90 Intake, IV Titration 34.167 32.922 Amount Angiotensin II Acetate, 0.610 Human 0.5 mg In Sodium Chloride 0.9% 50 ml @ 10 NG/KG/MIN 4.884 mls/hr IV .[id number] JOSSELYN Rx#: [id number] Insulin Regular 100 unit 1.953 In Sodium Chloride 0.9% 100 ml @ Per Protocol IV .Q0M JOSSELYN Rx#:[id number] Norepinephrine 4 mg In 34.167 27.809 Sodium Chloride 0.9% 250 ml @ 0.03 MCG/KG/MIN 9. 304 mls/hr IV .Q24H JOSSELYN Rx#:[id number] Vasopressin 20 unit In 2.55 Sodium Chloride 0.9% 50 ml @ 0.02 UNITS/MIN 3.06 mls/hr IV .[id number] JOSSELYN Rx #:[id number] Output: Chest Tube Drainage 80 Left Pleural Chest Tube 40 Mediastinal Chest Tube 40 Right Pleural Chest Tube 0 Drainage 74 606 Mediastinal 30 81 Right Wrist VANGIE drain 0 left pleural 14 318 right pleural 30 207 Urine 1400 1085 600 Stool 0 Estimated Blood Loss 450 Other: Voiding Method Toilet Indwelling Catheter Indwelling Catheter ABP, PAP, CO, CI - Last Documented Arterial Blood Pressure 110/47 Pulmonary Artery Pressure 30/11 Cardiac Output 5.6 Cardiac Index 2.8 - Labs CBC & Chem 7: 08/04/24 04:00 08/04/24 04:00 Labs: Abnormal Lab Results - Last 24 Hours (Table) 07/31/24 08/02/24 08/02/24 Range/Units 13:22 08:35 09:38 RBC (4.30-5.90) m/uL Hgb (13.0-17.5) gm/dL Hct (39.0-53.0) % MCV (80.0-100.0) fL Plt Count (150-450) k/uL Neutrophils # (1.3-7.7) k/uL Lymphocytes # (1.0-4.8) k/uL PT (10.0-12.5) sec INR (<1.2) ABG pH 7.28 L (7.35-7.45) ABG pCO2 55 H (35-45) mmHg ABG pO2 >420 H 206 H (83-108) mmHg ABG HCO3 26 H (21-25) mmol/L ABG Total CO2 (19-24) mmol/L ABG O2 Saturation >99.4 H 98.7 H (94-97) % ABG Hematocrit (34.0-46.0) % ABG Potassium (3.4-4.5) mmol/L ABG Ionized Calcium (4.5-5.3) mg/dL ABG Glucose 106 H 120 H (75-99) mg/dL Hemoglobin 12.7 L (13.0-17.5) gm/dL Sodium (137-145) mmol/L Chloride (98-107) mmol/L Creatinine (0.66-1.25) mg/dL Glucose (74-99) mg/dL POC Glucose (mg/dL) (70-110) mg/dL Calcium (8.4-10.2) mg/dL Magnesium (1.6-2.3) mg/dL Alkaline Phosphatase (38-126) U/L Total Protein (6.3-8.2) g/dL Albumin (3.5-5.0) g/dL Arterial Blood Potassium (3.4-4.5) mmol/L Arterial Blood Glucose 106 H 120 H (75-99) mg/dL Crossmatch See Detail Blood Bank Comment Sent to [facility] A Reference Lab Result See BBK REF Reports A 08/02/24 08/02/24 08/02/24 Range/Units 11:29 11:30 12:16 RBC (4.30-5.90) m/uL Hgb (13.0-17.5) gm/dL Hct (39.0-53.0) % MCV (80.0-100.0) fL Plt Count (150-450) k/uL Neutrophils # (1.3-7.7) k/uL Lymphocytes # (1.0-4.8) k/uL PT (10.0-12.5) sec INR (<1.2) ABG pH 7.50 H 7.48 H 7.49 H (7.35-7.45) ABG pCO2 33 L 34 L 34 L (35-45) mmHg ABG pO2 >420 H 408 H 347 H (83-108) mmHg ABG HCO3 26 H (21-25) mmol/L ABG Total CO2 (19-24) mmol/L ABG O2 Saturation >99.4 H >99.4 H 99.4 H (94-97) % ABG Hematocrit 29 L 26 L 23 L (34.0-46.0) % ABG Potassium 5.4 H 4.8 H 5.2 H (3.4-4.5) mmol/L ABG Ionized Calcium 3.9 L 3.7 L 3.6 L (4.5-5.3) mg/dL ABG Glucose 125 H 112 H 100 H (75-99) mg/dL Hemoglobin 9.4 L 8.4 L 7.6 L (13.0-17.5) gm/dL Sodium (137-145) mmol/L Chloride (98-107) mmol/L Creatinine (0.66-1.25) mg/dL Glucose (74-99) mg/dL POC Glucose (mg/dL) (70-110) mg/dL Calcium (8.4-10.2) mg/dL Magnesium (1.6-2.3) mg/dL Alkaline Phosphatase (38-126) U/L Total Protein (6.3-8.2) g/dL Albumin (3.5-5.0) g/dL Arterial Blood Potassium 5.4 H 4.8 H 5.2 H (3.4-4.5) mmol/L Arterial Blood Glucose 125 H 112 H 100 H (75-99) mg/dL Crossmatch Blood Bank Comment Reference Lab Result 08/02/24 08/02/24 08/02/24 Range/Units 12:58 13:45 14:41 RBC 3.07 L (4.30-5.90) m/uL Hgb 9.8 L D (13.0-17.5) gm/dL Hct 30.8 L (39.0-53.0) % MCV 100.2 H (80.0-100.0) fL Plt Count 122 L (150-450) k/uL Neutrophils # (1.3-7.7) k/uL Lymphocytes # 0.7 L (1.0-4.8) k/uL PT (10.0-12.5) sec INR (<1.2) ABG pH 7.49 H (7.35-7.45) ABG pCO2 32 L (35-45) mmHg ABG pO2 >420 H >420 H (83-108) mmHg ABG HCO3 26 H (21-25) mmol/L ABG Total CO2 (19-24) mmol/L ABG O2 Saturation >99.4 H >99.4 H (94-97) % ABG Hematocrit 23 L 29 L (34.0-46.0) % ABG Potassium 5.0 H (3.4-4.5) mmol/L ABG Ionized Calcium 3.4 L* 4.0 L (4.5-5.3) mg/dL ABG Glucose 103 H 107 H (75-99) mg/dL Hemoglobin 7.5 L 9.3 L (13.0-17.5) gm/dL Sodium (137-145) mmol/L Chloride (98-107) mmol/L Creatinine (0.66-1.25) mg/dL Glucose (74-99) mg/dL POC Glucose (mg/dL) (70-110) mg/dL Calcium (8.4-10.2) mg/dL Magnesium (1.6-2.3) mg/dL Alkaline Phosphatase (38-126) U/L Total Protein (6.3-8.2) g/dL Albumin (3.5-5.0) g/dL Arterial Blood Potassium 5.0 H (3.4-4.5) mmol/L Arterial Blood Glucose 103 H 107 H (75-99) mg/dL [facility] Blood Bank Comment Reference Lab Result 08/02/24 08/02/24 08/02/24 Range/Units 14:41 14:41 15:00 RBC (4.30-5.90) m/uL Hgb (13.0-17.5) gm/dL Hct (39.0-53.0) % MCV (80.0-100.0) fL Plt Count (150-450) k/uL Neutrophils # (1.3-7.7) k/uL Lymphocytes # (1.0-4.8) k/uL PT 14.0 H (10.0-12.5) sec INR 1.3 H (<1.2) ABG pH 7.29 L (7.35-7.45) ABG pCO2 52 H (35-45) mmHg ABG pO2 324 H (83-108) mmHg ABG HCO3 (21-25) mmol/L ABG Total CO2 27 H (19-24) mmol/L ABG O2 Saturation 100.0 H (94-97) % ABG Hematocrit (34.0-46.0) % ABG Potassium (3.4-4.5) mmol/L ABG Ionized Calcium (4.5-5.3) mg/dL ABG Glucose (75-99) mg/dL Hemoglobin 10.7 L (13.0-17.5) gm/dL Sodium 136 L (137-145) mmol/L Chloride 111 H (98-107) mmol/L Creatinine 0.59 L (0.66-1.25) mg/dL Glucose (74-99) mg/dL POC Glucose (mg/dL) (70-110) mg/dL Calcium (8.4-10.2) mg/dL Magnesium 2.6 H (1.6-2.3) mg/dL Alkaline Phosphatase (38-126) U/L Total Protein 3.5 L (6.3-8.2) g/dL Albumin 2.2 L (3.5-5.0) g/dL Arterial Blood Potassium (3.4-4.5) mmol/L Arterial Blood Glucose (75-99) mg/dL Crossmatch Blood Bank Comment Reference Lab Result 08/02/24 08/02/24 08/02/24 Range/Units 16:01 16:59 17:30 RBC 2.90 L (4.30-5.90) m/uL Hgb 9.2 L (13.0-17.5) gm/dL Hct 29.1 L (39.0-53.0) % MCV 100.5 H (80.0-100.0) fL Plt Count 136 L (150-450) k/uL Neutrophils # 8.6 H (1.3-7.7) k/uL Lymphocytes # 0.4 L (1.0-4.8) k/uL PT (10.0-12.5) sec INR (<1.2) ABG pH (7.35-7.45) ABG pCO2 (35-45) mmHg ABG pO2 (83-108) mmHg ABG HCO3 (21-25) mmol/L ABG Total CO2 (19-24) mmol/L ABG O2 Saturation (94-97) % ABG Hematocrit (34.0-46.0) % ABG Potassium (3.4-4.5) mmol/L ABG Ionized Calcium (4.5-5.3) mg/dL ABG Glucose (75-99) mg/dL Hemoglobin (13.0-17.5) gm/dL Sodium (137-145) mmol/L Chloride (98-107) mmol/L Creatinine (0.66-1.25) mg/dL Glucose (74-99) mg/dL POC Glucose (mg/dL) 112 H 122 H (70-110) mg/dL Calcium (8.4-10.2) mg/dL Magnesium (1.6-2.3) mg/dL Alkaline Phosphatase (38-126) U/L Total Protein (6.3-8.2) g/dL Albumin (3.5-5.0) g/dL Arterial Blood Potassium (3.4-4.5) mmol/L Arterial Blood Glucose (75-99) mg/dL Crossmatch Blood Bank Comment Reference Lab Result 08/02/24 08/02/24 08/02/24 Range/Units 18:00 18:20 19:20 RBC (4.30-5.90) m/uL Hgb (13.0-17.5) gm/dL Hct (39.0-53.0) % MCV (80.0-100.0) fL Plt Count (150-450) k/uL Neutrophils # (1.3-7.7) k/uL Lymphocytes # (1.0-4.8) k/uL PT (10.0-12.5) sec INR (<1.2) ABG pH (7.35-7.45) ABG pCO2 (35-45) mmHg ABG pO2 167 H (83-108) mmHg ABG HCO3 (21-25) mmol/L ABG Total CO2 25 H (19-24) mmol/L ABG O2 Saturation 99.9 H (94-97) % ABG Hematocrit (34.0-46.0) % ABG Potassium (3.4-4.5) mmol/L ABG Ionized Calcium (4.5-5.3) mg/dL ABG Glucose (75-99) mg/dL Hemoglobin 8.4 L (13.0-17.5) gm/dL Sodium (137-145) mmol/L Chloride (98-107) mmol/L Creatinine (0.66-1.25) mg/dL Glucose (74-99) mg/dL POC Glucose (mg/dL) 123 H 124 H (70-110) mg/dL Calcium (8.4-10.2) mg/dL Magnesium (1.6-2.3) mg/dL Alkaline Phosphatase (38-126) U/L Total Protein (6.3-8.2) g/dL Albumin (3.5-5.0) g/dL Arterial Blood Potassium (3.4-4.5) mmol/L Arterial Blood Glucose (75-99) mg/dL Crossmatch Blood Bank Comment Reference Lab Result 08/02/24 08/02/24 08/02/24 Range/Units 20:30 20:56 21:54 RBC 2.56 L (4.30-5.90) m/uL Hgb 8.2 L (13.0-17.5) gm/dL Hct 25.2 L (39.0-53.0) % MCV (80.0-100.0) fL Plt Count 109 L (150-450) k/uL Neutrophils # (1.3-7.7) k/uL Lymphocytes # 0.2 L (1.0-4.8) k/uL PT (10.0-12.5) sec INR (<1.2) ABG pH (7.35-7.45) ABG pCO2 (35-45) mmHg ABG pO2 (83-108) mmHg ABG HCO3 (21-25) mmol/L ABG Total CO2 (19-24) mmol/L ABG O2 Saturation (94-97) % ABG Hematocrit (34.0-46.0) % ABG Potassium (3.4-4.5) mmol/L ABG Ionized Calcium (4.5-5.3) mg/dL ABG Glucose (75-99) mg/dL Hemoglobin (13.0-17.5) gm/dL Sodium (137-145) mmol/L Chloride (98-107) mmol/L Creatinine (0.66-1.25) mg/dL Glucose (74-99) mg/dL POC Glucose (mg/dL) 129 H 123 H (70-110) mg/dL Calcium (8.4-10.2) mg/dL Magnesium (1.6-2.3) mg/dL Alkaline Phosphatase (38-126) U/L Total Protein (6.3-8.2) g/dL Albumin (3.5-5.0) g/dL Arterial Blood Potassium (3.4-4.5) mmol/L Arterial Blood Glucose (75-99) mg/dL [facility] Blood Bank Comment Reference Lab Result 08/02/24 08/02/24 08/02/24 Range/Units 22:08 23:01 23:56 RBC (4.30-5.90) m/uL Hgb (13.0-17.5) gm/dL Hct (39.0-53.0) % MCV (80.0-100.0) fL Plt Count (150-450) k/uL Neutrophils # (1.3-7.7) k/uL Lymphocytes # (1.0-4.8) k/uL PT (10.0-12.5) sec INR (<1.2) ABG pH (7.35-7.45) ABG pCO2 (35-45) mmHg ABG pO2 112 H (83-108) mmHg ABG HCO3 (21-25) mmol/L ABG Total CO2 26 H (19-24) mmol/L ABG O2 Saturation 99.0 H (94-97) % ABG Hematocrit (34.0-46.0) % ABG Potassium (3.4-4.5) mmol/L ABG Ionized Calcium (4.5-5.3) mg/dL ABG Glucose (75-99) mg/dL Hemoglobin 7.9 L (13.0-17.5) gm/dL Sodium (137-145) mmol/L Chloride (98-107) mmol/L Creatinine (0.66-1.25) mg/dL Glucose (74-99) mg/dL POC Glucose (mg/dL) 131 H 138 H (70-110) mg/dL Calcium (8.4-10.2) mg/dL Magnesium (1.6-2.3) mg/dL Alkaline Phosphatase (38-126) U/L Total Protein (6.3-8.2) g/dL Albumin (3.5-5.0) g/dL Arterial Blood Potassium (3.4-4.5) mmol/L Arterial Blood Glucose (75-99) mg/dL [facility] Blood Bank Comment Reference Lab Result 08/03/24 08/03/24 08/03/24 Range/Units 00:54 01:57 02:59 RBC (4.30-5.90) m/uL Hgb (13.0-17.5) gm/dL Hct (39.0-53.0) % MCV (80.0-100.0) fL Plt Count (150-450) k/uL Neutrophils # (1.3-7.7) k/uL Lymphocytes # (1.0-4.8) k/uL PT (10.0-12.5) sec INR (<1.2) ABG pH (7.35-7.45) ABG pCO2 (35-45) mmHg ABG pO2 (83-108) mmHg ABG HCO3 (21-25) mmol/L ABG Total CO2 (19-24) mmol/L ABG O2 Saturation (94-97) % ABG Hematocrit (34.0-46.0) % ABG Potassium (3.4-4.5) mmol/L ABG Ionized Calcium (4.5-5.3) mg/dL ABG Glucose (75-99) mg/dL Hemoglobin (13.0-17.5) gm/dL Sodium (137-145) mmol/L Chloride (98-107) mmol/L Creatinine (0.66-1.25) mg/dL Glucose (74-99) mg/dL POC Glucose (mg/dL) 130 H 126 H 130 H (70-110) mg/dL Calcium (8.4-10.2) mg/dL Magnesium (1.6-2.3) mg/dL Alkaline Phosphatase (38-126) U/L Total Protein (6.3-8.2) g/dL Albumin (3.5-5.0) g/dL Arterial Blood Potassium (3.4-4.5) mmol/L Arterial Blood Glucose (75-99) mg/dL [facility] Blood [facility] Comment Reference Lab Result 08/03/24 08/03/24 08/03/24 Range/Units 04:00 04:00 04:06 RBC 2.36 L (4.30-5.90) m/uL Hgb 7.7 L (13.0-17.5) gm/dL Hct 23.5 L (39.0-53.0) % MCV (80.0-100.0) fL Plt Count 111 L (150-450) k/uL Neutrophils # (1.3-7.7) k/uL Lymphocytes # 0.5 L (1.0-4.8) k/uL PT (10.0-12.5) sec INR (<1.2) ABG pH (7.35-7.45) ABG pCO2 (35-45) mmHg ABG pO2 (83-108) mmHg ABG HCO3 (21-25) mmol/L ABG Total CO2 (19-24) mmol/L ABG O2 Saturation (94-97) % ABG Hematocrit (34.0-46.0) % ABG Potassium (3.4-4.5) mmol/L ABG Ionized Calcium (4.5-5.3) mg/dL ABG Glucose (75-99) mg/dL Hemoglobin (13.0-17.5) gm/dL Sodium (137-145) mmol/L Chloride 111 H (98-107) mmol/L Creatinine (0.66-1.25) mg/dL Glucose 110 H (74-99) mg/dL POC Glucose (mg/dL) 125 H (70-110) mg/dL Calcium 7.9 L (8.4-10.2) mg/dL Magnesium (1.6-2.3) mg/dL Alkaline Phosphatase 32 L (38-126) U/L Total Protein 4.3 L (6.3-8.2) g/dL Albumin 3.1 L (3.5-5.0) g/dL Arterial Blood Potassium (3.4-4.5) mmol/L Arterial Blood Glucose (75-99) mg/dL [facility] Blood [facility] Comment Reference Lab Result 08/03/24 Range/Units 04:56 RBC (4.30-5.90) m/uL Hgb (13.0-17.5) gm/dL Hct (39.0-53.0) % MCV (80.0-100.0) fL Plt Count (150-450) k/uL Neutrophils # (1.3-7.7) k/uL Lymphocytes # (1.0-4.8) k/uL PT (10.0-12.5) sec INR (<1.2) ABG pH (7.35-7.45) ABG pCO2 (35-45) mmHg ABG pO2 (83-108) mmHg ABG HCO3 (21-25) mmol/L ABG Total CO2 (19-24) mmol/L ABG O2 Saturation (94-97) % ABG Hematocrit (34.0-46.0) % ABG Potassium (3.4-4.5) mmol/L ABG Ionized Calcium (4.5-5.3) mg/dL ABG Glucose (75-99) mg/dL Hemoglobin (13.0-17.5) gm/dL Sodium (137-145) mmol/L Chloride (98-107) mmol/L Creatinine (0.66-1.25) mg/dL Glucose (74-99) mg/dL POC Glucose (mg/dL) 127 H (70-110) mg/dL Calcium (8.4-10.2) mg/dL Magnesium (1.6-2.3) mg/dL Alkaline Phosphatase (38-126) U/L Total Protein (6.3-8.2) g/dL Albumin (3.5-5.0) g/dL Arterial Blood Potassium (3.4-4.5) mmol/L Arterial Blood Glucose (75-99) mg/dL Crossmatch Blood Bank Comment Reference Lab Result
[2024-08-04 06:54] LABS: Glucose,Whole Blood 137 mg/dL (70-110)
[2024-08-04 08:16] LABS: Glucose,Whole Blood 118 mg/dL (70-110)
--- NOTE | 2024-08-04 08:27 | XR ---
EXAMINATION TYPE: XR chest 1V portable DATE OF EXAM: 08/04/2024 HISTORY: Post Operative Cardiac Surgery COMPARISON: 08/03/2024 TECHNIQUE: Single view of the chest is submitted. FINDINGS: [place]-Radha catheter has been removed with the right IJ sheath in place. Left-sided chest tube as well as right-sided chest tube are noted in place. No evidence for pneumothorax. Basilar infiltrates persi st with slight improved aeration seen. The heart is stable. Hilar and mediastinal structures are within normal limits. Degenerative changes are seen of the dorsal spine. IMPRESSION: 1. Stable chest X-Ray Jack Sanders, , 08/04/2024 8:25 AM
[2024-08-04] MEDS: DAPAGLIFLOZIN PROPANEDIOL 5 MG TABLET PO SCH (08:41)
--- NOTE | 2024-08-04 08:41 | P.PN ---
Subjective Progress Note Date: 08/04/24 Principal diagnosis: Coronary artery disease with left main disease, unstable angina. History of multiple myeloma on immunotherapy, currently stable, hyperlipidemia, obstructive sleep apnea without home CPAP use, mild COPD with asbestosis, COVID infection in September 2023, previous tobacco dependence, left internal carotid stenosis 50 to 69% POD #2 coronary artery bypass grafting x 3 vessels, left internal mammary artery to the left anterior descending artery, radial artery to the ramus artery, saphenous vein graft to the distal right coronary artery, endoscopic harvest of bilateral greater saphenous veins, endoscopic harvest of left radial artery, ligation of the left atrial appendage using a 35mm AtriClip, epiaortic ultrasound, intraoperative transesophageal echocardiogram, graft flow measurements using Unafinance system Postoperative acute blood loss anemia and thrombocytopenia, expected given extensive hemodilution and cardiopulmonary bypass pump Acute hypotension with shock with need for pressors, felt to be due to vasoplegia The patient was seen and examined sitting up in recliner in the intensive care unit in no acute distress. Remains A paced at 80 bpm with underlying rhythm sinus in the low 60s. Blood pressure soft, currently on low-dose levo. Was off levo last night but mean pressure on arterial line was in the 50s so levo restarted, pressures are higher on non-invasive blood pressure cuff. He was started on midodrine yesterday. Patient/family report patient is normally hypotensive on a regular basis. Denies any chest pain, states his only pain is at the chest tube insertion sites which is well-tolerated. He is currently on 2 L nasal cannula with oxygen saturation in the high 90s, on room air his sats drop into the 80s, only able to achieve 500 mL on his incentive spirometry. Chest x-ray, lab work reviewed. Right internal jugular cordis, right radial arterial line, mediastinal/left/right pleural chest tubes all remain. He has a mbulated around the ICU hallway without difficulty. No other new concerns. Objective - Vital Signs Vital signs: Vital Signs Temp 98.5 F 08/04/24 04:00 Pulse 80 08/04/24 07:00 Resp 10 L 08/04/24 07:00 BP 91/52 08/04/24 07:00 Pulse Ox 100 08/04/24 07:00 FiO2 40 08/02/24 21:50 Intake & Output 08/03/24 08/04/2424 18:59 06:59 18:59 Intake Total 1637.162 691.138 78.695 Output Total 910 1070 50 Balance 727.162 -378.862 28.695 Weight 85.1 kg 88.3 kg Intake: IV 367 39 3 0.9 50 ACETAMINOPHEN IV (For NPO 100 ) 1,000 mg In Empty Bag 1 bag @ 400 mls/hr IVPB Q6HR [facility] Rx#:[id number] CO/CI 80 ceFAZolin 2 gm In Sodium 50 Chloride 0.9% 50 ml @ 100 mls/hr IVPB Q8HR [facility] Rx# :[id number] pressure bag 87 39 3 Intake, IV Titration 430.162 402.138 75.695 Amount Insulin Regular 100 unit 23.887 19.653 In Sodium Chloride 0.9% 100 ml @ Per Protocol IV .Q0M [facility] Rx#:[id number] Norepinephrine 4 mg In 106.275 22.485 45.695 Sodium Chloride 0.9% 250 ml @ 0.03 MCG/KG/MIN 9. 304 mls/hr IV .Q24H [facility] Rx#:[id number] Sodium Chloride 0.9% 1, 300 360 30 000 ml @ 30 mls/hr IV . Q24H [facility] Rx#:[id number] Oral 840 250 Output: Drainage 450 320 Mediastinal 110 60 Right Wrist VANGIE drain 10 left pleural 260 130 right pleural 70 130 Urine 460 750 50 Other: Voiding Method Indwelling Catheter Indwelling Catheter # Bowel Movements 0 ABP, PAP, CO, CI - Last Documented Arterial Blood Pressure 121/54 Pulmonary Artery Pressure 40/15 Cardiac Output 6.2 Cardiac Index 3.1 - Exam CONSTITUTIONAL: Appears comfortable, cooperative, no acute distress RESPIRATORY: Lungs sounds diminished in the bases bilaterally. Respirations even, nonlabored. Currently on 2 L nasal cannula with oxygen saturation 98%. A ble to achieve 500 mL on incentive spirometry. Strong cough. CARDIOVASCULAR: S1, S2 present. Regular rate and rhythm, A paced on telemetry with underlying rhythm sinus in the low 60s. Sternum stable. Palpable peripheral pulses bilaterally. No edema present. No calf pain or tenderness noted. Heart hugger in place with patient demonstrating appropriate use. Antiembolism stockings, SCDs present. GASTROINTESTINAL: Abdomen soft, nontender, nondistended. Hypoactive bowel sounds present 4 quadrants. Tolerating diet. Denies flatus GENITOURINARY: Temple present draining clear, yellow urine. Output overnight 45-125 mL per hour, 1210 mL in the last 24 hours INTEGUMENTARY: Skin is warm and dry with evidence of good perfusion. Anterior chest incision well approximated and covered with dry intact dressing. Bilateral lower extremity EVH sites well approximated without redness or dr ainage. Left radial artery harvest site without drainage NEUROLOGIC: Cranial nerves II through XII intact MUSKULOSKELETAL: Able to move all extremities, strength equal bilaterally PSYCHIATRIC: Alert and oriented to person place and time, appropriate affect, intact judgment and insight INVASIVE LINES AND TUBES: Mediastinal/left/right pleural chest tubes present and connected to wall suction, no air leaks present. Mediastinal tube with 30 mL serosanguineous drainage overnight, 150 mL in the last 24 hours. Left pleural chest tube with 100 mL serosanguineous drainage overnight, 400 mL in the last 24 hours. Right pleural chest tube with 100 mL serosanguineous drainage overnight, 200 mL in the last 24 hours. A/V epicardial pacemaker wires present, connected to generator, AAI mode with rate 80 bpm. Right internal jugular cordis, right radial arterial line present - Allied health notes Allied health notes reviewed: nursing - Labs CBC & Chem 7: 08/04/24 04:00 08/04/24 04:00 Labs: Abnormal Lab Results - Last 24 Hours (Table) 08/03/24 08/03/24 08/03/24 Range/Units 09:56 11:28 12:45 RBC (4.30-5.90) m/uL Hgb (13.0-17.5) gm/dL Hct (39.0-53.0) % Plt Count (150-450) k/uL Lymphocytes # (1.0-4.8) k/uL Sodium (137-145) mmol/L BUN (9-20) mg/dL Creatinine (0.66-1.25) mg/dL Glucose (74-99) mg/dL POC Glucose (mg/dL) 144 H 124 H 134 H (70-110) mg/dL Calcium (8.4-10.2) mg/dL Ionized Calcium Lexi (4.5-5.3) mg/dL Total Protein (6.3-8.2) g/dL Albumin (3.5-5.0) g/dL 08/03/24 08/03/24 08/03/24 Range/Units 14:13 15:30 16:54 RBC (4.30-5.90) m/uL Hgb (13.0-17.5) gm/dL Hct (39.0-53.0) % Plt Count (150-450) k/uL Lymphocytes # (1.0-4.8) k/uL Sodium (137-145) mmol/L BUN (9-20) mg/dL Creatinine (0.66-1.25) mg/dL Glucose (74-99) mg/dL POC Glucose (mg/dL) 189 H 144 H 121 H (70-110) mg/dL Calcium (8.4-10.2) mg/dL Ionized Calcium Lexi (4.5-5.3) mg/dL Total Protein (6.3-8.2) g/dL Albumin (3.5-5.0) g/dL 08/03/24 08/03/24 08/03/24 Range/Units 18:39 20:19 21:15 RBC (4.30-5.90) m/uL Hgb (13.0-17.5) gm/dL Hct (39.0-53.0) % Plt Count (150-450) k/uL Lymphocytes # (1.0-4.8) k/uL Sodium (137-145) mmol/L BUN (9-20) mg/dL Creatinine (0.66-1.25) mg/dL Glucose (74-99) mg/dL POC Glucose (mg/dL) 158 H 166 H 156 H (70-110) mg/dL Calcium (8.4-10.2) mg/dL Ionized Calcium Lexi (4.5-5.3) mg/dL Total Protein (6.3-8.2) g/dL Albumin (3.5-5.0) g/dL 08/03/24 08/03/24 08/04/24 Range/Units 22:05 23:01 00:04 RBC (4.30-5.90) m/uL Hgb (13.0-17.5) gm/dL Hct (39.0-53.0) % Plt Count (150-450) k/uL Lymphocytes # (1.0-4.8) k/uL Sodium (137-145) mmol/L BUN (9-20) mg/dL Creatinine (0.66-1.25) mg/dL Glucose (74-99) mg/dL POC Glucose (mg/dL) 149 H 159 H 151 H (70-110) mg/dL Calcium (8.4-10.2) mg/dL Ionized Calcium Lexi (4.5-5.3) mg/dL Total Protein (6.3-8.2) g/dL Albumin (3.5-5.0) g/dL 08/04/24 08/04/24 08/04/24 Range/Units 01:05 01:59 03:09 RBC (4.30-5.90) m/uL Hgb (13.0-17.5) gm/dL Hct (39.0-53.0) % Plt Count (150-450) k/uL Lymphocytes # (1.0-4.8) k/uL Sodium (137-145) mmol/L BUN (9-20) mg/dL Creatinine (0.66-1.25) mg/dL Glucose (74-99) mg/dL POC Glucose (mg/dL) 147 H 140 H 141 H (70-110) mg/dL Calcium (8.4-10.2) mg/dL Ionized Calcium Lexi (4.5-5.3) mg/dL Total Protein (6.3-8.2) g/dL Albumin (3.5-5.0) g/dL 08/04/24 08/04/24 08/04/24 Range/Units 03:58 04:00 04:00 RBC 2.22 L (4.30-5.90) m/uL Hgb 7.3 L (13.0-17.5) gm/dL Hct 21.9 L (39.0-53.0) % Plt Count 121 L (150-450) k/uL Lymphocytes # 0.6 L (1.0-4.8) k/uL Sodium 133 L (137-145) mmol/L BUN 27 H (9-20) mg/dL Creatinine 0.65 L (0.66-1.25) mg/dL Glucose 119 H (74-99) mg/dL POC Glucose (mg/dL) 143 H (70-110) mg/dL Calcium 7.9 L (8.4-10.2) mg/dL Ionized Calcium Lexi 4.4 L (4.5-5.3) mg/dL Total Protein 4.4 L (6.3-8.2) g/dL Albumin 3.0 L (3.5-5.0) g/dL 08/04/24 08/04/24 08/04/24 Range/Units 05:47 06:52 08:15 RBC (4.30-5.90) m/uL Hgb (13.0-17.5) gm/dL Hct (39.0-53.0) % Plt Count (150-450) k/uL Lymphocytes # (1.0-4.8) k/uL Sodium (137-145) mmol/L BUN (9-20) mg/dL Creatinine (0.66-1.25) mg/dL Glucose (74-99) mg/dL POC Glucose (mg/dL) 166 H 137 H 118 H (70-110) mg/dL Calcium (8.4-10.2) mg/dL Ionized Calcium Lexi (4.5-5.3) mg/dL Total Protein (6.3-8.2) g/dL Albumin (3.5-5.0) g/dL - Imaging and Cardiology Chest x-ray: report reviewed, image reviewed Assessment and Plan Assessment: Coronary artery disease with left main disease, unstable angina, status post three-vessel CABG Chest pain secondary to above Postoperative acute blood loss anemia and thrombocytopenia, expected given extensive hemodilution and cardiopulmonary bypass pump Acute hypotension with shock with need for pressors, felt to be due to vasoplegia History of multiple myeloma on immunotherapy currently stable Hyperlipidemia, previous intolerance to statins, cholesterol 184, LDL 106, TG 119 Obstructive sleep apnea without home CPAP use Mild COPD with asbestosis, preoperative FEV1 60% of predicted COVID infection in September 2023 Previous tobacco dependence Left internal carotid stenosis 50 to 69% Hyperglycemia, diet controlled, Hgb A1c 6.1% Plan: Continue to maximize medical therapy with aspirin, statin, Plavix. Will hold beta-dann for now. Wean pressors as tolerated. Continue midodrine Wean oxygen as tolerated. Encourage incentive spirometry use 10 times every hour while awake. Bronchodilators per pulmonology Increase activity, ambulate as tolerated. PT/OT/cardiac rehab consulted Will monitor daily labs and x-rays. Electrolyte replacement per protocol. No blood transfusion at this point, anemia felt to be dilutional. No lasix today GI/DVT prophylaxis Pain control per current medication regimen. No Toradol at this time Insulin management per internal medicine Will discontinue chest tubes today Continue Tempel catheter for another 24 hours, continue to monitor strict accurate intake and output Continue epicardial pacemaker wires to AAI mode with rate 80 bpm More recommendations to follow
[2024-08-04 09:23] LABS: Glucose,Whole Blood 116 mg/dL (70-110)
[2024-08-04 10:59] LABS: Glucose,Whole Blood 133 mg/dL (70-110)
--- NOTE | 2024-08-04 11:23 | P.PN ---
Subjective Progress Note Date: 08/04/24 This is an 78-year-old white male with history of coronary artery disease, dyslipidemia, obstructive sleep apnea, mild COPD, normally sees Dr. Lipscomb, PFT from 02/04/2022 showed mild to moderate COPD FEV1 of 75% FEV1/FVC is 65%, patient had hyperinflation and low DLCO consistent with mild emphysema. Patient has been on bronchodilators as listed below, patient was brought in this time on 07/30/2024, came in with classic anginal symptoms seen by cardiology and felt that the patient had unstable angina/non-ST elevation myocardial infarction. Cardiac catheterization was performed and it showed 80% distal left main 80% distal RCA 60% proximal RCA and normal left-sided filling pressures. Hence cardiothoracic surgery was consulted, and the patient is scheduled to undergo myocardial revascularization next Friday. During his underlying pulmonary history, we were asked to see the patient in consultation, and I had a chance to review his PFT from the office, reviewed his FEV1 on this admission, chest x-ray showed some pleural parenchymal calcification most likely consistent with previous asbestos associated lung disease. I feel the patient is low operative risk, and I will clear the patient for surgery as scheduled. The findings on the chest x-ray are chronic, and they were present on a previous chest x-ray back in 2021 patient denies any cough denies any wheezing denies any shortness of breath, and no chest pain during my evaluation Seen today on 08/01/2024, patient is doing great, sitting at the bedside chair, on room air, not in any distress. Patient is afebrile, blood pressure is 134/72 O2 sats is 96%, he denies any cough wheezing or shortness of breath.Denies any chest pain. Myocardial revascularization is scheduled to be done tomorrow. The patient is seen today August 02, 2024 in follow-up in the intensive care unit. Just back from surgery. He had undergone a coronary artery bypass surgery utilizing a MARQUEZ to the LAD, left radial artery graft to the ramus, saphenous venous graft to the RCA, left atrial appendage ligation. He is currently intubated on the mechanical ventilator and assist-control mode at a rate of 16, tidal volume 500, FiO2 100% and a PEEP of 5. He has normal staying at 50 mL/h. Nitroglycerin drip at 5 mcg/min. Propofol at 20 mcg/kg/min. Norep inephrine at 0.02 mcg/kg/min. Primacor at 0.375 mcg/kg/min. Cardiac output 6.0. Cardiac index 3.0. PA pressure 41/23. CVP 15. [place]-Radha catheter in place. Right radial arterial line in place. Chest x-ray reveals good placement of the endotracheal tube, [place] Radha catheter and gastric tube. No significant pneumothorax. Right, left and mediastinal chest tubes in place. White count 7.3. Hemoglobin 9.8. Platelets 122. INR 1.3. Sodium 136. Potassium 4.1. Bicarb 24. BUN 15. Creatinine 0.59. Glucose 96. The patient is seen today August 03, 2024 in follow-up in the intensive care un it. Post operative day #1. He is currently awake and alert in no acute distress. Sitting up in a chair at the bedside. Maintaining good O2 saturations in the upper 90s on 2 L/min per nasal cannula. He has been afebrile. Cardiac output 5.2. Cardiac index 2.6. PA pressures 38/12. CVP 8. He is wearing norepinephrine at 1.7 mcg/min. He has normal saline at 30 mL/h. Insulin drip at 1.5 units/h. He is working well with the incentive spirometer. Left, right, mediastinal chest tubes remain in place. Chest x-ray remains stable. White count 6.7. Hemoglobin 7.7. Platelets 111. Sodium 138. Potassium 4.0. Bicarb 25. BUN 20. Creatinine 0.74. Glucose 124. Albumin 3.1. Receiving albumin today. Remains on bronchodilators. Heparin for DVT prophylaxis. The patient is seen today August 04, 2024 in follow-up on the intensive care unit. Postoperative day #2. He is currently sitting up in a chair. Awake and alert in no acute distress. Maintaining good O2 saturations in the 90s on 2 L/min per nasal cannula. He has normal saline at 30 mL/h. Insulin drip at 1 unit/h. He is working well with the incentive spirometer pulling approximately 500 to 750 mL. White count 7.6. Hemoglobin 7.3. Platelets 121. Sodium 133. Potassium 4.0. Bicarb 26. BUN 27. Creatinine 0.65. Glucose 113. He remains on bronchodilators. Heparin for DVT prophylaxis. X-ray reveals no evidence of pneumothorax. Basilar infiltrates persist with slight improved aeration. Chest tubes remain in place. Objective - Vital Signs Vital signs: Vital Signs Temp 97.7 F 08/04/24 08:00 Pulse 74 08/04/24 09:30 Resp 19 08/04/24 09:30 BP 109/56 08/04/24 09:30 Pulse Ox 94 L 08/04/24 09:30 FiO2 40 08/02/24 21:50 Intake & Output 08/03/24 08/04/24 08/04/24 18:59 06:59 18:59 Intake Total 1637.162 691.138 114.434 Output Total 910 1070 125 Balance 727.162 -378.862 -10.566 Weight 85.1 kg 88.3 kg Intake: IV 367 39 36 0.9 50 ACETAMINOPHEN IV (For NPO 100 ) 1,000 mg In Empty Bag 1 bag @ 400 mls/hr IVPB Q6HR [facility] Rx#:[id number] CO/CI 80 Sodium Chloride 0.9% 1, 30 000 ml @ 30 mls/hr IV . Q24H [facility] Rx#:[id number] ceFAZolin 2 gm In Sodium 50 Chloride 0.9% 50 ml @ 100 mls/hr IVPB Q8HR [facility] Rx# :[id number] pressure bag 87 39 6 Intake, IV Titration 430.162 402.138 78.434 Amount Insulin Regular 100 unit 23.887 19.653 In Sodium Chloride 0.9% 100 ml @ Per Protocol IV .Q0M [facility] Rx#:[id number] Norepinephrine 4 mg In 106.275 22.485 48.434 Sodium Chloride 0.9% 250 ml @ 0.03 MCG/KG/MIN 9. 304 mls/hr IV .Q24H [facility] Rx#:[id number] Sodium Chloride 0.9% 1, 300 360 30 000 ml @ 30 mls/hr IV . Q24H [facility] Rx#:[id number] Oral 840 250 Output: Drainage 450 320 Mediastinal 110 60 Right Wrist VANGIE drain 10 left pleural 260 130 right pleural 70 130 Urine 460 750 125 Other: Voiding Method Indwelling Catheter Indwelling Catheter Indwelling Catheter # Bowel Movements 0 ABP, PAP, CO, CI - Last Documented Arterial Blood Pressure 108/45 Pulmonary Artery Pressure 40/15 Cardiac Output 6.2 Cardiac Index 3.1 - Exam GENERAL EXAM: Awake, very pleasant 78-year-old male, up in a chair, on 2 L nasal cannula, in no apparent distress. HEAD: Normocephalic. EYES: Normal reaction of pupils, equal size. NOSE: Clear with pink turbinates. THROAT: No erythema or exudates. NECK: No masses, no JVD. Cordis in place CHEST: Sternal dressing dry and intact. Heart hugger in place. Right, left, mediastinal chest tubes in place. Pacer wires in place. LUNGS: Equal air entry with no crackles, wheeze, rhonchi or dullness. CVS: S1 and S2 normal with no audible murmur, regular rhythm. ABDOMEN: No hepatosplenomegaly, hypoactive bowel sounds, no guarding or rigidity. SPINE: No scoliosis or deformity SKIN: No rashes CENTRAL NERVOUS SYSTEM: Sedated, tone is normal in all 4 extremities. EXTREMITIES: Right radial arterial line in place. Left radial site with Lázaro wrap. Bilateral lower extremity Lázaro wraps in place. Peripheral pulses are intact. - Labs CBC & Chem 7: 08/04/24 04:00 08/04/24 04:00 Labs: Abnormal Lab Results - Last 24 Hours (Table) 08/03/24 08/03/24 08/03/24 Range/Units 11:28 12:45 14:13 RBC (4.30-5.90) m/uL Hgb (13.0-17.5) gm/dL Hct (39.0-53.0) % Plt Count (150-450) k/uL Lymphocytes # (1.0-4.8) k/uL Sodium (137-145) mmol/L BUN (9-20) mg/dL Creatinine (0.66-1.25) mg/dL Glucose (74-99) mg/dL POC Glucose (mg/dL) 124 H 134 H 189 H (70-110) mg/dL Calcium (8.4-10.2) mg/dL Ionized Calcium Lexi (4.5-5.3) mg/dL Total Protein (6.3-8.2) g/dL Albumin (3.5-5.0) g/dL 08/03/24 08/03/24 08/03/24 Range/Units 15:30 16:54 18:39 RBC (4.30-5.90) m/uL Hgb (13.0-17.5) gm/dL Hct (39.0-53.0) % Plt Count (150-450) k/uL Lymphocytes # (1.0-4.8) k/uL Sodium (137-145) mmol/L BUN (9-20) mg/dL Creatinine (0.66-1.25) mg/dL Glucose (74-99) mg/dL POC Glucose (mg/dL) 144 H 121 H 158 H (70-110) mg/dL Calcium (8.4-10.2) mg/dL Ionized Calcium Lexi (4.5-5.3) mg/dL Total Protein (6.3-8.2) g/dL Albumin (3.5-5.0) g/dL 08/03/24 08/03/24 08/03/24 Range/Units 20:19 21:15 22:05 RBC (4.30-5.90) m/uL Hgb (13.0-17.5) gm/dL Hct (39.0-53.0) % Plt Count (150-450) k/uL Lymphocytes # (1.0-4.8) k/uL Sodium (137-145) mmol/L BUN (9-20) mg/dL Creatinine (0.66-1.25) mg/dL Glucose (74-99) mg/dL POC Glucose (mg/dL) 166 H 156 H 149 H (70-110) mg/dL Calcium (8.4-10.2) mg/dL Ionized Calcium Lexi (4.5-5.3) mg/dL Total Protein (6.3-8.2) g/dL Albumin (3.5-5.0) g/dL 08/03/24 08/04/24 08/04/24 Range/Units 23:01 00:04 01:05 RBC (4.30-5.90) m/uL Hgb (13.0-17.5) gm/dL Hct (39.0-53.0) % Plt Count (150-450) k/uL Lymphocytes # (1.0-4.8) k/uL Sodium (137-145) mmol/L BUN (9-20) mg/dL Creatinine (0.66-1.25) mg/dL Glucose (74-99) mg/dL POC Glucose (mg/dL) 159 H 151 H 147 H (70-110) mg/dL Calcium (8.4-10.2) mg/dL Ionized Calcium Lexi (4.5-5.3) mg/dL Total Protein (6.3-8.2) g/dL Albumin (3.5-5.0) g/dL 08/04/24 08/04/24 08/04/24 Range/Units 01:59 03:09 03:58 RBC (4.30-5.90) m/uL Hgb (13.0-17.5) gm/dL Hct (39.0-53.0) % Plt Count (150-450) k/uL Lymphocytes # (1.0-4.8) k/uL Sodium (137-145) mmol/L BUN (9-20) mg/dL Creatinine (0.66-1.25) mg/dL Glucose (74-99) mg/dL POC Glucose (mg/dL) 140 H 141 H 143 H (70-110) mg/dL Calcium (8.4-10.2) mg/dL Ionized Calcium Lexi (4.5-5.3) mg/dL Total Protein (6.3-8.2) g/dL Albumin (3.5-5.0) g/dL 08/04/24 08/04/24 08/04/24 Range/Units 04:00 04:00 05:47 RBC 2.22 L (4.30-5.90) m/uL Hgb 7.3 L (13.0-17.5) gm/dL Hct 21.9 L (39.0-53.0) % Plt Count 121 L (150-450) k/uL Lymphocytes # 0.6 L (1.0-4.8) k/uL Sodium 133 L (137-145) mmol/L BUN 27 H (9-20) mg/dL Creatinine 0.65 L (0.66-1.25) mg/dL Glucose 119 H (74-99) mg/dL POC Glucose (mg/dL) 166 H (70-110) mg/dL Calcium 7.9 L (8.4-10.2) mg/dL Ionized Calcium Lexi 4.4 L (4.5-5.3) mg/dL Total Protein 4.4 L (6.3-8.2) g/dL Albumin 3.0 L (3.5-5.0) g/dL 08/04/24 08/04/24 08/04/24 Range/Units 06:52 08:15 09:22 RBC (4.30-5.90) m/uL Hgb (13.0-17.5) gm/dL Hct (39.0-53.0) % Plt Count (150-450) k/uL Lymphocytes # (1.0-4.8) k/uL Sodium (137-145) mmol/L BUN (9-20) mg/dL Creatinine (0.66-1.25) mg/dL Glucose (74-99) mg/dL POC Glucose (mg/dL) 137 H 118 H 116 H (70-110) mg/dL Calcium (8.4-10.2) mg/dL Ionized Calcium Lexi (4.5-5.3) mg/dL Total Protein (6.3-8.2) g/dL Albumin (3.5-5.0) g/dL 08/04/24 Range/Units 10:57 RBC (4.30-5.90) m/uL Hgb (13.0-17.5) gm/dL Hct (39.0-53.0) % Plt Count (150-450) k/uL Lymphocytes # (1.0-4.8) k/uL Sodium (137-145) mmol/L BUN (9-20) mg/dL Creatinine (0.66-1.25) mg/dL Glucose (74-99) mg/dL POC Glucose (mg/dL) 133 H (70-110) mg/dL Calcium (8.4-10.2) mg/dL Ionized Calcium Lexi (4.5-5.3) mg/dL Total Protein (6.3-8.2) g/dL Albumin (3.5-5.0) g/dL Assessment and Plan Assessment: Acute coronary syndrome, patient presented with symptoms of unstable angina found to have multivessel coronary artery disease with left main stenosis of 80% based on cardiac catheterization. Status post coronary artery bypass grafting utilizing a MARQUEZ to the LAD, left radial artery to the ramus, saphenous vein graft to the RCA, ligation of left atrial appendage. Postoperative day #2 Routine postoperative mechanical ventilation management, expected outcome, recovered and on 2 L nasal cannula Mild to moderate COPD History of asbestos associated lung disease History of multiple myeloma presently in remission, on Revlimid and on Velcade History of obstructive sleep apnea Ex-smoker History of COVID-19 infection back in 2022 Dyslipidemia Benign essential hypertension History of chronic depression Plan: The patient was seen and evaluated Chest x-ray, labs and medications reviewed Continues to work with the incentive spirometer Continue bronchodilators Heparin for DVT prophylaxis Increase his activity as tolerated Titrate down FiO2 as tolerated We will continue to follow I have personally seen and examined the patient, performed the documentation and the assessment and plan as written. Number of minutes spent on the visit: 10.
[2024-08-04 13:38] LABS: Glucose,Whole Blood 112 mg/dL (70-110)
--- NOTE | 2024-08-04 15:17 | P.PN ---
Subjective Progress Note Date: 08/04/24 History of present illness: Patient is a pleasant 78 year old male with significant past medical history of cancer, hyperlipidemia, multiple myeloma, asbestosis who presented to the ED with acute onset retrosternal chest pain. He said the chest pain was mostly located in the center of his chest, has a pressure feel, and radiated towards the right shoulder. He said the chest pain started while he was sleeping at night. He reported shortness of breath, but no nausea, vomiting, diarrhea, belly pain, constipation. Upon arrival to the ED, patient responded very fast to nitroglycerin and morphine and the chest pain went away. In the ED, EKG showed sinus rhythm, tall T waves, with a heart rate of about [address] angiography of the chest was performed, and showed no evidence of pulmonary embolism. Troponin was less than 0.012. BNP was 37. AST slighty elevated at 95. ALT 47. Left heart cath 07/30/24 revealed multivessel CAD including 80% distal left main stenosis, 80% distal RCA stenosis, 60% proximal RCA stenosis. He was referred to cardiothoracic surgery for CABG eval. Carotid ultrasound shows greater than 70% stenosis of right ICA, moderate stenosis left ICA. Echocardiogram with EF 55-60%, no significant valve issues. 07/31/2024 Patient reports that he is feeling fine and denies any chest pain or pressure. No shortness of breath. 0.69, potassium 5.2. 08/01/24 He is ambulatory around unit. No complaints. No chest pain, shortness of breath, or dizziness. 08/03/2024 Patient underwent bypass surgery yesterday. Today he is coming along well. BP 78/40, PA catheter PA pressures 38/12, CVP 7, cardiac index 2.3 L/min/m. Currently he is on 0.02 mics of norepinephrine. He has right IJ Sycamore-Radha catheter in, epicardial pacemaker in, mediastinal tube and [address]. Currently he is in paced rhythm at 80 bpm. He is atrially paced. August 04, 2024 Patient is seen and examined at bedside this a.m. Patient is much better as compared to yesterday hemodynamically. She is not on any pressors at this time. PHYSICAL EXAMINATION: This is a 78 -year-old male in no apparent distress at the time of my examination. HEENT: Head is atraumatic, normocephalic. Pupils are equal, round. Sclerae anicteric. Conjunctivae are clear. Mucous membranes of the mouth are moist. Neck is supple. There is no jugular venous distention. No carotid bruit is heard. CHEST EXAMINATION: Lungs are clear to auscultation. No chest wall tenderness is noted on palpation or with deep breathing. HEART EXAMINATION: Heart regular rate and rhythm. S1, S2 heard. No murmurs, gallops or rub. ABDOMEN: Soft, nontender. Bowel sounds are heard. EXTREMITIES: 1+ pitting edema in bilateral lower extremity. NEUROLOGIC EXAMINATION: Patient is awake, alert and oriented x3. IMPRESSION AND PLAN: CAD status post CABG hyperlipidemia Former tobacco abuse Multiple myeloma Asbestos Carotid stenosis arm wound due to acute tubular Clinda-Derm and Lulu. He admitted. 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 limited echocardiogram, it did not show any concerns of pericardial effusion. LVEF was preserved around 50 to 55%. PLAN: Continue supportive care. Continue dual antiplatelet therapy and statins Monitor hemoglobin and vitals Continue to monitor urine output and monitor his vitals. Monitor telemetry for any arrhythmias. Objective - Vital Signs Vital signs: Vital Signs Temp 97.8 F 08/04/24 12:00 Pulse 71 08/04/24 14:00 Resp 14 08/04/24 14:00 BP 117/62 08/04/24 13:15 Pulse Ox 100 08/04/24 14:00 FiO2 40 08/02/24 21:50 Intake & Output 08/03/24 08/04/24 08/04/24 18:59 06:59 18:59 Intake Total 1637.162 691.138 213.434 Output Total 910 1070 385 Balance 727.162 -378.862 -171.566 Weight 85.1 kg 88.3 kg Intake: IV 367 39 135 0.9 50 ACETAMINOPHEN IV (For NPO 100 ) 1,000 mg In Empty Bag 1 bag @ 400 mls/hr IVPB Q6HR JOSSELYN Rx#:[id number] CO/CI 80 Sodium Chloride 0.9% 1, 120 000 ml @ 30 mls/hr IV . Q24H JOSSELYN Rx#:[id number] ceFAZolin 2 gm In Sodium 50 Chloride 0.9% 50 ml @ 100 mls/hr IVPB Q8HR JOSSELYN Rx# :[id number] pressure bag 87 39 15 Intake, IV Titration 430.162 402.138 78.434 Amount Insulin Regular 100 unit 23.887 19.653 In Sodium Chloride 0.9% 100 ml @ Per Protocol IV .Q0M JOSSELYN Rx#:[id number] Norepinephrine 4 mg In 106.275 22.485 48.434 Sodium Chloride 0.9% 250 ml @ 0.03 MCG/KG/MIN 9. 304 mls/hr IV .Q24H JOSSELYN Rx#:[id number] Sodium Chloride 0.9% 1, 300 360 30 000 ml @ 30 mls/hr IV . Q24H JOSSELYN Rx#:[id number] Oral 840 250 Output: Chest Tube Drainage 110 Left Pleural Chest Tube 50 Mediastinal Chest Tube 40 Right Pleural Chest Tube 20 Drainage 450 320 Mediastinal 110 60 Right Wrist VANGIE drain 10 left pleural 260 130 right pleural 70 130 Urine 460 750 275 Other: Voiding Method Indwelling Catheter Indwelling Catheter Indwelling Catheter # Bowel Movements 0 ABP, PAP, CO, CI - Last Documented Arterial Blood Pressure 90/31 Pulmonary Artery Pressure 40/15 Cardiac Output 6.2 Cardiac Index 3.1 - Labs CBC & Chem 7: 08/04/24 04:00 08/04/24 04:00 Labs: Abnormal Lab Results - Last 24 Hours (Table) 08/03/24 08/03/24 08/03/24 Range/Units 15:30 16:54 18:39 RBC (4.30-5.90) m/uL Hgb (13.0-17.5) gm/dL Hct (39.0-53.0) % Plt Count (150-450) k/uL Lymphocytes # (1.0-4.8) k/uL Sodium (137-145) mmol/L BUN (9-20) mg/dL Creatinine (0.66-1.25) mg/dL Glucose (74-99) mg/dL POC Glucose (mg/dL) 144 H 121 H 158 H (70-110) mg/dL Calcium (8.4-10.2) mg/dL Ionized Calcium Lexi (4.5-5.3) mg/dL Total Protein (6.3-8.2) g/dL Albumin (3.5-5.0) g/dL 08/03/24 08/03/24 08/03/24 Range/Units 20:19 21:15 22:05 RBC (4.30-5.90) m/uL Hgb (13.0-17.5) gm/dL Hct (39.0-53.0) % Plt Count (150-450) k/uL Lymphocytes # (1.0-4.8) k/uL Sodium (137-145) mmol/L BUN (9-20) mg/dL Creatinine (0.66-1.25) mg/dL Glucose (74-99) mg/dL POC Glucose (mg/dL) 166 H 156 H 149 H (70-110) mg/dL Calcium (8.4-10.2) mg/dL Ionized Calcium Lexi (4.5-5.3) mg/dL Total Protein (6.3-8.2) g/dL Albumin (3.5-5.0) g/dL 08/03/24 08/04/24 08/04/24 Range/Units 23:01 00:04 01:05 RBC (4.30-5.90) m/uL Hgb (13.0-17.5) gm/dL Hct (39.0-53.0) % Plt Count (150-450) k/uL Lymphocytes # (1.0-4.8) k/uL Sodium (137-145) mmol/L BUN (9-20) mg/dL Creatinine (0.66-1.25) mg/dL Glucose (74-99) mg/dL POC Glucose (mg/dL) 159 H 151 H 147 H (70-110) mg/dL Calcium (8.4-10.2) mg/dL Ionized Calcium Lexi (4.5-5.3) mg/dL Total Protein (6.3-8.2) g/dL Albumin (3.5-5.0) g/dL 08/04/24 08/04/24 08/04/24 Range/Units 01:59 03:09 03:58 RBC (4.30-5.90) m/uL Hgb (13.0-17.5) gm/dL Hct (39.0-53.0) % Plt Count (150-450) k/uL Lymphocytes # (1.0-4.8) k/uL Sodium (137-145) mmol/L BUN (9-20) mg/dL Creatinine (0.66-1.25) mg/dL Glucose (74-99) mg/dL POC Glucose (mg/dL) 140 H 141 H 143 H (70-110) mg/dL Calcium (8.4-10.2) mg/dL Ionized Calcium Lexi (4.5-5.3) mg/dL Total Protein (6.3-8.2) g/dL Albumin (3.5-5.0) g/dL 08/04/24 08/04/24 08/04/24 Range/Units 04:00 04:00 05:47 RBC 2.22 L (4.30-5.90) m/uL Hgb 7.3 L (13.0-17.5) gm/dL Hct 21.9 L (39.0-53.0) % Plt Count 121 L (150-450) k/uL Lymphocytes # 0.6 L (1.0-4.8) k/uL Sodium 133 L (137-145) mmol/L BUN 27 H (9-20) mg/dL Creatinine 0.65 L (0.66-1.25) mg/dL Glucose 119 H (74-99) mg/dL POC Glucose (mg/dL) 166 H (70-110) mg/dL Calcium 7.9 L (8.4-10.2) mg/dL Ionized Calcium Lexi 4.4 L (4.5-5.3) mg/dL Total Protein 4.4 L (6.3-8.2) g/dL Albumin 3.0 L (3.5-5.0) g/dL 08/04/24 08/04/24 08/04/24 Range/Units 06:52 08:15 09:22 RBC (4.30-5.90) m/uL Hgb (13.0-17.5) gm/dL Hct (39.0-53.0) % Plt Count (150-450) k/uL Lymphocytes # (1.0-4.8) k/uL Sodium (137-145) mmol/L BUN (9-20) mg/dL Creatinine (0.66-1.25) mg/dL Glucose (74-99) mg/dL POC Glucose (mg/dL) 137 H 118 H 116 H (70-110) mg/dL Calcium (8.4-10.2) mg/dL Ionized Calcium Lexi (4.5-5.3) mg/dL Total Protein (6.3-8.2) g/dL Albumin (3.5-5.0) g/dL 08/04/24 08/04/24 Range/Units 10:57 13:36 RBC (4.30-5.90) m/uL Hgb (13.0-17.5) gm/dL Hct (39.0-53.0) % Plt Count (150-450) k/uL Lymphocytes # (1.0-4.8) k/uL Sodium (137-145) mmol/L BUN (9-20) mg/dL Creatinine (0.66-1.25) mg/dL Glucose (74-99) mg/dL POC Glucose (mg/dL) 133 H 112 H (70-110) mg/dL Calcium (8.4-10.2) mg/dL Ionized Calcium Lexi (4.5-5.3) mg/dL Total Protein (6.3-8.2) g/dL Albumin (3.5-5.0) g/dL
[2024-08-04 16:29] LABS: Glucose,Whole Blood 124 mg/dL (70-110)
[2024-08-04] MEDS: INSULIN ASPART (NovoLOG) 100 UNIT/ML VIAL SQ SCH (18:06)
[2024-08-04 19:57] LABS: Glucose,Whole Blood 139 mg/dL (70-110)
[2024-08-05 05:35] LABS: Glucose,Whole Blood 108 mg/dL (70-110)
[2024-08-05 06:06] LABS: Basophils % (A) 0 %; Eosinophils # (A) 0.1 k/uL (0-0.7); Eosinophils % (A) 1 %; HCT 24.2 % (39.0-53.0); HGB 7.6 gm/dL (13.0-17.5); Hypochromasia Slight; Lymphocytes % (A) 11 %; MCH 32.2 pg (25.0-35.0); MCHC 31.5 g/dL (31.0-37.0); MCV 102.1 fL (80.0-100.0); Macrocytosis Slight; Mean Platelet Volume 7.3; Monocytes # (A) 0.6 k/uL (0-1.0); Monocytes % (A) 7 %; Neutrophils # (A) 6.8 k/uL (1.3-7.7); Neutrophils % (A) 78 %; Platelet Count 168 k/uL (150-450); RBC 2.37 m/uL (4.30-5.90); RDW 13.7 % (11.5-15.5); WBC 8.7 k/uL (3.8-10.6)
[2024-08-05 06:24] LABS: ALT 24 U/L (4-49); AST 49 U/L (17-59); African American GFR (CKD) >90 (>60 ml/min/1.73 sqM); Albumin 2.9 g/dL (3.5-5.0); Alkaline Phosphatase 58 U/L (38-126); Anion Gap 4 mmol/L; Blood Urea Nitrogen 26 mg/dL (9-20); Carbon Dioxide 26 mmol/L (22-30); Chloride 104 mmol/L (98-107); Glucose 99 mg/dL (74-99); Non-African American GFR(CKD) 87 (>60 ml/min/1.73 sqM); Potassium 4.1 mmol/L (3.5-5.1); Sodium 134 mmol/L (137-145); Total Bilirubin 0.8 mg/dL (0.2-1.3); Total Protein 4.6 g/dL (6.3-8.2)
[2024-08-05] MEDS: MIDODRINE 5 MG TAB PO SCH (07:14)
--- NOTE | 2024-08-05 08:03 | XR ---
EXAMINATION TYPE: XR chest 2V DATE OF EXAM: 08/05/2024 COMPARISON: 08/04/2024 HISTORY: Shortness of breath TECHNIQUE: Frontal and lateral views of the chest are obtained. FINDINGS: Scattered senescent parenchymal changes noted. Hyperinflation compatible with COPD. Postoperative cardiac changes. Scattered pleural-parenchymal densities. No pneumothorax seen. Heart size is stable. Mediastinal structures are stable and grossly unremarkable. No evidence for hilar prominence. Degenerative changes dorsal spine. IMPRESSION: 1. Postoperative cardiac changes. Scattered pleural-parenchymal densities. [facility], , 08/05/2024 8:01 AM
--- NOTE | 2024-08-05 08:15 | P.PN ---
Subjective Progress Note Date: 08/05/24 Principal diagnosis: Coronary artery disease with left main disease, unstable angina. History of multiple myeloma on immunotherapy, currently stable, hyperlipidemia, obstructive sleep apnea without home CPAP use, mild COPD with asbestosis, COVID infection in September 2023, previous tobacco dependence, left internal carotid stenosis 50 to 69%. POD #3 coronary artery bypass grafting x 3 vessels, left internal mammary artery to the left anterior descending artery, radial artery to the ramus artery, saphenous vein graft to the distal right coronary artery, endoscopic harvest of bilateral greater saphenous veins, endoscopic harvest of left radial artery, ligation of the left atrial appendage using a 35mm AtriClip, epiaortic ultrasound, intraoperative transesophageal echocardiogram, graft flow measurements using Plan B Ac[employer] system Postoperative acute blood loss anemia and thrombocytopenia, expected given extensive hemodilution and cardiopulmonary bypass pump Acute hypotension with shock with need for pressors, felt to be due to vasoplegia The patient was seen and examined today August 05, 2024 at his bedside in the intensive care unit. He is currently sitting up to the bedside chair, is awake, alert, oriented x 3 and is in no apparent acute distress. Denies any complaints of pain or shortness of breath at this time, reports his pain is well-controlled on the current pain medication regimen. He remains hemodynamically stable and has been off norepinephrine drip for 24 hours. Oxygen saturations are 94% on room air and he is achieving 1000 mL on his incentive spirometry with encouragement. Current blood pressure is 142/75. Bedside telemetry showing nor mal sinus rhythm heart rate 89 bpm. Atrial and ventricular epicardial pacemaker wires remain in place and connected to bedside pacemaker generator on a VVI mode of 60 bpm. He has been up ambulating in the intensive care unit hallway with standby assistance from nursing and therapy staff and tolerating well. Right IJ cordis remains in place with continuous CVP monitoring, current CVP pressure 5 mmHg. His chest tubes were removed yesterday without incident. Laboratory and chest x-ray results were reviewed. Objective - Vital Signs Vital signs: Vital Signs Temp 98.2 F 08/05/24 00:00 Pulse 80 08/05/24 07:00 Resp 23 08/05/24 07:00 BP 142/75 08/05/24 07:00 Pulse Ox 99 08/05/24 07:00 FiO2 40 08/02/24 21:50 Intake & Output 08/04/24 08/05/24 08/05/24 18:59 06:59 18:59 Intake Total 1538.434 649 Output Total 755 1100 Balance 783.434 -451 Weight 87.9 kg Intake: IV 360 299 Sodium Chloride 0.9% 1, 300 260 000 ml @ 20 mls/hr IV . Q24H [facility]OSSE[facility]N Rx#:[id number] pressure bag 60 39 Intake, IV Titration 78.434 Amount Norepinephrine 4 mg In 48.434 Sodium Chloride 0.9% 250 ml @ 0.03 MCG/KG/MIN 9. 304 mls/hr IV .Q24H JOSSELYN Rx#:[id number] Sodium Chloride 0.9% 1, 30 000 ml @ 20 mls/hr IV . Q24H JOSSELYN Rx#:[id number] Oral 1100 350 Output: Chest Tube Drainage 110 Left Pleural Chest Tube 50 Mediastinal Chest Tube 40 Right Pleural Chest Tube 20 Urine 645 800 Post Void Residual 300 Other: Voiding Method Indwelling Catheter Bedside Commode Urinal ABP, PAP, CO, CI - Last Documented Arterial Blood Pressure 113/37 Pulmonary Artery Pressure 40/15 Cardiac Output 6.2 Cardiac Index 3.1 - Exam CONSTITUTIONAL: Sitting up to the bedside chair in the intensive care unit, appears comfortable, cooperative, no apparent acute distress. HEENT: Neck is supple, no JVD, no lymphadenopathy. Right IJ Cordis in place and functioning. RESPIRATORY: Lungs sounds essentially clear throughout, diminished to his bilateral bases. Respirations are symmetrical and nonlabored. Currently on room air with oxygen saturations 94%. Able to achieve 1000 mL on his incentive spirometry. Strong cough. CARDIOVASCULAR: Regular rhythm and rate. S1 and S2 present, negative for S3, gallop or murmur. Sternum is stable. Palpable peripheral pulses bilaterally. No calf pain or tenderness noted. Heart hugger in place with patient demonstrating appropriate use. Knee-high ROSA hose and sequential compression devices in place to his bilateral lower extremities. GASTROINTESTINAL: Abdomen soft, nontender, nondistended. Active bowel sounds present 4 quadrants. Tolerating diet. Passing flatus. No guarding or rigidity. GENITOURINARY: Continues to void. Urine output 550 mL in the last 8 hours. INTEGUMENTARY: Skin is warm and dry with no evidence of clubbing or cyanosis. Midline sternal incision clean dry and well approximated, covered with dry intact dressing. Bilateral lower extremity EVH sites well approximated without redness or drainage. Left arm radial artery harvest sites clean, dry and approximated. No drainage or redness is present. NEUROLOGIC: Cranial nerves II through XII intact. No focal deficits. MUSKULOSKELETAL: Able to move all extremities, strength equal bilaterally, generalized weakness. PSYCHIATRIC: Alert and oriented to person place and time, appropriate affect, intact judgment and insight. INVASIVE LINES AND TUBES: Atrial and ventricular epicardial pacemaker wires present, connected to generator, VVI backup rate 60 bpm. Right internal jugular Cordis, CVP 6 mmHg. - Allied health notes Allied health notes reviewed: nursing - Labs CBC & Chem 7: 08/05/24 05:12 08/05/24 05:12 Labs: Abnormal Lab Results - Last 24 Hours (Table) 08/04/24 08/04/24 08/04/24 Range/Units 08:15 09:22 10:57 RBC (4.30-5.90) m/uL Hgb (13.0-17.5) gm/dL Hct (39.0-53.0) % MCV (80.0-100.0) fL Sodium (137-145) mmol/L BUN (9-20) mg/dL POC Glucose (mg/dL) 118 H 116 H 133 H (70-110) mg/dL Calcium (8.4-10.2) mg/dL Total Protein (6.3-8.2) g/dL Albumin (3.5-5.0) g/dL 08/04/24 08/04/24 08/04/24 Range/Units 13:36 16:27 19:55 RBC (4.30-5.90) m/uL Hgb (13.0-17.5) gm/dL Hct (39.0-53.0) % MCV (80.0-100.0) fL Sodium (137-145) mmol/L BUN (9-20) mg/dL POC Glucose (mg/dL) 112 H 124 H 139 H (70-110) mg/dL Calcium (8.4-10.2) mg/dL Total Protein (6.3-8.2) g/dL Albumin (3.5-5.0) g/dL 08/05/24 08/05/24 Range/Units 05:12 05:12 RBC 2.37 L (4.30-5.90) m/uL Hgb 7.6 L (13.0-17.5) gm/dL Hct 24.2 L (39.0-53.0) % MCV 102.1 H (80.0-100.0) fL Sodium 134 L (137-145) mmol/L BUN 26 H (9-20) mg/dL POC Glucose (mg/dL) (70-110) mg/dL Calcium 8.0 L (8.4-10.2) mg/dL Total Protein 4.6 L (6.3-8.2) g/dL Albumin 2.9 L (3.5-5.0) g/dL - Imaging and Cardiology Chest x-ray: report reviewed, image reviewed Assessment and Plan Assessment: Coronary artery disease with left main disease, unstable angina, status post three-vessel CABG Chest pain secondary to above Postoperative acute blood loss anemia and thrombocytopenia, expected given extensive hemodilution and cardiopulmonary bypass pump Acute hypotension with shock with need for pressors, felt to be due to vasoplegia History of multiple myeloma on immunotherapy currently stable Hyperlipidemia, previous intolerance to statins, cholesterol 184, LDL 106, TG 119 Obstructive sleep apnea without home CPAP use Mild COPD with asbestosis, preoperative FEV1 60% of predicted COVID infection in September 2023 Previous tobacco dependence Bilateral internal carotid stenosis 50 to 69% Hyperglycemia, diet controlled, Hgb A1c 6.1% Plan: Continue to maximize medical therapy with aspirin, statin, Plavix and beta dann. Start Metoprolol Tartrate 12.5 mg by mouth twice daily with hold parameters. Wean oxygen as tolerated. Encourage incentive spirometry use 10 times every hour while awake. Bronchodilators per pulmonology. Increase activity, ambulate as tolerated. PT/OT/cardiac rehab following. Will monitor daily labs and chest x-rays. Electrolyte replacement per protocol. GI/DVT prophylaxis. Pain control per current medication regimen. Insulin management per internal medicine. Continue to monitor strict accurate intake and output. Flomax 0.4 mg by mouth daily started for complaints of urine retention. Continue epicardial pacemaker wires to VVI mode with rate 60 bpm Remove right IJ cordis. Discharge planning is in place, anticipate discharge home within the next 24-48 hrs with home health care. Shower daily. Daily weights. More recommendations to follow based on patients clinical course. Time with Patient: Greater than 30
[2024-08-05] MEDS: LACTULOSE 20 GM/30 ML CUP PO SCH (09:07)
[2024-08-05] MEDS: METOPROLOL TARTRATE 12.5 MG TAB PO SCH (09:08)
[2024-08-05] MEDS: TAMSULOSIN 0.4 MG CAP.ER.24H PO SCH (09:08)
[2024-08-05] MEDS: FUROSEMIDE 10 MG/ML 2 ML VIAL IV STA (11:09)
[2024-08-05 11:15] LABS: Glucose,Whole Blood 137 mg/dL (70-110)
--- NOTE | 2024-08-05 12:13 | P.PN ---
Subjective Progress Note Date: 08/05/24 This is an 78-year-old white male with history of coronary artery disease, dyslipidemia, obstructive sleep apnea, mild COPD, normally sees Dr. Lipscomb, PFT from 02/04/2022 showed mild to moderate COPD FEV1 of 75% FEV1/FVC is 65%, patient had hyperinflation and low DLCO consistent with mild emphysema. Patient has been on bronchodilators as listed below, patient was brought in this time on 07/30/2024, came in with classic anginal symptoms seen by cardiology and felt that the patient had unstable angina/non-ST elevation myocardial infarction. Cardiac catheterization was performed and it showed 80% distal left main 80% distal RCA 60% proximal RCA and normal left-sided filling pressures. Hence cardiothoracic surgery was consulted, and the patient is scheduled to undergo myocardial revascularization next Friday. During his underlying pulmonary history, we were asked to see the patient in consultation, and I had a chance to review his PFT from the office, reviewed his FEV1 on this admission, chest x-ray showed some pleural parenchymal calcification most likely consistent with previous asbestos associated lung disease. I feel the patient is low operative risk, and I will clear the patient for surgery as scheduled. The findings on the chest x-ray are chronic, and they were present on a previous chest x-ray back in 2021 patient denies any cough denies any wheezing denies any shortness of breath, and no chest pain during my evaluation Seen today on 08/01/2024, patient is doing great, sitting at the bedside chair, on room air, not in any distress. Patient is afebrile, blood pressure is 134/72 O2 sats is 96%, he denies any cough wheezing or shortness of breath.Denies any chest pain. Myocardial revascularization is scheduled to be done tomorrow. The patient is seen today August 02, 2024 in follow-up in the intensive care unit. Just back from surgery. He had undergone a coronary artery bypass surgery utilizing a MARQUEZ to the LAD, left radial artery graft to the ramus, saphenous venous graft to the RCA, left atrial appendage ligation. He is currently intubated on the mechanical ventilator and assist-control mode at a rate of 16, tidal volume 500, FiO2 100% and a PEEP of 5. He has normal staying at 50 mL/h. Nitroglycerin drip at 5 mcg/min. Propofol at 20 mcg/kg/min. Norep inephrine at 0.02 mcg/kg/min. Primacor at 0.375 mcg/kg/min. Cardiac output 6.0. Cardiac index 3.0. PA pressure 41/23. CVP 15. [place]-Radha catheter in place. Right radial arterial line in place. Chest x-ray reveals good placement of the endotracheal tube, [place] Radha catheter and gastric tube. No significant pneumothorax. Right, left and mediastinal chest tubes in place. White count 7.3. Hemoglobin 9.8. Platelets 122. INR 1.3. Sodium 136. Potassium 4.1. Bicarb 24. BUN 15. Creatinine 0.59. Glucose 96. The patient is seen today August 03, 2024 in follow-up in the intensive care un it. Post operative day #1. He is currently awake and alert in no acute distress. Sitting up in a chair at the bedside. Maintaining good O2 saturations in the upper 90s on 2 L/min per nasal cannula. He has been afebrile. Cardiac output 5.2. Cardiac index 2.6. PA pressures 38/12. CVP 8. He is wearing norepinephrine at 1.7 mcg/min. He has normal saline at 30 mL/h. Insulin drip at 1.5 units/h. He is working well with the incentive spirometer. Left, right, mediastinal chest tubes remain in place. Chest x-ray remains stable. White count 6.7. Hemoglobin 7.7. Platelets 111. Sodium 138. Potassium 4.0. Bicarb 25. BUN 20. Creatinine 0.74. Glucose 124. Albumin 3.1. Receiving albumin today. Remains on bronchodilators. Heparin for DVT prophylaxis. The patient is seen today August 04, 2024 in follow-up on the intensive care unit. Postoperative day #2. He is currently sitting up in a chair. Awake and alert in no acute distress. Maintaining good O2 saturations in the 90s on 2 L/min per nasal cannula. He has normal saline at 30 mL/h. Insulin drip at 1 unit/h. He is working well with the incentive spirometer pulling approximately 500 to 750 mL. White count 7.6. Hemoglobin 7.3. Platelets 121. Sodium 133. Potassium 4.0. Bicarb 26. BUN 27. Creatinine 0.65. Glucose 113. He remains on bronchodilators. Heparin for DVT prophylaxis. X-ray reveals no evidence of pneumothorax. Basilar infiltrates persist with slight improved aeration. Chest tubes remain in place. The patient is seen today August 05, 2024 in follow-up in the intensive care unit. Postoperative day #3. He is currently sitting up in a chair. Awake and alert in no acute distress. Maintaining good O2 saturations in the 90s on room air. He is only pulling approximately 500 to 750 mL on the incentive spirometer. Scattered pleural-parenchymal densities. White count 8.7. Hemoglobin 7.6. Platelets 168. Sodium 134. Potassium 4.1. Bicarb 26. BUN 26. Creatinine 0.74. Glucose 99. AST 49. ALT 24. Albumin 2.9. He remains on bronchodilators. Heparin for DVT prophylaxis. Objective - Vital Signs Vital signs: Vital Signs Temp 98.1 F 08/05/24 08:00 Pulse 66 08/05/24 12:00 Resp 20 08/05/24 11:00 BP 134/70 08/05/24 11:00 Pulse Ox 94 L 08/05/24 11:00 FiO2 40 08/02/24 21:50 Intake & Output 08/04/24 08/05/24 08/05/24 18:59 06:59 18:59 Intake Total 1538.434 649 23 Output Total 755 1100 550 Balance 783.434 -451 -527 Weight 87.9 kg Intake: IV 360 299 23 Sodium Chloride 0.9% 1, 300 260 20 000 ml @ 20 mls/hr IV . Q24H JOSSELYN Rx#:[id number] pressure bag 60 39 3 Intake, IV Titration 78.434 Amount Norepinephrine 4 mg In 48.434 Sodium Chloride 0.9% 250 ml @ 0.03 MCG/KG/MIN 9. 304 mls/hr IV .Q24H JOSSELYN Rx#:[id number] Sodium Chloride 0.9% 1, 30 000 ml @ 20 mls/hr IV . Q24H JOSSELYN Rx#:[id number] Oral 1100 350 Output: Chest Tube Drainage 110 Left Pleural Chest Tube 50 Mediastinal Chest Tube 40 Right Pleural Chest Tube 20 Urine 645 800 550 Post Void Residual 300 Other: Voiding Method Indwelling Catheter Bedside Commode Bedside Commode Urinal Urinal ABP, PAP, CO, CI - Last Documented Arterial Blood Pressure 113/37 Pulmonary Artery Pressure 40/15 Cardiac Output 6.2 Cardiac Index 3.1 - Exam GENERAL EXAM: Awake, pleasant 78-year-old male, up in a chair, on room air, in no apparent distress. HEAD: Normocephalic. EYES: Normal reaction of pupils, equal size. NOSE: Clear with pink turbinates. THROAT: No erythema or exudates. NECK: No masses, no JVD. CHEST: Sternal dressing dry and intact. Heart hugger in place. Pacer wires in place. LUNGS: Equal air entry with no crackles, wheeze, rhonchi or dullness. CVS: S1 and S2 normal with no audible murmur, regular rhythm. ABDOMEN: No hepatosplenomegaly, hypoactive bowel sounds, no guarding or rigidity. SPINE: No scoliosis or deformity SKIN: No rashes CENTRAL NERVOUS SYSTEM: Sedated, tone is normal in all 4 extremities. EXTREMITIES: Bilateral lower extremity Lázaro wraps in place. Peripheral pulses are intact. - Labs CBC & Chem 7: 08/05/24 05:12 08/05/24 05:12 Labs: Abnormal Lab Results - Last 24 Hours (Table) 08/04/24 08/04/24 08/04/24 Range/Units 13:36 16:27 19:55 RBC (4.30-5.90) m/uL Hgb (13.0-17.5) gm/dL Hct (39.0-53.0) % MCV (80.0-100.0) fL Sodium (137-145) mmol/L BUN (9-20) mg/dL POC Glucose (mg/dL) 112 H 124 H 139 H (70-110) mg/dL Calcium (8.4-10.2) mg/dL Total Protein (6.3-8.2) g/dL Albumin (3.5-5.0) g/dL 08/05/24 08/05/24 08/05/24 Range/Units 05:12 05:12 11:14 RBC 2.37 L (4.30-5.90) m/uL Hgb 7.6 L (13.0-17.5) gm/dL Hct 24.2 L (39.0-53.0) % MCV 102.1 H (80.0-100.0) fL Sodium 134 L (137-145) mmol/L BUN 26 H (9-20) mg/dL POC Glucose (mg/dL) 137 H (70-110) mg/dL Calcium 8.0 L (8.4-10.2) mg/dL Total Protein 4.6 L (6.3-8.2) g/dL Albumin 2.9 L (3.5-5.0) g/dL Assessment and Plan Assessment: Acute coronary syndrome, patient presented with symptoms of unstable angina found to have multivessel coronary artery disease with left main stenosis of 80% based on cardiac catheterization. Status post coronary artery bypass grafting utilizing a MARQUEZ to the LAD, left radial artery to the ramus, saphenous vein graft to the RCA, ligation of left atrial appendage. Postoperative day #3 Routine postoperative mechanical ventilation management, expected outcome, recovered and on room air Mild to moderate COPD History of asbestos associated lung disease History of multiple myeloma presently in remission, on Revlimid and on Velcade History of obstructive sleep apnea Ex-smoker History of COVID-19 infection back in 2022 Dyslipidemia Benign essential hypertension History of chronic depression Plan: The patient was seen and evaluated Chest x-ray, labs and medications reviewed Continues to work with the incentive spirometer Continue the current treatment plan Increase his activity as tolerated We will continue to follow I have personally seen and examined the patient, performed the documentation and the assessment and plan as written. Number of minutes spent on the visit: 10.
--- NOTE | 2024-08-05 12:15 | P.PN ---
Subjective Progress Note Date: 08/05/24 Principal diagnosis: HPI: [Patient is s/p aortocoronary bypass surgery making decent progress he has multiple comorbid conditions including multiple myeloma hypertension hyperlipide kosta obstructive CAD without previous CPAP use. However he is doing much better today. His heart rate is better he is not using the backup pacemaker has been started on low-dose beta-dann without a problem. Would continue current medical therapy including beta-dann send continue incentive spirometry and pulmonary toilet. Patient is making good progress.]. PHYSICIAL EXAM: [Vitals are stable in sinus rhythm S1-S2 heard normally short systolic murmur lungs revealed fair air entry abdomen is soft lower extremities reveal diminished pulses Central nervous system grossly normal]. IMPRESSION: 1. [S/p aortocoronary bypass surgery]. 2. [History of multiple myeloma]. 3. [Benign hypertension]. 4. [Hypercholesterolemia]. 5. [Obstructive sleep apnea]. RECOMMENDATIONS: [Continue current supportive care including low-dose beta- dann.]. Objective - Vital Signs Vital signs: Vital Signs Temp 98.1 F 08/05/24 08:00 Pulse 66 08/05/24 12:00 Resp 20 08/05/24 11:00 BP 134/70 08/05/24 11:00 Pulse Ox 94 L 08/05/24 11:00 FiO2 40 08/02/24 21:50 Intake & Output 08/04/24 08/05/24 08/05/24 18:59 06:59 18:59 Intake Total 1538.434 649 23 Output Total 755 1100 550 Balance 783.434 -451 -527 Weight 87.9 kg Intake: IV 360 299 23 Sodium Chloride 0.9% 1, 300 260 20 000 ml @ 20 mls/hr IV . Q24H JOSSELYN Rx#:[id number] pressure bag 60 39 3 Intake, IV Titration 78.434 Amount Norepinephrine 4 mg In 48.434 Sodium Chloride 0.9% 250 ml @ 0.03 MCG/KG/MIN 9. 304 mls/hr IV .Q24H JOSSELYN Rx#:[id number] Sodium Chloride 0.9% 1, 30 000 ml @ 20 mls/hr IV . Q24H JOSSELYN Rx#:[id number] Oral 1100 350 Output: Chest Tube Drainage 110 Left Pleural Chest Tube 50 Mediastinal Chest Tube 40 Right Pleural Chest Tube 20 Urine 645 800 550 Post Void Residual 300 Other: Voiding Method Indwelling Catheter Bedside Commode Bedside Commode Urinal Urinal ABP, PAP, CO, CI - Last Documented Arterial Blood Pressure 113/37 Pulmonary Artery Pressure 40/15 Cardiac Output 6.2 Cardiac Index 3.1 - Labs CBC & Chem 7: 08/05/24 05:12 08/05/24 05:12 Labs: Abnormal Lab Results - Last 24 Hours (Table) 08/04/24 08/04/24 08/04/24 Range/Units 13:36 16:27 19:55 RBC (4.30-5.90) m/uL Hgb (13.0-17.5) gm/dL Hct (39.0-53.0) % MCV (80.0-100.0) fL Sodium (137-145) mmol/L BUN (9-20) mg/dL POC Glucose (mg/dL) 112 H 124 H 139 H (70-110) mg/dL Calcium (8.4-10.2) mg/dL Total Protein (6.3-8.2) g/dL Albumin (3.5-5.0) g/dL 08/05/24 08/05/24 08/05/24 Range/Units 05:12 05:12 11:14 RBC 2.37 L (4.30-5.90) m/uL Hgb 7.6 L (13.0-17.5) gm/dL Hct 24.2 L (39.0-53.0) % MCV 102.1 H (80.0-100.0) fL Sodium 134 L (137-145) mmol/L BUN 26 H (9-20) mg/dL POC Glucose (mg/dL) 137 H (70-110) mg/dL Calcium 8.0 L (8.4-10.2) mg/dL Total Protein 4.6 L (6.3-8.2) g/dL Albumin 2.9 L (3.5-5.0) g/dL
--- NOTE | 2024-08-05 13:14 | P.PN ---
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 Symptoms obviously were resting while he is in bed woke him up and become slightly bit severe. Symptoms did not improve with antiacid. Patient ended up coming to the emergency department at [facility] where was seen and evaluated His initial troponin was less than 0.012, rest of his lab including normal CBC and CMP with mildly elevated blood sugar, EKG analyzed all along still showing low voltage but two [address] elevation in inferior and lateral leads which when compared with the initial EKG on presentation to exclude the different which make this quite suspicious at this point. Review of patient's record looks like had similar presentation back in 2019 with Lexiscan done at the time in April 18, 2020 came back to be negative the patient has been seen cardiology all along, not quite sure if he had any further stress test since then. With the current presentation with high risk factor and slight change in EKG patient will be hospitalized will be seeing cardiology and echocardiogram will be order probably will keep patient n.p.o. for potential need testing. 07/31/2024: Patient ended up going for heart cath yesterday finding surprisingly with critical stenosis of the main and the RCA, patient ended up seeing cardiovascular surgeon and the plan is to do most likely triple bypass on Friday. The meanwhile patient vein map was done, was evaluated by pulmonary, also was giving the greenlight by his oncologist to be off his multiple myeloma medication for the next 2 months. He is not having any further symptoms today no chest pain tightness or shortness of breath. 08/01/2024: The patient is asymptomatic no further chest pain or angina but moreno ving further testing and prepare for open heart surgery showing left internal carotid only 50-69 percentile blockage. Lab value and vein map are all completed. Evaluating continue to maximize medical management he is using CPAP for obstructive sleep apnea, pulmonary testing with mild COPD and asbestos preop FEV1 was 60 percentile predicted A1c was 6.1 which still been watching monitor continue Accu-Chek sliding scales coverage eventually will be on SGLT2 product. Apparently from cardiothoracic will plan to do revascularization with left internal mammary artery to go up to cover the left main and to do left radial artery harvest along with migration of the left atrial appendage surgery is planning for tomorrow morning. Meanwhile patient vitals laboratory value and physical has been good 08/02/2024: He is going for surgery this morning going for most likely to bypass surgery or possible 3, vitals are stable patient seen pulmonary, cardiology no complaint of chest pain or angina and mapping are all set. Patient might be on mechanical ventilation overnight after surgery and he will be off his antimultiple myeloma medication for at least the next 6 to 8 weeks. 08/03/2024: Patient ended up having triple bypass surgery with MARQUEZ to the LAD, left radial artery to the ramus and saphenous vein graft to the RCA and ligation of left atrial appendage. Also patient had quite bit of bleed during surgery which affected his blood pressure quite bit patient coagulation most likely was a result of his multiple myeloma. This morning his hemoglobin is down to 7.7 platelet count on 111 chemistry with creatinine still holding strong at 0.74 GFR above 90. Blood sugar has been running in the low 100s. Remain in the ICU with 2 chest tube at this point. With the blood sugar being slightly elevated continue insulin for now as soon as patient is able to take oral medication we will switch him to SGLT2 product. 08/04/2024: He is recovering nicely so far still have his chest tube on his day 2 postsurgery his blood sugar is running in the low 100s we will start him on Farxiga or Tradjenta to improve his blood sugar without the insulin and try to wean him off insulin gradually. His mobility is slightly better inside his room with minimal help the patient is resting comfortably pain is well-controlled his shortness of breath and lab are much better. REVIEW OF SYSTEMS: CONSTITUTIONAL: Well-developed no acute respiratory distress. EYES: No icterus sclerae, no conjunctivitis. EARS, NOSE, MOUTH, THROAT, and FACE: No sore throat, lymphadenopathy, carotid bruits or deformity. RESPIRATORY: No SOB cough or wheezes. CARDIOVASCULAR: No CP, Palpitation, PND, Orthopnea, or angina. No arrhythmia at the time. GASTROINTESTINAL: No Abd pain, Nausea or vomiting, no Diarrhea or constipation, No GI Bleed, no distention or masses. GENITOURINARY: Negative for Hematuria or UTI, no kidney stones. INTEGUMENT/BREAST: Negative for any muscular injury with mild osteoarthritis.. HEMATOLOGIC/LYMPHATIC: Negative for bleed or purpura. MUSCULOSKELTAL: Generalized arthralgia and myalgia. NEURLOGICAL: No LOC, Sz or syncope, blurred vision dizziness or abnormality.. BEHAVIORAL/PSYCH: Negative. ENDOCRINE: Negative. PHYSICAL EXAMINATION: General Appearance: Alert, cooperative, no distress, appears stated age. Neck HEENT: Supple, no lymphadenopathy, no thyroid enlargement, no carotid bruits. Lungs: Clear to auscultation without crackles or wheezes no rhonchi, no deformity. Chest Wall: Decreased expansion with deep inspiration no tenderness and no deformity was found on exam, no costochondral pain or discomfort. Heart: Regular rate and rhythm, S1, S2 normal, no murmur, rub or gallop. Back: Symmetric, no curvature, ROM normal, no CVA tenderness. Abdomen: Soft, non-tender, bowel sounds active all four quadrants, no masses, no organomegaly. Extremities: Slight arthritis with no edema. Pulses: 2+ and symmetric. Skin: Skin color, texture, tugor normal, no rashes or lesions. Neurologic: Alert oriented x3 cranial nerves II through XII intact, no motor deficit, no abnormal balance or gait. ASSESSMENT AND PLAN: _Day 2 post triple vessel bypass surgery with MARQUEZ to the LAD, left radial artery to the ramus and saphenous vein graft to the RCA, all within expected postsurgery patient is doing well. Doing very well possibly removing chest tube out. _Post extubation off mechanical ventilation has been doing very well so far continue O2 the patient is hardly require any his pulse ox is above 92 percentile. _Multiple coronary artery disease with critical stenosis of the main and RCA, post triple vessel bypass with ligation of the left atrial appendage. _Anginal chest pain: With multiple coronary artery disease post open heart surgery has done very well. _History of multiple myeloma: Had slight bearing effect from surgery with coagulation being impacted causing patient to be quite bit bleeding been watch manage well at this point. _Hyperglycemia: Moving to the SGLT2 product with Tradjenta 5 mg a day and try to wean him off insulin completely. _Hyperlipidemia: On Zetia and WelChol could not tolerate atorvastatin previously. After surgery maximize medical management will call might be moved to one of the water-soluble and high intensity statin if not able to tolerate patient can benefit eventually from Repatha as a PCSK9 inhibitor. _Mild to moderate COPD: With FEV1 predicted 60 percentile, he is optimized on ventilator and postsurgery, continue updraft treatment as well. _Chronic peripheral neuropathy: Holding off medication today. _Elevated blood pressure: Maximize Coreg up to 3.125 mg twice a day if can tolerate higher dose up to 12.5 mg twice a day would be preferred. _BPH: No sign of urinary retention. _Chronic depression: The patient is off antidepression completely and has been doing well without medication. Discussion: Day 2 postsurgery hemodynamically stable, off the vent, and minimum O2, some of his chest tube will be out today, and try to wean him off insulin and to SGLT2 product. Objective - Vital Signs Vital signs: Vital Signs Temp 98.5 F 08/04/24 04:00 Pulse 80 08/04/24 04:00 Resp 17 08/04/24 04:00 BP 108/58 08/04/24 04:00 Pulse Ox 99 08/04/24 04:00 FiO2 40 08/02/24 21:50 Intake & Output 08/03/24 08/03/24 08/04/24 06:59 18:59 06:59 Intake Total 2411.597 1637.162 442.529 Output Total 1632 910 715 Balance 779.597 727.162 -272.471 Weight 85.1 kg 85.1 kg 88.3 kg Intake: IV 1814.50 367 33 0.9 650 50 ACETAMINOPHEN IV (For NPO 200 100 ) 1,000 mg In Empty Bag 1 bag @ 400 mls/hr IVPB Q6HR JOSSELYN Rx#:[id number] Albumin Human 5% 500 ml 500 In Empty Bag 1 bag @ 250 mls/hr IVPB ONCE ONE Rx#: [id number] CO/CI 240 80 Nitroglycerin-D5w Pmx 50 7.50 mg In Dextrose/Water 1 250ml.bag @ 5 MCG/MIN 1.5 mls/hr IV .Q24H JOSSELYN Rx#: [id number] ceFAZolin 2 gm In Sodium 100 50 Chloride 0.9% 50 ml @ 100 mls/hr IVPB Q8HR JOSSELYN Rx# :[id number] pressure bag 117 87 33 Intake, IV Titration 57.097 430.162 159.529 Amount Angiotensin II Acetate, 0.610 Human 0.5 mg In Sodium Chloride 0.9% 50 ml @ 10 NG/KG/MIN 4.884 mls/hr IV .[id number] JOSSELYN Rx#: [id number] Insulin Regular 100 unit 1.953 23.887 17.044 In Sodium Chloride 0.9% 100 ml @ Per Protocol IV .Q0M JOSSELYN Rx#:[id number] Nitroglycerin-D5w Pmx 50 24.175 mg In Dextrose/Water 1 250ml.bag @ 2.5 MCG/MIN 0 .75 mls/hr IV .Q24H JOSSELYN Rx#:[id number] Norepinephrine 4 mg In 27.809 106.275 22.485 Sodium Chloride 0.9% 250 ml @ 0.03 MCG/KG/MIN 9. 304 mls/hr IV .Q24H JOSSELYN Rx#:[id number] Sodium Chloride 0.9% 1, 300 120 000 ml @ 30 mls/hr IV . Q24H JOSSELYN Rx#:[id number] Vasopressin 20 unit In 2.55 Sodium Chloride 0.9% 50 ml @ 0.02 UNITS/MIN 3.06 mls/hr IV .[id number] JOSSELYN Rx #:[id number] Oral 540 840 250 Output: Drainage 897 450 100 Mediastinal 147 110 30 Right Wrist VANGIE drain 15 10 left pleural 458 260 30 right pleural 277 70 40 Urine 735 460 615 Other: Voiding Method Indwelling Catheter Indwelling Catheter Indwelling Catheter # Bowel Movements 0 ABP, PAP, CO, CI - Last Documented Arterial Blood Pressure 122/46 Pulmonary Artery Pressure 40/15 Cardiac Output 6.2 Cardiac Index 3.1 - Labs CBC & Chem 7: 08/05/24 05:12 08/05/24 05:12 Labs: Abnormal Lab Results - Last 24 Hours (Table) 08/03/24 08/03/24 08/03/24 Range/Units 07:04 08:23 09:56 RBC (4.30-5.90) m/uL Hgb (13.0-17.5) gm/dL Hct (39.0-53.0) % Plt Count (150-450) k/uL Lymphocytes # (1.0-4.8) k/uL Sodium (137-145) mmol/L BUN (9-20) mg/dL Creatinine (0.66-1.25) mg/dL Glucose (74-99) mg/dL POC Glucose (mg/dL) 135 H 175 H 144 H (70-110) mg/dL Calcium (8.4-10.2) mg/dL Ionized Calcium Lexi (4.5-5.3) mg/dL Total Protein (6.3-8.2) g/dL Albumin (3.5-5.0) g/dL 08/03/24 08/03/24 08/03/24 Range/Units 11:28 12:45 14:13 RBC (4.30-5.90) m/uL Hgb (13.0-17.5) gm/dL Hct (39.0-53.0) % Plt Count (150-450) k/uL Lymphocytes # (1.0-4.8) k/uL Sodium (137-145) mmol/L BUN (9-20) mg/dL Creatinine (0.66-1.25) mg/dL Glucose (74-99) mg/dL POC Glucose (mg/dL) 124 H 134 H 189 H (70-110) mg/dL Calcium (8.4-10.2) mg/dL Ionized Calcium Lexi (4.5-5.3) mg/dL Total Protein (6.3-8.2) g/dL Albumin (3.5-5.0) g/dL 08/03/24 08/03/24 08/03/24 Range/Units 15:30 16:54 18:39 RBC (4.30-5.90) m/uL Hgb (13.0-17.5) gm/dL Hct (39.0-53.0) % Plt Count (150-450) k/uL Lymphocytes # (1.0-4.8) k/uL Sodium (137-145) mmol/L BUN (9-20) mg/dL Creatinine (0.66-1.25) mg/dL Glucose (74-99) mg/dL POC Glucose (mg/dL) 144 H 121 H 158 H (70-110) mg/dL Calcium (8.4-10.2) mg/dL Ionized Calcium Lexi (4.5-5.3) mg/dL Total Protein (6.3-8.2) g/dL Albumin (3.5-5.0) g/dL 08/03/24 08/03/24 08/03/24 Range/Units 20:19 21:15 22:05 RBC (4.30-5.90) m/uL Hgb (13.0-17.5) gm/dL Hct (39.0-53.0) % Plt Count (150-450) k/uL Lymphocytes # (1.0-4.8) k/uL Sodium (137-145) mmol/L BUN (9-20) mg/dL Creatinine (0.66-1.25) mg/dL Glucose (74-99) mg/dL POC Glucose (mg/dL) 166 H 156 H 149 H (70-110) mg/dL Calcium (8.4-10.2) mg/dL Ionized Calcium Lexi (4.5-5.3) mg/dL Total Protein (6.3-8.2) g/dL Albumin (3.5-5.0) g/dL 08/03/24 08/04/24 08/04/24 Range/Units 23:01 00:04 01:05 RBC (4.30-5.90) m/uL Hgb (13.0-17.5) gm/dL Hct (39.0-53.0) % Plt Count (150-450) k/uL Lymphocytes # (1.0-4.8) k/uL Sodium (137-145) mmol/L BUN (9-20) mg/dL Creatinine (0.66-1.25) mg/dL Glucose (74-99) mg/dL POC Glucose (mg/dL) 159 H 151 H 147 H (70-110) mg/dL Calcium (8.4-10.2) mg/dL Ionized Calcium Lexi (4.5-5.3) mg/dL Total Protein (6.3-8.2) g/dL Albumin (3.5-5.0) g/dL 08/04/24 08/04/24 08/04/24 Range/Units 01:59 03:09 03:58 RBC (4.30-5.90) m/uL Hgb (13.0-17.5) gm/dL Hct (39.0-53.0) % Plt Count (150-450) k/uL Lymphocytes # (1.0-4.8) k/uL Sodium (137-145) mmol/L BUN (9-20) mg/dL Creatinine (0.66-1.25) mg/dL Glucose (74-99) mg/dL POC Glucose (mg/dL) 140 H 141 H 143 H (70-110) mg/dL Calcium (8.4-10.2) mg/dL Ionized Calcium Lexi (4.5-5.3) mg/dL Total Protein (6.3-8.2) g/dL Albumin (3.5-5.0) g/dL 08/04/24 08/04/24 08/04/24 Range/Units 04:00 04:00 05:47 RBC 2.22 L (4.30-5.90) m/uL Hgb 7.3 L (13.0-17.5) gm/dL Hct 21.9 L (39.0-53.0) % Plt Count 121 L (150-450) k/uL Lymphocytes # 0.6 L (1.0-4.8) k/uL Sodium 133 L (137-145) mmol/L BUN 27 H (9-20) mg/dL Creatinine 0.65 L (0.66-1.25) mg/dL Glucose 119 H (74-99) mg/dL POC Glucose (mg/dL) 166 H (70-110) mg/dL Calcium 7.9 L (8.4-10.2) mg/dL Ionized Calcium Lexi 4.4 L (4.5-5.3) mg/dL Total Protein 4.4 L (6.3-8.2) g/dL Albumin 3.0 L (3.5-5.0) g/dL
--- NOTE | 2024-08-05 13:18 | P.PN ---
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 Symptoms obviously were resting while he is in bed woke him up and become slightly bit severe. Symptoms did not improve with antiacid. Patient ended up coming to the emergency department at [facility] where was seen and evaluated His initial troponin was less than 0.012, rest of his lab including normal CBC and CMP with mildly elevated blood sugar, EKG analyzed all along still showing low voltage but two [address] elevation in inferior and lateral leads which when compared with the initial EKG on presentation to exclude the different which make this quite suspicious at this point. Review of patient's record looks like had similar presentation back in 2019 with Lexiscan done at the time in April 18, 2020 came back to be negative the patient has been seen cardiology all along, not quite sure if he had any further stress test since then. With the current presentation with high risk factor and slight change in EKG patient will be hospitalized will be seeing cardiology and echocardiogram will be order probably will keep patient n.p.o. for potential need testing. 07/31/2024: Patient ended up going for heart cath yesterday finding surprisingly with critical stenosis of the main and the RCA, patient ended up seeing cardiovascular surgeon and the plan is to do most likely triple bypass on Friday. The meanwhile patient vein map was done, was evaluated by pulmonary, also was giving the greenlight by his oncologist to be off his multiple myeloma medication for the next 2 months. He is not having any further symptoms today no chest pain tightness or shortness of breath. 08/01/2024: The patient is asymptomatic no further chest pain or angina but moreno ving further testing and prepare for open heart surgery showing left internal carotid only 50-69 percentile blockage. Lab value and vein map are all completed. Evaluating continue to maximize medical management he is using CPAP for obstructive sleep apnea, pulmonary testing with mild COPD and asbestos preop FEV1 was 60 percentile predicted A1c was 6.1 which still been watching monitor continue Accu-Chek sliding scales coverage eventually will be on SGLT2 product. Apparently from cardiothoracic will plan to do revascularization with left internal mammary artery to go up to cover the left main and to do left radial artery harvest along with migration of the left atrial appendage surgery is planning for tomorrow morning. Meanwhile patient vitals laboratory value and physical has been good 08/02/2024: He is going for surgery this morning going for most likely to bypass surgery or possible 3, vitals are stable patient seen pulmonary, cardiology no complaint of chest pain or angina and mapping are all set. Patient might be on mechanical ventilation overnight after surgery and he will be off his antimultiple myeloma medication for at least the next 6 to 8 weeks. 08/03/2024: Patient ended up having triple bypass surgery with MARQUEZ to the LAD, left radial artery to the ramus and saphenous vein graft to the RCA and ligation of left atrial appendage. Also patient had quite bit of bleed during surgery which affected his blood pressure quite bit patient coagulation most likely was a result of his multiple myeloma. This morning his hemoglobin is down to 7.7 platelet count on 111 chemistry with creatinine still holding strong at 0.74 GFR above 90. Blood sugar has been running in the low 100s. Remain in the ICU with 2 chest tube at this point. With the blood sugar being slightly elevated continue insulin for now as soon as patient is able to take oral medication we will switch him to SGLT2 product. 08/04/2024: He is recovering nicely so far still have his chest tube on his day 2 postsurgery his blood sugar is running in the low 100s we will start him on Farxiga or Tradjenta to improve his blood sugar without the insulin and try to wean him off insulin gradually. His mobility is slightly better inside his room with minimal help the patient is resting comfortably pain is well-controlled his shortness of breath and lab are much better. 08/05/2024: All chest tubes out today, his blood sugar still running in the low 100 with Tradjenta still require a smaller dose of insulin to keep blood sugar well-controlled. The patient might be transferable out of the ICU between today and tomorrow, his hemoglobin still little bit low does not require any transfusion today. Blood pressure and vital signs are very controlled. Reviewed his lab from this morning hemoglobin 7.6 kidney function remained well with blood sugar running in the low 100s all along. REVIEW OF SYSTEMS: CONSTITUTIONAL: Well-developed no acute respiratory distress. EYES: No icterus sclerae, no conjunctivitis. EARS, NOSE, MOUTH, THROAT, and FACE: No sore throat, lymphadenopathy, carotid bruits or deformity. RESPIRATORY: No SOB cough or wheezes. CARDIOVASCULAR: No CP, Palpitation, PND, Orthopnea, or angina. No arrhythmia at the time. GASTROINTESTINAL: No Abd pain, Nausea or vomiting, no Diarrhea or constipation, No GI Bleed, no distention or masses. GENITOURINARY: Negative for Hematuria or UTI, no kidney stones. INTEGUMENT/BREAST: Negative for any muscular injury with mild osteoarthritis.. HEMATOLOGIC/LYMPHATIC: Negative for bleed or purpura. MUSCULOSKELTAL: Generalized arthralgia and myalgia. NEURLOGICAL: No LOC, Sz or syncope, blurred vision dizziness or abnormality.. BEHAVIORAL/PSYCH: Negative. ENDOCRINE: Negative. PHYSICAL EXAMINATION: General Appearance: Alert, cooperative, no distress, appears stated age. Neck HEENT: Supple, no lymphadenopathy, no thyroid enlargement, no carotid bruits. Lungs: Clear to auscultation without crackles or wheezes no rhonchi, no deformity. Chest Wall: Decreased expansion with deep inspiration no tenderness and no deformity was found on exam, no costochondral pain or discomfort. Heart: Regular rate and rhythm, S1, S2 normal, no murmur, rub or gallop. Back: Symmetric, no curvature, ROM normal, no CVA tenderness. Abdomen: Soft, non-tender, bowel sounds active all four quadrants, no masses, no organomegaly. Extremities: Slight arthritis with no edema. Pulses: 2+ and symmetric. Skin: Skin color, texture, tugor normal, no rashes or lesions. Neurologic: Alert oriented x3 cranial nerves II through XII intact, no motor deficit, no abnormal balance or gait. ASSESSMENT AND PLAN: _Day 3 post triple vessel bypass surgery with MARQUEZ to the LAD, left radial artery to the ramus and saphenous vein graft to the RCA, all within expected postsurgery patient is doing well. Doing very well possibly removing chest tube out. _Type 2 diabetes: Started Tradjenta blood sugar running down in the 100 level still on Accu-Chek with sliding scales coverage hardly require any insulin at this point. _Mild arrhythmia: With no A-fib, patient remain on amiodarone at this point. _Elevated blood pressure: Is back into metoprolol 12.5 mg twice a day if able to tolerate smaller dose of ARB with losartan will be good. _Multiple coronary artery disease with critical stenosis of the main and RCA, post triple vessel bypass with ligation of the left atrial appendage. _Anginal chest pain: With multiple coronary artery disease post open heart surgery has done very well. _History of multiple myeloma: Had slight bearing effect from surgery with coagulation being impacted causing patient to be quite bit bleeding been watch manage well at this point. _Hyperlipidemia: On Zetia and WelChol could not tolerate atorvastatin previously. After surgery maximize medical management will call might be moved to one of the water-soluble and high intensity statin if not able to tolerate patient can benefit eventually from Repatha as a PCSK9 inhibitor. _Mild to moderate COPD: With FEV1 predicted 60 percentile, he is optimized on ventilator and postsurgery, continue updraft treatment as well. _Chronic peripheral neuropathy: Back on his gabapentin able to tolerated well. _BPH: No sign of urinary retention. _Chronic depression: The patient is off antidepression completely and has been doing well without medication. Discussion: Day 3 postsurgery, patient is doing very well all chest tubes are out patient is ambulating with help doing well. Objective - Vital Signs Vital signs: Vital Signs Temp 98.2 F 08/05/24 00:00 Pulse 80 08/05/24 07:00 Resp 23 08/05/24 07:00 BP 142/75 08/05/24 07:00 Pulse Ox 99 08/05/24 07:00 FiO2 40 08/02/24 21:50 Intake & Output 08/04/24 08/05/24 08/05/24 18:59 06:59 18:59 Intake Total 1538.434 649 Output Total 755 1100 Balance 783.434 -451 Weight 87.9 kg Intake: IV 360 299 Sodium Chloride 0.9% 1, 300 260 000 ml @ 20 mls/hr IV . Q24H [facility] Rx#:[id number] pressure bag 60 39 Intake, IV Titration 78.434 Amount Norepinephrine 4 mg In 48.434 Sodium Chloride 0.9% 250 ml @ 0.03 MCG/KG/MIN 9. 304 mls/hr IV .Q24H [facility] Rx#:[id number] Sodium Chloride 0.9% 1, 30 000 ml @ 20 mls/hr IV . Q24H [facility] Rx#:[id number] Oral 1100 350 Output: Chest Tube Drainage 110 Left Pleural Chest Tube 50 Mediastinal Chest Tube 40 Right Pleural Chest Tube 20 Urine 645 800 Post Void Residual 300 Other: Voiding Method Indwelling Catheter Bedside Commode Urinal ABP, PAP, CO, CI - Last Documented Arterial Blood Pressure 113/37 Pulmonary Artery Pressure 40/15 Cardiac Output 6.2 Cardiac Index 3.1 - Labs CBC & Chem 7: 08/05/24 05:12 08/05/24 05:12 Labs: Abnormal Lab Results - Last 24 Hours (Table) 08/04/24 08/04/24 08/04/24 Range/Units 08:15 09:22 10:57 RBC (4.30-5.90) m/uL Hgb (13.0-17.5) gm/dL Hct (39.0-53.0) % MCV (80.0-100.0) fL Sodium (137-145) mmol/L BUN (9-20) mg/dL POC Glucose (mg/dL) 118 H 116 H 133 H (70-110) mg/dL Calcium (8.4-10.2) mg/dL Total Protein (6.3-8.2) g/dL Albumin (3.5-5.0) g/dL 08/04/24 08/04/24 08/04/24 Range/Units 13:36 16:27 19:55 RBC (4.30-5.90) m/uL Hgb (13.0-17.5) gm/dL Hct (39.0-53.0) % MCV (80.0-100.0) fL Sodium (137-145) mmol/L BUN (9-20) mg/dL POC Glucose (mg/dL) 112 H 124 H 139 H (70-110) mg/dL Calcium (8.4-10.2) mg/dL Total Protein (6.3-8.2) g/dL Albumin (3.5-5.0) g/dL 08/05/24 08/05/24 Range/Units 05:12 05:12 RBC 2.37 L (4.30-5.90) m/uL Hgb 7.6 L (13.0-17.5) gm/dL Hct 24.2 L (39.0-53.0) % MCV 102.1 H (80.0-100.0) fL Sodium 134 L (137-145) mmol/L BUN 26 H (9-20) mg/dL POC Glucose (mg/dL) (70-110) mg/dL Calcium 8.0 L (8.4-10.2) mg/dL Total Protein 4.6 L (6.3-8.2) g/dL Albumin 2.9 L (3.5-5.0) g/dL
[2024-08-05 16:42] LABS: Glucose,Whole Blood 103 mg/dL (70-110)
[2024-08-05] MEDS: ALBUMIN HUMAN 25% 50 ML in EMPTY BAG 1 BAG IVPB ONE (17:29)
[2024-08-05] MEDS: MD COMMUNICATION TO PHARMACY 1 EACH MISC PO ONE (17:29)
[2024-08-05] MEDS: ALBUMIN HUMAN 5% 500 ML in EMPTY BAG 1 BAG IVPB ONE ×5 (17:29→17:30)
[2024-08-05] MEDS: CALCIUM CHLORIDE 100 MG/ML 10 ML SYRINGE IVP ONE (17:30)
[2024-08-05] MEDS: ELECTROLYTE-A SOLUTION 1,000 ML with POTASSIUM CHLORIDE 100 MEQ, MAGNESIUM SULFATE 16 M... IV ONE (17:31)
[2024-08-05] MEDS: CLEVIDIPINE BUTYRATE 25 MG in EMPTY BAG 1 BAG IV SCH (17:31)
[2024-08-05] MEDS: DILTIAZEM 125 MG in SODIUM CHLORIDE 0.9% 100 ML IV SCH (17:31)
[2024-08-05] MEDS: ELECTROLYTE-A SOLUTION 1,000 ML with POTASSIUM CHLORIDE 40 MEQ, MAGNESIUM SULFATE 16 ME... IV ONE (17:32)
[2024-08-05] MEDS: HEPARIN SODIUM 1,000 UN/ML (10ML VL) IV ONE (17:32)
[2024-08-05] MEDS: MAGNESIUM SULFATE 16.24 MEQ in EMPTY SYRINGE 1 SYR IV ONE (17:33)
[2024-08-05] MEDS: NITROGLYCERIN-D5W PMX 25 MG/250 ML BTL IV ONE (17:34)
[2024-08-05] MEDS: MANNITOL 25% 12.5 GM/50 ML VIAL IV ONE ×2 (17:34)
[2024-08-05] MEDS: PROTAMINE SULFATE 10 MG/ML 25 ML VIAL IV ONE (17:35)
[2024-08-05] MEDS: PHENYLEPHRINE 40 MG in SODIUM CHLORIDE 0.9% 250 ML IV ONE (17:35)
[2024-08-05] MEDS: PROTAMINE SULFATE 250 MG in EMPTY BAG 1 BAG IV ONE (17:35)
[2024-08-05] MEDS: PHENYLEPHRINE 10 MG/ML VIAL IV ONE (17:35)
[2024-08-05] MEDS: NITROGLYCERIN-D5W PMX 50 MG in DEXTROSE/WATER 1 250ML.BAG IV SCH (17:35)
[2024-08-05] MEDS: TRANEXAMIC ACID 2,000 MG in SODIUM CHLORIDE 0.9% 80 ML IV ONE (17:36)
[2024-08-05] MEDS: SODIUM CHLORIDE 0.9% 1,000 ML IV SCH (17:36)
[2024-08-05] MEDS: SODIUM BICARB 8.4% 50 ML SYR (1 MEQ/ML) IV ONE (17:36)
[2024-08-05 19:58] LABS: Glucose,Whole Blood 121 mg/dL (70-110)
[2024-08-06 06:08] LABS: Glucose,Whole Blood 101 mg/dL (70-110)
[2024-08-06 06:59] LABS: HCT 26.5 % (39.0-53.0); HGB 8.5 gm/dL (13.0-17.5); Hypochromasia Slight; MCH 32.4 pg (25.0-35.0); MCV 101.5 fL (80.0-100.0); Macrocytosis Slight; Mean Platelet Volume 7.3; Platelet Count 231 k/uL (150-450); RBC 2.61 m/uL (4.30-5.90); WBC 7.3 k/uL (3.8-10.6)
[2024-08-06 07:21] LABS: African American GFR (CKD) >90 (>60 ml/min/1.73 sqM); Anion Gap 4 mmol/L; Blood Urea Nitrogen 22 mg/dL (9-20); Calcium 8.3 mg/dL (8.4-10.2); Carbon Dioxide 27 mmol/L (22-30); Chloride 104 mmol/L (98-107); Glucose 98 mg/dL (74-99); Magnesium 2.1 mg/dL (1.6-2.3); Non-African American GFR(CKD) >90 (>60 ml/min/1.73 sqM); Potassium 4.4 mmol/L (3.5-5.1); Sodium 135 mmol/L (137-145)
--- NOTE | 2024-08-06 07:34 | P.PN ---
Subjective Progress Note Date: 08/06/24 Principal diagnosis: Coronary artery disease with left main disease, unstable angina. History of multiple myeloma on immunotherapy, currently stable, hyperlipidemia, obstructive sleep apnea without home CPAP use, mild COPD with asbestosis, COVID infection in September 2023, previous tobacco dependence, left internal carotid stenosis 50 to 69%. POD #4 coronary artery bypass grafting x 3 vessels, left internal mammary artery to the left anterior descending artery, radial artery to the ramus artery, saphenous vein graft to the distal right coronary artery, endoscopic harvest of bilateral greater saphenous veins, endoscopic harvest of left radial artery, ligation of the left atrial appendage using a 35mm AtriClip, epiaortic ultrasound, intraoperative transesophageal echocardiogram, graft flow measurements using [employer] system Postoperative acute blood loss anemia and thrombocytopenia, expected given extensive hemodilution and cardiopulmonary bypass pump Acute hypotension with shock with need for pressors, felt to be due to vasoplegia The patient was seen and examined in follow-up today August 06, 2024 at his bedside on the third floor cardiac stepdown unit. He is currently sitting up to the bedside chair, is awake, alert, oriented x 3 and is in no acute apparent distress. Denies any complaints of pain at this time, although is complaining of some shortness of breath with activity. He continues to use his incentive spirometry and is achieving 1000 mL with encouragement. Oxygen saturations are 93% on room air. Remote telemetry is showing normal sinus rhythm heart rate 77 bpm. He was started on metoprolol tartrate 12.5 mg p.o. twice daily with hold parameters yesterday. Atrial and ventricular epicardial pacemaker wires remain in place and are currently grounded. Bedside pacemaker generator is available at his bedside. No further complaints with urinating, was started on Flomax 0.4 mg p.o. PC breakfast yesterday. The patient has been tolerating ambulating in the hallway with standby assistance from nursing and therapy staff and tolerati ng well. Discharge planning is in place. Laboratory and chest x-ray results were reviewed. Objective - Vital Signs Vital signs: Vital Signs Temp 98.3 F 08/06/24 03:36 Pulse 73 08/06/24 03:36 Resp 18 08/06/24 03:36 BP 105/68 08/06/24 06:10 Pulse Ox 93 L 08/06/24 03:36 FiO2 40 08/02/24 21:50 Intake & Output 08/05/24 08/06/24 08/06/24 18:59 06:59 18:59 Intake Total 23 Output Total 1400 950 Balance -1377 -950 Weight 85.6 kg Intake: IV 23 Sodium Chloride 0.9% 1, 20 000 ml @ 20 mls/hr IV . Q24H [facility] Rx#:[id number] pressure bag 3 Output: Urine 1400 950 Other: Voiding Method Bedside Commode Toilet Urinal Urinal # Bowel Movements 1 0 ABP, PAP, CO, CI - Last Documented Arterial Blood Pressure 113/37 Pulmonary Artery Pressure 40/15 Cardiac Output 6.2 Cardiac Index 3.1 - Exam CONSTITUTIONAL: Sitting up to the bedside chair on the cardiac stepdown unit, appears comfortable, cooperative, no apparent acute distress. HEENT: Neck is supple, no JVD, no lymphadenopathy. RESPIRATORY: Lungs sounds essentially clear throughout, diminished to his bilateral bases. Respirations are symmetrical and nonlabored. Currently on room air with oxygen saturations 93%. Able to achieve 1000 mL on his incentive spirometry. Strong cough. CARDIOVASCULAR: Regular rhythm and rate. S1 and S2 present, negative for S3, gallop or murmur. Sternum is stable. Remote telemetry showing normal sinus rhythm heart rate 77 bpm. Palpable peripheral pulses bilaterally. No calf pain or tenderness noted. Heart hugger in place with patient demonstrating appropriate use. Knee-high ROSA hose and sequential compression devices in place to his bilateral lower extremities. GASTROINTESTINAL: Abdomen soft, nontender, nondistended. Active bowel sounds present 4 quadrants. Tolerating diet. Passing flatus. No guarding or rigidity. Bowel movement yesterday August 05, 2024. GENITOURINARY: Continues to void. Urine output 700 mL in the last 8 hours. INTEGUMENTARY: Skin is warm and dry with no evidence of clubbing or cyanosis. Midline sternal incision clean dry and well approximated, covered with dry intact dressing. Bilateral lower extremity EVH sites well approximated without redness or drainage. Left arm radial artery harvest sites clean, dry and approximated. No drainage or redness is present. NEUROLOGIC: Cranial nerves II through XII intact. No focal deficits. MUSKULOSKELETAL: Able to move all extremities, strength equal bilaterally, generalized weakness. PSYCHIATRIC: Alert and oriented to person place and time, appropriate affect, intact judgment and insight. INVASIVE LINES AND TUBES: Atrial and ventricular epicardial pacemaker wires present, wires are currently grounded. - Allied health notes Allied health notes reviewed: nursing - Labs CBC & Chem 7: 08/06/24 06:25 08/06/24 06:25 Labs: Abnormal Lab Results - Last 24 Hours (Table) 08/05/24 08/05/24 08/06/24 Range/Units 11:14 19:56 06:25 RBC 2.61 L (4.30-5.90) m/uL Hgb 8.5 L (13.0-17.5) gm/dL Hct 26.5 L (39.0-53.0) % MCV 101.5 H (80.0-100.0) fL POC Glucose (mg/dL) 137 H 121 H (70-110) mg/dL - Imaging and Cardiology Chest x-ray: report reviewed, image reviewed Assessment and Plan Assessment: Coronary artery disease with left main disease, unstable angina, status post three-vessel CABG Chest pain secondary to above Postoperative acute blood loss anemia and thrombocytopenia, expected given extensive hemodilution and cardiopulmonary bypass pump Acute hypotension with shock with need for pressors, felt to be due to vasoplegia History of multiple myeloma on immunotherapy currently stable Hyperlipidemia, previous intolerance to statins, cholesterol 184, LDL 106, TG 119 Obstructive sleep apnea without home CPAP use Mild COPD with asbestosis, preoperative FEV1 60% of predicted COVID infection in September 2023 Previous tobacco dependence History of BPH Bilateral internal carotid stenosis 50 to 69% Hyperglycemia, diet controlled, Hgb A1c 6.1% Plan: Continue to maximize medical therapy with aspirin, statin, Plavix and beta dann. Continue Metoprolol Tartrate 12.5 mg by mouth twice daily with hold parameters. Wean oxygen as tolerated. Encourage incentive spirometry use 10 times every hour while awake. Bronchodilators per pulmonology. Increase activity, ambulate as tolerated. PT/OT/cardiac rehab following. Will monitor daily labs and chest x-rays. Electrolyte replacement per protocol. GI/DVT prophylaxis. Pain control per current medication regimen. Insulin management per internal medicine. Continue to monitor strict accurate intake and output. Flomax 0.4 mg by mouth daily started for complaints of urine retention. We remove his atrial and ventricular epicardial pacemaker wires today. Once pacemaker wires are removed he will be on bedrest for 1 hour post pacemaker wire removal. Discharge planning is in place, anticipate discharge home within the next 24-48 hrs with home health care. Continue to shower daily. Continue Daily weights. Lasix 20 mg IV x 1 now. More recommendations to follow based on patients clinical course. Time with Patient: Greater than 30
--- NOTE | 2024-08-06 07:59 | XR ---
EXAMINATION TYPE: XR chest 1V portable DATE OF EXAM: 08/06/2024 HISTORY: Shortness of breath. COMPARISON: 08/05/2024 TECHNIQUE: Single view of the chest is submitted. FINDINGS: Demonstrated are scattered senescent parenchymal change. Patchy infiltrate right lower lobe. The heart is stable. Hilar and mediastinal structures are within normal limits. Degenerative changes are seen of the dorsal spine. IMPRESSION: 1. Patchy infiltrate right lower lobe. [facility], , 08/06/2024 7:57 AM
[2024-08-06] MEDS: FUROSEMIDE 10 MG/ML 2 ML VIAL IV STA (09:56)
--- NOTE | 2024-08-06 10:56 | P.PN ---
Subjective Progress Note Date: 08/06/24 Principal diagnosis: Status post CABG. This is an 78-year-old white male with history of coronary artery disease, dyslipidemia, obstructive sleep apnea, mild COPD, normally sees Dr. Lipscomb, PFT from 02/04/2022 showed mild to moderate COPD FEV1 of 75% FEV1/FVC is 65%, patient had hyperinflation and low DLCO consistent with mild emphysema. Patient has been on bronchodilators as listed below, patient was brought in this time on 07/30/2024, came in with classic anginal symptoms seen by cardiology and felt that the patient had unstable angina/non-ST elevation myocardial infarction. Cardiac catheterization was performed and it showed 80% distal left main 80% distal RCA 60% proximal RCA and normal left-sided filling pressures. Hence cardiothoracic surgery was consulted, and the patient is scheduled to undergo myocardial revascularization next Friday. During his underlying pulmonary history, we were asked to see the patient in consultation, and I had a chance to review his PFT from the office, reviewed his FEV1 on this admission, chest x-ray showed some pleural parenchymal calcification most likely consistent with previous asbestos associated lung disease. I feel the patient is low operative risk, and I will clear the patient for surgery as scheduled. The findings on the chest x-ray are chronic, and they were present on a previous chest x-ray back in 2021 patient denies any cough denies any wheezing denies any shortness of breath, and no chest pain during my evaluation Seen today on 08/01/2024, patient is doing great, sitting at the bedside chair, on room air, not in any distress. Patient is afebrile, blood pressure is 134/72 O2 sats is 96%, he denies any cough wheezing or shortness of breath.Denies any chest pain. Myocardial revascularization is scheduled to be done tomorrow. The patient is seen today August 02, 2024 in follow-up in the intensive care unit. Just back from surgery. He had undergone a coronary artery bypass surgery utilizing a MARQUEZ to the LAD, left radial artery graft to the ramus, saphenous venous graft to the RCA, left atrial appendage ligation. He is currently intubated on the mechanical ventilator and assist-control mode at a rate of 16, tidal volume 500, FiO2 100% and a PEEP of 5. He has normal staying at 50 mL/h. Nitroglycerin drip at 5 mcg/min. Propofol at 20 mcg/kg/min. Norepinephrine at 0.02 mcg/kg/min. Primacor at 0.375 mcg/kg/min. Cardiac output 6.0. Cardiac index 3.0. PA pressure 41/23. CVP 15. [place]-Radha catheter in place. Right radial arterial line in place. Chest x-ray reveals good placement of the endotracheal tube, [place] Radha catheter and gastric tube. No significant pneumothorax. Right, left and mediastinal chest tubes in place. White count 7.3. Hemoglobin 9.8. Platelets 122. INR 1.3. Sodium 136. Potassium 4.1. Bicarb 24. BUN 15. Creatinine 0.59. Glucose 96. The patient is seen today August 03, 2024 in follow-up in the intensive care unit. Post operative day #1. He is currently awake and alert in no acute distress. Sitting up in a chair at the bedside. Maintaining good O2 saturations in the upper 90s on 2 L/min per nasal cannula. He has been afebrile. Cardiac output 5.2. Cardiac index 2.6. PA pressures 38/12. CVP 8. He is wearing norepinephrine at 1.7 mcg/min. He has normal saline at 30 mL/h. Insulin drip at 1.5 units/h. He is working well with the incentive spirometer. Left, right, mediastinal chest tubes remain in place. Chest x-ray remains st able. White count 6.7. Hemoglobin 7.7. Platelets 111. Sodium 138. Potassium 4.0. Bicarb 25. BUN 20. Creatinine 0.74. Glucose 124. Albumin 3.1. Receiving albumin today. Remains on bronchodilators. Heparin for DVT prophylaxis. The patient is seen today August 04, 2024 in follow-up on the intensive care unit. Postoperative day #2. He is currently sitting up in a chair. Awake and alert in no acute distress. Maintaining good O2 saturations in the 90s on 2 L/min per nasal cannula. He has normal saline at 30 mL/h. Insulin drip at 1 unit/h. He is working well with the incentive spirometer pulling approximately 500 to 750 mL. White count 7.6. Hemoglobin 7.3. Platelets 121. Sodium 133. Potassium 4.0. Bicarb 26. BUN 27. Creatinine 0.65. Glucose 113. He remains on bronchodilators. Heparin for DVT prophylaxis. X-ray reveals no evidence of pneumothorax. Basilar infiltrates persist with slight improved aeration. Chest tubes remain in place. The patient is seen today August 05, 2024 in follow-up in the intensive care unit. Postoperative day #3. He is currently sitting up in a chair. Awake and alert in no acute distress. Maintaining good O2 saturations in the 90s on room air. He is only pulling approximately 500 to 750 mL on the incentive spirometer. Scattered pleural-parenchymal densities. White count 8.7. Hemoglobin 7.6. Platelets 168. Sodium 134. Potassium 4.1. Bicarb 26. BUN 26. Creatinine 0.74. Glucose 99. AST 49. ALT 24. Albumin 2.9. He remains on bronchodilators. Heparin for DVT prophylaxis. Progress note dated August 06, 2024. This is a 78-year-old male who was transferred out to the floor, from the ICU. The patient is postoperative day #4, status post bypass grafting. Currently he is resting comfortably. He is seen today room 351. He is on room air. He is not receiving any IV fluids. He is getting about 1500 cc on his incentive spirometer. Labs include a white count 7.3, hemoglobin 8.5, hematocrit 26.5, and a normal platelet count. Sodium 135, potassium 4.4, chlorides 104, CO2 27, BUN 22, creatinine 0.67. Chest x-ray shows some bibasilar right greater than left patchy infiltrate or atelectasis. Objective - Vital Signs Vital signs: Vital Signs Temp 98.4 F 08/06/24 10:29 Pulse 75 08/06/24 10:29 Resp 18 08/06/24 10:29 BP 101/63 08/06/24 10:29 Pulse Ox 96 08/06/24 10:29 FiO2 40 08/02/24 21:50 Intake & Output 08/05/24 08/06/24 08/06/24 18:59 06:59 18:59 Intake Total 23 250 Output Total 9730 365 2006 Balance -5586 -950 -750 Weight 85.6 kg Intake: IV 23 10 Invasive Line 3 10 Sodium Chloride 0.9% 1, 20 000 ml @ 20 mls/hr IV . Q24H [facility] Rx#:[id number] pressure bag 3 Oral 240 Output: Urine 6845 138 4058 Other: Voiding Method Bedside Commode Toilet Urinal Urinal # Bowel Movements 1 0 ABP, PAP, CO, CI - Last Documented Arterial Blood Pressure 113/37 Pulmonary Artery Pressure 40/15 Cardiac Output 6.2 Cardiac Index 3.1 - Exam No acute distress, oriented 3. HEENT examination is grossly unremarkable. Mucous membranes are moist. No oral lesions. Neck supple. Full range of motion. No adenopathy thyromegaly or neck vein distention. Cardiovascular examination reveals regular rhythm rate. S1-S2 normal. No S3 or S4. No discernible murmur noted. Lungs reveal mostly clear breath sounds. Minimal rhonchi. No wheezes. No c rackles. Breath sounds equal bilaterally. Abdomen soft bowel sounds are heard. No masses or tenderness. Extremities are intact. No cyanosis clubbing or edema. Skin is without rash or lesion. Neurologic examination is brief but nonfocal. - Labs CBC & Chem 7: 08/06/24 06:25 08/06/24 06:25 Labs: Abnormal Lab Results - Last 24 Hours (Table) 08/05/24 08/05/24 08/06/24 Range/Units 11:14 19:56 06:25 RBC 2.61 L (4.30-5.90) m/uL Hgb 8.5 L (13.0-17.5) gm/dL Hct 26.5 L (39.0-53.0) % MCV 101.5 H (80.0-100.0) fL Sodium (137-145) mmol/L BUN (9-20) mg/dL POC Glucose (mg/dL) 137 H 121 H (70-110) mg/dL Calcium (8.4-10.2) mg/dL 08/06/24 Range/Units 06:25 RBC (4.30-5.90) m/uL Hgb (13.0-17.5) gm/dL Hct (39.0-53.0) % MCV (80.0-100.0) fL Sodium 135 L (137-145) mmol/L BUN 22 H (9-20) mg/dL POC Glucose (mg/dL) (70-110) mg/dL Calcium 8.3 L (8.4-10.2) mg/dL Assessment and Plan Assessment: Acute coronary syndrome, patient presented with symptoms of unstable angina found to have multivessel coronary artery disease with left main stenosis of 80% based on cardiac catheterization. Status post coronary artery bypass grafting utilizing a MARQUEZ to the LAD, left radial artery to the ramus, saphenous vein graft to the RCA, ligation of left atrial appendage. Postoperative day #4. Routine postoperative mechanical ventilation management. Mild to moderate COPD. History of asbestos associated lung disease. History of multiple myeloma presently in remission. History of obstructive sleep apnea. Ex-smoker. History of COVID-19 infection back in 2022. Dyslipidemia. Benign essential hypertension. History of chronic depression. Plan: Plan dated August 06, 2024. The patient is seen today in room 351. He is on room air. He is not receiving any IV fluids. The patient is doing much better with his incentive spirometer, getting nearly 1500 cc. Labs, x-rays, and medications are reviewed. We will continue to follow and make recommendations along the way. Recommend deep breathing, coughing, clearing of secretions. No additional recommendations at this time. Prognosis is thought to be generally good. Time with Patient: Less than 30
[2024-08-06 11:30] LABS: Glucose,Whole Blood 99 mg/dL (70-110)
--- NOTE | 2024-08-06 11:30 | P.PN ---
Subjective Progress Note Date: 08/06/24 Principal diagnosis: HPI: [Patient is s/p aortocoronary bypass surgery making decent progress he has multiple comorbid conditions including multiple myeloma, hypertension, hyperlipi demia, obstructive CAD without previous CPAP use. Patient is seen today in follow-up on the cardiac stepdown unit. Heart rate is running in the 70s, blood pressure 105/68, pulse ox 93% on room air. Patient is reaching 1000 -1500 mL on incentive spirometry. He is maintained on Lopressor 12.5 mg twice daily. Repeat chest x-ray reveals patchy infiltrate right lower lobe. WBC 6.3, hemoglobin 8.5, BUN 22, creatinine 0.67, potassium 4.4. Patient had increased drainage this morning went up to the bathroom from the left chest tube site. Pacer wires are to be removed. PHYSICIAL EXAM: [Vitals are stable in sinus rhythm S1-S2 heard normally short systolic murmur lungs revealed fair air entry abdomen is soft lower extremities reveal diminished pulses Central nervous system grossly normal]. IMPRESSION: 1. [S/p aortocoronary bypass surgery]. 2. [History of multiple myeloma]. 3. [Benign hypertension]. 4. [Hypercholesterolemia]. 5. [Obstructive sleep apnea]. RECOMMENDATIONS: Continue patient on low-dose beta-dann, incentive spirometry and pulmonary toilet. Would recommend holding patient 1 more day. Nurse practitioner note has been reviewed, I agree with documented findings and plan of care. Patient was seen and examined. Objective - Vital Signs Vital signs: Vital Signs Temp 98.3 F 08/06/24 03:36 Pulse 73 08/06/24 03:36 Resp 18 08/06/24 03:36 BP 105/68 08/06/24 06:10 Pulse Ox 93 L 08/06/24 03:36 FiO2 40 08/02/24 21:50 Intake & Output 08/05/24 08/06/24 08/06/24 18:59 06:59 18:59 Intake Total 23 240 Output Total 1400 950 Balance -1377 -950 240 Weight 85.6 kg Intake: IV 23 Sodium Chloride 0.9% 1, 20 000 ml @ 20 mls/hr IV . Q24H [facility] Rx#:[id number] pressure bag 3 Oral 240 Output: Urine 1400 950 Other: Voiding Method Bedside Commode Toilet Urinal Urinal # Bowel Movements 1 0 ABP, PAP, CO, CI - Last Documented Arterial Blood Pressure 113/37 Pulmonary Artery Pressure 40/15 Cardiac Output 6.2 Cardiac Index 3.1 - Labs CBC & Chem 7: 08/06/24 06:25 08/06/24 06:25 Labs: Abnormal Lab Results - Last 24 Hours (Table) 08/05/24 08/05/24 08/06/24 Range/Units 11:14 19:56 06:25 RBC 2.61 L (4.30-5.90) m/uL Hgb 8.5 L (13.0-17.5) gm/dL Hct 26.5 L (39.0-53.0) % MCV 101.5 H (80.0-100.0) fL Sodium (137-145) mmol/L BUN (9-20) mg/dL POC Glucose (mg/dL) 137 H 121 H (70-110) mg/dL Calcium (8.4-10.2) mg/dL 08/06/24 Range/Units 06:25 RBC (4.30-5.90) m/uL Hgb (13.0-17.5) gm/dL Hct (39.0-53.0) % MCV (80.0-100.0) fL Sodium 135 L (137-145) mmol/L BUN 22 H (9-20) mg/dL POC Glucose (mg/dL) (70-110) mg/dL Calcium 8.3 L (8.4-10.2) mg/dL
[2024-08-06 16:28] LABS: Glucose,Whole Blood 121 mg/dL (70-110)
[2024-08-06 19:57] LABS: Glucose,Whole Blood 119 mg/dL (70-110)
--- NOTE | 2024-08-06 20:54 | P.PN ---
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 Symptoms obviously were resting while he is in bed woke him up and become slightly bit severe. Symptoms did not improve with antiacid. Patient ended up coming to the emergency department at [facility] where was seen and evaluated His initial troponin was less than 0.012, rest of his lab including normal CBC and CMP with mildly elevated blood sugar, EKG analyzed all along still showing low voltage but two [address] elevation in inferior and lateral leads which when compared with the initial EKG on presentation to exclude the different which make this quite suspicious at this point. Review of patient's record looks like had similar presentation back in 2019 with Lexiscan done at the time in April 18, 2020 came back to be negative the patient has been seen cardiology all along, not quite sure if he had any further stress test since then. With the current presentation with high risk factor and slight change in EKG patient will be hospitalized will be seeing cardiology and echocardiogram will be order probably will keep patient n.p.o. for potential need testing. 07/31/2024: Patient ended up going for heart cath yesterday finding surprisingly with critical stenosis of the main and the RCA, patient ended up seeing cardiovascular surgeon and the plan is to do most likely triple bypass on Friday. The meanwhile patient vein map was done, was evaluated by pulmonary, also was giving the greenlight by his oncologist to be off his multiple myeloma medication for the next 2 months. He is not having any further symptoms today no chest pain tightness or shortness of breath. 08/01/2024: The patient is asymptomatic no further chest pain or angina but moreno ving further testing and prepare for open heart surgery showing left internal carotid only 50-69 percentile blockage. Lab value and vein map are all completed. Evaluating continue to maximize medical management he is using CPAP for obstructive sleep apnea, pulmonary testing with mild COPD and asbestos preop FEV1 was 60 percentile predicted A1c was 6.1 which still been watching monitor continue Accu-Chek sliding scales coverage eventually will be on SGLT2 product. Apparently from cardiothoracic will plan to do revascularization with left internal mammary artery to go up to cover the left main and to do left radial artery harvest along with migration of the left atrial appendage surgery is planning for tomorrow morning. Meanwhile patient vitals laboratory value and physical has been good 08/02/2024: He is going for surgery this morning going for most likely to bypass surgery or possible 3, vitals are stable patient seen pulmonary, cardiology no complaint of chest pain or angina and mapping are all set. Patient might be on mechanical ventilation overnight after surgery and he will be off his antimultiple myeloma medication for at least the next 6 to 8 weeks. 08/03/2024: Patient ended up having triple bypass surgery with MARQUEZ to the LAD, left radial artery to the ramus and saphenous vein graft to the RCA and ligation of left atrial appendage. Also patient had quite bit of bleed during surgery which affected his blood pressure quite bit patient coagulation most likely was a result of his multiple myeloma. This morning his hemoglobin is down to 7.7 platelet count on 111 chemistry with creatinine still holding strong at 0.74 GFR above 90. Blood sugar has been running in the low 100s. Remain in the ICU with 2 chest tube at this point. With the blood sugar being slightly elevated continue insulin for now as soon as patient is able to take oral medication we will switch him to SGLT2 product. 08/04/2024: He is recovering nicely so far still have his chest tube on his day 2 postsurgery his blood sugar is running in the low 100s we will start him on Farxiga or Tradjenta to improve his blood sugar without the insulin and try to wean him off insulin gradually. His mobility is slightly better inside his room with minimal help the patient is resting comfortably pain is well-controlled his shortness of breath and lab are much better. 08/05/2024: All chest tubes out today, his blood sugar still running in the low 100 with Tradjenta still require a smaller dose of insulin to keep blood sugar well-controlled. The patient might be transferable out of the ICU between today and tomorrow, his hemoglobin still little bit low does not require any transfusion today. Blood pressure and vital signs are very controlled. Reviewed his lab from this morning hemoglobin 7.6 kidney function remained well with blood sugar running in the low 100s all along. 08/06/2024: Patient was transfer out of the ICU has been doing very well today his up and about his medication adjusted metoprolol down to 12.5 mg twice a day the parameter, his oxygen saturation in room air is 93 percentile pulse rate running in the 70s, he was having slight bit of problem with urinary retention in the been on Flomax 0.4 mg and has been doing much better with it. Also he is diabetic management was switched to Tradjenta and blood sugar has been running in the low 100 patient is tolerating it well with no problem. Hemoglobin is at 8.5 does not require any transfusion, GFR still running above 90 patient has done very well. No bleeding from any of the site, medication will well adjusted at this point and is doing well. REVIEW OF SYSTEMS: CONSTITUTIONAL: Well-developed no acute respiratory distress. EYES: No icterus sclerae, no conjunctivitis. EARS, NOSE, MOUTH, THROAT, and FACE: No sore throat, lymphadenopathy, carotid bruits or deformity. RESPIRATORY: No SOB cough or wheezes. CARDIOVASCULAR: No CP, Palpitation, PND, Orthopnea, or angina. No arrhythmia at the time. GASTROINTESTINAL: No Abd pain, Nausea or vomiting, no Diarrhea or constipation, No GI Bleed, no distention or masses. GENITOURINARY: Negative for Hematuria or UTI, no kidney stones. INTEGUMENT/BREAST: Negative for any muscular injury with mild osteoarthritis.. HEMATOLOGIC/LYMPHATIC: Negative for bleed or purpura. MUSCULOSKELTAL: Generalized arthralgia and myalgia. NEURLOGICAL: No LOC, Sz or syncope, blurred vision dizziness or abnormality.. BEHAVIORAL/PSYCH: Negative. ENDOCRINE: Negative. PHYSICAL EXAMINATION: General Appearance: Alert, cooperative, no distress, appears stated age. Neck HEENT: Supple, no lymphadenopathy, no thyroid enlargement, no carotid bruits. Lungs: Clear to auscultation without crackles or wheezes no rhonchi, no deformity. Chest Wall: Decreased expansion with deep inspiration no tenderness and no deformity was found on exam, no costochondral pain or discomfort. Heart: Regular rate and rhythm, S1, S2 normal, no murmur, rub or gallop. Back: Symmetric, no curvature, ROM normal, no CVA tenderness. Abdomen: Soft, non-tender, bowel sounds active all four quadrants, no masses, no organomegaly. Extremities: Slight arthritis with no edema. Pulses: 2+ and symmetric. Skin: Skin color, texture, tugor normal, no rashes or lesions. Neurologic: Alert oriented x3 cranial nerves II through XII intact, no motor deficit, no abnormal balance or gait. ASSESSMENT AND PLAN: _Day 4 post triple vessel bypass surgery with MARQUEZ to the LAD, left radial artery to the ramus and saphenous vein graft to the RCA, all within expected postsurgery patient is doing well. All chest tube and pacer wire are COMPLETELY doing better. _Type 2 diabetes: Started Tradjenta blood sugar running down in the 100 level still on Accu-Chek with sliding scales coverage hardly require any insulin at this point. Is hardly require any insulin at this point. _Mild arrhythmia: Still have no sign of A-fib but is still require amiodarone per cardiovascular protocol. _Anticoagulation: Remain on Plavix along with aspirin. _Elevated blood pressure: Is back into metoprolol 12.5 mg twice a day if able to tolerate smaller dose of ARB with losartan will be good. _Multiple coronary artery disease with critical stenosis of the main and RCA, post triple vessel bypass with ligation of the left atrial appendage. _Anginal chest pain: With multiple coronary artery disease post open heart surgery has done very well. _History of multiple myeloma: Had slight bearing effect from surgery with coagulation being impacted causing patient to be quite bit bleeding been watch manage well at this point. _Hyperlipidemia: Was switched to atorvastatin 40 mg a day and off Zetia eventu ally if he has any side effects from statin we will try to consider being on Repatha as a PCSK9 inhibitor. _Mild to moderate COPD: With FEV1 predicted 60 percentile, he is optimized on ventilator and postsurgery, continue updraft treatment as well. _Chronic peripheral neuropathy: Back on his gabapentin able to tolerated well. _BPH: Was started on Flomax no sign of urinary retention. _Chronic depression: The patient is off antidepression completely and has been doing well without medication. Discussion: Day 4 postsurgery, patient is doing very well all chest tube and wires are out patient is out of the ICU with the potential for discharge by tomorrow. Objective - Vital Signs Vital signs: Vital Signs Temp 98.2 F 08/06/24 16:39 Pulse 88 08/06/24 20:08 Resp 18 08/06/24 20:08 BP 110/53 08/06/24 16:39 Pulse Ox 96 08/06/24 16:39 FiO2 40 08/02/24 21:50 Intake & Output 08/06/24 08/06/24 08/07/24 06:59 18:59 06:59 Intake Total 378 Output Total 950 1500 Balance -950 -1122 Weight 85.6 kg Intake: IV 20 Invasive Line 3 20 Oral 358 Output: Urine 950 1500 Other: Voiding Method Toilet Toilet Urinal # Bowel Movements 0 1 ABP, PAP, CO, CI - Last Documented Arterial Blood Pressure 113/37 Pulmonary Artery Pressure 40/15 Cardiac Output 6.2 Cardiac Index 3.1 - Labs CBC & Chem 7: 08/06/24 06:25 08/06/24 06:25 Labs: Abnormal Lab Results - Last 24 Hours (Table) 08/06/24 08/06/24 08/06/24 Range/Units 06:25 06:25 16:27 RBC 2.61 L (4.30-5.90) m/uL Hgb 8.5 L (13.0-17.5) gm/dL Hct 26.5 L (39.0-53.0) % MCV 101.5 H (80.0-100.0) fL Sodium 135 L (137-145) mmol/L BUN 22 H (9-20) mg/dL POC Glucose (mg/dL) 121 H (70-110) mg/dL Calcium 8.3 L (8.4-10.2) mg/dL 08/06/24 Range/Units 19:55 RBC (4.30-5.90) m/uL Hgb (13.0-17.5) gm/dL Hct (39.0-53.0) % MCV (80.0-100.0) fL Sodium (137-145) mmol/L BUN (9-20) mg/dL POC Glucose (mg/dL) 119 H (70-110) mg/dL Calcium (8.4-10.2) mg/dL
[2024-08-07 06:30] LABS: Glucose,Whole Blood 96 mg/dL (70-110)
--- NOTE | 2024-08-07 06:41 | XR ---
EXAMINATION TYPE: XR chest 1V portable DATE OF EXAM: 08/07/2024 COMPARISON: 08/06/2024 HISTORY: Postop cardiac surgery TECHNIQUE: Single frontal view of the chest is obtained. FINDINGS: Partially consolidative infiltrate in the right base is stable. The mild left lower lobe a telectasis and small effusion is stable. The heart and pulmonary vasculature are within normal limits. The osseous structures are intact IMPRESSION: Bilateral acute cardiopulmonary disease unchanged compared to previous [facility], , 08/07/2024 6:38 AM
[2024-08-07 07:38] LABS: HCT 27.2 % (39.0-53.0); HGB 8.9 gm/dL (13.0-17.5); Hypochromasia Slight; MCHC 32.7 g/dL (31.0-37.0); MCV 100.9 fL (80.0-100.0); Macrocytosis Slight; Mean Platelet Volume 7.4; Platelet Count 291 k/uL (150-450); RDW 14.3 % (11.5-15.5); WBC 8.1 k/uL (3.8-10.6)
[2024-08-07 07:56] LABS: African American GFR (CKD) >90 (>60 ml/min/1.73 sqM); Anion Gap 5 mmol/L; Blood Urea Nitrogen 19 mg/dL (9-20); Calcium 8.5 mg/dL (8.4-10.2); Carbon Dioxide 28 mmol/L (22-30); Chloride 105 mmol/L (98-107); Glucose 100 mg/dL (74-99); Non-African American GFR(CKD) 87 (>60 ml/min/1.73 sqM); Potassium 4.3 mmol/L (3.5-5.1); Sodium 138 mmol/L (137-145)
[2024-08-07 09:24] VITALS: BP 146/72; PULSE 94; RESP 20; TEMP 97.6
--- NOTE | 2024-08-07 10:54 | P.PN ---
Subjective Progress Note Date: 08/07/24 Principal diagnosis: Status post CABG. This is an 78-year-old white male with history of coronary artery disease, dyslipidemia, obstructive sleep apnea, mild COPD, normally sees Dr. Lipscomb, PFT from 02/04/2022 showed mild to moderate COPD FEV1 of 75% FEV1/FVC is 65%, patient had hyperinflation and low DLCO consistent with mild emphysema. Patient has been on bronchodilators as listed below, patient was brought in this time on 07/30/2024, came in with classic anginal symptoms seen by cardiology and felt that the patient had unstable angina/non-ST elevation myocardial infarction. Cardiac catheterization was performed and it showed 80% distal left main 80% distal RCA 60% proximal RCA and normal left-sided filling pressures. Hence cardiothoracic surgery was consulted, and the patient is scheduled to undergo myocardial revascularization next Friday. During his underlying pulmonary history, we were asked to see the patient in consultation, and I had a chance to review his PFT from the office, reviewed his FEV1 on this admission, chest x-ray showed some pleural parenchymal calcification most likely consistent with previous asbestos associated lung disease. I feel the patient is low operative risk, and I will clear the patient for surgery as scheduled. The findings on the chest x-ray are chronic, and they were present on a previous chest x-ray back in 2021 patient denies any cough denies any wheezing denies any shortness of breath, and no chest pain during my evaluation Seen today on 08/01/2024, patient is doing great, sitting at the bedside chair, on room air, not in any distress. Patient is afebrile, blood pressure is 134/72 O2 sats is 96%, he denies any cough wheezing or shortness of breath.Denies any chest pain. Myocardial revascularization is scheduled to be done tomorrow. The patient is seen today August 02, 2024 in follow-up in the intensive care unit. Just back from surgery. He had undergone a coronary artery bypass surgery utilizing a MARQUEZ to the LAD, left radial artery graft to the ramus, saphenous venous graft to the RCA, left atrial appendage ligation. He is currently intubated on the mechanical ventilator and assist-control mode at a rate of 16, tidal volume 500, FiO2 100% and a PEEP of 5. He has normal staying at 50 mL/h. Nitroglycerin drip at 5 mcg/min. Propofol at 20 mcg/kg/min. Norepinephrine at 0.02 mcg/kg/min. Primacor at 0.375 mcg/kg/min. Cardiac output 6.0. Cardiac index 3.0. PA pressure 41/23. CVP 15. [place]-Radha catheter in place. Right radial arterial line in place. Chest x-ray reveals good placement of the endotracheal tube, [place] Radha catheter and gastric tube. No significant pneumothorax. Right, left and mediastinal chest tubes in place. White count 7.3. Hemoglobin 9.8. Platelets 122. INR 1.3. Sodium 136. Potassium 4.1. Bicarb 24. BUN 15. Creatinine 0.59. Glucose 96. The patient is seen today August 03, 2024 in follow-up in the intensive care unit. Post operative day #1. He is currently awake and alert in no acute distress. Sitting up in a chair at the bedside. Maintaining good O2 saturations in the upper 90s on 2 L/min per nasal cannula. He has been afebrile. Cardiac output 5.2. Cardiac index 2.6. PA pressures 38/12. CVP 8. He is wearing norepinephrine at 1.7 mcg/min. He has normal saline at 30 mL/h. Insulin drip at 1.5 units/h. He is working well with the incentive spirometer. Left, right, mediastinal chest tubes remain in place. Chest x-ray remains st able. White count 6.7. Hemoglobin 7.7. Platelets 111. Sodium 138. Potassium 4.0. Bicarb 25. BUN 20. Creatinine 0.74. Glucose 124. Albumin 3.1. Receiving albumin today. Remains on bronchodilators. Heparin for DVT prophylaxis. The patient is seen today August 04, 2024 in follow-up on the intensive care unit. Postoperative day #2. He is currently sitting up in a chair. Awake and alert in no acute distress. Maintaining good O2 saturations in the 90s on 2 L/min per nasal cannula. He has normal saline at 30 mL/h. Insulin drip at 1 unit/h. He is working well with the incentive spirometer pulling approximately 500 to 750 mL. White count 7.6. Hemoglobin 7.3. Platelets 121. Sodium 133. Potassium 4.0. Bicarb 26. BUN 27. Creatinine 0.65. Glucose 113. He remains on bronchodilators. Heparin for DVT prophylaxis. X-ray reveals no evidence of pneumothorax. Basilar infiltrates persist with slight improved aeration. Chest tubes remain in place. The patient is seen today August 05, 2024 in follow-up in the intensive care unit. Postoperative day #3. He is currently sitting up in a chair. Awake and alert in no acute distress. Maintaining good O2 saturations in the 90s on room air. He is only pulling approximately 500 to 750 mL on the incentive spirometer. Scattered pleural-parenchymal densities. White count 8.7. Hemoglobin 7.6. Platelets 168. Sodium 134. Potassium 4.1. Bicarb 26. BUN 26. Creatinine 0.74. Glucose 99. AST 49. ALT 24. Albumin 2.9. He remains on bronchodilators. Heparin for DVT prophylaxis. Progress note dated August 06, 2024. This is a 78-year-old male who was transferred out to the floor, from the ICU. The patient is postoperative day #4, status post bypass grafting. Currently he is resting comfortably. He is seen today room 351. He is on room air. He is not receiving any IV fluids. He is getting about 1500 cc on his incentive spirometer. Labs include a white count 7.3, hemoglobin 8.5, hematocrit 26.5, and a normal platelet count. Sodium 135, potassium 4.4, chlorides 104, CO2 27, BUN 22, creatinine 0.67. Chest x-ray shows some bibasilar right greater than left patchy infiltrate or atelectasis. Progress note dated August 07, 2024. 78-year-old male who is seen today room 351. He is on room air. No IV fluids. The patient is postoperative day #5, status post bypass surgery. The patient is hoping to be discharged. He is resting comfortably in a chair next to the hospital bed. His is in the room. He has no specific complaints today. White count 8.1, hemoglobin 8.9, hematocrit 27.2, platelet count normal. Sodium 138, potassium 4.3, chlorides 105, CO2 28, BUN 19, creatinine 0.75. Glucose is 100. Chest x-ray shows some minimal basilar atelectatic changes. Objective - Vital Signs Vital signs: Vital Signs Temp 97.6 F 08/07/24 09:22 Pulse 94 08/07/24 09:24 Resp 20 08/07/24 09:24 BP 146/72 08/07/24 09:22 Pulse Ox 96 08/07/24 09:22 FiO2 40 08/02/24 21:50 Intake & Output 08/06/24 08/07/24 08/07/24 18:59 06:59 18:59 Intake Total 378 20 190 Output Total 1500 1750 0 Balance -1122 -1730 190 Weight 82.3 kg Intake: IV 20 20 10 Invasive Line 3 20 20 10 Oral 358 180 Output: Urine 1500 1750 Stool 0 Other: Voiding Method Toilet Toilet Toilet # Voids 2 # Bowel Movements 1 ABP, PAP, CO, CI - Last Documented Arterial Blood Pressure 113/37 Pulmonary Artery Pressure 40/15 Cardiac Output 6.2 Cardiac Index 3.1 - Exam No acute distress, oriented 3. HEENT examination is grossly unremarkable. Mucous membranes are moist. No oral lesions. Neck supple. Full range of motion. No adenopathy thyromegaly or neck vein distention. Cardiovascular examination reveals regular rhythm rate. S1-S2 normal. No S3 or S4. No discernible murmur noted. Lungs reveal mostly clear breath sounds. Minimal rhonchi. No wheezes. No crackles. Breath sounds equal bilaterally. Abdomen soft bowel sounds are heard. No masses or tenderness. Extremities are intact. No cyanosis clubbing or edema. Skin is without rash or lesion. Neurologic examination is brief but nonfocal. - Labs CBC & Chem 7: 08/07/24 06:32 08/07/24 06:32 Labs: Abnormal Lab Results - Last 24 Hours (Table) 08/06/24 08/06/24 08/07/24 Range/Units 16:27 19:55 06:32 RBC 2.70 L (4.30-5.90) m/uL Hgb 8.9 L (13.0-17.5) gm/dL Hct 27.2 L (39.0-53.0) % MCV 100.9 H (80.0-100.0) fL Glucose (74-99) mg/dL POC Glucose (mg/dL) 121 H 119 H (70-110) mg/dL 08/07/24 Range/Units 06:32 RBC (4.30-5.90) m/uL Hgb (13.0-17.5) gm/dL Hct (39.0-53.0) % MCV (80.0-100.0) fL Glucose 100 H (74-99) mg/dL POC Glucose (mg/dL) (70-110) mg/dL Assessment and Plan Assessment: Acute coronary syndrome, patient presented with symptoms of unstable angina found to have multivessel coronary artery disease with left main stenosis of 80% based on cardiac catheterization. Status post coronary artery bypass grafting utilizing a MARQUEZ to the LAD, left radial artery to the ramus, saphenous vein graft to the RCA, ligation of left atrial appendage. Postoperative day #5. Routine postoperative mechanical ventilation management. Mild to moderate COPD. History of asbestos associated lung disease. History of multiple myeloma presently in remission. History of obstructive sleep apnea. Ex-smoker. History of COVID-19 infection back in 2022. Dyslipidemia. Benign essential hypertension. History of chronic depression. Plan: Plan dated August 06, 2024. The patient is seen today in room 351. He is on room air. He is not receiving any IV fluids. The patient is doing much better with his incentive spirometer, getting nearly 1500 cc. Labs, x-rays, and medications are reviewed. We will continue to follow and make recommendations along the way. Recommend deep b reathing, coughing, clearing of secretions. No additional recommendations at this time. Prognosis is thought to be generally good. Plan dated August 07, 2024. The patient appears to be doing well. The patient is seen today in room 351. He is on room air. No IV fluids. Labs, x-rays, and medications are reviewed. The patient is hoping to be discharged later today. No additional recommenda tions are made. He will see me in the office in a couple of weeks. Time with Patient: Less than 30
--- NOTE | 2024-08-07 11:06 | P.DS ---
Providers Date of admission: 08/02/24 13:42 Expected date of discharge: 08/07/24 Attending physician: Dorian Cornejo Consults: 07/30/24 07:04 Consult Physician Routine Consulting Provider: Eder Vogel Consult Reason/Comments: Chest pain Do you want consulting provider notified?: Yes, Notify in am 07/31/24 08:57 Consult Physician Routine Consulting Provider: Zcehariah Honeycutt Consult Reason/Comments: pulm clearance for open heart Do you want consulting provider notified?: Already Contacted 08/01/24 09:04 Consult to Anesthesia Routine Consulting Provider: Anesthesia,Services Consult Reason/Comments: Cardiac Surgery Pre-Op 08/01/24 09:16 Consult Physician Routine Consulting Provider: Dorian Cornejo Consult Reason/Comments: open heart Do you want consulting provider notified?: Already Contacted 08/02/24 14:35 Consult Physician Routine Consulting Provider: Brant Cherry Consult Reason/Comments: med mgmt Do you want consulting provider notified?: Already Contacted Primary care physician: Brant Cherry [facility] Course: FINAL DIAGNOSIS: Coronary artery disease with left main disease, unstable angina, status post three-vessel CABG Chest pain secondary to above Postoperative acute blood loss anemia and thrombocytopenia, expected given extensive hemodilution and cardiopulmonary bypass pump Acute hypotension with shock with need for pressors, felt to be due to va soplegia History of multiple myeloma on immunotherapy currently stable Hyperlipidemia, previous intolerance to statins, cholesterol 184, LDL 106, TG 119 Obstructive sleep apnea without home CPAP use Mild COPD with asbestosis, preoperative FEV1 60% of predicted COVID infection in September 2023 Previous tobacco dependence History of BPH Bilateral internal carotid stenosis 50 to 69% Hyperglycemia, diet controlled, Hgb A1c 6.1% History of depression PRINCIPAL PROCEDURE: 1. Coronary artery bypass grafting x 3 vessels, left internal mammary artery to the left anterior descending artery, radial artery to the ramus artery, saphenous vein graft to the distal right coronary artery 2. Endoscopic harvest of bilateral greater saphenous veins 3. Endoscopic harvest of left radial artery 4. Ligation of left atrial appendage using a 35 mm AtriClip 5. Epiaortic ultrasound 6. Intraoperative transesophageal echocardiogram Graft flow measurements using the [employer] system HISTORY OF PRESENT ILLNESS: This is an 78-year-old pleasant gentleman who follows outpatient with Dr. Cherry for primary care, Dr. Lipscomb for pulmonology, and Dr. Almeida for oncology. On July 30, 2024 during the middle the night he awoke with substernal chest pain which radiated to his left arm associated with shortness of breath, he denied nausea, vomiting, diaphoresis, lightheadedness, or any other symptomatology. He presented to [facility] emergency department and was initially treated with morphine and nitro with relief of his pain. EKG demonstrated slight ST elevation in the inferior leads. Lab work was unremarkable except BUN 30, AST 95. Troponins were negative x 2. The patient was subsequently admitted for evaluation and treatment with consultation placed to cardiology. He was recommended to undergo heart catheterization which was completed by Dr. Carrillo revealing a distal left main stenosis of 80%, ostial ramus stenosis 80%, and a distal RCA stenosis 70 to 80%. Due to this finding consult ation was placed to cardiothoracic surgery for surgical revascularization evaluation and treatment recommendations including myocardial revascularization surgery. The patient was seen and examined by Dr. Barrett To from cardiothoracic surgery, treatment options were discussed with the patient and his family members present at his bedside including myocardial vascularization surgery. Risks and benefits of surgery were discussed including the STS risk or and knowing and understanding the risks the patient wished to proceed with the surgical option. HOSPITAL COURSE: The patient was brought to the preoperative area 08/02/24, prepared in the usual fashion, and subsequently taken to the operating room where Dr. Dorian Cornejo performed a coronary artery bypass grafting surgery x 3 vessels, with left internal mammary artery to the left anterior descending artery, radial artery to the ramus artery, and a saphenous vein graft to the distal right coronary artery. Upon completion of surgery the patient was transferred to the cardiovascular intensive care unit where he was recovered and monitored hemodynamically. He was extubated, all lines, tubes, and drips were discontinued when appropriate, and transfer orders were placed for 3 S. cardiac stepdown unit for further monitoring and rehabilitation. His oxygen was titrated down, he continued to work with physical and occupational therapy, he was tolerating oral diet, his pain was controlled, and he was ready to be discharged to home with [facility] on postoperative day #5. He received written and verbal instruction regarding his medications, activity restrictions, signs and symptoms requiring physician notification, and follow-up appointments. Patient Condition at Discharge: Stable Plan - Discharge Summary New Discharge Prescriptions: New Aspirin 325 mg PO DAILY #30 tab Metoprolol Tartrate [Lopressor] 12.5 mg PO BID #60 tab Pantoprazole [Protonix] 40 mg PO AC-BRKFST #30 tab Acetaminophen Tab [Tylenol] 650 mg PO Q4HR PRN tab PRN Reason: Fever And/ Or Mild Pain (1-3) Dapagliflozin Propanediol [Farxiga] 5 mg PO DAILY #30 tab Tamsulosin [Flomax] 0.4 mg PO PC-BRKFST #30 cap Ferrous Sulfate [Iron (65 MG Elemental)] 325 mg PO BID-W/MEALS #14 tab Atorvastatin [Lipitor] 40 mg PO DAILY #30 tab Clopidogrel [Plavix] 75 mg PO DAILY #30 tab Midodrine [ProAmatine] 5 mg PO BID-W/MEALS #60 tab Ascorbic Acid [Vitamin C] 500 mg PO BID-W/MEALS #14 tab Continue Ezetimibe [Zetia] 10 mg PO HS Ketoconazole 2% Cream [Nizoral 2%] 1 applic TOPICAL DAILY Albuterol Sulfate [Albuterol Sulfate Hfa] 1 - 2 puff PO RT-QID PRN PRN Reason: Shortness Of Breath Gabapentin [Gabapentin ER] 300 mg PO BID Discontinued Acyclovir 400 mg PO BID Aspirin EC [Ecotrin Low Dose] 81 mg PO DAILY Aspirin EC [Ecotrin Low Dose] 324 mg PO ONCE Discharge Medication List Ezetimibe [Zetia] 10 mg PO HS 03/24/18 [History] Albuterol Sulfate [Albuterol Sulfate Hfa] 1 - 2 puff PO RT-QID PRN 07/30/24 [History] Gabapentin [Gabapentin ER] 300 mg PO BID 07/30/24 [History] Ketoconazole 2% Cream [Nizoral 2%] 1 applic TOPICAL DAILY 07/30/24 [History] Acetaminophen Tab [Tylenol] 650 mg PO Q4HR PRN tab 08/07/24 [Rx] Ascorbic Acid [Vitamin C] 500 mg PO BID-W/MEALS #14 tab 08/07/24 [Rx] Aspirin 325 mg PO DAILY #30 tab 08/07/24 [Rx] Atorvastatin [Lipitor] 40 mg PO DAILY #30 tab 08/07/24 [Rx] Clopidogrel [Plavix] 75 mg PO DAILY #30 tab 08/07/24 [Rx] Dapagliflozin Propanediol [Farxiga] 5 mg PO DAILY #30 tab 10/12/24 [Rx] Ferrous Sulfate [Iron (65 MG Elemental)] 325 mg PO BID-W/MEALS #14 tab 08/07/24 [Rx] Metoprolol Tartrate [Lopressor] 12.5 mg PO BID #60 tab 08/07/24 [Rx] Midodrine [ProAmatine] 5 mg PO BID-W/MEALS #60 tab 08/07/24 [Rx] Pantoprazole [Protonix] 40 mg PO AC-BRKFST #30 tab 08/07/24 [Rx] Tamsulosin [Flomax] 0.4 mg PO PC-BRKFST #30 cap 08/07/24 [Rx] Follow up Appointment(s)/Referral(s): Andre Carrillo MD [Medical Doctor] - 08/18/24 2:00 pm [facility] [NON-STAFF] - 4 Weeks (You will receive a phone call in approximately 4-6 weeks for evaluation for cardiac rehab) Brant Cherry MD [Primary Care Provider] - 1 Week (Office would like you to call to make a follow up appointment to see Dr Cherry.) Cliff Tucker NPC [Nurse Practitioner] - 08/12/24 11:15 am (You will be seen in the surgeon's office behind the hospital in [facility], [address] Office phone number is ) Buster Lipscomb DO [Doctor of Osteopathic Medicine] - 08/19/24 1:00 pm Dorian Cornejo MD [STAFF PHYSICIAN] - 08/27/24 9:45 am Mariajose Almeida MD [STAFF PHYSICIAN] - 1 Week [facility] [NON-[facility]] - 1-2 Days Ambulatory/Diagnostic Orders: Complete Blood Count w/diff [LAB.AMB] Time Frame: 08/10/24, Facility: [facility], Location: Laboratory [facility] Comprehensive Metabolic Panel [LAB.AMB] Time Frame: 08/10/24, Facility: [facility], Location: Laboratory [facility] Activity/Diet/Wound Care/Special Instructions: DISCHARGE INSTRUCTIONS: 1. No driving for 4 weeks, or until physician gives their ok. 2. The patient should sleep in their own bed, no medical bed needed. 3. Stairs are not an issue. If the bedroom is upstairs, it is advised that the patient go up at night and down in the morning for the first week. Go slowly, using handrail and take 1 step at a time. 4. ROSA hose are to be worn for 30 days post surgery or until physician discontinues. 5. Heart hugger is to be worn 100% of the time until physician discontinues.(except when showering) 6. No lifting, pushing, or pulling more than 10 pounds for 12 weeks. The physician will advise of any restriction changes. 7. The patient is expected to continue the prescribed walking program. 8. Continue pain control per as needed orders. 9. Continue with incentive spirometry and splinting/heart hugger until otherwise directed by the physician. 10. Must shower daily using liquid antibacterial soap 11. Routine sternal incision care. No powders, lotions, ointments on incisions. No dressings are necessary on incisions unless they are draining. Dermabond tape is to remain on sternal incision until surgeon follow-up. 12. Please call surgeon/REBAR FABRICATOR for temp greater than 101 F or purulent drainage from incisions. 13. You should weigh yourself daily, record and bring log with you to follow up appointments. 14. All prescriptions given by surgeon for 30 days. Refills need to be filled through yarn polishing machine operator/primary care physician. 15. A Red armband has been placed on the patient. It should be worn for 30 days post discharge from surgery and will be removed by the cardiac surgeons. If an ER visit is necessary, please make sure the number on the Red armband is called before going to ER. 16. You have been referred to and are expected to begin Cardiac Rehab in approximately 4-6 weeks. 17. Quitting smoking is the most important step you can take to improve your health. For additional information and assistance to quit smoking, please call the [place] tobacco quit line (2-601-IXOK-NOW/ ) or online: https://www.[place].gov/[facility]/hnao-si-[email or web address]/chronicdiseases/tobacco/how-to-qu it-tobacco HOME HEALTH SERVICES TO PROVIDE: RN SKILLED HOME CARE SERVICES FOR POST-OP SURGICAL PATIENTS WITH THE FOLLOWING: Coronary Artery Bypass Surgery (CABG), Mitral Valve Replacement/Repair ( MVR), Aortic Valve Replacement/Repair (AVR) RN TO CONTINUE EDUCATION FROM ``ROAD TO A HEALTH HEART PATIENT EDUCATION MANUAL (GIVEN TO PATIENT IN THE HOSPITAL) MEDICATION RECONCILIATION WITH EDUCATION NEEDED ON FIRST HOME VISIT EMPHASIZE IMPORTANCE OF WEARING BREAST SUPPORT/HEART HUGGER ENCOURAGE USE OF INCENTIVE SPIROMETER 10 X EVERY HOUR WHILE AWAKE ENCOURAGE UTILIZATION OF LOWER EXTREMITY COMPRESSION STOCKINGS/ROSA HOSE and ELEVATE LEGS ABOVE LEVEL OF HEART WHILE AT REST. ENCOURAGE AMBULATION 3-5x/day INCREASING TOLERATES, WHILE AVOIDING EXTREMES IN TEMPERATURE FREQUENCY: RN TO OPEN THE PATIENT WITHIN 24 HOURS OF DISCHARGE FROM THE HOSPITAL WITH TELEHEALTH INSTALLED AT [facility] – [place], [place], RN TO VISIT 2-3 X A WEEK FOR 4 WEEKS ESTABLISHED BY PATIENT NEEDS. LABORATORY: CBC, CMP TO BE DRAWN ON THE THIRD DAY HOME, (RAN STAT) FAX RESULTS TO [phone]. TELEHEALTH PARAMETERS: WEIGHT: NOTIFY MD OF WEIGHT GAIN OF 2 LBS IN 24 HOURS OR 5 LBS IN ONE WEEK HR: NOTIFY MD OF HR <55 BPM OR HR>100 BPM BP: NOTIFY MD IF BP <90/55 OR BP>140/100 O2 SAT: NOTIFY MD IF PO2<93% ON ROOM AIR SEND TELEHEALTH REPORT TO PAN TANK WORKER AND CARDIOVASCULAR SURGEON THE FIRST WEEK OF CARE AND THEN BI-WEEKLY. PLEASE ADDITIONALLY COMMUNICATE ANY ABNORMALS AND NEW FINDINGS TO THE SURGEONS OFFICE. Discharge Disposition: HOME WITH HOME HEALTH SERVICES
[2024-08-07] MEDS: FUROSEMIDE 10 MG/ML 4 ML VIAL IV STA (12:04)
[2024-08-07] MEDS: FUROSEMIDE 40 MG TAB PO STA (12:06)
--- NOTE | 2024-08-07 16:24 | P.PN ---
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 Symptoms obviously were resting while he is in bed woke him up and become slightly bit severe. Symptoms did not improve with antiacid. Patient ended up coming to the emergency department at [facility] where was seen and evaluated His initial troponin was less than 0.012, rest of his lab including normal CBC and CMP with mildly elevated blood sugar, EKG analyzed all along still showing low voltage but two [address] elevation in inferior and lateral leads which when compared with the initial EKG on presentation to exclude the different which make this quite suspicious at this point. Review of patient's record looks like had similar presentation back in 2019 with Lexiscan done at the time in April 18, 2020 came back to be negative the patient has been seen cardiology all along, not quite sure if he had any further stress test since then. With the current presentation with high risk factor and slight change in EKG patient will be hospitalized will be seeing cardiology and echocardiogram will be order probably will keep patient n.p.o. for potential need testing. 07/31/2024: Patient ended up going for heart cath yesterday finding surprisingly with critical stenosis of the main and the RCA, patient ended up seeing cardiovascular surgeon and the plan is to do most likely triple bypass on Friday. The meanwhile patient vein map was done, was evaluated by pulmonary, also was giving the greenlight by his oncologist to be off his multiple myeloma medication for the next 2 months. He is not having any further symptoms today no chest pain tightness or shortness of breath. 08/01/2024: The patient is asymptomatic no further chest pain or angina but moreno ving further testing and prepare for open heart surgery showing left internal carotid only 50-69 percentile blockage. Lab value and vein map are all completed. Evaluating continue to maximize medical management he is using CPAP for obstructive sleep apnea, pulmonary testing with mild COPD and asbestos preop FEV1 was 60 percentile predicted A1c was 6.1 which still been watching monitor continue Accu-Chek sliding scales coverage eventually will be on SGLT2 product. Apparently from cardiothoracic will plan to do revascularization with left internal mammary artery to go up to cover the left main and to do left radial artery harvest along with migration of the left atrial appendage surgery is planning for tomorrow morning. Meanwhile patient vitals laboratory value and physical has been good 08/02/2024: He is going for surgery this morning going for most likely to bypass surgery or possible 3, vitals are stable patient seen pulmonary, cardiology no complaint of chest pain or angina and mapping are all set. Patient might be on mechanical ventilation overnight after surgery and he will be off his antimultiple myeloma medication for at least the next 6 to 8 weeks. 08/03/2024: Patient ended up having triple bypass surgery with MARQUEZ to the LAD, left radial artery to the ramus and saphenous vein graft to the RCA and ligation of left atrial appendage. Also patient had quite bit of bleed during surgery which affected his blood pressure quite bit patient coagulation most likely was a result of his multiple myeloma. This morning his hemoglobin is down to 7.7 platelet count on 111 chemistry with creatinine still holding strong at 0.74 GFR above 90. Blood sugar has been running in the low 100s. Remain in the ICU with 2 chest tube at this point. With the blood sugar being slightly elevated continue insulin for now as soon as patient is able to take oral medication we will switch him to SGLT2 product. 08/04/2024: He is recovering nicely so far still have his chest tube on his day 2 postsurgery his blood sugar is running in the low 100s we will start him on Farxiga or Tradjenta to improve his blood sugar without the insulin and try to wean him off insulin gradually. His mobility is slightly better inside his room with minimal help the patient is resting comfortably pain is well-controlled his shortness of breath and lab are much better. 08/05/2024: All chest tubes out today, his blood sugar still running in the low 100 with Tradjenta still require a smaller dose of insulin to keep blood sugar well-controlled. The patient might be transferable out of the ICU between today and tomorrow, his hemoglobin still little bit low does not require any transfusion today. Blood pressure and vital signs are very controlled. Reviewed his lab from this morning hemoglobin 7.6 kidney function remained well with blood sugar running in the low 100s all along. 08/06/2024: Patient was transfer out of the ICU has been doing very well today his up and about his medication adjusted metoprolol down to 12.5 mg twice a day the parameter, his oxygen saturation in room air is 93 percentile pulse rate running in the 70s, he was having slight bit of problem with urinary retention in the been on Flomax 0.4 mg and has been doing much better with it. Also he is diabetic management was switched to Tradjenta and blood sugar has been running in the low 100 patient is tolerating it well with no problem. Hemoglobin is at 8.5 does not require any transfusion, GFR still running above 90 patient has done very well. No bleeding from any of the site, medication will well adjusted at this point and is doing well. 08/07/2024: Patient is feeling very well he is cleared to be discharged today all attachments are out, patient will be seen cardiology pulmonary as an outpatient in the next few days still be back in the office as well. Testing from today his hemoglobin is 8.9 kidney function test was normal blood sugars up to 100. He has done very well he is ambulating with no need for help, he is going to have home care will be referred to rehab. Incision both chest arm and extremities looks good. No shortness of breath require any oxygen at this point. No arrhythmia does not require to be on any antiarrhythmic medication. REVIEW OF SYSTEMS: CONSTITUTIONAL: Well-developed no acute respiratory distress. EYES: No icterus sclerae, no conjunctivitis. EARS, NOSE, MOUTH, THROAT, and FACE: No sore throat, lymphadenopathy, carotid bruits or deformity. RESPIRATORY: No SOB cough or wheezes. CARDIOVASCULAR: No CP, Palpitation, PND, Orthopnea, or angina. No arrhythmia at the time. GASTROINTESTINAL: No Abd pain, Nausea or vomiting, no Diarrhea or constipation, No GI Bleed, no distention or masses. GENITOURINARY: Negative for Hematuria or UTI, no kidney stones. INTEGUMENT/BREAST: Negative for any muscular injury with mild osteoarthritis.. HEMATOLOGIC/LYMPHATIC: Negative for bleed or purpura. MUSCULOSKELTAL: Generalized arthralgia and myalgia. NEURLOGICAL: No LOC, Sz or syncope, blurred vision dizziness or abnormality.. BEHAVIORAL/PSYCH: Negative. ENDOCRINE: Negative. PHYSICAL EXAMINATION: General Appearance: Alert, cooperative, no distress, appears stated age. Neck HEENT: Supple, no lymphadenopathy, no thyroid enlargement, no carotid bruits. Lungs: Clear to auscultation without crackles or wheezes no rhonchi, no deformity. Chest Wall: Decreased expansion with deep inspiration no tenderness and no deformity was found on exam, no costochondral pain or discomfort. Heart: Regular rate and rhythm, S1, S2 normal, no murmur, rub or gallop. Back: Symmetric, no curvature, ROM normal, no CVA tenderness. Abdomen: Soft, non-tender, bowel sounds active all four quadrants, no masses, no organomegaly. Extremities: Slight arthritis with no edema. Pulses: 2+ and symmetric. Skin: Skin color, texture, tugor normal, no rashes or lesions. Neurologic: Alert oriented x3 cranial nerves II through XII intact, no motor deficit, no abnormal balance or gait. ASSESSMENT AND PLAN: _Day 5 post triple vessel bypass surgery with MARQUEZ to the LAD, left radial artery to the ramus and saphenous vein graft to the RCA, all within expected postsurgery patient is doing well. All chest tube and pacer wire are COMPLETELY doing better. Patient ambulating and doing well. _Type 2 diabetes: Off all insulin still doing very well on Farxiga 5 mg daily will titrate dose higher if needed and follow as an outpatient. _arrhythmia: He is off amiodarone back on metoprolol 12.5 mg twice a day. _Anticoagulation: Remain on Plavix along with aspirin. _Elevated blood pressure: Is back into metoprolol 12.5 mg twice a day does not require any ARB or IVETTE yet. _Multiple coronary artery disease with critical stenosis of the main and RCA, post triple vessel bypass with ligation of the left atrial appendage. _Anginal chest pain: With multiple coronary artery disease post open heart surgery has done very well. _History of multiple myeloma: Had slight bearing effect from surgery with coagulation being impacted causing patient to be quite bit bleeding been watch manage well at this point. _Hyperlipidemia: Was switched to atorvastatin 40 mg a day and off Zetia eventually if he has any side effects from statin we will try to consider being on Repatha as a PCSK9 inhibitor. _Mild to moderate COPD: With FEV1 predicted 60 percentile, he is optimized on ventilator and postsurgery, continue updraft treatment as well. _Chronic peripheral neuropathy: Back on his gabapentin able to tolerated well. _BPH: Was started on Flomax no sign of urinary retention. _Chronic depression: The patient is off antidepression completely and has been doing well without medication. Discussion: Patient be discharged home today, will follow-up in the office in a week or so he has an appointment to see cardiology, pulmonary, cardiac rehab and home care. Titrate physical therapy gradually medication were well adjusted and reviewed with patient and cardiothoracic today. Objective - Vital Signs Vital signs: Vital Signs Temp 98.2 F 08/07/24 04:00 Pulse 84 08/07/24 08:03 Resp 18 08/07/24 04:00 BP 96/58 08/07/24 04:00 Pulse Ox 96 08/07/24 07:40 FiO2 40 08/02/24 21:50 Intake & Output 08/06/24 08/07/24 08/07/24 18:59 06:59 18:59 Intake Total 378 20 10 Output Total 1500 1750 Balance -1122 -1730 10 Weight 82.3 kg Intake: IV 20 20 10 Invasive Line 3 20 20 10 Oral 358 Output: Urine 1500 1750 Other: Voiding Method Toilet Toilet # Bowel Movements 1 ABP, PAP, CO, CI - Last Documented Arterial Blood Pressure 113/37 Pulmonary Artery Pressure 40/15 Cardiac Output 6.2 Cardiac Index 3.1 - Labs CBC & Chem 7: 08/07/24 06:32 08/07/24 06:32 Labs: Abnormal Lab Results - Last 24 Hours (Table) 08/06/24 08/06/24 08/07/24 Range/Units 16:27 19:55 06:32 RBC 2.70 L (4.30-5.90) m/uL Hgb 8.9 L (13.0-17.5) gm/dL Hct 27.2 L (39.0-53.0) % MCV 100.9 H (80.0-100.0) fL Glucose (74-99) mg/dL POC Glucose (mg/dL) 121 H 119 H (70-110) mg/dL 08/07/24 Range/Units 06:32 RBC (4.30-5.90) m/uL Hgb (13.0-17.5) gm/dL Hct (39.0-53.0) % MCV (80.0-100.0) fL Glucose 100 H (74-99) mg/dL POC Glucose (mg/dL) (70-110) mg/dL
--- NOTE | 2024-08-10 09:06 | CDI ---
Documentation Clarification Form Date: 08/10/2024 07:29:53 AM From: Jodi Harding RN, CCDS Phone: [phone] Admit Date: 08/02/2024 01:42:00 PM Patient Name: Tadeo Smalls Visit Number: [id number] Discharge Date: 08/07/2024 12:12:00 PM ATTENTION: The Clinical Documentation Specialists (CDI) and [facility] Coding Staff appreciate your assistance in clarifying documentation. Please respond to the clarification below the line at the bottom and electronically sign. The CDI & [facility] Coding staff will review the response and follow-up if needed. Please note: Queries are made part of the Legal Health Record. If you have any questions, please contact the author of this message via ITS. Doctor/Provider: Cliff Tucker Acute hypotension with shock with need for pressor, felt to be due to vasoplegia is documented in the progress notes starting on 08/04/24, and patient had coronary artery bypass grafting x 3 vessels. Additional clarification is requested regarding the relationship, if any, that exists between the diagnosis and the procedure. Patients Admitting Diagnosis: Coronary artery disease with left main disease, unstable angina Post-Operative Diagnosis: Same Procedure performed: Coronary artery bypass grafting x3 vessels (left internal mammary artery to left anterior descending artery, radial artery to ramus artery, saphenous vein graft to distal right coronary artery).harvest of bilateral greater saphenous vein, left radial artery -Endoscopic. Ligation of left atrial appendage History/Risk Factors: Multiple Myeloma, Hyperlipidemia, obstructive sleep apnea, COPD with asbestos exposure, CAD, Clinical Indicators: 78-year-old male present with substernal chest pain which radiated to his left arm, with shortness of breath. EKG demonstrated slight ST elevation in the inferior leads. Troponins were negative x 2. He had heart catheterization and went for a CAGB ON 08/02/24. 10/7 (18:15) VS 85/40 (Arterial BP) 73/40 10/7 Labs HGB 9.8 HCT 30.8 (16.6 on admission) He was diagnosed with: Postoperative acute blood loss anemia and thrombocytopenia, expected given thrombocytopenia, expected given extensive hemodilution and cardiopulmonary bypass-pump Treatment: ICU, Telemetry monitoring Mechanical vent management per pulmonary Vasopressin @3.06 mls/hr. (titrate) per orders Plavix 75 MG PO Daily Electrolyte replacement per protocol Monitor daily labs and x-rays What relationship, if any, exists between the diagnosis of acute hypotension with shock due to vasoplegia and the procedure? [x ] Acute hypotension with shock due to vasoplegia is a complication of surgical procedure [ ] Acute hypotension with shock due to vasoplegia is an expected outcome of the surgical procedure [ ] Acute hypotension with shock due to vasoplegiais related to patients co- morbid condition(s) of [insert co-morbid dxs] & not a complication of the procedure [ ] Acute hypotension with shock due to vasoplegia has been ruled out [ ] Other please specify ____ [ ] Unable to determine (Template Last Revised: December 2020) MTDD
== END 2024-08-07 12:12 | disposition home health service (06) | DRG 233 ==
LOC: EC 03:22 → 6NMEDSUR 07:06 → 3SCARD 11:47 → 2SICU 08-02 06:47 → OBSVTOIN 08-02 13:42 → 2SICU 08-02 14:16 → 3SCARD 08-05 17:00
PROVIDERS: ADMIT Surgery; ATTEND Surgery
PROC: 4A023N7 Measurement of Cardiac Sampling and Pressure, Left Heart, Percutaneous Approach (ICD-10-PCS; 2024-07-30)
PROC: B2111ZZ Fluoroscopy of Multiple Coronary Arteries using Low Osmolar Contrast (ICD-10-PCS; 2024-07-30)
PROC: 03BC4ZZ Excision of Left Radial Artery, Percutaneous Endoscopic Approach (ICD-10-PCS; 2024-08-02)
PROC: 06BQ4ZZ Excision of Left Saphenous Vein, Percutaneous Endoscopic Approach (ICD-10-PCS; 2024-08-02)
PROC: 06BP4ZZ Excision of Right Saphenous Vein, Percutaneous Endoscopic Approach (ICD-10-PCS; 2024-08-02)
PROC: 02L70CK Occlusion of Left Atrial Appendage with Extraluminal Device, Open Approach (ICD-10-PCS; 2024-08-02)
PROC: 5A1221Z Performance of Cardiac Output, Continuous (ICD-10-PCS; 2024-08-02)
PROC: B24BZZZ Ultrasonography of Heart with Aorta (ICD-10-PCS; 2024-08-02)
PROC: 4A0305C Measurement of Arterial Flow, Coronary, Open Approach (ICD-10-PCS; 2024-08-02)
PROC: 30233J1 Transfusion of Nonautologous Serum Albumin into Peripheral Vein, Percutaneous Approach (ICD-10-PCS; 2024-08-02)
PROC: 0210093 Bypass Coronary Artery, One Artery from Coronary Artery with Autologous Venous Tissue, Open Approach (ICD-10-PCS; principal; 2024-08-02 08:00)
PROC: 02100A3 Bypass Coronary Artery, One Artery from Coronary Artery with Autologous Arterial Tissue, Open Approach (ICD-10-PCS; 2024-08-02 08:00)
PROC: 02100Z9 Bypass Coronary Artery, One Artery from Left Internal Mammary, Open Approach (ICD-10-PCS; 2024-08-02 08:00)
DX: I21.3 ST elevation (STEMI) myocardial infarction of unspecified site (principal); T81.19XA Other postprocedural shock, initial encounter; C90.00 Multiple myeloma not having achieved remission; D62 Acute posthemorrhagic anemia; G63 Polyneuropathy in diseases classified elsewhere; J44.9 Chronic obstructive pulmonary disease, unspecified; J61 Pneumoconiosis due to asbestos and other mineral fibers; D69.59 Other secondary thrombocytopenia; F32.A Depression, unspecified; I65.23 Occlusion and stenosis of bilateral carotid arteries; I11.9 Hypertensive heart disease without heart failure; I25.10 Atherosclerotic heart disease of native coronary artery without angina pectoris; R73.9 Hyperglycemia, unspecified; N40.0 Benign prostatic hyperplasia without lower urinary tract symptoms; G47.33 Obstructive sleep apnea (adult) (pediatric); E78.00 Pure hypercholesterolemia, unspecified; T38.0X5A Adverse effect of glucocorticoids and synthetic analogues, initial encounter; Y83.2 Surgical operation with anastomosis, bypass or graft as the cause of abnormal reaction of the patient, or of later complication, without mention of misadventure at the time of the procedure; Z77.090 Contact with and (suspected) exposure to asbestos; Z82.49 Family history of ischemic heart disease and other diseases of the circulatory system; Z87.891 Personal history of nicotine dependence; Z79.82 Long term (current) use of aspirin; Z79.899 Other long term (current) drug therapy; Z95.5 Presence of coronary angioplasty implant and graft; Z86.16 Personal history of COVID-19
CPT/HCPCS: 36415; 71045; 71046; 71275; 80048; 80053; 80061; 80074; 82150; 82330; 82533; 82805; 83036; 83690; 83735; 83880; 84443; 84484; 85025; 85027; 85610; 85730; 86850; 86870; 86880; 86891; 86900; 86901; 86902; 86920; 87070; 93005; 93306; 93308; 93458; 93880; 93922; 93970; 94150; 94640; 94760; 96372; 96374; 96375; 99291

== ENCOUNTER → 2024-09-20 | Outpatient (CLI) | payer MEDICARE ==
[2024-09-20 14:24] LABS: African American GFR (CKD) 90 (>60 ml/min/1.73 sqM); Blood Urea Nitrogen 24 mg/dL (9-20); Non-African American GFR(CKD) 78 (>60 ml/min/1.73 sqM)
--- NOTE | 2024-09-20 15:18 | CT ---
EXAMINATION TYPE: CT angio neck DATE OF EXAM: 09/20/2024 COMPARISON: None CLINICAL INDICATION: Male, 78 years old with history of I65.23 OCCLUSION AND STENOSIS; PHH, Carotid s tenosis. TECHNIQUE: CTA scan of the head and neck is performed with IV Contrast, patient injected with 65 ml mL of Isovue 370, axial images are obtained, coronal and sagittal reformatted images are reviewed. 3D reconstructed images are created on an independent workstation and reviewed. CT DLP: 351.[address] CTDI: mGy Automated exposure control for dose reduction was used. NASCET criteria was used in interpretation of this exam? FINDINGS: FINDINGS: The brachiocephalic origins are widely patent and no significant stenosis. There is mild eccentric plaque within the right carotid bifurcation. There is a mild stenosis of the origin of the right internal carotid artery. There is no stenosis of the left common or internal zimmerman tid artery. The vertebral arteries are patent without significant stenosis. IMPRESSION:. Mild stenosis of the origin of the right internal carotid artery. No significant left ca rotid stenosis. NASCET criteria was used in interpretation of this exam? [facility], , 09/20/2024 3:16 PM
== END | disposition home or self-care (01) ==
LOC: RADCTMAIN 13:52
PROVIDERS: ATTEND Student in an Organized Health Care Education/Training Program
DX: I65.23 Occlusion and stenosis of bilateral carotid arteries (principal)
CPT/HCPCS: 82565; 84520; 70498; 36415; Q9967

== ENCOUNTER → 2025-01-20 | Outpatient (CLI) | payer MEDICARE ==
--- NOTE | 2025-01-21 12:04 | PE ---
EXAMINATION TYPE: PET CT fusion whole body DATE OF EXAM: 01/20/2025 CLINICAL INDICATION:Male, 79 years old with history of C90.00 MULTIPLE MYELOMA; TECHNIQUE: Following the intravenous administration of 13.2 mCi of F-18 FDG, whole body images are performed from the skull base to the Feet. Images are reviewed on the computer in the coronal, axial , and sagittal planes. Reconstructed rotating images are created on independent workstation and revi ewed on the computer. A non-contrast CT is performed in conjunction with the PET scan. Glucose leve l 82 mg/dL CT DLP: 825 mGycm, Automated exposure control for dose reduction was used. COMPARISON: CT 09/20/2024, PET/CT 02/08/2023, MRI: None FINDINGS: Mediastinal SUV mean is 2.3. Hepatic parenchyma SUV mean is 2.44. SKULL BASE AND NECK: No suspicious radiotracer activity. CHEST, MEDIASTINUM, AND HILAR REGION: No suspicious radiotracer activity. ABDOMEN AND PELVIS: No suspicious radiotracer activity. MUSCULOSKELETAL STRUCTURES: No suspicious radiotracer activity. Left shoulder posterior back physiologic uptake in the muscle max SUV 6.7. Mild uptake within the sternum max SUV 5.0 presumably posterior sternotomy changes. OTHER CT: Bilateral aphakia. Arthrosis course of the carotid bifurcations. Sternotomy wires are prese nt. Postoperative changes to the heart. Left atrial appendage occlusion device present. Right lower l nayan consolidation with calcifications unchanged from prior 02/08/2023. Right lower lobe posterior cost ophrenic angle nodule similar measuring 12 mm. Peripelvic renal cortical cysts. No abnormal uptake. N o follow-up recommended. Scattered colonic diverticula. Left hip arthroplasty appears intact. IMPRESSION: No suspicious radiotracer activity. [facility], , 01/21/2025 12:01 PM
== END | disposition home or self-care (01) ==
LOC: RADPETMAIN 15:27
PROVIDERS: ATTEND Internal Medicine Hematology & Oncology
DX: C90.00 Multiple myeloma not having achieved remission (principal); K57.30 Diverticulosis of large intestine without perforation or abscess without bleeding; N28.1 Cyst of kidney, acquired; H27.03 Aphakia, bilateral
CPT/HCPCS: 78815; A9552